=== PATIENT | female | born 1945 | race American Indian/Alaskan Native ===

== ENCOUNTER 2017-08-24 21:17 | Emergency (ER) | payer MEDICARE, MEDICAID ==
[2017-08-24 21:22] VITALS: BMI 32.9
[2017-08-24] MEDS ORDERED: HYDROmorphone 1 mg/ml ISec IM STA (21:43)
[2017-08-24 21:45] VITALS: TEMP 98.4
--- NOTE | 2017-08-24 21:53 | ED PDOC ---
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 Patient reports when she woke up and tried to get out of bed, had difficulty doing so due to pain. She notes pain does not radiating, only remains to lower back. Does not normally experience back pain and is uncertain what happened. Patient denies any falls, urinary output changes, urinary frequency, numbness/weakness to lower extremities, or any other complaints. Also, takes Percocet and has port-a-cath for iron input due to being anemic. PMD: Dr. Park Time/Duration: Other (last night and earlier this morning) Symptom Onset: Sudden Symptom Course: Unchanged Past Medical History - Provider Review Nursing Documentation Reviewed: Yes - Infectious Disease Hx of Infectious Diseases: None - Tetanus Immunization Tetanus Immunization: Unknown - Cardiac Hx Cardiac Disorders: Yes Hx Circulatory Problems: Yes Hx Congestive Heart Failure: Yes Hx Hypertension: Yes Hx Peripheral Vascular Disease: Yes - Pulmonary Hx Respiratory Disorders: Yes Hx Asthma: Yes Hx Bronchitis: Yes - Neurological Hx Neurological Disorder: Yes HX Cerebrovascular Accident: Yes (L SIDED WEAKNESS) Hx Seizures: Yes - HEENT Hx HEENT Disorder: Yes Hx Cataracts: Yes (mild cataracts per patient) - Renal Hx Renal Disorder: No - Endocrine/Metabolic Hx Endocrine Disorders: No - Hematological/Oncological Hx Blood Disorders: Yes Hx Anemia: Yes Hx Cancer: Yes (L BREAST CA) Hx Cirrhosis: Yes - Integumentary Hx Dermatological Disorder: Yes Hx Psoriasis: Yes Other/Comment: bilat hip incision line - Musculoskeletal/Rheumatological Hx Musculoskeletal Disorders: Yes Hx Arthritis: Yes Hx Falls: Yes Hx Unsteady Gait: Yes - Gastrointestinal Hx Gastrointestinal Disorders: Yes Hx Gastroesophageal Reflux: Yes - Genitourinary/Gynecological Hx Genitourinary Disorders: No - Psychiatric Hx Psychophysiologic Disorder: Yes Hx Bipolar Disorder: Yes Hx Depression: Yes Hx Emotional Abuse: No Hx Physical Abuse: No Hx Sexual Abuse: No Hx Substance Use: No Other/Comment: INSOMNIA - Surgical History Hx Joint Replacement: Yes Hx Orthopedic Surgery: Yes (Bilateral) Hx Tubal Ligation: Yes Other/Comment: R BREAST LUMPECTOMY (2012), BL HIP REPLACEMENT, BL KNEE REPLACEMENT - Anesthesia Hx Anesthesia: Yes Hx Anesthesia Reactions: No Hx Malignant Hyperthermia: No - Suicidal Assessment Feels Threatened In Home Enviroment: No Family/Social History - Physician Review Nursing Documentation Reviewed: Yes Family/Social History: No Known Family HX Smoking Status: Former Smoker Hx Alcohol Use: Yes Hx Substance Use: No Hx Substance Use Treatment: No Allergies/Home Meds Allergies/Adverse Reactions: Allergies Penicillins Allergy (Verified 08/24/17 21:24) RASH pt tested as a child Home Medications: Home Meds Medication Instructions Recorded Confirmed FLUoxetine [Prozac] 40 mg PO DAILY 07/22/13 08/24/17 Cyclobenzaprine HCl [Flexeril] 10 mg PO BID 03/02/15 08/24/17 Docusate [Colace] 200 mg PO HS 03/02/15 08/24/17 Ferrous Sulfate [Feosol] 325 mg PO TID 03/02/15 08/24/17 Furosemide [Lasix] 20 mg PO BID 03/02/15 08/24/17 Topiramate [Topamax] 50 mg PO BID 03/02/15 08/24/17 amLODIPine [Norvasc] 10 mg PO DAILY 03/02/15 08/24/17 Acetaminophen [Tylenol 325mg tab] 650 mg PO Q4 PRN 08/23/15 08/24/17 Oxycodone HCl/Acetaminophen 1 tab PO Q8 PRN 08/23/15 08/24/17 [Oxycodone-Acetaminophen 5-325] Cetirizine HCl [Zyrtec] 10 mg PO DAILY 05/18/16 08/24/17 Clobetasol Propionate/Emoll 1 foa TOP BID 05/18/16 08/24/17 [Clobetasol Emollnt 0.05% Foam] Melatonin [Melatin] 1 tab PO HS 05/18/16 08/24/17 Omeprazole 40 mg PO DAILY 05/18/16 08/24/17 Pregabalin [Lyrica] 50 mg PO HS 05/18/16 08/24/17 Propylene Glycol/Peg 400/Pf 1 drop BOTHEYES BID 05/18/16 08/24/17 [Systane Ultra 0.4-0.3% Eye Drp] Anastrozole 1 mg PO DAILY 09/09/16 08/24/17 Fluticasone/Salmeterol 250/50 1 dsk IH DAILY 09/09/16 08/24/17 [Advair Diskus 250/50] Review of Systems - Physician Review All systems were reviewed & negative as marked: Yes - Review of Systems Constitutional: absent: Other (falls) Genitourinary Female: absent: Frequency, Urine Output Changes Musculoskeletal: Back Pain (lower back pain, does not radiating elsewhere) Physical Exam Vital Signs Reviewed: Yes Vital Signs Temp Pulse Resp BP Pulse Ox 08/25/17 03:17 68 19 139/75 100 08/25/17 00:30 73 18 146/73 97 08/24/17 21:44 98.4 F 74 19 129/59 L 96 Temperature: Afebrile Blood Pressure: Normal Pulse: Regular Respiratory Rate: Normal Appearance: Positive for: Well-Appearing Pain Distress: Severe Mental Status: Positive for: Alert and Oriented X 3 - Systems Exam Head: Present: Atraumatic, Normocephalic Pupils: Present: PERRL Extroacular Muscles: Present: EOMI Conjunctiva: Present: Normal Mouth: Present: Moist Mucous Membranes Neck: Present: Normal Range of Motion Respiratory/Chest: Present: Clear to Auscultation, Good Air Exchange. No: Respiratory Distress, Accessory Muscle Use Cardiovascular: Present: Regular Rate and Rhythm, Normal S1, S2. No: Murmurs Abdomen: Present: Normal Bowel Sounds. No: Tenderness, Distention, Peritoneal Signs Back: Present: Other (diffused pain bilaterally to lower lumbar and sacral area) Upper Extremity: Present: Normal Inspection. No: Cyanosis, Edema Lower Extremity: Present: Normal Inspection. No: Edema Neurological: Present: Other (4/5 strenght to lower extremities) Skin: Present: Warm, Dry, Normal Color. No: Rashes Psychiatric: Present: Alert, Oriented x 3, Normal Insight, Normal Concentration Medical Decision Making ED Course and Treatment: 08/24/17 21:41 Impression: 72 year old female with lower back pain. Physical exam shows diffuse pain bilaterally to lower lumber and sacral area. Plan: -- Lumbar Spinal CT -- Labs -- Dilaudid -- Urinalysis -- Reassess and disposition Prior Visits: Notes and results from previous visits were reviewed. Patient was last seen in the emergency department on 09/09/2016 for fall. Patient was admitted. Progress Notes: 08/24/2017 22:[address] IMPRESSION: Asymmetric enlargement of right iliopsoas muscle compared to left with associated intramuscular hypodensity and surrounding fatty stranding. Findings most consistent with hematoma. Abscess cannot be excluded. Study is limited due to lack of intravenous contrast. Correlate clinically. Dictator: Rik Khan MD 08/25/17 01:[address] Momin, whom is covering for Dr. Park, concerning right soas muscle, and has agreed to arrange further workup as outpatient. - Lab Interpretations Lab Results: 08/25/17 00:00 08/25/17 00:00 Lab Results 08/25/17 00:05: Urine Color Yellow, Urine Appearance Clear, Urine pH 6.5, Ur Specific [place] 1.015, Urine Protein 100 H, Urine Glucose (UA) Negative, Urine Ketones Negative, Urine Blood Negative, Urine Nitrate Negative, Urine Bilirubin Negative, Urine Urobilinogen 0.2, Ur Leukocyte Esterase Negative, Urine RBC 0 - 2, Urine WBC 0 - 2, Ur Epithelial Cells 0 - 2 08/25/17 00:00: Sodium 140, Potassium 4.6, Chloride 108 H, Carbon Dioxide 22, Anion Gap 15, BUN 43 H, Creatinine 3.1 H, Est GFR ( Amer) 18, Est GFR ( Non-Af Amer) 15, Random Glucose 92, Calcium 8.2 L, Total Bilirubin 0.3, AST 29, ALT 17, Alkaline Phosphatase 142 H, Total Protein 7.8, Albumin 3.8, Globulin 4.1 , Albumin/Globulin Ratio 0.9 L 08/25/17 00:00: WBC 7.5 D, RBC 2.95 L, Hgb 8.0 L, Hct 26.9 L, MCV 91.2, MCH 27.1, MCHC 29.7 L, RDW 16.1 H, Plt Count 300, MPV 8.9, Gran % 63.8, Lymph % ( Auto) 21.7 L, [place] % (Auto) 9.2 H, Eos % (Auto) 5.2 H, Baso % (Auto) 0.1, Gran # 4.79, Lymph # 1.6, [place] # 0.7 H, Eos # 0.4, Baso # 0.01 I have reviewed the lab results: Yes - RAD Interpretation Radiology Orders: 08/24/17 21:41 LUMBAR SPINE W/O CONTRAST [CT] Stat - Medication Orders Current Medication Orders: Discontinued Medications Hydromorphone HCl (Dilaudid) 1 mg IM STAT STA Stop: 08/24/17 21:44 Last Admin: 08/24/17 21:52 Dose: 1 mg MAR Pain Assessment Document 08/24/17 21:52 RD (Rec: 08/24/17 21:53 RD [id number]) Pain Reassessment Is this a pain reassessment? No Sleep Is patient sleeping during reassessment? No Presence of Pain Presence of Pain Yes Description Description Sharp Pain Behavior Crying Irritability Facial Grimacing Screaming Aggravating Factors ADL's Changing Position Exercise/Activity Alleviating Factors Lying Supine IM Administration Charges Document 08/24/17 21:52 RD (Rec: 08/24/17 21:53 RD [id number]) Injection Site MAR Injection Site Left Deltoid Charges for Administration # of IM Administrations 1 - Scribe Statement The provider has reviewed the documentation as recorded by the Fam Gaona Provider Scribe Attestation: All medical record entries made by the Gabibchirag were at my direction and personally dictated by me. I have reviewed the chart and agree that the record accurately reflects my personal performance of the history, physical exam, medical decision making, and the department course for this patient. I have also personally directed, reviewed, and agree with the discharge instructions and disposition. Disposition/Present on Arrival - Present on Arrival Any Indicators Present on Arrival: No History of DVT/PE: No History of Uncontrolled Diabetes: No Urinary Catheter: No History of Decub. Ulcer: No History Surgical Site Infection Following: None - Disposition Have Diagnosis and Disposition been Completed?: Yes Diagnosis: Spinal stenosis at L4-L5 level Disposition: HOME/ ROUTINE Disposition Time: 03:53 Patient Plan: Discharge Condition: FAIR Discharge Instructions (ExitCare): Lumbar Spinal Stenosis (ED) Additional Instructions: discuss with your doctors any adjustments in your pain regimen to addrezs your spinal stenosis Referrals: Cresencio Park, [Primary Care Provider] - Follow up with primary Forms: [employer] (Slovenian)
--- NOTE | 2017-08-24 22:35 | CT ---
EXAM: CT Lumbar Spine Without Intravenous Contrast CLINICAL HISTORY: 72 years old, female; Pain; Low back pain TECHNIQUE: Axial computed tomography images of the lumbar spine without intravenous contrast. All CT scans at this facility use one or more dose reduction techniques, viz.: automated exposure control; ma/kV adjustment per patient size (including targeted exams where dose is matched to indication; i.e. head); or iterative reconstruction technique. Coronal and sagittal reformatted images were created and reviewed. COMPARISON: No relevant prior studies available. FINDINGS: Vertebrae: No lytic or blastic lesions. Mild retrolisthesis of L1-L2. Moderate central canal stenosis at L2-L3. Moderate to severe central canal stenosis at L3-L4. Moderate central canal stenosis at L4-L5. No acute fracture. Discs/spinal canal/neural foramina: Diffuse lumbar spinal degenerative changes. Fusion of disc space at L5-S1. Vacuum disc at L1-L2, L3-L4, and L4-L5. Soft tissues: Asymmetric increased size of the right iliopsoas muscle when compared to the left. There is stranding of the adjacent fat. Central area is mixed in density. Series 4 image #92. Vasculature: Atherosclerotic vascular disease. IMPRESSION: Asymmetric enlargement of right iliopsoas muscle compared to left with associated intramuscular hypodensity and surrounding fatty stranding. Findings most consistent with hematoma. Abscess cannot be excluded. Study is limited due to lack of intravenous contrast. Correlate clinically.
[2017-08-25 00:25] LABS: PH,URINE 6.5 (4.7-8.0); URINE BILIRUBIN NEGATIVE (NEGATIVE); URINE BLOOD NEGATIVE (NEGATIVE); URINE GLUCOSE (UA) NEGATIVE (NEGATIVE); URINE KETONE NEGATIVE (NEGATIVE); URINE LEUKOCYTE ESTERASE NEGATIVE Leu/uL (NEGATIVE); URINE PROTEIN 100 mg/dL (<30 mg/dL); URINE UROBILINOGEN 0.2 E.U./dL (<1 E.U./dL)
[2017-08-25 00:28] LABS: URINE APPEARANCE CLEAR (CLEAR); URINE COLOR YELLOW (YELLOW)
[2017-08-25 00:37] LABS: ALB/GLOB RATIO 0.9 (1.1-1.8); BASO # 0.01 K/mm3 (0.0-2.0); BASO % 0.1 % (0.0-3.0); BILIRUBIN,TOTAL 0.3 mg/dL (0.2-1.3); CALCIUM 8.2 mg/dL (8.4-10.5); EOS # 0.4 (0.0-0.7); EOS % 5.2 % (1.5-5.0); GRAN # 4.79 (1.4-6.5); GRAN % 63.8 % (50.0-68.0); HEMATOCRIT 26.9 % (36.0-48.0); LYMPH # 1.6 (1.2-3.4); LYMPH % 21.7 % (22.0-35.0); MEAN CELL VOLUME 91.2 fl (80.0-105.0); MEAN CORPUSCULAR HEMOGLOBIN 27.1 pg (25.0-35.0); MEAN CORPUSCULAR HGB CONC 29.7 g/dl (31.0-37.0); MEAN PLATELET VOLUME 8.9 fl (7.0-11.0); MONO # 0.7 (0.1-0.6); MONO % 9.2 % (1.0-6.0); POTASSIUM 4.6 mmol/L (3.6-5.0); RED CELL DISTRIBUTION WIDTH 16.1 % (11.5-14.5); TOTAL PROTEIN 7.8 g/dL (5.8-8.3); WHITE BLOOD COUNT 7.5 10^3/ul (4.5-11.0)
[2017-08-25 01:05] LABS: URINE EPITHELIAL CELLS 0 - 2 /hpf (0-5); URINE RBC 0 - 2 /hpf (0-2); URINE WBC 0 - 2 /hpf (0-6)
[2017-08-25 03:18] VITALS: BP 139/75; PULSE 68; RESP 19; O2SAT 100
== END 2017-08-25 03:17 | disposition home or self-care (01) ==
LOC: ED 21:17
DX: M48.061 Spinal stenosis, lumbar region without neurogenic claudication (principal); I50.9 Heart failure, unspecified; I10 Essential (primary) hypertension; M06.9 Rheumatoid arthritis, unspecified; Z85.3 Personal history of malignant neoplasm of breast; Z87.891 Personal history of nicotine dependence; Z88.0 Allergy status to penicillin
CPT/HCPCS: 72131; 80053; 81001; 85025; 86140; 96372; 99284; J1170

== ENCOUNTER 2018-03-03 11:44 | Emergency (ER) | payer MEDICARE, MEDICAID ==
[2018-03-03 11:51] VITALS: BMI 28.4
--- NOTE | 2018-03-03 12:06 | ED PDOC ---
Arrival/HPI - General Chief Complaint: Altered Mental Status Time Seen by Provider: 03/03/18 12:03 Historian: Patient - History of Present Illness Narrative History of Present Illness (Text): 03/03/18 12:15 72 year old female, whose PMH includes CHF, hypertension, seizure, dialysis, and renal failure, who presents to the emergency department via EMS s/p AMS. [facility] was [facility] for [facility] and tremors, mainly on the right leg. Patient is a poor historian and denies any specific complaints. She is able to answer some of my questions, but it is limited history. 03/03/18 15:35 Time/Duration: Prior to Arrival Symptom Onset: Sudden Symptom Course: Unchanged Context: Home Past Medical History - Provider Review Nursing Documentation Reviewed: Yes - Infectious Disease Hx of Infectious Diseases: None - Tetanus Immunization Tetanus Immunization: Unknown - Cardiac Hx Cardiac Disorders: Yes ([place]) Hx Congestive Heart Failure: Yes Hx Hypertension: Yes - Pulmonary Hx Asthma: Yes Hx Bronchitis: Yes - Neurological Hx Seizures: Yes - HEENT Hx HEENT Disorder: Yes Hx Cataracts: Yes (mild cataracts per patient) - Renal Hx Dialysis: Yes Date of Last Dialysis Treatment: 02/28/18 Hx Renal Failure: Yes (CKD) - Endocrine/Metabolic Hx Endocrine Disorders: No - Hematological/Oncological Hx Anemia: Yes (IRON INFUSIONS QWKLY) - Integumentary Hx Dermatological Disorder: Yes Hx Psoriasis: Yes Other/Comment: bilat hip incision line - Musculoskeletal/Rheumatological Hx Arthritis: Yes - Gastrointestinal Hx Gastritis: Yes - Genitourinary/Gynecological Hx Genitourinary Disorders: No - Psychiatric Hx Bipolar Disorder: Yes Hx Depression: Yes Hx Substance Use: Yes (Sober 7-8yrs) - Surgical History Hx Joint Replacement: Yes Hx Orthopedic Surgery: Yes (Bilateral) Hx Tubal Ligation: Yes Other/Comment: R BREAST LUMPECTOMY (2013), BL HIP REPLACEMENT, BL KNEE REPLACEMENT - Anesthesia Hx Anesthesia: Yes Hx Anesthesia Reactions: No Hx Malignant Hyperthermia: No - Suicidal Assessment Feels Threatened In Home Enviroment: No Family/Social History - Physician Review Nursing Documentation Reviewed: Yes Family/Social History: Unknown Family HX Smoking Status: Former Smoker Hx Alcohol Use: Yes (Sober 7-8yrs) Hx Substance Use: Yes (Sober 7-8yrs) Hx Substance Use Treatment: No Allergies/Home Meds Allergies/Adverse Reactions: Allergies Penicillins Allergy (Verified 02/12/18 09:21) RASH pt tested as a child Home Medications: Home Meds Medication Instructions Recorded Confirmed Acetaminophen [Tylenol 325mg tab] 650 mg PO Q4 PRN 09/17/17 03/03/18 Anastrozole 1 tab PO DAILY 09/17/17 03/03/18 Cyclobenzaprine [Flexeril] 10 mg PO BID 09/17/17 03/03/18 Fluoxetine HCl [Prozac] 40 mg PO DAILY 09/17/17 03/03/18 Fluticasone/Salmeterol 250/50 1 puff IH Q12 09/17/17 03/03/18 [Advair Diskus 250/50] hydrALAZINE [Apresoline] 50 mg PO BID 09/17/17 03/03/18 Cetirizine HCl [Wal-Zyr] 1 tab PO DAILY 03/03/18 03/03/18 Docusate [Colace] 1 cap PO DAILY 03/03/18 03/03/18 Folic Acid/Vit B Complex and C 1 tab PO DAILY 03/03/18 03/03/18 [Yumiko-Fabby Tablet] Furosemide [Lasix] 1 tab PO DAILY 03/03/18 03/03/18 Ibuprofen [Motrin Tab] 1 tab PO Q8H PRN 03/03/18 03/03/18 Melatonin [Melatin] 1 tab PO DAILY 03/03/18 03/03/18 Saliva Stimulant Comb. No.7 42 gm MM DAILY 03/03/18 03/03/18 [Biotene Oralbalance] Sevelamer Carbonate [Renvela] 1 tab PO TID 03/03/18 03/03/18 Zolpidem [Ambien] 1 tab PO HS 03/03/18 03/03/18 Review of Systems - Review of Systems Systems not reviewed;Unavailable: Altered Mental Status Constitutional: Other (tremors) Respiratory: absent: SOB Cardiovascular: absent: Chest Pain Physical Exam Vital Signs Temp Pulse Resp BP Pulse Ox 03/03/18 15:36 98.2 F 65 18 156/69 H 100 03/03/18 15:28 98.2 F 65 18 156/69 H 100 03/03/18 14:53 65 18 146/50 L 97 03/03/18 12:39 98.9 F 68 18 143/69 100 Pain Distress: None Mental Status: No: Alert and Oriented X 3 (X 1) - Systems Exam Head: Present: Atraumatic, Normocephalic Pupils: Present: PERRL Extroacular Muscles: Present: EOMI Conjunctiva: Present: Normal Respiratory/Chest: Present: Clear to Auscultation, Good Air Exchange. No: Respiratory Distress, Accessory Muscle Use, Decreased Breath Sounds Cardiovascular: Present: Regular Rate and Rhythm, Normal S1, S2. No: Murmurs Abdomen: Present: Normal Bowel Sounds. No: Tenderness, Distention, Peritoneal Signs, Rebound, Guarding Neurological: Present: GCS=15, CN II-XII Intact, Speech Normal Skin: Present: Warm, Dry, Normal Color. No: Rashes Psychiatric: Present: Alert. No: Oriented x 3 (oriented X1) Medical Decision Making ED Course and Treatment: 03/03/18 Impression: 72 year old female who is alert and oriented x1 who presents to emergency department from [facility] for AMS and tremors . consider sepsis, intracranial pathology, uremia Plan: -- CT head -- Chest X-ray -- EKG -- Labs -- Urinalysis -- Reassess and disposition Progress Notes: EKG: Ordered, reviewed, and independently interpreted the EKG. Rate : 66 BPM Rhythm : NSR Interpretation : No ST-segment elevations or depressions, no T-wave inversions, normal intervals. 03/03/18 15:35 case discusse [facility] dr gutiérrez, who saw pt bedside. pt will be transfered to [facility], for hd and admission. case discussed [facility] dr hidalgo, arrangements made for hd today. minimal leukocytosis, empiric levaquin given. 03/04/18 11:31 minimal righttremor. ?partial seizure ativan given. - Lab Interpretations Microbiology Results: Microbiology Results 03/03/18 15:38 Urine Urine Culture - Final No Growth (<1,000 CFU/ML) Lab Results: 03/03/18 12:00 03/03/18 12:00 Lab Results 03/03/18 15:38: Urine Color Light yellow, Urine Appearance Clear, Urine pH 8.0, Ur Specific [place] 1.010, Urine Protein 100 H, Urine Glucose (UA) 100 H, Urine Ketones Negative, Urine Blood Negative, Urine Nitrate Negative, Urine Bilirubin Negative, Urine Urobilinogen 0.2, Ur Leukocyte Esterase Negative, Urine RBC Negative, Urine WBC 0 - 2, Ur Epithelial Cells 0 - 2, Urine Bacteria None 03/03/18 12:00: pO2 98 H, VBG pH 7.41, VBG pCO2 46.0, VBG HCO3 29.2 H, VBG Total CO2 30.6 H, VBG O2 Sat (Calc) 98.8 H, VBG Base Excess 3.8 H, VBG Potassium 4.5, Sodium 128.0 L, Chloride 95.0 L, Glucose 111 H, Lactate 0.9, FiO2 21.0, Venous Blood Potassium 4.5 03/03/18 12:00: Sodium 130 L, Chloride 91 L, Potassium 4.4, Carbon Dioxide 27, Anion Gap 16, BUN 53 H, Creatinine 5.5 H, Est GFR ( Amer) 9, Est GFR (Non -Af Amer) 8, Random Glucose 108, Calcium 9.5, Magnesium 2.3 H, Total Bilirubin 0.3, AST 38 H D, ALT 19, Alkaline Phosphatase 89, Lactate Dehydrogenase 323 L, Total Creatine Kinase 43, Troponin I < 0.01, Total Protein 7.0, Albumin 3.6, Globulin 3.3, Albumin/Globulin Ratio 1.1 03/03/18 12:00: PT 11.7, INR 1.02, APTT 27.9 03/03/18 12:00: WBC 11.5 H D, RBC 2.54 L, Hgb 8.4 L, Hct 25.5 L, MCV 100.4 D, MCH 33.1, MCHC 32.9, RDW 14.1, Plt Count 314, MPV 8.7, Gran % 75.0 H, Lymph % ( Auto) 14.2 L, [place] % (Auto) 9.1 H, Eos % (Auto) 1.5, Baso % (Auto) 0.2, Gran # 8.64 H, Lymph # (Auto) 1.6, [place] # (Auto) 1.1 H, Eos # (Auto) 0.2, Baso # (Auto ) 0.02 I have reviewed the lab results: Yes - RAD Interpretation Radiology Orders: 03/03/18 12:15 CHEST PORTABLE [RAD] Stat 03/03/18 12:17 HEAD W/O CONTRAST [CT] Stat C D Reactor Operator: Radiologist - EKG Interpretation Interpreted by ED Physician: Yes Type: 12 lead EKG - Medication Orders Current Medication Orders: Discontinued Medications Levofloxacin/Dextrose (Levaquin 750mg) 750 mg in 150 mls @ 100 mls/hr IVPB STAT STA PRN Reason: Protocol Stop: 03/03/18 14:54 Last Admin: 03/03/18 14:19 Dose: 100 mls/hr eMAR Start Stop Document 03/03/18 14:19 ELISSA (Rec: 03/03/18 14:20 ELISSA [id number]) Intravenous Solution Start Date 03/03/18 Start Time 14:19 End Date 03/03/18 End time 15:19 Total Infusion Time 60 Lorazepam (Ativan) 0.5 mg IVP ONCE ONE PRN Reason: Protocol Stop: 03/03/18 14:55 Last Admin: 03/03/18 15:23 Dose: 0.5 mg IVP Administration Document 03/03/18 15:23 OCS (Rec: 03/03/18 15:24 OCS [id number]) Charges for Administration # of IVP Administrations 1 Ondansetron HCl (Zofran Inj) 4 mg IVP STAT STA Stop: 03/03/18 14:06 Last Admin: 03/03/18 14:19 Dose: 4 mg IVP Administration Document 03/03/18 14:19 ELISSA (Rec: 03/03/18 14:19 ELISSA [id number]) Charges for Administration # of IVP Administrations 1 - Scribe Statement The provider has reviewed the documentation as recorded by the Fam Silva Provider Gabibe Attestation: All medical record entries made by the Scribe were at my direction and personally dictated by me. I have reviewed the chart and agree that the record accurately reflects my personal performance of the history, physical exam, medical decision making, and the department course for this patient. I have also personally directed, reviewed, and agree with the discharge instructions and disposition. Disposition/Present on Arrival - Present on Arrival Any Indicators Present on Arrival: No History of DVT/PE: No History of Uncontrolled Diabetes: No Urinary Catheter: No History of Decub. Ulcer: No History Surgical Site Infection Following: None - Disposition Have Diagnosis and Disposition been Completed?: Yes Diagnosis: Tremor, Altered mental status, ESRD (end stage renal disease) Disposition: HOSPITALIZED Disposition Time: 03:00 Patient Problems: Current Active Problems Problem Status Onset Renal insufficiency Acute Condition: STABLE Forms: [employer] (Latvian)
[2018-03-03 12:40] VITALS: RESP 18
[2018-03-03 12:45] LABS: BASO # 0.02 K/mm3 (0.0-2.0); BASO % 0.2 % (0.0-3.0); EOS # 0.2 (0.0-0.7); EOS % 1.5 % (1.5-5.0); GRAN # 8.64 (1.4-6.5); HEMOGLOBIN 8.4 g/dL (12.0-16.0); LYMPH # 1.6 (1.2-3.4); LYMPH % 14.2 % (22.0-35.0); MEAN CELL VOLUME 100.4 fl (80.0-105.0); MEAN CORPUSCULAR HEMOGLOBIN 33.1 pg (25.0-35.0); MEAN CORPUSCULAR HGB CONC 32.9 g/dl (31.0-37.0); MEAN PLATELET VOLUME 8.7 fl (7.0-11.0); MONO # 1.1 (0.1-0.6); MONO % 9.1 % (1.0-6.0); RBC 2.54 10^6/uL (3.5-6.1); RED CELL DISTRIBUTION WIDTH 14.1 % (11.5-14.5); VENOUS BLOOD GAS BASE EXCESS 3.8 mmol/L (0.0-2.0); VENOUS BLOOD GAS PO2 98 mm/Hg (30-55); VENOUS BLOOD PH 7.41 (7.32-7.43); WHITE BLOOD COUNT 11.5 10^3/ul (4.5-11.0)
[2018-03-03 12:55] LABS: ALB/GLOB RATIO 1.1 (1.1-1.8); ALBUMIN 3.6 g/dL (3.0-4.8); ALT/SGPT 19 U/L (7-56); AST/SGOT 38 U/L (14-36); BLOOD UREA NITROGEN 53 mg/dL (7-21); CALCIUM 9.5 mg/dL (8.4-10.5); GFR AFRICAN-AMERICAN 9; GFR NON-AFRICAN AMERICAN 8
[2018-03-03 12:58] LABS: INR 1.02 (0.93-1.08); PARTIAL THROMBOPLASTIN TIME 27.9 Seconds (25.1-36.5); PROTHROMBIN TIME 11.7 SECONDS (9.4-12.5)
[2018-03-03 13:05] LABS: TROPONIN I < 0.01 ng/mL
[2018-03-03] MEDS ORDERED: levoFLOXacin 750 mg in D5W 750 MG/150 ML BAG IVPB STA (13:25)
--- NOTE | 2018-03-03 14:47 | CT ---
PROCEDURE: CT HEAD WITHOUT CONTRAST. HISTORY: ams COMPARISON: None available. TECHNIQUE: Axial computed tomography images were obtained through the head/brain without intravenous contrast. Radiation dose: Total exam DLP = 829 mGy-cm. This CT exam was performed using one or more of the following dose reduction techniques: Automated exposure control, adjustment of the mA and/or kV according to patient size, and/or use of iterative reconstruction technique. FINDINGS: HEMORRHAGE: No intracranial hemorrhage. BRAIN: No mass effect or edema. No atrophy or chronic microvascular ischemic changes. VENTRICLES: Unremarkable. No hydrocephalus. CALVARIUM: Unremarkable. PARANASAL SINUSES: Unremarkable as visualized. No significant inflammatory changes. MASTOID AIR CELLS: Unremarkable as visualized. No inflammatory changes. OTHER FINDINGS: None. IMPRESSION: No acute finding
[2018-03-03 14:55] VITALS: PULSE 65
--- NOTE | 2018-03-03 15:06 | RAD ---
HISTORY: Altered mental status. COMPARISON: 09/09/2016 FINDINGS: LUNGS: No active pulmonary disease. PLEURA: No significant pleural effusion identified, no pneumothorax apparent. CARDIOVASCULAR: No radiographic findings to suggest acute or significant cardiovascular disease. Venous access catheter in stable, satisfactory position. OSSEOUS STRUCTURES: No significant abnormalities. VISUALIZED UPPER ABDOMEN: Normal. OTHER FINDINGS: None. IMPRESSION: No active disease. No significant interval change compared to the prior examination(s).
[2018-03-03 15:29] VITALS: BP 156/69; TEMP 98.2; O2SAT 100
[2018-03-03 16:00] LABS: URINE APPEARANCE CLEAR (CLEAR); URINE BILIRUBIN NEGATIVE (NEGATIVE); URINE BLOOD NEGATIVE (NEGATIVE); URINE COLOR LIGHT YELLOW (YELLOW); URINE GLUCOSE (UA) 100 mg/dL (NEGATIVE); URINE LEUKOCYTE ESTERASE NEGATIVE Leu/uL (NEGATIVE); URINE PROTEIN 100 mg/dL (<30 mg/dL); URINE UROBILINOGEN 0.2 E.U./dL (<1 E.U./dL)
[2018-03-03 16:11] LABS: URINE EPITHELIAL CELLS 0 - 2 /hpf (0-5); URINE RBC NEGATIVE /hpf (0-2); URINE WBC 0 - 2 /hpf (0-6)
--- NOTE | 2018-03-04 08:01 | CARD ---
APPROVED REPORT EKG Measurement Heart [id number] <Conclusion> Normal sinus rhythm Normal ECG
== END 2018-03-03 15:36 | disposition short-term general hospital (02) ==
LOC: ED 11:44
DX: I12.0 Hypertensive chronic kidney disease with stage 5 chronic kidney disease or end stage renal disease (principal); N18.6 End stage renal disease; Z99.2 Dependence on renal dialysis; Z87.891 Personal history of nicotine dependence; R41.82 Altered mental status, unspecified; R25.1 Tremor, unspecified
CPT/HCPCS: 70450; 71045; 80053; 81001; 82550; 82803; 83615; 83735; 84484; 85025; 85610; 85730; 87040; 87086; 93005; 96365; 96375; 99285; J2060; J2405

== ENCOUNTER 2018-07-17 18:49 | Observation (INO) | payer MEDICARE, MEDICAID ==
[2018-07-17 19:06] VITALS: BMI 29.2
--- NOTE | 2018-07-17 19:31 | ED PDOC ---
Arrival/HPI - General Chief Complaint: Groin Pain Time Seen by Provider: 07/17/18 19:07 Historian: Patient - History of Present Illness Narrative History of Present Illness (Text): 07/17/18 19:30 73 year old female whose past medical history includes CVA, myocardial infarction, and CHF, who presents to the Emergency department complaining of right sided groin pain, which started last night while laying supine. Patient receives dialysis every Saturday, Saturday, and Saturday at [facility], and states that she was fine yesterday while undergoing dialysis. She states that she can't move her right lower extremity secondary to the pain, and denies pain radiating down her lower extremity. She denies any erythema or bleeding to her groin region. Patient hasn't urinated or had a bowel movement since yesterday. Of note she is allergic to penicillin. She denies any leg pain, but admits to lower extremity spasms. Patient feels cold but otherwise denies fevers, chills, cough, shortness of breath, chest pain, dyspnea on exertion, abdominal pain, nausea, vomiting, diarrhea, back pain, neck pain, headache, dizziness, or any other complaint. 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: Time/Duration: Other (Yesterday night.) Symptom Onset: Sudden Symptom Course: Unchanged Context: Home Past Medical History - Provider Review Nursing Documentation Reviewed: Yes - Infectious Disease Hx of Infectious Diseases: None - Tetanus Immunization Tetanus Immunization: Unknown - Cardiac Hx Congestive Heart Failure: Yes Hx Hypertension: Yes - Pulmonary Hx Asthma: Yes Hx Bronchitis: Yes Hx Chronic Obstructive Pulmonary Disease (COPD): Yes - Neurological HX Cerebrovascular Accident: Yes Hx Seizures: Yes - HEENT Hx HEENT Disorder: Yes Hx Cataracts: Yes (mild cataracts per patient) - Renal Hx Renal Disorder: Yes Hx Renal Failure: Yes - Endocrine/Metabolic Hx Endocrine Disorders: No Other/Comment: pvd - Hematological/Oncological Hx Anemia: Yes (IRON INFUSIONS QWKLY) - Integumentary Hx Dermatological Disorder: Yes Hx Psoriasis: Yes Other/Comment: bilat hip incision line - Musculoskeletal/Rheumatological Hx Arthritis: Yes - Gastrointestinal Hx Gastritis: Yes - Genitourinary/Gynecological Hx Genitourinary Disorders: No - Psychiatric Hx Bipolar Disorder: Yes Hx Depression: Yes Hx Substance Use: No - Surgical History Hx Joint Replacement: Yes Hx Orthopedic Surgery: Yes (Bilateral) Hx Tubal Ligation: Yes Other/Comment: R BREAST LUMPECTOMY (2013), BL HIP REPLACEMENT, BL KNEE REPLACEMENT, left AV shunt, portacath insertion - Anesthesia Hx Anesthesia: Yes Hx Anesthesia Reactions: No Hx Malignant Hyperthermia: No - Suicidal Assessment Feels Threatened In Home Enviroment: No Family/Social History - Physician Review Nursing Documentation Reviewed: Yes Family/Social History: Unknown Family HX Smoking Status: Former Smoker Hx Alcohol Use: Yes Hx Substance Use: No Hx Substance Use Treatment: No Allergies/Home Meds Allergies/Adverse Reactions: Allergies Penicillins Allergy (Verified 05/23/18 19:44) RASH pt tested as a child Home Medications: Home Meds Medication Instructions Recorded Confirmed RX: Acetaminophen [Non-Aspirin 650 mg PO Q4 PRN MDD 3 G 07/18/18 07/18/18 Pain Relief] RX: Acetaminophen [Tylenol] 325 mg PO Q4 PRN MDD 3 G 07/18/18 07/18/18 RX: Amino Acids/Protein Hydrolys 30 ml NA BID 07/18/18 07/18/18 [Pro-Stat Profile Liquid] RX: Anastrozole [Arimidex 1 mg Tab] 1 mg PO DAILY 07/18/18 07/18/18 RX: Cyclobenzaprine [Flexeril] 10 mg PO Q12 PRN 07/18/18 07/18/18 RX: Docusate Sodium [Cross' 100 mg PO DAILY 07/18/18 07/18/18 Laxative] RX: Dry Mouth Mouthwash [Biotene 30 ml MM Q8 PRN 07/18/18 07/18/18 Dry Mouth Mouthwash] RX: Fluoxetine HCl [Prozac] 40 mg PO HS 07/18/18 07/18/18 RX: Fluticasone/Salmeterol [Advair 1 each IH Q12 07/18/18 07/18/18 250-50 Diskus] RX: Folic Acid/Vit B Complex and C 1 tab PO DAILY 07/18/18 07/18/18 [Yumiko-Fabby Tablet] RX: Furosemide [Lasix] 40 mg PO DAILY 07/18/18 07/18/18 RX: Ibuprofen [Motrin Tab] 400 mg PO Q8 PRN 07/18/18 07/18/18 RX: Lidocaine 5% [Lidoderm] 1 patch TOP DAILY 07/18/18 07/18/18 RX: Mag Hydrox/Aluminum Hyd/Simeth 30 ml PO Q4 PRN 07/18/18 07/18/18 [Mag-Al Plus Xs Suspension] RX: Magnesium Oxide [Mag-Oxide 400 mg PO DAILY 07/18/18 07/18/18 Magnesium] RX: Melatonin [Melatin] 3 mg PO HS 07/18/18 07/18/18 RX: Zolpidem [Ambien] 10 mg PO HS PRN 07/18/18 07/18/18 RX: cloNIDine [Catapres] 0.2 mg PO DAILY 07/18/18 07/18/18 RX: clonazePAM [Klonopin] 0.25 mg PO BID 07/18/18 07/18/18 RX: hydrALAZINE [Apresoline] 50 mg PO Q12 07/18/18 07/18/18 Review of Systems - Physician Review All systems were reviewed & negative as marked: Yes - Review of Systems Constitutional: absent: Fevers, Night Sweats Respiratory: absent: SOB, Cough Cardiovascular: absent: Chest Pain Gastrointestinal: absent: Abdominal Pain, Diarrhea, Nausea, Vomiting Musculoskeletal: Other (right sided groin pain). absent: Back Pain, Neck Pain Physical Exam Vital Signs Reviewed: Yes Vital Signs Temp Pulse Resp BP Pulse Ox 07/17/18 18:56 98.5 F 65 18 128/47 L 98 Temperature: Afebrile Blood Pressure: Normal Pulse: Regular Respiratory Rate: Normal Appearance: Positive for: Well-Appearing Mental Status: Positive for: Alert and Oriented X 3 - Systems Exam Head: Present: Atraumatic, Normocephalic Pupils: Present: PERRL Extroacular Muscles: Present: EOMI Conjunctiva: Present: Normal Mouth: Present: Moist Mucous Membranes Neck: Present: Normal Range of Motion Respiratory/Chest: Present: Clear to Auscultation, Good Air Exchange, Other (portacath on right side of chest.). No: Respiratory Distress, Accessory Muscle Use Cardiovascular: Present: Regular Rate and Rhythm, Normal S1, S2. No: Murmurs Abdomen: Present: Tenderness (Tenderness to palpation of right inguinal area), Other (pain to right inguinal area with leg raise). No: Distention, Peritoneal Signs, Hernias (unable to feel palpable hernia in right groin region) Back: Present: Normal Inspection Upper Extremity: Present: Other (AV fistula at left upper extremity with palpable thrill.). No: Cyanosis, Edema Lower Extremity: Present: Normal Inspection. No: Edema Neurological: Present: GCS=15, CN II-XII Intact, Speech Normal Skin: Present: Warm, Dry, Normal Color. No: Rashes Psychiatric: Present: Alert, Oriented x 3, Normal Insight, Normal Concentration Medical Decision Making ED Course and Treatment: 07/17/18 19:31 Impression: 73 year old female complaining of right inguinal pain that started yesterday night. Differential Diagnosis included but are not limited to: Strangulated hernia Abscess Sepsis Plan: -- VBG -- Abdominal CT without contrast -- Labs -- Blood work -- Chest X-ray -- Toradol -- IV fluids -- Reassess and disposition Prior Visits: Notes and results from previous visits were reviewed. Progress Notes: 07/17/18 20:40 Labs reviewed with profound hyponatremia to 129 noted as well as low chloride. CXR reveals bilateral haziness with cephalization and pulmonanry congestion. Pending CT a/p. Discussed case with Dr. Amaya who will resume the patient's care. - Scribe Statement The provider has reviewed the documentation as recorded by the Scribe Justin Green Provider Scribe Attestation: All medical record entries made by the Scribe were at my direction and personally dictated by me. I have reviewed the chart and agree that the record accurately reflects my personal performance of the history, physical exam, medical decision making, and the department course for this patient. I have also personally directed, reviewed, and agree with the discharge instructions and disposition. Disposition/Present on Arrival - Present on Arrival Any Indicators Present on Arrival: No History of DVT/PE: No History of Uncontrolled Diabetes: No Urinary Catheter: No History of Decub. Ulcer: No History Surgical Site Infection Following: None - Disposition Have Diagnosis and Disposition been Completed?: Yes Diagnosis: Right groin pain Disposition: HOSPITALIZED Disposition Time: 21:00 Condition: STABLE
[2018-07-17] MEDS ORDERED: Sodium Chloride 0.9% 1,000 ML IV STA (19:42)
[2018-07-17 20:20] LABS: BASO # 0.02 K/mm3 (0.0-2.0); BASO % 0.2 % (0.0-3.0); EOS # 0.5 (0.0-0.7); EOS % 4.6 % (1.5-5.0); GRAN # 6.38 (1.4-6.5); GRAN % 63.6 % (50.0-68.0); HEMOGLOBIN 10.4 g/dL (12.0-16.0); LYMPH # 2.1 (1.2-3.4); LYMPH % 20.7 % (22.0-35.0); MEAN CELL VOLUME 102.8 fl (80.0-105.0); MEAN CORPUSCULAR HEMOGLOBIN 32.2 pg (25.0-35.0); MEAN CORPUSCULAR HGB CONC 31.3 g/dl (31.0-37.0); MEAN PLATELET VOLUME 8.6 fl (7.0-11.0); MONO # 1.1 (0.1-0.6); MONO % 10.9 % (1.0-6.0); RBC 3.23 10^6/uL (3.5-6.1); RED CELL DISTRIBUTION WIDTH 16.1 % (11.5-14.5)
[2018-07-17 20:21] LABS: VENOUS BLOOD GAS PO2 84 mm/Hg (30-55)
[2018-07-17 20:32] LABS: ALBUMIN 3.6 g/dL (3.0-4.8); CALCIUM 8.5 mg/dL (8.4-10.5)
[2018-07-17 20:52] LABS: INR 0.98; PARTIAL THROMBOPLASTIN TIME 26.2 Seconds (25.1-36.5); PROTHROMBIN TIME 11.2 SECONDS (9.4-12.5)
--- NOTE | 2018-07-17 21:29 | ED PDOC ---
Physical Exam Vital Signs Reviewed: Yes Vital Signs Temp Pulse Resp BP Pulse Ox 07/17/18 18:56 98.5 F 65 18 128/47 L 98 Temperature: Afebrile Blood Pressure: Normal Pulse: Regular Respiratory Rate: Normal Appearance: Positive for: Well-Appearing, Non-Toxic, Comfortable Pain Distress: None Mental Status: Positive for: Alert and Oriented X 3 Medical Decision Making ED Course and Treatment: 07/17/18 22:05 Patient endorsed to me by Dr. Cuba. Patient presented with right inguinal pain. Patient is pending CT results, will likely require admission. 07/18/18 01:16 patient has focal right inguinal pain, no low back pain with radicular symptoms, patient denies diarrhea or vomiting, no edema in the leg, no productive cough. on exam, it is confirmed that the patient has focal right inguinal pain at the medial anterior thigh. at this point with expand differential to rule out DVT. f urthermore, patient is having intractable pain and would require admit. Patient does not remember falling. 07/18/18 01:18 07/18/18 03:10 admit accepted by BRITT Gonzalez covering with Dr. Park. Patient to be admitted for intractable pain, s/p fall, patient continues to have and will admit for observation. - Lab Interpretations Lab Results: 07/17/18 20:00 07/17/18 20:00 Lab Results 07/17/18 20:00: Sodium 129 L, Chloride 88 L, Potassium 4.4, Carbon Dioxide 32, Anion Gap 13, BUN 42 H, Creatinine 4.7 H, Est GFR ( Amer) 11, Est GFR (Non-Af Amer) 9, Random Glucose 86, Calcium 8.5, Magnesium 2.5 H, Total Bilirubin 0.2, AST 42 H D, ALT 13, Alkaline Phosphatase 128 H, Total Protein 7.3, Albumin 3.6, Globulin 3.7, Albumin/Globulin Ratio 1.0 L 07/17/18 20:00: pO2 84 H, VBG pH 7.40, VBG pCO2 50.0, VBG HCO3 31.0 H, VBG Total CO2 32.5 H, VBG O2 Sat (Calc) 97.7 H, VBG Base Excess 5.0 H, VBG Potassium 4.3, Sodium 127.0 L, Chloride 90.0 L, Glucose 85, Lactate 0.9, FiO2 21.0, Venous Blood Potassium 4.3 07/17/18 20:00: PT 11.2, INR 0.98, APTT 26.2 07/17/18 20:00: WBC 10.0, RBC 3.23 L, Hgb 10.4 L D, Hct 33.2 L, MCV 102.8, MCH 32.2, MCHC 31.3, RDW 16.1 H, Plt Count 325, MPV 8.6, Gran % 63.6, Lymph % (Auto) 20.7 L, [place] % (Auto) 10.9 H, Eos % (Auto) 4.6, Baso % (Auto) 0.2, Gran # 6.38, Lymph # (Auto) 2.1, [place] # (Auto) 1.1 H, Eos # (Auto) 0.5, Baso # (Auto) 0.02 - RAD Interpretation Narrative RAD Interpretations (Text): 07/18/18 01:05 date of service: 07/17/[address] Abdomen without intravenous contrast History ESRD with groin pain. Comparison None. Technique Axial images of the abdomen from lung bases to iliac crest without oral or intravenous contrast enhancement. Coronal and sagittal reformats generated. Oral contrast also administered. Radiation dose: Total exam DLP = 909.14 mGy-cm. This CT exam was performed using one or more of the following dose reduction techniques: Automated exposure control, adjustment of the mA and/or kV according to patient size, and/or use of iterative reconstruction technique. Findings Lower thorax There is confluent opacity noted at the right lung base suspicious for pneumonia. Opacity is also present in the lingula. Liver Unremarkable. No gross lesion or ductal dilatation. Gallbladder and bile ducts Unremarkable. Pancreas Unremarkable. No gross lesion or ductal dilatation. Spleen Unremarkable. Adrenals: Unremarkable. No mass. Kidneys and ureters Both kidneys are moderately atrophic with evidence of cortical thinning and scarring. Vasculature Unremarkable. No aortic aneurysm. Bowel No obstruction. There are fluid-filled thick-walled loops of small bowel present consistent with enteritis. Appendix Normal appendix. Peritoneum Unremarkable. No free fluid. No free air. Lymph nodes Unremarkable. No enlarged lymph nodes. Bladder Unremarkable. Reproductive Uterus and ovaries appear atrophic. Bones Patient is status post bilateral total hip replacement. Hardware is intact. Multilevel degenerative spondylosis is present. Other Findings None. Impression 1. Moderately atrophic kidneys with evidence of cortical thinning and scarring. 2. Evidence of enteritis. 3. Confluent opacity at the right lung base suspicious for pneumonia. 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 No Description Intensity of Pain at present 8 IVP Administration Document 07/17/18 20:10 AD (Rec: 07/17/18 20:14 AD [id number]) Charges for Administration # of IVP Administrations 1 Disposition/Present on Arrival - Present on Arrival Any Indicators Present on Arrival: No History of DVT/PE: No History of Uncontrolled Diabetes: No Urinary Catheter: No History of Decub. Ulcer: No History Surgical Site Infection Following: None - Disposition Have Diagnosis and Disposition been Completed?: Yes Diagnosis: Right groin pain Disposition: HOSPITALIZED Disposition Time: 03:12 Patient Plan: Observation Condition: STABLE Forms: [employer] (Lao)
--- NOTE | 2018-07-18 05:42 | CP.PCM.PCO ---
<Orlando Chin - Last Filed: 07/18/18 05:53> Physician Communication Note - Physician Communication Note Physician Communication Note: Patient Evaluated Overnight: Addendum Addendum: 07/18/18 05:36 S: Nursing called to inform resident that patient was complaining of L arm pain; Upon evaluation pain was localized to patient's left hand. Palmar aspect of her fingers. No tenderness to palpation was noted; She reports her pain has been going on for approximately 1-2 days. As per ED Note: She states that she can't move her right lower extremity secondary to the pain, and denies pain radiating down her lower extremity. She denies any erythema or bleeding to her groin region. Patient hasn't urinated or had a bowel movement since yesterday. O: VSS reviewed; all stable; On exam: No swelling appreciated in the left arm; both extremities are warm w/ good pulses. Good palpable thrill in her left arm fistula LUE has poor temperature logging operator strength relative to RUE however she reports that this is chronic Remainder of stremght testing in RUE and LUE is 5/5 and equal There is a consistent spastic tremor in her RLE on exam; All extremities appear be well perfused w/ good cap refill however LE pulses did appear to be diminished. A/P: Judacious use of Pain Rx given she is a ESRD patient. Patient has received approx 1gm tylenol in ED AST/ALT wnl however AlkPhos elevated. Will give tylenol 325 at this time; with warm/cold compresses. <Kevin Ordonez - Last Filed: 07/18/18 06:32> Attending/Attestation - Attestation I have personally seen and examined this patient.: Yes I have fully participated in the care of the patient.: Yes I have reviewed all pertinent clinical information: Yes
--- NOTE | 2018-07-18 09:03 | RAD ---
Date of service: 07/17/2018 HISTORY: groin pain COMPARISON: 03/03/2018 FINDINGS: LUNGS: No active pulmonary disease. PLEURA: No significant pleural effusion identified, no pneumothorax apparent. CARDIOVASCULAR: No aortic atherosclerotic calcification present. Normal cardiac size. No pulmonary vascular congestion. OSSEOUS STRUCTURES: No significant abnormalities. VISUALIZED UPPER ABDOMEN: Normal. OTHER FINDINGS: Right-sided Port-A-Cath IMPRESSION: No active disease.
[2018-07-18] MEDS ORDERED: [UNRECOGNIZED DRUG - OTHER] MM PRN ×2 (09:14→10:03)
--- NOTE | 2018-07-18 09:16 | CT ---
Date of service: 07/17/2018 PROCEDURE: CT Abdomen and Pelvis without intravenous contrast HISTORY: g/o ESRD w/ groin pain COMPARISON: None. TECHNIQUE: Technique. Contrast dose: Radiation dose: Total exam DLP = 909.14 mGy-cm. This CT exam was performed using one or more of the following dose reduction techniques: Automated exposure control, adjustment of the mA and/or kV according to patient size, and/or use of iterative reconstruction technique. FINDINGS: LOWER THORAX: Mild compressive atelectatic change at the right base due to elevated right hemidiaphragm. LIVER: Unremarkable. No gross lesion or ductal dilatation. GALLBLADDER AND BILE DUCTS: Unremarkable. PANCREAS: Unremarkable. No gross lesion or ductal dilatation. SPLEEN: Unremarkable. ADRENALS: Unremarkable. No mass. KIDNEYS AND URETERS: Bilateral symmetric small kidneys suspicious for renal atrophy.. No hydronephrosis. No solid mass. VASCULATURE: Unremarkable. No aortic aneurysm. No aortic atherosclerotic calcification or mural plaque present. BOWEL: Colonic diverticulosis. No obstruction. No gross mural thickening. APPENDIX: Unremarkable. Normal appendix. PERITONEUM: Unremarkable. No free fluid. No free air. LYMPH NODES: Unremarkable. No enlarged lymph nodes. BLADDER: Unremarkable. REPRODUCTIVE: Unremarkable. BONES: No acute fracture. OTHER FINDINGS: Limited assessment of the pelvis due to streak artifact from bilateral arthroplasties. IMPRESSION: No acute pathology. Small kidneys suggestive of bilateral renal atrophy.
--- NOTE | 2018-07-18 09:41 | RAD ---
PROCEDURE: Right Hip and pelvis radiographs. HISTORY: fall COMPARISON: None. FINDINGS: BONES: Normal. No fracture. JOINTS: Bilateral hip prosthesis. No fracture or loosening. No dislocation SOFT TISSUES: Normal. OTHER FINDINGS: None. IMPRESSION: Negative study
--- NOTE | 2018-07-18 09:42 | RAD ---
Date of service: 07/18/2018 PROCEDURE: Right Femur Radiographs. HISTORY: fall COMPARISON: None. TECHNIQUE: AP and Lateral Radiographs of the right femur. FINDINGS: FEMUR: Right hip and right knee prosthesis. No fracture or loosening SOFT TISSUES: Normal. OTHER FINDINGS: None. IMPRESSION: Negative study
[2018-07-18] MEDS ORDERED: AMINO ACIDS SCH (10:00)
[2018-07-18] MEDS ORDERED: Fluticasone-Salmeterol 250-50mcg Diskus IH SCH (10:00)
[2018-07-18] MEDS ORDERED: MAGNESIUM OXIDE 400 MG PO SCH (10:00)
[2018-07-18] MEDS ORDERED: Lidocaine 5% Patch TD SCH (10:00)
[2018-07-18] MEDS ORDERED: Budesonide 0.5 mg/2 ml Inhal Susp UD IH ONE ×2 (10:00)
[2018-07-18] MEDS ORDERED: Non Formulary Medication (Folic Acid/Vit B Complex And C [Rena-Vite Tablet] 1 TAB) PO SCH (10:00)
[2018-07-18] MEDS ORDERED: PROTEIN HYDROLYS SCH (10:00)
--- NOTE | 2018-07-18 13:45 | HP ---
HISTORY OF PRESENT ILLNESS: I got a call from [facility] that she was in dialysis and had a slip off the Donovan chair. They said it was not traumatic at all, now she is back in the care home with severe right groin pain. A 73-year-old thin female with right groin pain, I am not sure why the Laboy catheter only got 100 mL out. She was telling that she could not go urinate even though she is under dialysis, difficulty and cannot move the right lower extremity. It radiates into the legs and this is a sudden acute change. We will try to find out if it is a fracture or anything, so we ordered x-rays and we actually would take too long to send her to the emergency room. She is allergic to penicillin. She is on lot of medications and she is in pain. PAST MEDICAL HISTORY: She has a past medical history of CVA, myocardial infarction, CHF, is on end-stage renal dialysis and renal failure. She has hypertension. She has a history of asthma, bronchitis, COPD, CVA, seizures, cataracts, renal failure, peripheral vascular disease, iron infusions in the past for anemia. She had a bilateral hip incision, psoriasis, arthritis, gastritis, bipolar, depression, bilateral orthopedic surgery. She had tubal ligation. She had right breast lumpectomy, bilateral hip replacements, bilateral knee replacements, left AV shunt, Port-A-Cath insertions. FAMILY HISTORY: Hypertension and diabetes in the family. SOCIAL HISTORY: Former smoker. No alcohol. No drugs. ALLERGIES: SHE IS ALLERGIC TO PENICILLIN. MEDICATIONS: She is on Tylenol, anastrozole, Flexeril, Prozac, Advair, Apresoline, Colace, Lasix, Motrin, melatonin, Renvela, Ambien, vitamins. REVIEW OF SYSTEMS: No acute vision or hearing changes. No sore throat. No chest pain or palpitations. No shortness of breath or cough. No abdominal pain. No nausea, vomiting, constipation or diarrhea. There is right hip pain and right groin pain. This is new out of the blue, status post a slip off a Donovan chair in dialysis what we were told, maybe was worse than that. I information I have. Skin from the most parts intact, which is very uncomfortable. PHYSICAL EXAMINATION: VITAL SIGNS: She has 98.5 temperature, 65 pulse, she has 18 respiratory rate, 120/47 blood pressure, 90% O2 sat. GENERAL: She is uncomfortable. Alert and oriented x3. She is in pain in the right groin. HEENT: Head is atraumatic, normocephalic. Extraocular muscles are intact. Pupils are reactive to light. Throat is moist. NECK: Supple. HEART: Regular rate. Normal S1, S2. LUNGS: Decreased breath sounds bilaterally. No wheezes, rhonchi or rales. ABDOMEN: Soft, nondistended in the right inguinal area. Positive bowel sounds. No guarding. No rebound. EXTREMITIES: She has an AV fistula in left upper extremity with palpable thrill and that is for dialysis access. No edema of the extremities. NEUROLOGIC: She has GCS of 15. Cranial nerves II-XII grossly intact. Speech is normal. She is uncomfortable. SKIN: Warm and dry. No apparent rashes or ulcers appreciated. Alert and oriented x3. LYMPHS: Thyroid midline. No palpable appreciable lymphadenopathy. DIAGNOSTICS AND LABORATORY DATA: She had multiple tests ordered, but only one test is resulted and that is a chest x-ray. Now, there is no active disease. She had a CAT scan of the abdomen and pelvis that was actually done more than 12 hours ago, I do not know the result. There was an extremity ultrasound, abdomen and pelvis x-ray and a femur x-ray, all not resulted yet, waiting for that to make a decision and what to do with her. She has 129 sodium, potassium 4.4, BUN 42, creatinine 4.7 on dialysis, GFR is 9, sugar is 86, calcium is 8.5, magnesium 2.5, total bili is 0.2, AST is 42, ALT is 30, alk phos 128, total protein is 7.3, albumin is 3.6. Lactate is 0.9. INR is 0.98. White count is 10, hemoglobin 10.4, hematocrit 33.2 and platelets of 325. ASSESSMENT AND PLAN: I consulted renal, I am not sure if I need to consult Orthopedics or not. She will be on pain meds and back on her regular medications. She will have renal diet, and once they get the results of these x-rays and CAT scans, I know what to do with her. She is on pain medications right now. Cresencio Park DO RAJ
--- NOTE | 2018-07-18 15:34 | CP.PCM.CON ---
History of Present Illness - History of Present Illness History of Present Illness: pt of Dr Praveen Booth seen and examined today HD today as MWF d/w team Past Patient History - Infectious Disease Hx of Infectious Diseases: None - Tetanus Immunizations Tetanus Immunization: Unknown - Past Medical History & Family History Past Medical History?: Yes - Past Social History Smoking Status: Never Smoked - CARDIAC Hx Congestive Heart Failure: Yes Hx Hypertension: Yes - PULMONARY Hx Asthma: Yes Hx Bronchitis: Yes Hx Chronic Obstructive Pulmonary Disease (COPD): Yes - NEUROLOGICAL HX Cerebrovascular Accident: Yes Hx Seizures: Yes - HEENT Hx HEENT Problems: Yes Hx Cataracts: Yes (mild cataracts per patient) - RENAL Hx Chronic Kidney Disease: Yes Hx Renal Failure: Yes - ENDOCRINE/METABOLIC Hx Endocrine Disorders: No Other/Comment: pvd - HEMATOLOGICAL/ONCOLOGICAL Hx Anemia: Yes (IRON INFUSIONS QWKLY) - INTEGUMENTARY Hx Dermatological Problems: Yes Hx Psoriasis: Yes Other/Comment: bilat hip incision line - MUSCULOSKELETAL/RHEUMATOLOGICAL Hx Arthritis: Yes Hx Falls: Yes - GASTROINTESTINAL Hx Gastrointestinal Disorders: Yes - GENITOURINARY/GYNECOLOGICAL Hx Genitourinary Disorders: No - PSYCHIATRIC Hx Bipolar Disorder: Yes Hx Depression: Yes - SURGICAL HISTORY Hx Joint Replacement: Yes Hx Orthopedic Surgery: Yes (Bilateral) Other/Comment: R BREAST LUMPECTOMY (2012), BL HIP REPLACEMENT, BL KNEE REPLAC EMENT, left AV shunt, portacath insertion - ANESTHESIA Hx Anesthesia: Yes Hx Anesthesia Reactions: No Hx Malignant Hyperthermia: No Meds Allergies/Adverse Reactions: Allergies Allergy/AdvReac Type Severity Reaction Status Date / Time Penicillins Allergy RASH Verified 05/23/18 19:44 - Medications Medications: Current Medications Acetaminophen (Tylenol 325mg Tab) 650 mg PO Q4 PRN PRN Reason: Fever >100.4 F Anastrozole (Arimidex 1 Mg Tab) 1 mg PO DAILY POLLY Arformoterol Tartrate (Brovana) 15 mcg IH [id number] POLLY Budesonide (Pulmicort Respules) 0.5 mg IH [id number] POLLY Clonazepam (Klonopin) 0.25 mg PO BID [facility] Last Admin: 07/18/18 11:15 Dose: 0.25 mg Clonidine HCl (Catapres) 0.2 mg PO DAILY POLLY Cyclobenzaprine HCl (Flexeril) 10 mg PO Q12 PRN PRN Reason: Muscle spasm Docusate Sodium (Colace) 100 mg PO DAILY POLLY Fluoxetine HCl (Prozac) 40 mg PO HS POLLY Hydralazine HCl (Apresoline) 50 mg PO Q12 POLLY Ibuprofen (Motrin Tab) 400 mg PO Q8 PRN PRN Reason: Pain, Mild (1-3) Ketorolac Tromethamine (Toradol) 30 mg IVP Q6H PRN PRN Reason: Pain, moderate (4-7) Lidocaine (Lidoderm) 1 ea TD DAILY POLLY Non-Formulary Medication (Folic Acid/Vit B Complex And C [Yumiko-Fabby Tablet]) 1 tab PO DAILY POLLY Non-Formulary Medication (Dry Mouth Mouthwash) 30 ml MM Q8 PRN PRN Reason: Dry mouth Zolpidem Tartrate (Ambien) 5 mg PO HS PRN PRN Reason: Insomnia Results - Vital Signs Recent Vital Signs: Last Vital Signs Temp 98.2 F 07/18/18 08:16 Pulse 65 07/18/18 08:16 Resp 20 07/18/18 08:16 BP 164/76 H 07/18/18 08:16 Pulse Ox 99 07/18/18 08:16 - Labs Result Diagrams: 07/17/18 20:00 07/17/18 20:00 Labs: Laboratory Results - last 24 hr 07/17/18 07/17/18 07/17/18 20:00 20:00 20:00 WBC 10.0 RBC 3.23 L Hgb 10.4 L D Hct 33.2 L MCV 102.8 MCH 32.2 MCHC 31.3 RDW 16.1 H Plt Count 325 MPV 8.6 Gran % 63.6 Lymph % (Auto) 20.7 L [place] % (Auto) 10.9 H Eos % (Auto) 4.6 Baso % (Auto) 0.2 Gran # 6.38 Lymph # (Auto) 2.1 [place] # (Auto) 1.1 H Eos # (Auto) 0.5 Baso # (Auto) 0.02 PT 11.2 INR 0.98 APTT 26.2 pO2 84 H VBG pH 7.40 VBG pCO2 50.0 VBG HCO3 31.0 H VBG Total CO2 32.5 H VBG O2 Sat (Calc) 97.7 H VBG Base Excess 5.0 H VBG Potassium 4.3 Sodium 127.0 L Chloride 90.0 L Glucose 85 Lactate 0.9 FiO2 21.0 Potassium Carbon Dioxide Anion Gap BUN Creatinine Est GFR ( Amer) Est GFR (Non-Af Amer) Random Glucose Calcium Magnesium Total Bilirubin AST ALT Alkaline Phosphatase Total Protein Albumin Globulin Albumin/Globulin Ratio Venous Blood Potassium 4.3 07/17/18 20:00 WBC RBC Hgb Hct MCV MCH MCHC RDW Plt Count MPV Gran % Lymph % (Auto) [place] % (Auto) Eos % (Auto) Baso % (Auto) Gran # Lymph # (Auto) [place] # (Auto) Eos # (Auto) Baso # (Auto) PT INR APTT pO2 VBG pH VBG pCO2 VBG HCO3 VBG Total CO2 VBG O2 Sat (Calc) VBG Base Excess VBG Potassium Sodium 129 L Chloride 88 L Glucose Lactate FiO2 Potassium 4.4 Carbon Dioxide 32 Anion Gap 13 BUN 42 H Creatinine 4.7 H Est GFR ( Amer) 11 Est GFR (Non-Af Amer) 9 Random Glucose 86 Calcium 8.5 Magnesium 2.5 H Total Bilirubin 0.2 AST 42 H D ALT 13 Alkaline Phosphatase 128 H Total Protein 7.3 Albumin 3.6 Globulin 3.7 Albumin/Globulin Ratio 1.0 L Venous Blood Potassium
[2018-07-18] MEDS: Non Formulary Medication (Folic Acid/Vit B Complex And C [Rena-Vite Tablet] 1 TAB) PO SCH (15:54)
[2018-07-18 18:06] LABS: BASO # 0.02 K/mm3 (0.0-2.0); BASO % 0.2 % (0.0-3.0); EOS # 0.2 (0.0-0.7); EOS % 2.6 % (1.5-5.0); GRAN # 6.46 (1.4-6.5); GRAN % 76.4 % (50.0-68.0); HEMOGLOBIN 11.4 g/dL (12.0-16.0); LYMPH # 0.9 (1.2-3.4); LYMPH % 10.9 % (22.0-35.0); MEAN CELL VOLUME 101.9 fl (80.0-105.0); MEAN CORPUSCULAR HEMOGLOBIN 31.6 pg (25.0-35.0); MONO # 0.8 (0.1-0.6); MONO % 9.9 % (1.0-6.0); RBC 3.61 10^6/uL (3.5-6.1); RED CELL DISTRIBUTION WIDTH 15.9 % (11.5-14.5); WHITE BLOOD COUNT 8.5 10^3/uL (4.5-11.0)
[2018-07-18 18:21] LABS: TROPONIN I < 0.01 ng/mL
[2018-07-18 18:24] LABS: ALBUMIN 3.7 g/dL (3.0-4.8); ALT/SGPT 23 U/L (7-56); AST/SGOT 26 U/L (14-36); BLOOD UREA NITROGEN 16 mg/dL (7-21); CALCIUM 8.9 mg/dL (8.4-10.5); GFR NON-AFRICAN AMERICAN 19
[2018-07-18] MEDS: Arformoterol 15 mcg/2 ml Inh Sol IH SCH (19:37)
[2018-07-18] MEDS: Budesonide 0.5 mg/2 ml Inhal Susp UD IH SCH (19:38)
[2018-07-18] MEDS ORDERED: Non Formulary Medication (Fluoxetine Hcl [Prozac] 40 MG) PO SCH (22:00)
[2018-07-18 23:00] VITALS: RESP 18; TEMP 98.3; O2SAT 97
[2018-07-19] MEDS: Budesonide 0.5 mg/2 ml Inhal Susp UD IH SCH (07:13)
[2018-07-19] MEDS: Arformoterol 15 mcg/2 ml Inh Sol IH SCH (07:13)
[2018-07-19 07:21] LABS: HEMOGLOBIN 10.3 g/dL (12.0-16.0); MEAN CORPUSCULAR HGB CONC 30.1 g/dl (31.0-37.0); MEAN PLATELET VOLUME 8.7 fl (7.0-11.0); RBC 3.32 10^6/uL (3.5-6.1); RED CELL DISTRIBUTION WIDTH 16.2 % (11.5-14.5); WHITE BLOOD COUNT 8.8 10^3/uL (4.5-11.0)
[2018-07-19 07:33] LABS: ALBUMIN 3.5 g/dL (3.0-4.8); CALCIUM 8.7 mg/dL (8.4-10.5)
--- NOTE | 2018-07-19 07:42 | CARD ---
APPROVED REPORT Date of service: 07/18/2018 EKG Measurement Heart [id number] [id number] <Conclusion> Normal sinus rhythm Prolonged QT Abnormal ECG
[2018-07-19 08:16] VITALS: BP 157/71; PULSE 82
[2018-07-19] MEDS ORDERED: Lidocaine 5% Patch TD SCH (10:00)
[2018-07-19] MEDS: Non Formulary Medication (Folic Acid/Vit B Complex And C [Rena-Vite Tablet] 1 TAB) PO SCH (10:33)
[2018-07-19] MEDS ORDERED: Influenza Vaccine 60 mcg/0.5 mL SYR (4YR UP) IM ONE (15:36)
--- NOTE | 2018-07-19 16:09 | DS ---
HISTORY OF PRESENT ILLNESS: We thought of discharging her yesterday, but again she stayed. She is doing well this morning, slept well, eats well. She is doing better than when she came in, the pain is much better. PHYSICAL EXAMINATION: VITAL SIGNS: Temperature 98.3, 82 pulse, 157/71 blood pressure, 18 respiratory rate, 97% O2 sat on room air. HEENT: Head is atraumatic, normocephalic. HEART: Regular rate. LUNGS: Clear to auscultation. ABDOMEN: Soft. EXTREMITIES: No edema. She is doing better. She is on Ambien, Apresoline, Arimidex, Brovana, Catapres, Colace, dry mouthwash, Flexeril, vitamins, Klonopin, lidocaine, ibuprofen, Prozac, Pulmicort, Toradol and Tylenol. LABORATORY DATA: She has 135 sodium, potassium 3.8, BUN 26, creatinine 3.8 on dialysis, GFR is 12, sugar is 85, calcium is 8.7, total bili is 0.3, AST is 31, ALT is 16, alk phos 95. Troponin I is less than 0.01. I believe she had chest pain last night and that is probably why she stayed. Total protein is 7.1. White count 8.8, hemoglobin 10.3, hematocrit 34.2, platelets of 333. She is doing better this morning. We are discharging her back to [place] where she lives permanently. She had abdominal pain, chest pain, groin pain. Cresencio Park DO
[2018-07-21 09:31] LABS: HEPATITIS B SURFACE AG Negative (NEGATIVE)
[2018-07-21 09:39] LABS: HEPATITIS B CORE AB NEGATIVE (NEGATIVE)
== END 2018-07-19 16:03 ==
LOC: ED 18:49 → ERH 07-18 03:12 → 5RSO 07-18 04:31
PROVIDERS: ADMIT Family Medicine; ATTEND Family Medicine
DX: R10.30 Lower abdominal pain, unspecified (principal); R07.9 Chest pain, unspecified; I13.2 Hypertensive heart and chronic kidney disease with heart failure and with stage 5 chronic kidney disease, or end stage renal disease; N18.6 End stage renal disease; I50.9 Heart failure, unspecified; K52.9 Noninfective gastroenteritis and colitis, unspecified; J44.9 Chronic obstructive pulmonary disease, unspecified; F31.9 Bipolar disorder, unspecified; I73.9 Peripheral vascular disease, unspecified; I25.2 Old myocardial infarction; Z99.2 Dependence on renal dialysis; Z87.891 Personal history of nicotine dependence; Z86.73 Personal history of transient ischemic attack (TIA), and cerebral infarction without residual deficits; Z88.0 Allergy status to penicillin
CPT/HCPCS: 36415; 71045; 73502; 73552; 74176; 80053; 82803; 83735; 84100; 84484; 85025; 85027; 85610; 85730; 86705; 87340; 93005; 93971; 94640; 94760; 96374; 96376; 99283; G0378; J1885; J7030

== ENCOUNTER 2018-07-21 12:26 | Emergency (ER) | payer MEDICARE, MEDICAID ==
[2018-07-21] MEDS ORDERED: Morphine 4 mg/ml ISec IVP STA (13:18)
--- NOTE | 2018-07-21 13:25 | ED PDOC ---
Arrival/HPI - General Chief Complaint: Abdominal Pain Time Seen by Provider: 07/21/18 13:17 Historian: Patient - History of Present Illness Narrative History of Present Illness (Text): 07/21/18 13:18 73 year old female, with past medical history of anemia, COPD, CHF, hypertension and renal failure on dialysis M/W/F, presents to the Emergency department from [facility] complaining of epigastric and right upper quadrant abdominal pain since this morning. Patient informs associated vomiting with 1 episode of brown vomitus prior to arrival. Patient informs poor bowel movement yesterday but denies any black/tarry stool. Patient denies any other associated somatic complaints. Patient denies any fevers, chills, headache, dizziness, chest pain, shortness of breath, dyspnea on exertion, cough, diarrhea, back pain, neck pain, or any other complaints. PMD: Dr. Park Time/Duration: 4-6 hours Symptom Onset: Gradual Symptom Course: Unchanged Quality: Aching Activities at Onset: Light Context: Other ([facility]) Past Medical History - Provider Review Nursing Documentation Reviewed: Yes - Infectious Disease Hx of Infectious Diseases: None - Tetanus Immunization Tetanus Immunization: Unknown - Reproductive Menopause: Yes - Cardiac Hx Congestive Heart Failure: Yes Hx Hypertension: Yes - Pulmonary Hx Asthma: Yes Hx Bronchitis: Yes Hx Chronic Obstructive Pulmonary Disease (COPD): Yes - Neurological HX Cerebrovascular Accident: Yes Hx Seizures: Yes - HEENT Hx HEENT Disorder: Yes Hx Cataracts: Yes (mild cataracts per patient) - Renal Hx Renal Disorder: Yes Hx Renal Failure: Yes - Endocrine/Metabolic Hx Endocrine Disorders: No Other/Comment: pvd - Hematological/Oncological Hx Anemia: Yes (IRON INFUSIONS QWKLY) - Integumentary Hx Dermatological Disorder: Yes Hx Psoriasis: Yes Other/Comment: bilat hip incision line - Musculoskeletal/Rheumatological Hx Arthritis: Yes - Gastrointestinal Hx Gastritis: Yes - Genitourinary/Gynecological Hx Genitourinary Disorders: No - Psychiatric Hx Bipolar Disorder: Yes Hx Depression: Yes Hx Substance Use: No - Surgical History Hx Joint Replacement: Yes Hx Orthopedic Surgery: Yes (Bilateral) Hx Tubal Ligation: Yes Other/Comment: R BREAST LUMPECTOMY (2012), BL HIP REPLACEMENT, BL KNEE REPLACEMENT, left AV shunt, portacath insertion - Anesthesia Hx Anesthesia: Yes Hx Anesthesia Reactions: No Hx Malignant Hyperthermia: No - Suicidal Assessment Feels Threatened In Home Enviroment: No Family/Social History - Physician Review Nursing Documentation Reviewed: Yes Family/Social History: Unknown Family HX Smoking Status: Former Smoker Hx Alcohol Use: Yes Hx Substance Use: No Hx Substance Use Treatment: No Allergies/Home Meds Allergies/Adverse Reactions: Allergies Penicillins Allergy (Verified 05/23/18 19:44) RASH pt tested as a child Home Medications: Home Meds Medication Instructions Recorded Confirmed Acetaminophen [Non-Aspirin Pain 650 mg PO Q4 PRN MDD 3 G 07/18/18 07/18/18 Relief] Acetaminophen [Tylenol] 325 mg PO Q4 PRN MDD 3 G 07/18/18 07/18/18 Amino Acids/Protein Hydrolys 30 ml NA BID 07/18/18 07/18/18 [Pro-Stat Profile Liquid] Anastrozole [Arimidex 1 mg Tab] 1 mg PO DAILY 07/18/18 07/18/18 Cyclobenzaprine [Flexeril] 10 mg PO Q12 PRN 07/18/18 07/18/18 Docusate Sodium [Cross' 100 mg PO DAILY 07/18/18 07/18/18 Laxative] Dry Mouth Mouthwash [Biotene Dry 30 ml MM Q8 PRN 07/18/18 07/18/18 Mouth Mouthwash] Fluoxetine HCl [Prozac] 40 mg PO HS 07/18/18 07/18/18 Fluticasone/Salmeterol [Advair 1 each IH Q12 07/18/18 07/18/18 250-50 Diskus] Folic Acid/Vit B Complex and C 1 tab PO DAILY 07/18/18 07/18/18 [Yumiko-Fabby Tablet] Furosemide [Lasix] 40 mg PO DAILY 07/18/18 07/18/18 Ibuprofen [Motrin Tab] 400 mg PO Q8 PRN 07/18/18 07/18/18 Lidocaine 5% [Lidoderm] 1 patch TOP DAILY 07/18/18 07/18/18 Mag Hydrox/Aluminum Hyd/Simeth 30 ml PO Q4 PRN 07/18/18 07/18/18 [Mag-Al Plus Xs Suspension] Magnesium Oxide [Mag-Oxide 400 mg PO DAILY 07/18/18 07/18/18 Magnesium] Melatonin [Melatin] 3 mg PO HS 07/18/18 07/18/18 Zolpidem [Ambien] 10 mg PO HS PRN 07/18/18 07/18/18 cloNIDine [Catapres] 0.2 mg PO DAILY 07/18/18 07/18/18 clonazePAM [Klonopin] 0.25 mg PO BID 07/18/18 07/18/18 hydrALAZINE [Apresoline] 50 mg PO Q12 07/18/18 07/18/18 Review of Systems - Physician Review All systems were reviewed & negative as marked: Yes - Review of Systems Constitutional: absent: Fevers Cardiovascular: absent: Chest Pain Gastrointestinal: Abdominal Pain, Nausea, Vomiting. absent: Diarrhea Physical Exam - Physical Exam Narrative Physical Exam (Text): 07/21/18 13:26 Constitutional: No acute distress. Head: Normocephalic. Atraumatic. Eyes: PERRL. ENT: Moist mucous membranes. Neck: Supple. Cardiovascular: Regular rate. Chest: No tenderness. Respiratory: Clear to auscultation bilaterally. GI: Epigastric and right upper quadrant tenderness. Back: No CVA tenderness. Musculoskeletal: No tenderness or swelling of extremities. Skin: No rash. Neurologic: Alert, no focal deficit. Vital Signs Reviewed: Yes Vital Signs Temp Pulse Resp BP Pulse Ox 07/21/18 12:53 97.9 F 82 18 148/45 L 98 Temperature: Afebrile Blood Pressure: Hypotensive Pulse: Regular Respiratory Rate: Normal Appearance: Positive for: Well-Appearing, Non-Toxic, Comfortable Pain Distress: None Mental Status: Positive for: Alert and Oriented X 3 Medical Decision Making ED Course and Treatment: 07/21/18 13:26 Impression: 73 year old female presents to the ED complaining of abdominal pain and vomiting. Plan: -- CT of Abdomen/Pelvis -- Labs -- Morphine -- Zofran -- Reassess and disposition Prior Visits: Notes and results from previous visits were reviewed. Progress Notes: 07/21/18 18:46 Dr. Park accepts patient to his service. Consulted Dr. Clark for renal. Awaiting CT. Signed out to ED night team. - RAD Interpretation Radiology Orders: 07/21/18 13:18 ABD & PELVIS IV CONTRAST ONLY [CT] Stat - Medication Orders Current Medication Orders: Morphine Sulfate (Morphine) 4 mg IVP STAT STA Stop: 07/21/18 13:19 Ondansetron HCl (Zofran Inj) 8 mg IVP STAT STA Stop: 07/21/18 13:19 - Scribe Statement The provider has reviewed the documentation as recorded by the Scribe Sarah Wilson. All medical record entries made by the Scribe were at my direction and personally dictated by me. I have reviewed the chart and agree that the record accurately reflects my personal performance of the history, physical exam, medical decision making, and the department course for this patient. I have also personally directed, reviewed, and agree with the discharge instructions and disposition. Disposition/Present on Arrival - Present on Arrival Any Indicators Present on Arrival: No History of DVT/PE: No History of Uncontrolled Diabetes: No Urinary Catheter: No History of Decub. Ulcer: No History Surgical Site Infection Following: None - Disposition Have Diagnosis and Disposition been Completed?: No Diagnosis: Abdominal pain Disposition Time: 18:47 Condition: STABLE Referrals: Cresencio Park, [Primary Care Provider] - Follow up with primary Forms: [employer] D[employer] (Serbian)
[2018-07-21 16:06] LABS: BASO # 0.02 K/mm3 (0.0-2.0); BASO % 0.2 % (0.0-3.0); EOS # 0.3 (0.0-0.7); GRAN # 7.09 (1.4-6.5); HEMOGLOBIN 10.7 g/dL (12.0-16.0); LYMPH # 1.4 (1.2-3.4); LYMPH % 14.5 % (22.0-35.0); MEAN CELL VOLUME 101.5 fl (80.0-105.0); MEAN CORPUSCULAR HEMOGLOBIN 31.7 pg (25.0-35.0); MEAN CORPUSCULAR HGB CONC 31.2 g/dl (31.0-37.0); MEAN PLATELET VOLUME 9.3 fl (7.0-11.0); MONO # 0.9 (0.1-0.6); MONO % 9.3 % (1.0-6.0); RBC 3.38 10^6/uL (3.5-6.1); WHITE BLOOD COUNT 9.7 10^3/uL (4.5-11.0)
[2018-07-21 16:34] LABS: ALBUMIN 3.7 g/dL (3.0-4.8); CALCIUM 9.1 mg/dL (8.4-10.5)
--- NOTE | 2018-07-21 17:07 | CARD ---
APPROVED REPORT Date of service: 07/21/2018 EKG Measurement Heart [id number] [place] [id number] <Conclusion> Normal sinus rhythm Normal ECG
[2018-07-21] MEDS ORDERED: Morphine 2 mg/ml ISec IVP STA (17:28)
[2018-07-21] MEDS ORDERED: Iohexol 350 MG/100 ML VIAL ONE (17:34)
--- NOTE | 2018-07-21 19:35 | ED PDOC ---
Physical Exam Vital Signs Temp Pulse Resp BP Pulse Ox 07/21/18 19:30 83 130/55 L 07/21/18 18:05 84 18 129/51 L 95 07/21/18 12:53 97.9 F 82 18 148/45 L 98 Medical Decision Making ED Course and Treatment: 07/21/18 19:35 Patient endorsed to me by . awaiting CT scan result prior to final disposition. Patient seen by PMD . Slated for admission. 07/21/18 22:20 CT Abdomen and Pelvis: Chest: The minimal interstitial changes in the right lung base is stable. Abdomen: The kidneys are small in size bilaterally. There is no evidence of hydronephrosis or nephrolithiasis. The liver, spleen, pancreas, gallbladder and adrenal glands are unremarkable. The aorta demonstrates normal caliber and contour. There is no abdominal lymphadenopathy or ascites. The mild fluid distention small bowel and minimal bowel wall thickening in the small bowel has slightly improved since the prior study. There is no evidence of obstruction. Pelvis: The colon is unremarkable, with no obstructive or inflammatory changes. There is moderate sigmoid diverticulosis, without evidence of diverticulitis. The appendix is normal. There is a well loculated low attenuation structure in the left iliopsoas muscle, measuring 3.4 x 3.0 cm most compatible with bursitis. This is stable in size and appearance to the prior study. The urinary bladder is within normal limits. There is no pelvic lymphadenopathy or ascites. The other pelvic structures appear unremarkable. Bones: There are no suspicious osseous abnormalities seen. Severe multilevel degenerative disc disease is seen throughout the lumbar spine, most severe at L5/S1. Impression: 1. Low attenuation structure in the left iliopsoas muscle, measuring 3.4 x 3.0 cm most compatible with bursitis, stable since the prior study. 2. Mild improvement of small bowel enteritis. No evidence of bowel obstruction. 3. Stable sigmoid diverticulosis without evidence of diverticulitis. 4. Mild chronic atrophy of the kidneys bilaterally without evidence of hydronephrosis or nephrolithiasis. 5. Mild stable atelectasis/infiltrate in the right lower lobe. 6. The other CT findings are grossly stable. Electronically signed on Jul 21, 2018 10:15:33 PM EST by: Kwadwo Gruber M.D., HUGO Certified By ABR [employer] [facility] Fellowship Trained MRI and CT Specialist - Lab Interpretations Lab Results: 07/21/18 16:00 07/21/18 16:00 Lab Results 07/21/18 16:00: Sodium 134, Potassium 5.1 H, Chloride 98, Carbon Dioxide 25, Anion Gap 17, BUN 55 H, Creatinine 6.3 H, Est GFR ( Amer) 8, Est GFR (Non-Af Amer) 7, Random Glucose 76, Calcium 9.1, Total Bilirubin 0.5, AST 34, ALT 15, Alkaline Phosphatase 89, Total Protein 7.2, Albumin 3.7, Globulin 3.6, Albumin/Globulin Ratio 1.0 L, Lipase 140 07/21/18 16:00: WBC 9.7, RBC 3.38 L, Hgb 10.7 L, Hct 34.3 L, MCV 101.5, MCH 31.7, MCHC 31.2, RDW 16.0 H, Plt Count 384, MPV 9.3, Gran % 73.0 H, Lymph % (Auto) 14.5 L, [place] % (Auto) 9.3 H, Eos % (Auto) 3.0, Baso % (Auto) 0.2, Gran # 7.09 H, Lymph # (Auto) 1.4, [place] # (Auto) 0.9 H, Eos # (Auto) 0.3, Baso # (Auto) 0.02 - RAD Interpretation Radiology Orders: 07/21/18 13:18 ABD & PELVIS IV CONTRAST ONLY [CT] Stat Sustainability Officer: Radiologist - Medication Orders Current Medication Orders: Arformoterol Tartrate (Brovana) 15 mcg IH [id number] [facility] Budesonide (Pulmicort Respules) 0.5 mg IH [id number] [facility] Clonazepam (Klonopin) 0.25 mg PO BID [facility]; Protocol Clonidine HCl (Catapres) 0.2 mg PO BID [facility] Last Admin: 07/21/18 19:30 Dose: 0.2 mg MAR Pulse and Blood Pressure Document 07/21/18 19:30 MR (Rec: 07/21/18 19:31 MR [id number]) Pulse Pulse Rate (60-90 beats/min) 83 Blood Pressure Blood Pressure (100/60-150/90 mm Hg) 130/55 Docusate Sodium (Colace) 100 mg PO DAILY [facility] Fluoxetine HCl (Prozac) 40 mg PO HS POLLY Morphine Sulfate (Morphine) 2 mg IVP Q3H PRN PRN Reason: Pain, moderate (4-7) Ondansetron HCl (Zofran Inj) 4 mg IVP Q6 PRN PRN Reason: Nausea/Vomiting Pantoprazole Sodium (Protonix Inj) 40 mg IVP DAILY POLLY Discontinued Medications Morphine Sulfate (Morphine) 4 mg IVP STAT STA Stop: 07/21/18 13:19 Last Admin: 07/21/18 16:21 Dose: 4 mg MAR Pain Assessment Document 07/21/18 16:21 MR (Rec: 07/21/18 16:21 MR [id number]) Pain Reassessment Is this a pain reassessment? Yes Sleep Is patient sleeping during reassessment? No Presence of Pain Presence of Pain Yes Location Upper or Lower Upper Pain Location Body Site Abdomen Description Description Constant Intensity of Pain at present 10 Pain Behavior Moaning Crying Facial Grimacing Aggravating Factors Changing Position IVP Administration Document 07/21/18 16:21 MR (Rec: 07/21/18 16:21 MR [id number]) Charges for Administration # of IVP Administrations 1 Morphine Sulfate (Morphine) 1 mg IVP STAT STA Stop: 07/21/18 17:29 Last Admin: 07/21/18 19:31 Dose: 1 mg MAR Pain Assessment Document 07/21/18 19:31 MR (Rec: 07/21/18 19:32 MR [id number]) Pain Reassessment Is this a pain reassessment? Yes Sleep Is patient sleeping during reassessment? No Presence of Pain Presence of Pain Yes Pain Scale Used Protocol: PSCALES Pain Scale Used Numeric Location Upper or Lower Upper Pain Location Body Site Abdomen Description Description Constant Intensity of Pain at present 6 Pain Behavior Facial Grimacing Alleviating Factors/Management Medication Techniques Alleviating Factors Medication IVP Administration Document 07/21/18 19:31 MR (Rec: 07/21/18 19:32 MR [id number]) Charges for Administration # of IVP Administrations 1 Ondansetron HCl (Zofran Inj) 8 mg IVP STAT STA Stop: 07/21/18 13:19 Last Admin: 07/21/18 16:21 Dose: 8 mg IVP Administration Document 07/21/18 16:21 MR (Rec: 07/21/18 16:21 MR [id number]) Charges for Administration # of IVP Administrations 1 - Scribe Statement The provider has reviewed the documentation as recorded by the Scribe Justin Green Provider Scribe Attestation: All medical record entries made by the Scribe were at my direction and personally dictated by me. I have reviewed the chart and agree that the record accurately reflects my personal performance of the history, physical exam, medical decision making, and the department course for this patient. I have also personally directed, reviewed, and agree with the discharge instructions and disposition. Disposition/Present on Arrival - Present on Arrival Any Indicators Present on Arrival: No History of DVT/PE: No History of Uncontrolled Diabetes: No Urinary Catheter: No History of Decub. Ulcer: No History Surgical Site Infection Following: None - Disposition Have Diagnosis and Disposition been Completed?: Yes Diagnosis: Abdominal pain Disposition: HOSPITALIZED Disposition Time: 22:36 Patient Problems: Current Active Problems Problem Status Onset Abdominal pain Acute Condition: STABLE Referrals: Cresencio Park, [Primary Care Provider] - Follow up with primary Forms: [employer] (Upper Sorbian)
[2018-07-21] MEDS ORDERED: Budesonide 0.5 mg/2 ml Inhal Susp UD IH SCH (20:00)
[2018-07-21] MEDS ORDERED: Arformoterol 15 mcg/2 ml Inh Sol IH SCH (20:00)
[2018-07-21] MEDS ORDERED: Fluticasone-Salmeterol 250-50mcg Diskus IH SCH (22:00)
[2018-07-21] MEDS: Morphine 2 mg/ml ISec IVP PRN (23:16)
--- NOTE | 2018-07-21 23:26 | CP.PCM.CON ---
History of Present Illness - History of Present Illness History of Present Illness: General Surgery Dr. Burrell 73 y/o F w/ extensive PMHx of HTN. CHF, COPD, CVA, seizures, and ESRD on HD MWF was BIBA from [facility] c/o epigastric abd pain. Pt states pain began shortly after swallowing breakfast. Pt states pain occurred almost immediately after food hit her stomach. Pain lasted throughout breakfast and stopped once finished eating. Pt reports pain localized to epigastrium w/o radiation. Pain described as sharp, stabbing pain. Pt has had similar pain in the past but is unsure of timeline. Pt admits to 1 episode of bilious vomiting prior to breakfast which pt attributes to nausea 2/2 severe hunger. Pt admits to light constipation since starting at [facility]. Pt denies CP, SOB, dizziness, lightheadedness, F/C, N/C, abd pain, diarrhea, dysuria, edema. Surgery consulted for abd pain. CT scan performed in the ED read as normal w/ no acute changes or active disease. PMHx: see above, gastritis, PVD, anemia, Bipolar, depression Meds: reviewed in chart ALL: PCN - rash PSHx: B/L hip replacement and knee repair; R breast lumpectom, L AVF, permacath SHx: former smoker FHx: noncontributory Review of Systems - Review of Systems All systems: reviewed and no additional remarkable complaints except (see HPI) Past Patient History - Infectious Disease Hx of Infectious Diseases: None - Tetanus Immunizations Tetanus Immunization: Unknown - Past Medical History & Family History Past Medical History?: Yes - Past Social History Smoking Status: Former Smoker - CARDIAC Hx Congestive Heart Failure: Yes Hx Hypertension: Yes - PULMONARY Hx Asthma: Yes Hx Bronchitis: Yes Hx Chronic Obstructive Pulmonary Disease (COPD): Yes - NEUROLOGICAL HX Cerebrovascular Accident: Yes Hx Seizures: Yes - HEENT Hx HEENT Problems: Yes Hx Cataracts: Yes (mild cataracts per patient) - RENAL Hx Chronic Kidney Disease: Yes Hx Renal Failure: Yes - ENDOCRINE/METABOLIC Hx Endocrine Disorders: No Other/Comment: pvd - HEMATOLOGICAL/ONCOLOGICAL Hx Anemia: Yes (IRON INFUSIONS QWKLY) - INTEGUMENTARY Hx Dermatological Problems: Yes Hx Psoriasis: Yes Other/Comment: bilat hip incision line - MUSCULOSKELETAL/RHEUMATOLOGICAL Hx Arthritis: Yes - GASTROINTESTINAL Hx Gastritis: Yes - GENITOURINARY/GYNECOLOGICAL Hx Genitourinary Disorders: No - PSYCHIATRIC Hx Bipolar Disorder: Yes Hx Depression: Yes Hx Substance Use: No - SURGICAL HISTORY Hx Joint Replacement: Yes Hx Orthopedic Surgery: Yes (Bilateral) Hx Tubal Ligation: Yes Other/Comment: R BREAST LUMPECTOMY (2012), BL HIP REPLACEMENT, BL KNEE REPLACEMENT, left AV shunt, portacath insertion - ANESTHESIA Hx Anesthesia: Yes Hx Anesthesia Reactions: No Hx Malignant Hyperthermia: No Meds Allergies/Adverse Reactions: Allergies Allergy/AdvReac Type Severity Reaction Status Date / Time Penicillins Allergy RASH Verified 05/23/18 19:44 - Medications Medications: Current Medications Arformoterol Tartrate (Brovana) 15 mcg [facility]H [id number] [facility] Last Admin: 07/21/18 20:32 Dose: 15 mcg Budesonide (Pulmicort Respules) 0.5 mg IH [id number] [facility] Last Admin: 07/21/18 20:32 Dose: 0.5 mg Clonazepam (Klonopin) 0.25 mg PO BID [facility]; Protocol Last Admin: 07/21/18 20:31 Dose: 0.25 mg Clonidine HCl (Catapres) 0.2 mg PO BID [facility] Last Admin: 07/21/18 19:30 Dose: 0.2 mg Docusate Sodium (Colace) 100 mg PO DAILY [facility] Fluoxetine HCl (Prozac) 40 mg PO HS [facility] Last Admin: 07/21/18 23:16 Dose: 40 mg Morphine Sulfate (Morphine) 2 mg IVP Q3H PRN PRN Reason: Pain, moderate (4-7) Last Admin: 07/21/18 23:16 Dose: 2 mg Ondansetron HCl (Zofran Inj) 4 mg IVP Q6 PRN PRN Reason: Nausea/Vomiting Last Admin: 07/21/18 23:16 Dose: 4 mg Pantoprazole Sodium (Protonix Inj) 40 mg IVP DAILY [facility] Physical Exam - Constitutional Appears: Non-toxic, No Acute Distress - Head Exam Head Exam: NORMAL INSPECTION - Eye Exam Eye Exam: Normal appearance - ENT Exam ENT Exam: Mucous Membranes Moist - Respiratory Exam Respiratory Exam: NORMAL BREATHING PATTERN. absent: Accessory Muscle Use, Respiratory Distress - Cardiovascular Exam Cardiovascular Exam: REGULAR RHYTHM. absent: Bradycardia, Tachycardia - GI/Abdominal Exam GI & Abdominal Exam: Soft. absent: Distended, Firm, Guarding, Rebound, Rigid, Tenderness - Extremities Exam Extremities exam: Positive for: pedal edema (1+ pitting edema B/L LE) Additional comments: L UE AVF w/ palpable thrill - Neurological Exam Neurological exam: Alert, Oriented x3 - Psychiatric Exam Psychiatric exam: Normal Affect, Normal Mood - Skin Skin Exam: Dry, Intact, Normal Color, Warm Results - Vital Signs Recent Vital Signs: Last Vital Signs Temp 97.9 F 07/21/18 12:53 Pulse 83 07/21/18 19:30 Resp 18 07/21/18 18:05 BP 130/55 L 07/21/18 19:30 Pulse Ox 95 07/21/18 18:05 - Labs Result Diagrams: 07/21/18 16:00 07/21/18 16:00 Labs: Laboratory Results - last 24 hr 07/21/18 07/21/18 16:00 16:00 WBC 9.7 RBC 3.38 L Hgb 10.7 L Hct 34.3 L MCV 101.5 MCH 31.7 MCHC 31.2 RDW 16.0 H Plt Count 384 MPV 9.3 Gran % 73.0 H Lymph % (Auto) 14.5 L Mora % (Auto) 9.3 H Eos % (Auto) 3.0 Baso % (Auto) 0.2 Gran # 7.09 H Lymph # (Auto) 1.4 Mora # (Auto) 0.9 H Eos # (Auto) 0.3 Baso # (Auto) 0.02 Sodium 134 Potassium 5.1 H Chloride 98 Carbon Dioxide 25 Anion Gap 17 BUN 55 H Creatinine 6.3 H Est GFR ( Amer) 8 Est GFR (Non-Af Amer) 7 Random Glucose 76 Calcium 9.1 Total Bilirubin 0.5 AST 34 ALT 15 Alkaline Phosphatase 89 Total Protein 7.2 Albumin 3.7 Globulin 3.6 Albumin/Globulin Ratio 1.0 L Lipase 140 - Imaging and Cardiology CT scan - abdomen Status: Image reviewed by me, Report reviewed by me Assessment & Plan - Assessment and Plan (Free Text) Assessment: 73 y/o F w/ epigastric abd pain concerning for gastric ulcer w/ normal labs and CT scan Plan: - NPO ex ice chips --> strict NPO if pain returns - PPI - f/u GI recs - encourage OOB to chair/Amb - PT/OT Will discuss w/ Dr. Indra Boyle DO PGY3
--- NOTE | 2018-07-22 00:15 | HP ---
DATE OF EXAM: HISTORY OF PRESENT ILLNESS: She was sent to the emergency room from the residential due to severe abdominal pain, came on suddenly epigastric, very severe, some vomiting x1, issues of bowel movement the day before but this is severe crampy abdominal pain, severe pain. A 73-year-old female who was just in the hospital for abdominal pain and groin pain and has subsided, now its back again. PAST MEDICAL HISTORY: She has a past medical history of anemia, COPD, CHF, hypertension, renal failure on dialysis Saturday, Saturday, and Saturday, history of heart failure, hypertension, bronchitis, asthma, COPD, CVA, seizures, cataracts, renal failure on dialysis, peripheral vascular disease. She had iron infusions for anemia, psoriasis, bilateral hip incisions for bilateral hip replacements, arthritis, gastritis, bipolar, depression, tubal ligation, right breast lumpectomy, bilateral hip replacements, bilateral knee replacements, left AV shunt, Port-A-Cath insertion. FAMILY HISTORY: Hypertension in the family. SOCIAL HISTORY: Former smoker. No alcohol. No drugs. ALLERGIES: ALLERGIC TO PENICILLIN. MEDICATIONS: Multiple medications; Tylenol, vitamins, Arimidex, Flexeril, Colace, , Prozac, Advair, vitamins, Lasix, Motrin, Lidoderm, magnesium hydroxide, melatonin, Ambien, Catapres, Klonopin, Apresoline. REVIEW OF SYSTEMS: No acute vision or hearing loss. No sore throat, but there is abdominal pain, nausea, vomiting. No chest pain. No palpitations or shortness of breath. No cough. No wheeze. No extremity issues. No skin issues. PHYSICAL EXAMINATION: VITAL SIGNS: She has a 97.9 temp, 82 pulse, 18 respiratory rate, 148/45 blood pressure, 90% O2 sat on room air. HEENT: Head is atraumatic, normocephalic. Extraocular muscles are intact. Pupils reactive to light. Throat is moist. NECK: Supple. HEART: Regular rate. LUNGS: Decreased breath sounds, but clear to auscultation. ABDOMEN: Positive epigastric pain, right upper quadrant, mostly tender all over the place. There is some guarding, but no rebound, no CVA tenderness. EXTREMITIES: No edema. SKIN: No rash. NEUROLOGIC: Alert and oriented x3. LABORATORY DATA: She had multiple tests done. She has a 134 sodium, potassium 5.1, BUN 55, creatinine 6.3 at dialysis, GFR is 7, sugar 76, calcium 9.1, total bili is 0.5, AST is 34, ALT is 15, alk phos 89, total protein 7.2, albumin is 3.7, lipase 140. White count 9.7, hemoglobin 10.7, hematocrit 34.3, platelets of 384. EKG was normal sinus rhythm. a GI consult, a surgical consult, and a renal consult. She will be on pain medications, blood pressure control, nausea and vomiting control. She has a CAT scan of the abdomen and pelvis pending. She is to be on observation, watched overnight, hopefully she will do well. She is here with severe nausea and vomiting. I will make her n.p.o. till the morning and I will see how she does at that time. The patient with severe abdominal pain. Cresencio Park DO [id number]
[2018-07-22] MEDS: Morphine 2 mg/ml ISec IVP PRN (05:04)
[2018-07-22 05:07] VITALS: O2SAT 95
[2018-07-22 07:07] LABS: HEMOGLOBIN 10.3 g/dL (12.0-16.0); MEAN CELL VOLUME 102.1 fl (80.0-105.0); MEAN CORPUSCULAR HEMOGLOBIN 30.8 pg (25.0-35.0); MEAN CORPUSCULAR HGB CONC 30.2 g/dl (31.0-37.0); MEAN PLATELET VOLUME 8.6 fl (7.0-11.0); RBC 3.34 10^6/uL (3.5-6.1); RED CELL DISTRIBUTION WIDTH 16.2 % (11.5-14.5); WHITE BLOOD COUNT 8.2 10^3/uL (4.5-11.0)
[2018-07-22 07:31] LABS: ALBUMIN 3.8 g/dL (3.0-4.8); CALCIUM 9.1 mg/dL (8.4-10.5)
[2018-07-22] MEDS ORDERED: Dextrose 50% SYRINGE Inj (50 ml) ONE (07:39)
[2018-07-22] MEDS ORDERED: Dextrose 5%/0.45% NS 1,000 ML IV SCH (08:30)
--- NOTE | 2018-07-22 08:40 | CP.PCM.CON ---
<Marie Hernandez - Last Filed: 07/22/18 08:30> History of Present Illness - History of Present Illness History of Present Illness: Gastroenterology Fellow/PGY6 Consult Note 73 year old female with PMH of ESRD on HD MWF, COPD, CVA, HTN, right breast cancer s/p lumpectomy 2012 presenting with abdominal pain. Patient notes one bilious vomitus prior to breakfast followed by postprandial wax/waning , aggravating epigastric pain without radiation. On current evaluation, the pain is 50% improved and denies further vomitus episodes. Denies hematemesis, diarrhea, acid reflux, bloating, unintentional weight loss, rectal bleeding, melena, or NSAIDs use. Admits to similar discomfort three years ago that was due to dyspepsia with EGD 08/2015 showing H. pylori negative gastritis. Colonoscopy 2014 showed transverse/ascending/sigmoid diverticulosis and internal hemorrhoids. Family History- denies stomach cancer, colon cancer Surgical History- Left AV fistula, B/L hip and knee replacements, BTL, right breast lumpectomy 2012 Social History- former smoker,ETOH and drug use, quit 10-11years Review of Systems - Review of Systems Review of Systems: 12-point review of systems negative except for as above Past Patient History - Infectious Disease Hx of Infectious Diseases: None - Tetanus Immunizations Tetanus Immunization: Unknown - Past Medical History & Family History Past Medical History?: Yes - Past Social History Smoking Status: Former Smoker - CARDIAC Hx Congestive Heart Failure: Yes Hx Hypertension: Yes - PULMONARY Hx Asthma: Yes Hx Bronchitis: Yes Hx Chronic Obstructive Pulmonary Disease (COPD): Yes - NEUROLOGICAL HX Cerebrovascular Accident: Yes Hx Seizures: Yes - HEENT Hx HEENT Problems: Yes Hx Cataracts: Yes (mild cataracts per patient) - RENAL Hx Chronic Kidney Disease: Yes Hx Renal Failure: Yes - ENDOCRINE/METABOLIC Hx Endocrine Disorders: No Other/Comment: pvd - HEMATOLOGICAL/ONCOLOGICAL Hx Anemia: Yes (IRON INFUSIONS QWKLY) - INTEGUMENTARY Hx Dermatological Problems: Yes Hx Psoriasis: Yes Other/Comment: bilat hip incision line - MUSCULOSKELETAL/RHEUMATOLOGICAL Hx Arthritis: Yes - GASTROINTESTINAL Hx Gastritis: Yes - GENITOURINARY/GYNECOLOGICAL Hx Genitourinary Disorders: No - PSYCHIATRIC Hx Bipolar Disorder: Yes Hx Depression: Yes Hx Substance Use: No - SURGICAL HISTORY Hx Joint Replacement: Yes Hx Orthopedic Surgery: Yes (Bilateral) Hx Tubal Ligation: Yes Other/Comment: R BREAST LUMPECTOMY (2013), BL HIP REPLACEMENT, BL KNEE REPLACEMENT, left AV shunt, portacath insertion - ANESTHESIA Hx Anesthesia: Yes Hx Anesthesia Reactions: No Hx Malignant Hyperthermia: No Meds Allergies/Adverse Reactions: Allergies Allergy/AdvReac Type Severity Reaction Status Date / Time Penicillins Allergy RASH Verified 05/23/18 19:44 - Medications Medications: Current Medications Arformoterol Tartrate (Brovana) 15 mcg IH [id number] [facility] Last Admin: 07/21/18 20:32 Dose: 15 mcg Budesonide (Pulmicort Respules) 0.5 mg IH [id number] [facility] Last Admin: 07/21/18 20:32 Dose: 0.5 mg Clonazepam (Klonopin) 0.25 mg PO BID [facility]; Protocol Last Admin: 07/21/18 20:31 Dose: 0.25 mg Clonidine HCl (Catapres) 0.2 mg PO BID [facility] Last Admin: 07/21/18 19:30 Dose: 0.2 mg Docusate Sodium (Colace) 100 mg PO DAILY [facility] Fluoxetine HCl (Prozac) 40 mg PO HS [facility] Last Admin: 07/21/18 23:16 Dose: 40 mg Dextrose/Sodium Chloride (Dextrose 5%/0.45% Ns 1000 Ml) 1,000 mls @ 83 mls/hr IV .Q12H3M [facility] Morphine Sulfate (Morphine) 2 mg IVP Q3H PRN PRN Reason: Pain, moderate (4-7) Last Admin: 07/22/18 05:04 Dose: 2 mg Ondansetron HCl (Zofran Inj) 4 mg IVP Q6 PRN PRN Reason: Nausea/Vomiting Last Admin: 07/22/18 05:04 Dose: 4 mg Pantoprazole Sodium (Protonix Inj) 40 mg IVP DAILY [facility] Physical Exam - Constitutional Appears: Non-toxic, No Acute Distress - Head Exam Head Exam: ATRAUMATIC, NORMOCEPHALIC - Eye Exam Eye Exam: EOMI, PERRL. absent: Scleral icterus Pupil Exam: PERRL. absent: Miosis, Mydriatic - ENT Exam ENT Exam: Mucous Membranes Moist, Normal Oropharynx - Neck Exam Neck exam: Positive for: Full Rom, Normal Inspection - Respiratory Exam Respiratory Exam: Clear to Auscultation Bilateral. absent: Rales, Rhonchi, Wheezes - Cardiovascular Exam Cardiovascular Exam: RRR, +S1, +S2. absent: Gallop, Rubs - GI/Abdominal Exam GI & Abdominal Exam: Normal Bowel Sounds, Soft, Tenderness. absent: Distended, Firm, Organomegaly, Rebound, Rigid Additional comments: minimal epigastric tenderness to palpation - Extremities Exam Extremities exam: Positive for: normal inspection. Negative for: pedal edema - Neurological Exam Neurological exam: Alert, Oriented x3 - Psychiatric Exam Psychiatric exam: Normal Affect, Normal Mood - Skin Skin Exam: Dry, Intact, Normal Color, Warm Results - Vital Signs Recent Vital Signs: Last Vital Signs Temp 97.9 F 07/21/18 12:53 Pulse 75 07/22/18 06:46 Resp 14 07/22/18 06:46 BP 134/58 L 07/22/18 06:46 Pulse Ox 95 07/22/18 06:46 - Labs Result Diagrams: 07/22/18 05:30 07/22/18 05:30 Labs: Laboratory Results - last 24 hr 07/21/18 07/21/18 07/22/18 16:00 16:00 05:30 WBC 9.7 8.2 RBC 3.38 L 3.34 L Hgb 10.7 L 10.3 L Hct 34.3 L 34.1 L MCV 101.5 102.1 MCH 31.7 30.8 MCHC 31.2 30.2 L RDW 16.0 H 16.2 H Plt Count 384 369 MPV 9.3 8.6 Gran % 73.0 H Lymph % (Auto) 14.5 L Dod[place] % (Auto) 9.3 H Eos % (Auto) 3.0 Baso % (Auto) 0.2 Gran # 7.09 H Lymph # (Auto) 1.4 Dod[place]idge # (Auto) 0.9 H Eos # (Auto) 0.3 Baso # (Auto) 0.02 Sodium 134 Potassium 5.1 H Chloride 98 Carbon Dioxide 25 Anion Gap 17 BUN 55 H Creatinine 6.3 H Est GFR ( Amer) 8 Est GFR (Non-Af Amer) 7 Random Glucose 76 Calcium 9.1 Total Bilirubin 0.5 AST 34 ALT 15 Alkaline Phosphatase 89 Total Protein 7.2 Albumin 3.7 Globulin 3.6 Albumin/Globulin Ratio 1.0 L Lipase 140 07/22/18 05:30 WBC RBC Hgb Hct MCV MCH MCHC RDW Plt Count MPV Gran % Lymph % (Auto) Doddridge % (Auto) Eos % (Auto) Baso % (Auto) Gran # Lymph # (Auto) Doddridge # (Auto) Eos # (Auto) Baso # (Auto) Sodium 136 Potassium 4.5 Chloride 99 Carbon Dioxide 24 Anion Gap 18 BUN 57 H Creatinine 7.3 H Est GFR ( Amer) 7 Est GFR (Non-Af Amer) 5 Random Glucose 45 L* D Calcium 9.1 Total Bilirubin 0.4 AST 24 ALT 10 Alkaline Phosphatase 93 Total Protein 7.7 Albumin 3.8 Globulin 3.9 Albumin/Globulin Ratio 1.0 L Lipase Assessment & Plan - Assessment and Plan (Free Text) Assessment: 73 year old female with PMH of ESRD on HD MWF, COPD, CVA, HTN, right breast cancer s/p lumpectomy 2012 presenting with abdominal pain. Patient notes one bilious vomitus prior to breakfast followed by postprandial wax/waning , aggravating epigastric pain without radiation. Active treatment of epigastric pain due to dyspepsia. EGD 08/2015 showing H. pylori negative gastritis. Colonoscopy 2014 showed transverse/ascending/sigmoid diverticulosis and internal hemorrhoids. Plan: -advance to full liquid diet -advance diet as tolerated -continue Protonix 40mg PO ACB -supportive care- zofran PRN -okay to discharge, once regular diet tolerated and pain continues to improve -if symptoms re-occur, will consider endoscopic evaluation <Prateek Landrum - Last Filed: 07/22/18 08:52> Meds - Medications Medications: Current Medications Arformoterol Tartrate (Brovana) 15 mcg IH [id number] [facility] Last Admin: 07/21/18 20:32 Dose: 15 mcg Budesonide (Pulmicort Respules) 0.5 mg IH [id number] [facility] Last Admin: 07/21/18 20:32 Dose: 0.5 mg Clonazepam (Klonopin) 0.25 mg PO BID [facility]; Protocol Last Admin: 07/21/18 20:31 Dose: 0.25 mg Clonidine HCl (Catapres) 0.2 mg PO BID [facility] Last Admin: 07/21/18 19:30 Dose: 0.2 mg Docusate Sodium (Colace) 100 mg PO DAILY [facility] Fluoxetine HCl (Prozac) 40 mg PO HS [facility] Last Admin: 07/21/18 23:16 Dose: 40 mg Dextrose/Sodium Chloride (Dextrose 5%/0.45% Ns 1000 Ml) 1,000 mls @ 83 mls/hr IV .Q12H3M [facility] Morphine Sulfate (Morphine) 2 mg IVP Q3H PRN PRN Reason: Pain, moderate (4-7) Last Admin: 07/22/18 05:04 Dose: 2 mg Ondansetron HCl (Zofran Inj) 4 mg IVP Q6 PRN PRN Reason: Nausea/Vomiting Last Admin: 07/22/18 05:04 Dose: 4 mg Pantoprazole Sodium (Protonix Inj) 40 mg IVP DAILY [facility] Results - Vital Signs Recent Vital Signs: Last Vital Signs Temp 97.9 F 07/21/18 12:53 Pulse 75 07/22/18 06:46 Resp 14 07/22/18 06:46 BP 134/58 L 07/22/18 06:46 Pulse Ox 95 07/22/18 06:46 - Labs Result Diagrams: 07/22/18 05:30 07/22/18 05:30 Labs: Laboratory Results - last 24 hr 07/21/18 07/21/18 07/22/18 16:00 16:00 05:30 WBC 9.7 8.2 RBC 3.38 L 3.34 L Hgb 10.7 L 10.3 L Hct 34.3 L 34.1 L MCV 101.5 102.1 MCH 31.7 30.8 MCHC 31.2 30.2 L RDW 16.0 H 16.2 H Plt Count 384 369 MPV 9.3 8.6 Gran % 73.0 H Lymph % (Auto) 14.5 L Doddridge % (Auto) 9.3 H Eos % (Auto) 3.0 Baso % (Auto) 0.2 Gran # 7.09 H Lymph # (Auto) 1.4 Doddridge # (Auto) 0.9 H Eos # (Auto) 0.3 Baso # (Auto) 0.02 Sodium 134 Potassium 5.1 H Chloride 98 Carbon Dioxide 25 Anion Gap 17 BUN 55 H Creatinine 6.3 H Est GFR ( Amer) 8 Est GFR (Non-Af Amer) 7 POC Glucose (mg/dL) Random Glucose 76 Calcium 9.1 Total Bilirubin 0.5 AST 34 ALT 15 Alkaline Phosphatase 89 Total Protein 7.2 Albumin 3.7 Globulin 3.6 Albumin/Globulin Ratio 1.0 L Lipase 140 07/22/18 07/22/18 05:30 08:44 WBC RBC Hgb Hct MCV MCH MCHC RDW Plt Count MPV Gran % Lymph % (Auto) Doddridge % (Auto) Eos % (Auto) Baso % (Auto) Gran # Lymph # (Auto) Doddridge # (Auto) Eos # (Auto) Baso # (Auto) Sodium 136 Potassium 4.5 Chloride 99 Carbon Dioxide 24 Anion Gap 18 BUN 57 H Creatinine 7.3 H Est GFR ( Amer) 7 Est GFR (Non-Af Amer) 5 POC Glucose (mg/dL) 67 Random Glucose 45 L* D Calcium 9.1 Total Bilirubin 0.4 AST 24 ALT 10 Alkaline Phosphatase 93 Total Protein 7.7 Albumin 3.8 Globulin 3.9 Albumin/Globulin Ratio 1.0 L Lipase Attending/Attestation - Attestation I have fully participated in the care of the patient.: Yes I have reviewed all pertinent clinical information: Yes Notes (Text): 07/22/18 08:50 ESRD on HD History of breast cancer COPD CVA HTN Abdominal pain without associated alarm or worrisome features. CT imaging reviewed by me showing no gross GI abnormalities. - Advance diet as tolerated - Continue with PPI therapy - Continue with supportive care, further plan as per medical team - If unable to tolerate PO diet, would consider endoscopic evaluation - Continue to monitor patient clinical course
--- NOTE | 2018-07-22 10:17 | CT ---
Date of service: 07/21/2018 PROCEDURE: CT Abdomen and pelvis. HISTORY: Abdominal pain, vomiting COMPARISON: Comparison made with prior CT scan abdomen pelvis 07/17/2018. TECHNIQUE: Contiguous axial images of the abdomen and pelvis performed without oral or intravenous contrast material. Additional 2D sagittal and coronal reformats generated. Radiation dose: Total exam DLP = 836.77 mGy-cm. This CT exam was performed using one or more of the following dose reduction techniques: Automated exposure control, adjustment of the mA and/or kV according to patient size, and/or use of iterative reconstruction technique. FINDINGS: LOWER THORAX: Chronic appearing fibrosis both lung bases. There also appears to be areas of chronic atelectasis and or scarring most pronounced in the right lung base. Lesser changes seen in the middle lobe as well as left lung base and lingular regions. The heart size within range of normal.. Trace pericardial effusion. LIVER: Liver exhibits relatively normal size and attenuation pattern. No evidence of obvious some hepatic mass or collection. GALLBLADDER AND BILE DUCTS: Gallbladder is appears fairly significantly distended suggesting hydrops. No evidence of intraluminal gallbladder calculi. PANCREAS: Pancreas is not well delineated due to some motion artifact as well as loops of unopacified small bowel. No obvious pancreatic mass or collection. Pancreas is slightly atrophic and fatty replaced. SPLEEN: Unremarkable. No splenomegaly. ADRENALS: No adrenal lesions. KIDNEYS AND URETERS: Kidneys are diminutive in appearance consistent with chronic renal disease. No evidence of nephrolithiasis or hydronephrosis. No obvious renal mass or collection. BLADDER: Urinary bladder is incompletely visualized along its inferior border due to significant streak and beam hardening artifact arising from bilateral total hip replacements. REPRODUCTIVE: Uterus appears unremarkable so far as can be seen. APPENDIX: Normal appendix without evidence of periappendiceal inflammatory changes.. BOWEL: Evaluation of the bowel is somewhat limited due to the lack of oral contrast material. Stomach is incompletely distended. Visualized loops of small bowel exhibit relatively normal contour and caliber. No evidence of acute mechanical small bowel obstruction. Stool and air seen throughout the large bowel. Multiple colonic diverticula again seen along the sigmoid and distal descending colon however no radiographic evidence of acute diverticulitis. PERITONEUM: Unremarkable. No fluid collection. No free air. Straightened is a small approximately 2.6 x 2.3 cm elliptical shaped low-attenuation presumed fluid collection within the right iliopsoas muscle stable in appearance from prior exam including CT scan lumbar spine dating back to 08/24/2017. This could represent a bursitis LYMPH NODES: Unremarkable. No enlarged lymph nodes. VASCULATURE: Unremarkable. No aortic aneurysm. No aortic atherosclerotic calcification or mural plaque present. BONES: Multilevel degenerative spondylosis of the lower lumbar as well as lower thoracic spine. Mild scoliotic deformities mid lumbar and to a lesser degree lower thoracic region. OTHER FINDINGS: None. IMPRESSION: Interstitial fibrosis both lung bases. Trace pericardial effusion. Chronic atrophic changes of both kidneys. Diverticulosis without radiographic evidence of acute diverticulitis. Distention. No definitive evidence of intraluminal gallbladder calculi. Small of ileus psoas hyperdense collection possibly representing a bursitis however the collection appears stable as described above.
--- NOTE | 2018-07-22 10:19 | DS ---
HISTORY OF PRESENT ILLNESS: She is definitely better today than yesterday when she had abdominal pain. It is very possible it is constipation. The CAT scan did not show much but old things. MEDICATIONS: She is on Brovana, Catapres, Colace, dextrose, Klonopin, morphine, Protonix, Prozac, Pulmicort, Zofran. She is on a liquid diet. If she does well, they can increase it to regular. PHYSICAL EXAMINATION: VITAL SIGNS: Temperature 97.9, 70 pulse, 132/76 blood pressure, 18 respiratory rate, 95% O2 sat on room air. HEENT: Head is atraumatic, normocephalic. HEART: Regular rate. LUNGS: Decreased breath sounds but clear. ABDOMEN: Soft and nontender. Positive bowel sounds this morning. EXTREMITIES: No edema. Hopefully, we will get discharge her today. LABORATORY DATA: She has 136 sodium, potassium is 4.5, BUN 57, creatinine 7.3 on dialysis, GFR is 5. She is to have dialysis before she leaves today. Calcium is 9.1, total bili is 0.4, AST is 24, ALT is 10, alk phos 93, total protein 7.7. She has 8.2 white count, 10.3 hemoglobin, 34.1 hematocrit with 369 platelets. She is on observation status. She has abdominal pain, it is basically resolved. She is to go to dialysis today before she leaves to go back to [place] where she is a permanent resident. I will increase the diet and hopefully we will discharge later on this afternoon. Cresencio Park DO
[2018-07-22 11:57] VITALS: RESP 18
[2018-07-22 11:58] VITALS: BMI 28.1
--- NOTE | 2018-07-22 12:31 | CP.PCM.CON ---
History of Present Illness - History of Present Illness History of Present Illness: Renal Note pt missed HD yesterday ordered for HD today next HD tomorrow as usual thanks for consult Past Patient History - Infectious Disease Hx of Infectious Diseases: None - Tetanus Immunizations Tetanus Immunization: Unknown - Past Medical History & Family History Past Medical History?: Yes - Past Social History Smoking Status: Never Smoked - CARDIAC Hx Cardiac Disorders: Yes ([place]) Hx Circulatory Problems: Yes Hx Congestive Heart Failure: Yes Hx Hypertension: Yes Hx Peripheral Vascular Disease: Yes - PULMONARY Hx Respiratory Disorders: Yes Hx Asthma: Yes Hx Bronchitis: Yes Hx Chronic Obstructive Pulmonary Disease (COPD): Yes - NEUROLOGICAL Hx Neurological Disorder: Yes HX Cerebrovascular Accident: Yes Hx Seizures: Yes - HEENT Hx HEENT Problems: Yes Hx Cataracts: Yes (mild cataracts) - RENAL Hx Chronic Kidney Disease: Yes Hx Dialysis: Yes (MWF) Hx Renal Failure: Yes Other/Comment: L fistula - ENDOCRINE/METABOLIC Hx Endocrine Disorders: No Hx Diabetes Mellitus Type 2: Yes - HEMATOLOGICAL/ONCOLOGICAL Hx Blood Disorders: Yes Hx Anemia: Yes Hx Cancer: Yes (L BREAST CA) Hx Cirrhosis: Yes - INTEGUMENTARY Hx Dermatological Problems: Yes Hx Psoriasis: Yes Other/Comment: bilat hip incision line. L fistula for HD - MUSCULOSKELETAL/RHEUMATOLOGICAL Hx Musculoskeletal Disorders: Yes Hx Arthritis: Yes Hx Falls: Yes Hx Unsteady Gait: Yes Other/Comment: L SIDED WEAKNESS - GASTROINTESTINAL Hx Gastrointestinal Disorders: Yes Hx Gastroesophageal Reflux: Yes - GENITOURINARY/GYNECOLOGICAL Hx Genitourinary Disorders: No Other/Comment: TUBAL LIGATION - PSYCHIATRIC Hx Psychophysiologic Disorder: No Hx Bipolar Disorder: Yes Hx Depression: Yes Hx Emotional Abuse: No Hx Physical Abuse: No Hx Sexual Abuse: No Other/Comment: INSOMNIA - SURGICAL HISTORY Hx Surgeries: Yes Hx Joint Replacement: Yes Hx Orthopedic Surgery: Yes Other/Comment: R BREAST LUMPECTOMY (2012), BL HIP REPLACEMENT, BL KNEE REPLACEMENT, left AV shunt - ANESTHESIA Hx Anesthesia: Yes Hx Anesthesia Reactions: No Hx Malignant Hyperthermia: No Meds Allergies/Adverse Reactions: Allergies Allergy/AdvReac Type Severity Reaction Status Date / Time Penicillins Allergy RASH Verified 05/23/18 19:44 - Medications Medications: Current Medications Arformoterol Tartrate (Brovana) 15 mcg IH [id number] [facility] Last Admin: 07/21/18 20:32 Dose: 15 mcg Budesonide (Pulmicort Respules) 0.5 mg IH [id number] [facility] Last Admin: 07/21/18 20:32 Dose: 0.5 mg Clonazepam (Klonopin) 0.25 mg PO BID [facility]; Protocol Last Admin: 07/22/18 10:10 Dose: 0.25 mg Clonidine HCl (Catapres) 0.2 mg PO BID [facility] Last Admin: 07/22/18 09:29 Dose: 0.2 mg Docusate Sodium (Colace) 100 mg PO DAILY [facility] Last Admin: 07/22/18 10:10 Dose: 100 mg Fluoxetine HCl (Prozac) 40 mg PO HS [facility] Last Admin: 07/21/18 23:16 Dose: 40 mg Dextrose/Sodium Chloride (Dextrose 5%/0.45% Ns 1000 Ml) 1,000 mls @ 83 mls/hr IV .Q12H3M [facility] Morphine Sulfate (Morphine) 2 mg IVP Q3H PRN PRN Reason: Pain, moderate (4-7) Last Admin: 07/22/18 05:04 Dose: 2 mg Ondansetron HCl (Zofran Inj) 4 mg IVP Q6 PRN PRN Reason: Nausea/Vomiting Last Admin: 07/22/18 05:04 Dose: 4 mg Pantoprazole Sodium (Protonix Inj) 40 mg IVP DAILY [facility] Last Admin: 07/22/18 09:29 Dose: 40 mg Results - Vital Signs Recent Vital Signs: Last Vital Signs Temp 97.9 F 07/21/18 12:53 Pulse 76 07/22/18 09:29 Resp 18 07/22/18 11:44 BP 126/56 L 07/22/18 09:29 Pulse Ox 95 07/22/18 06:46 - Labs Result Diagrams: 07/22/18 05:30 07/22/18 05:30 Labs: Laboratory Results - last 24 hr 07/21/18 07/21/18 07/22/18 16:00 16:00 05:30 WBC 9.7 8.2 RBC 3.38 L 3.34 L Hgb 10.7 L 10.3 L Hct 34.3 L 34.1 L MCV 101.5 102.1 MCH 31.7 30.8 MCHC 31.2 30.2 L RDW 16.0 H 16.2 H Plt Count 384 369 MPV 9.3 8.6 Gran % 73.0 H Lymph % (Auto) 14.5 L Benton % (Auto) 9.3 H Eos % (Auto) 3.0 Baso % (Auto) 0.2 Gran # 7.09 H Lymph # (Auto) 1.4 Benton # (Auto) 0.9 H Eos # (Auto) 0.3 Baso # (Auto) 0.02 Sodium 134 Potassium 5.1 H Chloride 98 Carbon Dioxide 25 Anion Gap 17 BUN 55 H Creatinine 6.3 H Est GFR ( Amer) 8 Est GFR (Non-Af Amer) 7 POC Glucose (mg/dL) Random Glucose 76 Calcium 9.1 Total Bilirubin 0.5 AST 34 ALT 15 Alkaline Phosphatase 89 Total Protein 7.2 Albumin 3.7 Globulin 3.6 Albumin/Globulin Ratio 1.0 L Lipase 140 07/22/18 07/22/18 05:30 08:44 WBC RBC Hgb Hct MCV MCH MCHC RDW Plt Count MPV Gran % Lymph % (Auto) Benton % (Auto) Eos % (Auto) Baso % (Auto) Gran # Lymph # (Auto) Benton # (Auto) Eos # (Auto) Baso # (Auto) Sodium 136 Potassium 4.5 Chloride 99 Carbon Dioxide 24 Anion Gap 18 BUN 57 H Creatinine 7.3 H Est GFR ( Amer) 7 Est GFR (Non-Af Amer) 5 POC Glucose (mg/dL) 67 Random Glucose 45 L* D Calcium 9.1 Total Bilirubin 0.4 AST 24 ALT 10 Alkaline Phosphatase 93 Total Protein 7.7 Albumin 3.8 Globulin 3.9 Albumin/Globulin Ratio 1.0 L Lipase
[2018-07-22 19:11] VITALS: BP 118/53
[2018-07-22 22:45] VITALS: PULSE 82; TEMP 98
== END 2018-07-22 21:39 | disposition home or self-care (01) ==
LOC: ED 12:26 → ERH 22:32 → UNDOADMOB 22:32
DX: R10.9 Unspecified abdominal pain (principal); I12.0 Hypertensive chronic kidney disease with stage 5 chronic kidney disease or end stage renal disease; N18.6 End stage renal disease; Z99.2 Dependence on renal dialysis; I50.9 Heart failure, unspecified; J44.9 Chronic obstructive pulmonary disease, unspecified; Z86.73 Personal history of transient ischemic attack (TIA), and cerebral infarction without residual deficits
CPT/HCPCS: 74176; 80053; 82948; 83690; 85025; 85027; 93005; 96374; 96375; 96376; 99285; C9113; G0257; J2270; J2405

== ENCOUNTER 2018-07-30 00:47 | Inpatient (IN) | payer MEDICARE, MEDICAID ==
[2018-07-30 00:48] VITALS: BMI 28.1
--- NOTE | 2018-07-30 01:14 | ED PDOC ---
Arrival/HPI - General Chief Complaint: Trauma Time Seen by Provider: 07/30/18 01:07 Historian: Patient, Intermediate - History of Present Illness Narrative History of Present Illness (Text): 07/30/18 01:14 Mayte Burleson is a 73 year old female, whose past medical history includes anemia, COPD, CHF, hypertension, ESRD on hemodialysis, CVA, seizures, PVD, bipolar disorder, depression, and right breast lumpectomy, who presents to the Emergency department sent from [facility] status post fall/possible syncopal episode. As per [facility], patient was found lying on the floor following an unwitnessed fall with questionable history of possible head trauma. On arrival to Emergency department, patient is drowsy but arousable, complaining of headache.Patient appears confused,poorly communicative. Limited HPI and ROS s econdary to patient's altered mental status. Time/Duration: Prior to Arrival Symptom Onset: Gradual Symptom Course: Unchanged Context: Home (assisted) Past Medical History - Infectious Disease Hx of Infectious Diseases: None - Tetanus Immunization Tetanus Immunization: Unknown - Cardiac Hx Cardiac Disorders: Yes ([place]) Hx Circulatory Problems: Yes Hx Congestive Heart Failure: Yes Hx Hypertension: Yes Hx Peripheral Vascular Disease: Yes - Pulmonary Hx Respiratory Disorders: Yes Hx Asthma: Yes Hx Bronchitis: Yes Hx Chronic Obstructive Pulmonary Disease (COPD): Yes - Neurological Hx Neurological Disorder: Yes HX Cerebrovascular Accident: Yes Hx Seizures: Yes - HEENT Hx HEENT Disorder: Yes Hx Cataracts: Yes (mild cataracts) - Renal Hx Renal Disorder: Yes Hx Dialysis: Yes (MWF) Hx Renal Failure: Yes Other/Comment: L fistula - Endocrine/Metabolic Hx Endocrine Disorders: No Hx Diabetes Mellitus Type 2: Yes - Hematological/Oncological Hx Blood Disorders: Yes Hx Anemia: Yes Hx Cancer: Yes (L BREAST CA) Hx Cirrhosis: Yes - Integumentary Hx Dermatological Disorder: Yes Hx Psoriasis: Yes Other/Comment: bilat hip incision line. L fistula for HD - Musculoskeletal/Rheumatological Hx Musculoskeletal Disorders: Yes Hx Arthritis: Yes Hx Falls: Yes Hx Unsteady Gait: Yes Other/Comment: L SIDED WEAKNESS - Gastrointestinal Hx Gastrointestinal Disorders: Yes Hx Gastroesophageal Reflux: Yes - Genitourinary/Gynecological Hx Genitourinary Disorders: No Other/Comment: TUBAL LIGATION - Psychiatric Hx Psychophysiologic Disorder: No Hx Bipolar Disorder: Yes Hx Depression: Yes Hx Emotional Abuse: No Hx Physical Abuse: No Hx Sexual Abuse: No Hx Substance Use: No Other/Comment: INSOMNIA - Surgical History Hx Joint Replacement: Yes Hx Orthopedic Surgery: Yes Other/Comment: R BREAST LUMPECTOMY (2012), BL HIP REPLACEMENT, BL KNEE REPLACEME NT, left AV shunt - Anesthesia Hx Anesthesia: Yes Hx Anesthesia Reactions: No Hx Malignant Hyperthermia: No - Suicidal Assessment Feels Threatened In Home Enviroment: No Family/Social History - Physician Review Nursing Documentation Reviewed: Yes Family/Social History: No Known Family HX Smoking Status: Never Smoked Hx Alcohol Use: Yes Hx Substance Use: No Hx Substance Use Treatment: No Allergies/Home Meds Allergies/Adverse Reactions: Allergies Penicillins Allergy (Verified 05/23/18 19:44) RASH pt tested as a child Home Medications: Home Meds Medication Instructions Recorded Confirmed RX: Acetaminophen [Non-Aspirin 650 mg PO Q4 PRN MDD 3 G 07/18/18 07/30/18 Pain Relief] RX: Acetaminophen [Tylenol] 325 mg PO Q4 PRN MDD 3 G 07/18/18 07/30/18 RX: Amino Acids/Protein Hydrolys 30 ml NA BID 07/18/18 07/30/18 [Pro-Stat Profile Liquid] RX: Anastrozole [Arimidex 1 mg Tab] 1 mg PO DAILY 07/18/18 07/30/18 RX: Cyclobenzaprine [Flexeril] 10 mg PO Q12 PRN 07/18/18 07/30/18 RX: Docusate Sodium [Cross' 100 mg PO DAILY 07/18/18 07/30/18 Laxative] RX: Dry Mouth Mouthwash [Biotene 30 ml MM Q8 PRN 07/18/18 07/30/18 Dry Mouth Mouthwash] RX: Fluoxetine HCl [Prozac] 40 mg PO HS 07/18/18 07/30/18 RX: Fluticasone/Salmeterol [Advair 1 each IH Q12 07/18/18 07/30/18 250-50 Diskus] RX: Folic Acid/Vit B Complex and C 1 tab PO DAILY 07/18/18 07/30/18 [Yumiko-Fabby Tablet] RX: Furosemide [Lasix] 40 mg PO DAILY 07/18/18 07/30/18 RX: Ibuprofen [Motrin Tab] 400 mg PO Q8 PRN 07/18/18 07/30/18 RX: Lidocaine 5% [Lidoderm] 1 patch TOP DAILY 07/18/18 07/30/18 RX: Mag Hydrox/Aluminum Hyd/Simeth 30 ml PO Q4 PRN 07/18/18 07/30/18 [Mag-Al Plus Xs Suspension] RX: Magnesium Oxide [Mag-Oxide 400 mg PO DAILY 07/18/18 07/30/18 Magnesium] RX: Melatonin [Melatin] 3 mg PO HS 07/18/18 07/30/18 RX: Zolpidem [Ambien] 10 mg PO HS PRN 07/18/18 07/30/18 RX: cloNIDine [Catapres] 0.2 mg PO DAILY 07/18/18 07/30/18 RX: clonazePAM [Klonopin] 0.25 mg PO BID 07/18/18 07/30/18 RX: hydrALAZINE [Apresoline] 50 mg PO Q12 07/18/18 07/30/18 Review of Systems - Review of Systems Systems not reviewed;Unavailable: Altered Mental Status Neurological: Headache Physical Exam Vital Signs Reviewed: Yes Vital Signs Temp Pulse Resp BP Pulse Ox 07/30/18 01:03 97.9 F 63 18 173/69 H 98 Temperature: Afebrile Blood Pressure: Hypertensive Pulse: Regular Respiratory Rate: Normal Appearance: Positive for: Non-Toxic, Comfortable Pain Distress: None Mental Status: Positive for: other (Drowsy but arousable/oriented to person) - Systems Exam Head: Present: Atraumatic, Normocephalic Pupils: Present: PERRL Extroacular Muscles: Present: EOMI Conjunctiva: Present: Normal Ears: Present: NORMAL TM Mouth: Present: Moist Mucous Membranes Neck: Present: Normal Range of Motion Respiratory/Chest: Present: Clear to Auscultation, Good Air Exchange. No: Respiratory Distress, Accessory Muscle Use Cardiovascular: Present: Regular Rate and Rhythm, Normal S1, S2. No: Murmurs Abdomen: No: Tenderness, Distention, Peritoneal Signs Back: Present: Normal Inspection, Paraspinal Tenderness. No: CVA Tenderness, Midline Tenderness Upper Extremity: Present: Normal Inspection. No: Cyanosis, Edema Lower Extremity: Present: Normal Inspection. No: Edema Neurological: Present: GCS=15, CN II-XII Intact, Motor Func Grossly Intact, Normal Sensory Function Skin: Present: Warm, Dry, Normal Color. No: Rashes Psychiatric: Present: Other (Drowsy but arousable) Medical Decision Making ED Course and Treatment: 07/30/18 01:14 Impression: 73 year old female sent from [facility] s/p unwitnessed fall/possible syncopal episode, complaining of headache. Plan: -- CT Head w/o contrast -- CT Lumbar Spine w/o contrast -- EKG -- Chest X-ray -- XR Hips -- Labs, cardiac enzymes -- Reassess and disposition Prior Visits: Notes and results from previous visits were reviewed. Progress Notes: Reviewed EKG, NSR at [address]-segment elevations or depressions, no T-wave inversions, normal intervals. 07/30/18 06:02 Reviewed radiology, Chest X-ray shows no acute processes. XR Bilateral Hips show no acute processes. CT Head: There is normal configuration of sella turcica. There are no intra or extra- axial collections. There is no mass effect or midline shift. There is no evidence of hematoma formation. No hydrocephalus is present. The ventricles are symmetrical. No abnormal calcifications are present. There is diffuse age-appropriate cerebellar and cerebral atrophy with proportionally dilated ventricles and cortical sulci. There are bilateral periventricular and subcortical white matter hypolucencies compatible with mild chronic microvascular disease. Otherwise, no significant focal abnormalities are seen either in the posterior fossa or supratentorial compartment. IMPRESSION: 1. Age-appropriate cerebellar and cerebral atrophy. 2. Mild chronic microvascular disease. 3. No evidence of acute intracranial pathology. Electronically signed on Jul 30, 2018 5:24:46 AM EST by: CT Lumbar Spine: Moderate osteopenia of the bones. Grade I anterolisthesis of L5 on S1 measuring 4.2 mm. There are diffuse spondylotic changes. Findings are demonstrated by disc space narrowing, osteophyte formation and degenerative endplate changes. Facet joint arthropathy is noted. No fracture or dislocation is seen. No aggressive bone lesion is noted. Moderate multilevel degenerative disc disease more prominent from L2-S1 levels. Mild multilevel spinal canal and neural foramina stenosis. Moderate degenerative dextroscoliosis apex at L3. Impression: Spondylosis. Multilevel facet joint arthropathy. No acute bone pathology. Electronically signed on Jul 30, 2018 6:00:06 AM EST by: Urbano Hubbard M.D., Certified by ABR, MSK, Neuroradiology 07/30/18 06:[address] Park, who is aware and agrees with plan. Accepts pt in to his service. Pt will go to Telemetry observation altered mental status and syncope. - Lab Interpretations I have reviewed the lab results: Yes - RAD Interpretation Emergency Department Physician: ED Physician, Radiologist - EKG Interpretation Interpreted by ED Physician: Yes Type: 12 lead EKG - Scribe Statement The provider has reviewed the documentation as recorded by the Fam Wheeler Provider Scribe Attestation: All medical record entries made by the Scribe were at my direction and personally dictated by me. I have reviewed the chart and agree that the record accurately reflects my personal performance of the history, physical exam, medical decision making, and the department course for this patient. I have also personally directed, reviewed, and agree with the discharge instructions and disposition. Disposition/Present on Arrival - Present on Arrival Any Indicators Present on Arrival: No History of DVT/PE: No History of Uncontrolled Diabetes: Yes Urinary Catheter: No History of Decub. Ulcer: No History Surgical Site Infection Following: None - Disposition Have Diagnosis and Disposition been Completed?: Yes Diagnosis: Syncope, Altered mental status Disposition: HOSPITALIZED Disposition Time: 06:07 Patient Problems: Current Active Problems Problem Status Onset Altered mental status Acute Syncope Acute Condition: STABLE
[2018-07-30 02:39] LABS: HEMOGLOBIN 10.4 g/dL (12.0-16.0); MEAN CELL VOLUME 99.4 fl (80.0-105.0); MEAN CORPUSCULAR HEMOGLOBIN 30.6 pg (25.0-35.0); MEAN CORPUSCULAR HGB CONC 30.8 g/dl (31.0-37.0); MEAN PLATELET VOLUME 8.5 fl (7.0-11.0); RBC 3.4 10^6/uL (3.5-6.1); RED CELL DISTRIBUTION WIDTH 15.9 % (11.5-14.5); WHITE BLOOD COUNT 9.6 10^3/uL (4.5-11.0)
[2018-07-30] MEDS ORDERED: Morphine 2 mg/ml ISec IVP STA ×2 (03:21→17:59)
[2018-07-30 04:26] LABS: INR 1.01; PARTIAL THROMBOPLASTIN TIME 27.1 Seconds (25.1-36.5); PROTHROMBIN TIME 11.5 SECONDS (9.4-12.5)
[2018-07-30 04:42] LABS: TROPONIN I < 0.01 ng/mL
[2018-07-30 05:10] LABS: ALB/GLOB RATIO 0.9 (1.1-1.8); ALBUMIN 3.9 g/dL (3.0-4.8); ALT/SGPT 15 U/L (7-56); AST/SGOT 52 U/L (14-36); BLOOD UREA NITROGEN 35 mg/dL (7-21); CALCIUM 9.2 mg/dL (8.4-10.5); GFR NON-AFRICAN AMERICAN 9
--- NOTE | 2018-07-30 08:11 | CT ---
Date of service: 07/30/2018 PROCEDURE: CT HEAD WITHOUT CONTRAST. HISTORY: syncope COMPARISON: 03/03/2018 TECHNIQUE: Axial computed tomography images were obtained through the head/brain without intravenous contrast. Radiation dose: Total exam DLP = 908.11 mGy-cm. This CT exam was performed using one or more of the following dose reduction techniques: Automated exposure control, adjustment of the mA and/or kV according to patient size, and/or use of iterative reconstruction technique. FINDINGS: HEMORRHAGE: No intracranial hemorrhage. BRAIN: No mass effect or edema. No atrophy or chronic microvascular ischemic changes. VENTRICLES: Unremarkable. No hydrocephalus. CALVARIUM: Unremarkable. PARANASAL SINUSES: Unremarkable as visualized. No significant inflammatory changes. MASTOID AIR CELLS: Unremarkable as visualized. No inflammatory changes. OTHER FINDINGS: The report concurs with the preliminary [facility] report IMPRESSION: No acute intracranial findings
--- NOTE | 2018-07-30 08:17 | CT ---
Date of service: 07/30/2018 PROCEDURE: CT Lumbar Spine without contrast HISTORY: fall COMPARISON: None available. TECHNIQUE: Axial computed tomography images were obtained of the lumbar spine without the use of intravenous contrast. Coronal and sagittal reformatted images were created and reviewed. Radiation dose: Total exam DLP = 1774.92 mGy-cm. This CT exam was performed using one or more of the following dose reduction techniques: Automated exposure control, adjustment of the mA and/or kV according to patient size, and/or use of iterative reconstruction technique. FINDINGS: VERTEBRAE: Unremarkable. No fracture. Normal alignment. DISCS/SPINAL CANAL/NEURAL FORAMINA: Multilevel degenerative changes are seen with disc space narrowing osteophyte formation and degenerative endplate changes. There is complete loss of the disc space at L5-S1 with a mild degree of anterolisthesis. There is facet arthropathy at L4-5 and L5-S1. PARASPINAL SOFT TISSUES: Unremarkable. OTHER FINDINGS: The report concurs with the preliminary [facility] report IMPRESSION: Multilevel degenerative changes. No acute compression fractures.
--- NOTE | 2018-07-30 09:30 | HP ---
DATE OF EXAM: 07/30/2018 HISTORY OF PRESENT ILLNESS: She apparently had another fall at [facility] where she is a permanent resident. She is having a rough 2-3 weeks with pains and not feeling well. Now, she was out of bed on the floor, they found her. She is a 73-year-old female who I know very very well for many years who is now having problems speaking, change in mentation and this is not herself. She could not speak to me this morning. Muddled speech. PAST MEDICAL HISTORY: She has a past medical history of anemia, COPD, CHF, hypertension, end-stage renal disease, on hemodialysis, CVAs in the past, seizures, peripheral vascular disease, bipolar disorder, depression, right breast lumpectomy and now she had a fall and change in mentation with speech issues. She has had VT in the past. She has had excessive heart failure, hypertension, peripheral vascular disease, asthma, bronchitis, COPD, CVA, seizures, cataracts, end-stage renal disease, fistula in the left side in the arm, diabetes, anemia, left breast cancer in the past, cirrhosis of the liver, psoriasis, arthritis, falls, left-sided weakness from the stroke. She had a tubal ligation, depression in the past, insomnia, right breast lumpectomy, bilateral hip replacement, bilateral knee replacements, left AV shunt. SOCIAL HISTORY: Never smoked. She still drinks alcohol occasionally. No drugs. ALLERGIES: SHE HAS ALLERGIES TO PENICILLIN. MEDICATIONS: On multiple medications which I am not going to put her on at this time, Tylenol, Pro-Stat, Arimidex, Flexeril, laxative, biotin, Prozac, Advair, folic acid, Lasix, Motrin, Lidoderm, melatonin, Ambien, Catapres, Klonopin and Apresoline. REVIEW OF SYSTEMS: She has had altered mental status, cannot respond. She is looking at me and talking garbled. This is new for her. I will make sure she gets a Catapres patch. PHYSICAL EXAMINATION: VITAL SIGNS: 97.9 temperature, 63 pulse 18, respiratory rate, 173/69 blood pressure, 98% O2 sat. HEENT: Head is atraumatic, normocephalic. Difficult to do a physical exam. She is not sticking at her tongue. She is just looking at me dazed. Her head is atraumatic, normocephalic. Throat is little bit dry. HEART: Regular rate. Normal S1, S2. LUNGS: Decreased breath sounds. Poor inspiration. No wheezes, rhonchi or rales auscultated. ABDOMEN: Abdomen, soft, nontender. Positive bowel sounds. EXTREMITIES: Have no edema. She does have left-sided weakness which is old. She cannot move the extremities. I do not think she has any sequela from a fall. GCS is not good. She is not really talking. The skin tack that I could tell. She is definitely drowsy, arousable, garbled speech. DIAGNOSTIC DATA: She had a CT scan of the head which showed age-appropriate cerebellar and cerebral atrophy, no evidence of acute intracranial pathology. She might need to have a MRI next. CT scan of the lumbar spine showed multilevel joint arthropathy but no acute pathology. LABORATORY DATA: She has a 9.6 white count, 10.4 hemoglobin, 33.8 hematocrit with 404,000 platelets and INR is 1.01. Sodium 134, potassium 4.5, BUN 35, creatinine 5, on dialysis. GFR is 9. Sugar is 135, calcium is 9.2, total bili is 0.6, AST is 52, ALT is 15, alk phos 102. Lactate dehydrogenase is 703. Troponin I is less than 0.01, total protein is 8.2. I will order urinalysis, culture sensitivity, hip and pelvis x-rays are pending. Chest x-ray is pending. There is a consult for Renal for dialysis and Neurology for change in mentation. I will order labs for tomorrow. I am not going to put her back on her medications but the Catapres patch. She is n.p.o. at this time due to her garbled speech and she will need to have a swallow eval and I am hoping this might be a TIA and I am hoping the MRI will be negative, but she is here for change in mentation, fall. Cresencio Park DO
--- NOTE | 2018-07-30 10:02 | RAD ---
Date of service: 07/30/2018 HISTORY: fall COMPARISON: 07/17/2018 FINDINGS: LUNGS: Chronic interstitial changes. No focal consolidation PLEURA: No significant pleural effusion identified, no pneumothorax apparent. CARDIOVASCULAR: Aortic calcifications Normal cardiac size. No pulmonary vascular congestion. OSSEOUS STRUCTURES: Degenerative changes in both shoulders VISUALIZED UPPER ABDOMEN: Normal. OTHER FINDINGS: None. IMPRESSION: No active disease.
--- NOTE | 2018-07-30 12:40 | CARD ---
APPROVED REPORT Date of service: 07/30/2018 EKG Measurement Heart [id number] <Conclusion> Normal sinus rhythm Normal ECG
--- NOTE | 2018-07-30 13:31 | RAD ---
PROCEDURE: Radiographs of the pelvis and bilateral hips HISTORY: fall COMPARISON: 07/18/2018 FINDINGS: BONES: No acute fractures identified. No evidence of orthopedic hardware failure. JOINTS: No significant interval change compared to the prior examination(s). SOFT TISSUES: Normal. OTHER FINDINGS: None. IMPRESSION: No acute findings related to/accounting for the clinical presentation. No significant interval change compared to the prior examination(s).
--- NOTE | 2018-07-31 00:16 | CON ---
DATE: 07/30/2018 This is a 73-year-old black female with a past medical history of hypertension, end-stage renal disease; on hemodialysis, had CVA, seizure, bipolar, and depression. The patient came from a [facility] and was found more unresponsive and eyes open, but does not follow simple commands. CAT scan of the head was done, which was reported negative, no bleed or stroke, and called to evaluate for change in mental status. SOCIAL HISTORY: She does not smoke. She does not drink. ALLERGIES: PENICILLIN. REVIEW OF SYSTEMS: The patient does not respond to verbal commands. PHYSICAL EXAMINATION: HEENT: Normocephalic and atraumatic. NECK: Supple. NEURO EXAM: Awake, confused, not able to follow the simple commands. Pupils, bilateral iridectomy. No facial asymmetry. Tongue midline. Spontaneous movement of extremity is noted. Deep tendon reflexes 1+. Both plantars downgoing. Sensory appears intact. Cerebellar, gait deferred. IMPRESSION: A 73-year-old black female with past medical history of chronic obstructive pulmonary disease, anemia, congestive heart failure, hypertension, end-stage renal disease; on dialysis, peripheral vascular disease, and admitted here with change in mental status, not following any commands. CAT scan of the head was reported negative. No bleed or infarct. Workup in progress and called Infectious Disease to rule out any underlying sepsis. Diallo Rowell MD
[2018-07-31 09:57] LABS: HEMOGLOBIN 11.2 g/dL (12.0-16.0); MEAN CELL VOLUME 102.5 fl (80.0-105.0); MEAN CORPUSCULAR HEMOGLOBIN 31.3 pg (25.0-35.0); MEAN CORPUSCULAR HGB CONC 30.5 g/dl (31.0-37.0); MEAN PLATELET VOLUME 8.4 fl (7.0-11.0); RBC 3.58 10^6/uL (3.5-6.1); RED CELL DISTRIBUTION WIDTH 16.5 % (11.5-14.5)
[2018-07-31 10:09] LABS: ALBUMIN 4.1 g/dL (3.0-4.8); CALCIUM 9.7 mg/dL (8.4-10.5)
[2018-07-31] MEDS ORDERED: Vancomycin 1gm in NS 250ml 1 GM/250 ML BAG IVPB STA (10:55)
[2018-07-31] MEDS: Acyclovir 250 MG in Sodium Chloride 0.9% 100 ML IV SCH ×3 (13:50→22:19)
--- NOTE | 2018-07-31 14:31 | PN ---
DATE: 07/31/2018 SUBJECTIVE: She came in from [place]. She had a change in mentation when she first came in, she was completely unarousable, looked that she is nonverbal. Today at least she is looking at me. She moved her right arm to hug me, speaking gibberish, but smiled, possibly she recognizes me, but . She is on Ativan at times, clonidine for blood pressure. She was on morphine for pain once. I am holding off on her regular medications for the time being. She is on IV fluids. She is completely out of it mentally, this is not her baseline. PHYSICAL EXAMINATION: VITAL SIGNS: She has a 99.7 temp, 81 pulse, 163/87 blood pressure, 20 respiratory rate, 95% O2 sat on room air. HEENT: Head is atraumatic, normocephalic. She looked at you, tried to talk a few times. HEART: Regular rate. LUNGS: Decreased breath sounds, but clear. ABDOMEN: Soft. EXTREMITIES: Stiff, moves the arms very inappropriate, not at baseline. MEDICATIONS: She is on Catapres patch. She is on Ativan. She is on IV fluids. LABORATORY DATA: Labs this morning were not done because she was on dialysis. She has a shunt on one arm and that is her IVs and getting blood, we will retry again this afternoon. She had 9.6 white count yesterday, 10.4 hemoglobin, 404 platelets. ASSESSMENT AND PLAN: She has consult with Neurology, who ordered an MRI of the brain. CAT scan of the head was normal. Renal for dialysis. Infectious Disease for ruling out an infection. Blood cultures and urine cultures were done. I will add some hydration. I made her an inpatient. She is in a little bit of trouble mentally, hopefully she does not have a stroke. We will continue with aggressive treatment and care on Mayte Burleson. Cresencio Park DO MTDD
--- NOTE | 2018-07-31 15:40 | CON ---
DATE: 07/31/2018 The patient is seen earlier today in 372, bed 1. CHIEF COMPLAINT: Change in mental status, unknown days of duration. HISTORY OF PRESENT ILLNESS: This is a 73-year-old female, assisted patient, with history of anemia, congestive heart failure, chronic obstructive lung disease, peripheral arterial disease, hypertension, end-stage renal disease on hemodialysis with cerebrovascular accident, seizures, bipolar, depression, asthma and history of right hip abscess who was now admitted with a diagnosis of change in mental status. The patient did have low-grade fevers. Review of systems is difficult to obtain because of the change in mental status. She knows what her name but she does not know where she is and she does not know what year it is and she does not know who the President of [facility] is. There have been low-grade fevers reported, mild shortness of breath reported. No abdominal pain reported. No diarrhea or constipation. No regarding symptoms. No rash. No headaches. REVIEW OF SYSTEMS: A 14-point review of systems is performed. PAST MEDICAL HISTORY: Significant for right hip abscess, chronic renal failure on hemodialysis, cerebrovascular accident, seizures, bipolar, depression, anemia, congestive heart failure, chronic obstructive lung disease. PAST SURGICAL HISTORY: Significant for right breast lumpectomy, bilateral knees, bilateral hips and a tubal ligation. ALLERGIES: THE PATIENT IS ALLERGIC TO PENICILLIN. SHE HAS HAD MEROPENEM IN THE PAST, SHE GETS A QUESTIONABLE RASH. MEDICATIONS: At the assisted are reviewed and include Flexeril, melatonin, Lasix, Prozac, Klonopin, Ambien. PHYSICAL EXAMINATION: GENERAL: Patient is in bed, she is confused. VITAL SIGNS: Temperature of 99.7; pulse rate of 89, today is 59; blood pressure is 170/80, it was high at 173/69; respiratory rate of 20. HEENT: Unremarkable. NECK: Supple. LUNGS: Decreased breath sounds. HEART: Normal S1, S2. ABDOMEN: Soft and nontender. No organomegaly. No rebound. No guarding. No masses. LABORATORY DATA: Reveals a white count of 9.6, hemoglobin of 10, platelets of 404,000. Coagulation is noted. BUN of 35, creatinine of 5.0. AST is 52. LDH is elevated. CAT scan of the head is negative and chest x-ray is negative. ASSESSMENT AND PLAN: This is a 73-year-old assisted patient with end-stage renal disease on hemodialysis, cerebrovascular accident, seizures, bipolar, depression, asthma, congestive heart failure, anemia, chronic obstructive pulmonary disease, now presenting with: Change of mental status, metabolic causes versus infectious causes. Urine is a possible source of infection versus [employer] infection, meningitis,herpes encephalitis, listeria meningitis, listeria rhombencephalitis is in the differential diagnosis. We will start the patient on vancomycin, meropenem and IV acyclovir adjusted for renal dose. 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 She is allergic to penicillin. Ampicillin is a drug of choice for listeria meningitis; however, in the setting of penicillin, we will use meropenem. We will order an RPR, FTA, blood cultures, urinalysis, urine cultures and HIV and recommend a spinal tap to rule out meningitis, MRI of the head and we will adjust the acyclovir dose intravenously based on renal function and we will make further recommendations. Rafael Villanueva MD
--- NOTE | 2018-07-31 15:58 | CP.PCM.CON ---
History of Present Illness - History of Present Illness History of Present Illness: Nephrology Consultation Note: Assessment: critical AMS, Fall Hypertensive Chronic Kidney Disease (I12.0) End stage renal disease (N18.6) dependence on hemodialysis (Z99.2) (MWF) via AVF Anemia (D64.9), Hyperphosphatemia (E83.39), Secondary Hyperparathyroidism (E21.1), HTN (I12.0) COPD, CHF, CVA, seizures, PVD, bipolar disorder, depression, and right breast lumpectomy Plan: Will plan for HD today as ordered. Continue with Nephrovite 1 tab/day. PRBC as needed for anemia. not on MAIA with dialysis as last Hb 10.4 Continue with phos binders BP control with meds as ordered. Patient not on RAAS eugenia will add if BP high Glycemic control, Dialysis consistent diet Further work up/management as per primary team Dose meds/antibiotics (if needed) for ESRD status. Avoid fleets enema/magnesium based laxatives. Neuro following Thanks for allowing me to participate in care of your patient. Will follow patient with you. Please call if any Qs Dr Willis Clark Office: [phone] Chief Complaint;unable HPI: Pt is a with hx of ESRD on hemodialysis (MWF) via AVF , last dialysis mon, chronic anemia, hyperphosphatemia, secondary hyperparathyroidism, hypertension anemia, COPD, CHF, CVA, seizures, PVD, bipolar disorder, depression, and right breast lumpectomy presented with complaints of fall and ? syncope from [place]. Renal consult requested for ESRD management. pt on HD at [facility] with Dr Booth ROS: pt unable to provide any hx Physical Examination: seen durng HD General Appearance: Comfortable, in no acute respiratory distress. Vitals reviewed and noted as below Head; Atraumatic, normocephalic ENT: no ulcers no thrush. Tongue is midline. Oropharynx: no rash or ulcers. EYES: Pupils are equal, round and reactive to light accommodation. Eye muscles and extraocular movement intact. Sclera is anicteric. Neck; supple no lymphadenopathy, no thyromegaly or bruit Lungs: Normal respiratory rate/effort. Breath sounds bilateral equal and clear Heart: Normal rate. s1s2 normal. No rub or gallop. Extremities: no edema. No varicose veins Neurological: Patient is non communicative Skin: Warm and dry. Normal turgor. No rash. Palpitation: Normal elasticity for age Abdomen: Abdomen is soft. Bowel sounds +. There is no abdominal tenderness, no guarding/rigidity or organomegaly Psych: unable MSK: no joint tenderness or swelling. Digits and nails normal, no deformity : kidney or bladder not palpable Access: AVF Labs/imaging reviewed. Past medical history, past surgical history, family history, social history, allergy reviewed and noted as below Family Hx: no hx of CKD. Non contributory Past Patient History - Infectious Disease Hx of Infectious Diseases: None - Tetanus Immunizations Tetanus Immunization: Unknown - Past Medical History & Family History Past Medical History?: Yes - Past Social History Smoking Status: Never Smoked - CARDIAC Hx Cardiac Disorders: Yes Hx Congestive Heart Failure: Yes Hx Hypertension: Yes - PULMONARY Hx Chronic Obstructive Pulmonary Disease (COPD): Yes - NEUROLOGICAL HX Cerebrovascular Accident: Yes (L sided weakness) - HEENT Hx HEENT Problems: Yes Hx Cataracts: Yes - RENAL Hx Renal Failure: Yes - ENDOCRINE/METABOLIC Hx Diabetes Mellitus Type 2: Yes - HEMATOLOGICAL/ONCOLOGICAL Hx Cancer: Yes (breast) - INTEGUMENTARY Hx Dermatological Problems: Yes Hx Psoriasis: Yes Other/Comment: bilat hip incision line. L fistula for HD - MUSCULOSKELETAL/RHEUMATOLOGICAL Hx Arthritis: Yes Hx Degenerative Joint Disease: Yes Hx Falls: Yes Hx Unsteady Gait: Yes - GASTROINTESTINAL Hx Gastroesophageal Reflux: Yes - GENITOURINARY/GYNECOLOGICAL Hx Genitourinary Disorders: No Other/Comment: TUBAL LIGATION - PSYCHIATRIC Hx Bipolar Disorder: Yes Hx Depression: Yes - SURGICAL HISTORY Hx Surgeries: Yes - ANESTHESIA Hx Anesthesia: Yes Hx Anesthesia Reactions: No Hx Malignant Hyperthermia: No Meds Allergies/Adverse Reactions: Allergies Allergy/AdvReac Type Severity Reaction Status Date / Time Penicillins Allergy RASH Verified 05/23/18 19:44 - Medications Medications: Current Medications Clonidine HCl (Catapres Tts1 0.1 Mg/24 Hr) 1 patch TD Q7D@1000 POLLY Results - Vital Signs Recent Vital Signs: Last Vital Signs Temp 98.9 F 07/30/18 11:58 Pulse 59 L 07/30/18 11:58 Resp 17 07/30/18 11:58 BP 153/61 H 07/30/18 11:58 Pulse Ox 100 11/14/18 11:58 - Labs Result Diagrams: 07/31/18 09:30 07/31/18 09:50 Labs: Laboratory Results - last 24 hr 07/30/18 07/30/18 07/30/18 02:15 02:15 02:16 WBC 9.6 RBC 3.40 L Hgb 10.4 L Hct 33.8 L MCV 99.4 MCH 30.6 MCHC 30.8 L RDW 15.9 H Plt Count 404 MPV 8.5 PT 11.5 INR 1.01 APTT 27.1 Sodium 134 Potassium 4.5 Chloride 93 L Carbon Dioxide 29 Anion Gap 16 BUN 35 H Creatinine 5.0 H Est GFR ( Amer) 10 Est GFR (Non-Af Amer) 9 Random Glucose 135 H Calcium 9.2 Total Bilirubin 0.6 AST 52 H D ALT 15 Alkaline Phosphatase 102 Lactate Dehydrogenase 703 H Total Creatine Kinase 55 Troponin I < 0.01 Total Protein 8.2 Albumin 3.9 Globulin 4.2 Albumin/Globulin Ratio 0.9 L
--- NOTE | 2018-07-31 16:00 | CP.PCM.PN ---
Subjective - Date & Time of Evaluation Date of Evaluation: 07/31/18 Time of Evaluation: 15:59 - Subjective Subjective: Nephrology Consultation Note: Assessment: stable AMS, Fall Hypertensive Chronic Kidney Disease (I12.0) End stage renal disease (N18.6) dependence on hemodialysis (Z99.2) (MWF) via AVF Anemia (D64.9), Hyperphosphatemia (E83.39), Secondary Hyperparathyroidism (E21.1), HTN (I12.0) COPD, CHF, CVA, seizures, PVD, bipolar disorder, depression, and right breast lumpectomy Plan: Will plan for HD MWF schedule as ordered. Continue with Nephrovite 1 tab/day. PRBC as needed for anemia. not on MAIA with dialysis as last Hb 10.4 Continue with phos binders BP control with meds as ordered. Patient not on RAAS eugenia hence added losartan Glycemic control, Dialysis consistent diet Further work up/management as per primary team Dose meds/antibiotics (if needed) for ESRD status. Avoid fleets enema/magnesium based laxatives. Neuro, ID following. MRI brain pending Thanks for allowing me to participate in care of your patient. Will follow patient with you. Please call if any Qs. had d/w team Dr Willis Clark Office: [phone] Chief Complaint;unable HPI: Pt is a with hx of ESRD on hemodialysis (MWF) via AVF , last dialysis mon, chronic anemia, hyperphosphatemia, secondary hyperparathyroidism, hypertension anemia, COPD, CHF, CVA, seizures, PVD, bipolar disorder, depression, and right breast lumpectomy presented with complaints of fall and ? syncope from [place]. Renal consult requested for ESRD management. pt on HD at [facility] with Dr Booth ROS: pt unable to provide any hx but more awake Physical Examination: General Appearance: Comfortable, in no acute respiratory distress. Vitals reviewed and noted as below Head; Atraumatic, normocephalic ENT: no ulcers no thrush. Tongue is midline. Oropharynx: no rash or ulcers. EYES: Pupils are equal, round and reactive to light accommodation. Eye muscles and extraocular movement intact. Sclera is anicteric. Neck; supple no lymphadenopathy, no thyromegaly or bruit Lungs: Normal respiratory rate/effort. Breath sounds bilateral equal and clear Heart: Normal rate. s1s2 normal. No rub or gallop. Extremities: no edema. No varicose veins Neurological: Patient is more awake but not much communicative Skin: Warm and dry. Normal turgor. No rash. Palpitation: Normal elasticity for age Abdomen: Abdomen is soft. Bowel sounds +. There is no abdominal tenderness, no guarding/rigidity or organomegaly Psych: unable MSK: no joint tenderness or swelling. Digits and nails normal, no deformity : kidney or bladder not palpable Access: AVF Labs/imaging reviewed. Past medical history, past surgical history, family history, social history, allergy reviewed and noted as below Family Hx: no hx of CKD. Non contributory Objective - Vital Signs/Intake and Output Vital Signs (last 24 hours): Temp Pulse Resp BP Pulse Ox 99.7 F H 76 20 158/80 H 95 07/31/18 08:48 07/31/18 14:00 07/31/18 08:48 07/31/18 10:55 07/31/18 08:48 - Medications Medications: Current Medications Clonazepam (Klonopin) 0.25 mg PO BID POLLY; Protocol Last Admin: 07/31/18 10:56 Dose: 0.25 mg Clonidine HCl (Catapres Tts1 0.1 Mg/24 Hr) 1 patch TD Q7D@1000 POLLY Last Admin: 07/30/18 18:51 Dose: 1 patch Heparin Sodium (Porcine) (Heparin) 2,000 units IVP MWF POLLY; Protocol Meropenem 250 mg/ Sodium (Chloride) 100 mls @ 100 mls/hr IVPB Q12H POLLY; Protocol Stop: 08/09/18 11:01 Last Admin: 07/31/18 13:51 Dose: 100 mls/hr Acyclovir 250 mg/ Sodium (Chloride) 100 mls @ 100 mls/hr IV Q12 POLLY; Protocol Last Admin: 07/31/18 13:50 Dose: 100 mls/hr Lorazepam (Ativan) 0.5 mg IVP Q8H PRN; Protocol PRN Reason: Anxiety Losartan Potassium (Cozaar) 50 mg PO DAILY [facility] Last Admin: 07/31/18 10:55 Dose: 50 mg Vitamin B Complex/Vit C/Folic Acid (Nephro-Fabby) 1 tab PO 0800 [facility] - Labs Labs: 07/31/18 09:30 07/31/18 09:50 PT 11.5 SECONDS (9.4-12.5) 07/30/18 02:15 INR 1.01 07/30/18 02:15 APTT 27.1 Seconds (25.1-36.5) 07/30/18 02:15
--- NOTE | 2018-07-31 16:01 | MRI ---
Date of service: 07/31/2018 PROCEDURE: MRI BRAIN WITHOUT CONTRAST HISTORY: ams COMPARISON: None available. TECHNIQUE: Multiplanar, multisequence MR images of the brain were obtained without intravenous contrast enhancement. FINDINGS: HEMORRHAGE: None DWI: No evidence of an acute or early subacute infarction. BRAIN PARENCHYMA: No mass effect or edema. Chronic microvascular changes are seen in the periventricular white matter and the nik VENTRICLES: Unremarkable. No hydrocephalus. CRANIUM: Unremarkable. ORBITS: Grossly unremarkable. PARANASAL SINUSES/MASTOIDS: Clear VASCULAR SYSTEM: Skull base flow voids intact. OTHER FINDINGS: None. IMPRESSION: No acute findings
[2018-08-01 06:23] LABS: HEMOGLOBIN 11.7 g/dL (12.0-16.0); MEAN CELL VOLUME 101.8 fl (80.0-105.0); MEAN CORPUSCULAR HEMOGLOBIN 30.9 pg (25.0-35.0); MEAN CORPUSCULAR HGB CONC 30.3 g/dl (31.0-37.0); MEAN PLATELET VOLUME 8.6 fl (7.0-11.0); RBC 3.79 10^6/uL (3.5-6.1); RED CELL DISTRIBUTION WIDTH 16.8 % (11.5-14.5); WHITE BLOOD COUNT 9.2 10^3/uL (4.5-11.0)
--- NOTE | 2018-08-01 06:39 | CP.PCM.PN ---
<Val Medeiros - Last Filed: 08/01/18 11:40> Subjective - Date & Time of Evaluation Date of Evaluation: 08/01/18 Time of Evaluation: 07:00 - Subjective Subjective: Infectious Disease Progress Note for Deborah Cortes PGY3 Patient seen and examined at bedside. Patient is sitting up in bed and feeding herself breakfast. Her mental status has improved a lot since yesterday. She does complain of cough. Otherwise has no other complaints and remains afebrile. Objective - Vital Signs/Intake and Output Vital Signs (last 24 hours): Temp Pulse Resp BP Pulse Ox 98.2 F 68 18 150/87 99 08/01/18 00:00 08/01/18 06:00 08/01/18 00:00 08/01/18 00:00 08/01/18 00:00 Intake and Output: 07/31/18 08/01/18 18:59 06:59 Intake Total 900 100 Output Total 0 Balance 900 100 - Medications Medications: Current Medications Clonazepam (Klonopin) 0.25 mg PO BID COUNT INCLUDES THE [facility]; Protocol Last Admin: 07/31/18 17:57 Dose: 0.25 mg Clonidine HCl (Catapres Tts1 0.1 Mg/24 Hr) 1 patch TD Q7D@1000 POLLY Last Admin: 07/30/18 18:51 Dose: 1 patch Heparin Sodium (Porcine) (Heparin) 2,000 units IVP MWF COUNT INCLUDES THE [facility]; Protocol Meropenem 250 mg/ Sodium (Chloride) 100 mls @ 100 mls/hr IVPB Q12H POLLY; Protocol Stop: 08/09/18 11:01 Last Admin: 07/31/18 22:18 Dose: Not Given Acyclovir 250 mg/ Sodium (Chloride) 100 mls @ 100 mls/hr IV Q12 POLLY; Protocol Last Admin: 07/31/18 22:19 Dose: Not Given Lorazepam (Ativan) 0.5 mg IVP Q8H PRN; Protocol PRN Reason: Anxiety Losartan Potassium (Cozaar) 50 mg PO DAILY COUNT [facility]CLUDES [facility] Last Admin: 07/31/18 10:55 Dose: 50 mg Vitamin B Complex/Vit C/Folic Acid (Nephro-Fabby) 1 tab PO 0800 [facility]CLUDES THE [facility] - Labs Labs: 08/01/18 06:00 07/31/18 09:50 PT 11.5 SECONDS (9.4-12.5) 07/30/18 02:15 INR 1.01 07/30/18 02:15 APTT 27.1 Seconds (25.1-36.5) 07/30/18 02:15 - Constitutional Appears: No Acute Distress - Head Exam Head Exam: ATRAUMATIC, NORMAL INSPECTION, NORMOCEPHALIC - Eye Exam Eye Exam: Normal appearance Pupil Exam: NORMAL ACCOMODATION - ENT Exam ENT Exam: Mucous Membranes Moist - Respiratory Exam Respiratory Exam: Clear to Ausculation Bilateral, NORMAL BREATHING PATTERN. absent: Rales, Rhonchi, Wheezes - Cardiovascular Exam Cardiovascular Exam: REGULAR RHYTHM, +S1, +S2. absent: Gallop, Rubs, Murmur - GI/Abdominal Exam GI & Abdominal Exam: Soft, Normal Bowel Sounds. absent: Rigid, Tenderness, Mass, Rebound - Extremities Exam Extremities Exam: Normal Inspection. absent: Calf Tenderness, Pedal Edema - Neurological Exam Neurological Exam: Alert, Awake, CN II-XII Intact - Psychiatric Exam Psychiatric exam: Normal Affect, Normal Mood - Skin Skin Exam: Dry, Warm Assessment and Plan - Assessment and Plan (Free Text) Assessment: 1. AMS - will rule out infectious cause - need to rule out meningitis v. UTI 2. ESRD on HD 3. CHF 4. CVA 5. Seizures 6. Bipolar 7. Anemia 8. COPD Plan: Labs and imaging reviewed. HIV and RPR negative. MRI brain was negative. Spoke with neurology and they will attempt LP today. Will need to straight cath patient to obtained to rule out UTI. Will continue Acyclovir and Merrem with intermittent vancomycin. Antibiotics were renally dosed. Will continue to monitor this patient clinically. Case seen, discussed and reviewed with Dr. Alis Medeiros PGY3 <Benjamin Snell - Last Filed: 08/01/18 18:16> Objective - Vital Signs/Intake and Output Vital Signs (last 24 hours): Temp Pulse Resp BP Pulse Ox 97.7 F 93 H 18 169/60 H 100 08/01/18 06:00 08/01/18 14:00 08/01/18 06:00 08/01/18 11:59 08/01/18 06:00 Intake and Output: 08/01/18 08/01/18 06:59 18:59 Intake Total 100 Output Total 0 Balance 100 - Medications Medications: Current Medications Clonazepam (Klonopin) 0.25 mg PO BID COUNT INCLUDES THE [facility]; Protocol Last Admin: 08/01/18 17:42 Dose: 0.25 mg Clonidine HCl (Catapres Tts1 0.1 Mg/24 Hr) 1 patch TD Q7D@1000 POLLY Last Admin: 07/30/18 18:51 Dose: 1 patch Compound Med (Compounded Med) 0 unit PO Q15M POLLY; Protocol Stop: 08/02/18 01:31 Compound Med (Compounded Med) 0 unit PO Q15M POLLY; Protocol Stop: 08/02/18 02:31 Compound Med (Compounded Med) 0 unit PO Q15M POLLY; Protocol Stop: 08/02/18 03:46 Diphenhydramine HCl (Benadryl) 50 mg PO Q2H PRN PRN Reason: Mild allergic reaction Diphenhydramine HCl (Benadryl) 50 mg IVP Q2H PRN PRN Reason: Mild allergic reaction Diphenhydramine HCl (Benadryl) 50 mg IVP Q2H PRN PRN Reason: Severe allergic reaction Epinephrine HCl (Epinephrine) 1 mg IM Q5M PRN PRN Reason: Severe allergic reaction Heparin Sodium (Porcine) (Heparin) 2,000 units IVP MWF COUNT INCLUDES THE [facility]; Protocol Last Admin: 08/01/18 09:58 Dose: 2,000 units Meropenem 250 mg/ Sodium (Chloride) 100 mls @ 100 mls/hr IVPB Q12H COUNT INCLUDES THE [facility]; Protocol Stop: 08/09/18 11:01 Last Admin: 08/01/18 14:19 Dose: 100 mls/hr Acyclovir 250 mg/ Sodium (Chloride) 100 mls @ 100 mls/hr IV Q12 POLLY; Protocol Last Admin: 08/01/18 14:19 Dose: 100 mls/hr Lorazepam (Ativan) 0.5 mg IVP Q8H PRN; Protocol PRN Reason: Anxiety Last Admin: 08/01/18 12:55 Dose: 0.5 mg Losartan Potassium (Cozaar) 50 mg PO DAILY [facility] Last Admin: 08/01/18 11:59 Dose: 50 mg Vitamin B Complex/Vit C/Folic Acid (Nephro-Fabby) 1 tab PO 0800 [facility]CLUDES [facility] Last Admin: 08/01/18 08:41 Dose: Not Given - Labs Labs: 08/01/18 06:00 08/01/18 06:00 PT 11.5 SECONDS (9.4-12.5) 07/30/18 02:15 INR 1.01 07/30/18 02:15 APTT 27.1 Seconds (25.1-36.5) 07/30/18 02:15 Assessment and Plan - Assessment and Plan (Free Text) Plan: Infectious Diseases Attending Physician Attestation Patient seen and examined, discussed with medical unit secretary. I have reviewed the patient's history of present illness, past medical, family and social histories, personal history, physical exam, lab findings and imaging studies. I agree with the above findings, assessment and plan. In addition, patient change in mental status, R/O sepsis R/O UTI, R/O meningitis. Patient has been given a dose of IV Vancomycin and will continue Merrem, Acyclovir pending CSF analysis and c ultures. MRI brain is negative. FTA-ABS is positive and we have to rule out neurosyphilis. Follow up CSF VDRL. Patient will need to be started on IV penicillin but since she has unspecified allergy to PCN, will need to undergo PCN desensitization in the ICU prior to starting IV penicillin.
[2018-08-01 07:41] LABS: ALBUMIN 4.1 g/dL (3.0-4.8)
[2018-08-01] MEDS: Multivitamin Vitamin B Complex (Nephro-Vite) Tab PO SCH (08:41)
[2018-08-01] MEDS ORDERED: DiphenhydrAMINE 50 mg/ml Inj IVP ONE (10:52)
--- NOTE | 2018-08-01 12:32 | PN ---
DATE: 08/01/2018 SUBJECTIVE: I saw her this morning. She knew who I was. She smiled. She talked to me a little bit. She is still off, still not a 100%. I will give her a 70% today back. MEDICATIONS: She is on acyclovir, Ativan, Catapres, Cozaar, heparin, Klonopin, Merrem IV and Nephro-Fabby. PHYSICAL EXAMINATION: VITAL SIGNS: 97.7 temperature, 73 pulse, 153/76 blood pressure, 18 respiratory rate, 100% O2 sat on nasal cannula. HEENT: Head is atraumatic, normocephalic. She is looking at me. She has a weird facial look, which is not her baseline. She is talking. HEART: Regular rate. LUNGS: Decreased breath sounds. There was a cough this morning, but the lungs are clear. Pulmonology said hi to her and said that he does not need to see her at this time. I will call him back if there is a need. ABDOMEN: Soft, nontender. Positive bowel sounds. EXTREMITIES: No edema. NEUROLOGIC: She is a little stiff in her speech and her body. She is getting closer. She is more alert, which is good. There is some kind of infection though I am not sure what it is. She might need a spinal tap versus the UA for UTI, but she is improving with the antibiotics, so I would say continue the antibiotics. LABORATORY DATA: 9.2 white count, 11.7 hemoglobin, 38.6 hematocrit with 425 platelets. 141 sodium, potassium 4.2, BUN 35, creatinine 6.8, on dialysis. GFR is 6. Sugar is 79, calcium is 10, total bili is 0.5. AST is 37, ALT is 10, alk phos 102. Troponin I was less than 0.01, total protein is 8.3. Procalcitonin is 0.47. HIV is nonreactive. RPR is nonreactive. IMPRESSION AND PLAN: She definitely is having an episode of something. The MRI of the brain was no acute finding. I think she is having some chronic hepatic encephalopathy, some kind of infection. We will continue with the antibiotics. She is improving as per Infectious Disease. Physical therapy will be added. Hopefully we can do some physical therapy, get out of bed to chair. Cresencio Park DO [facility] # [id number]
[2018-08-01] MEDS ORDERED: Lidocaine 1% Inj (20ml) IJ STA (12:57)
--- NOTE | 2018-08-01 13:35 | CP.PCM.PN ---
Subjective - Date & Time of Evaluation Date of Evaluation: 08/01/18 Time of Evaluation: 13:34 - Subjective Subjective: Nephrology Consultation Note: Assessment: stable AMS, Fall ? meningitis/encephalitis Hypertensive Chronic Kidney Disease (I12.0) End stage renal disease (N18.6) dependence on hemodialysis (Z99.2) (MWF) via AVF Anemia (D64.9), Hyperphosphatemia (E83.39), Secondary Hyperparathyroidism (E21.1), HTN (I12.0) COPD, CHF, CVA, seizures, PVD, bipolar disorder, depression, and right breast lumpectomy Plan: Will plan for HD MWF schedule as ordered. Continue with Nephrovite 1 tab/day. PRBC as needed for anemia. not on MAIA with dialysis as last Hb 10.4 Continue with phos binders BP control with meds as ordered. Patient not on RAAS eugenia hence added losartan Glycemic control, Dialysis consistent diet Further work up/management as per primary team Dose meds/antibiotics (if needed) for ESRD status. Avoid fleets enema/magnesium based laxatives. Neuro, ID following. MRI brain neg. CSf analysis pending Thanks for allowing me to participate in care of your patient. Will follow patient with you. Please call if any Qs. had d/w team Dr Willis Clark Office: [phone] Chief Complaint;unable HPI: Pt is a with hx of ESRD on hemodialysis (MWF) via AVF , last dialysis mon, chronic anemia, hyperphosphatemia, secondary hyperparathyroidism, hypertension anemia, COPD, CHF, CVA, seizures, PVD, bipolar disorder, depression, and right breast lumpectomy presented with complaints of fall and ? syncope from NH. Renal consult requested for ESRD management. pt on HD at [facility] with Dr Booth ROS: pt unable to provide any hx but more awake. had LP done for CSF analysis. Physical Examination: General Appearance: Comfortable, in no acute respiratory distress. Vitals reviewed and noted as below Head; Atraumatic, normocephalic ENT: no ulcers no thrush. Tongue is midline. Oropharynx: no rash or ulcers. EYES: Pupils are equal, round and reactive to light accommodation. Eye muscles and extraocular movement intact. Sclera is anicteric. Neck; supple no lymphadenopathy, no thyromegaly or bruit Lungs: Normal respiratory rate/effort. Breath sounds bilateral equal and clear. has Rt side portacath Heart: Normal rate. s1s2 normal. No rub or gallop. Extremities: no edema. No varicose veins Neurological: Patient is more awake but not oriented Skin: Warm and dry. Normal turgor. No rash. Palpitation: Normal elasticity for age Abdomen: Abdomen is soft. Bowel sounds +. There is no abdominal tenderness, no guarding/rigidity or organomegaly Psych: lack insight MSK: no joint tenderness or swelling. Digits and nails normal, no deformity : kidney or bladder not palpable Access: AVF Labs/imaging reviewed. Past medical history, past surgical history, family history, social history, allergy reviewed and noted as below Family Hx: no hx of CKD. Non contributory Objective - Vital Signs/Intake and Output Vital Signs (last 24 hours): Temp Pulse Resp BP Pulse Ox 97.7 F 86 18 169/60 H 100 08/01/18 06:00 08/01/18 11:59 08/01/18 06:00 08/01/18 11:59 08/01/18 06:00 Intake and Output: 08/01/18 08/01/18 06:59 18:59 Intake Total 100 Output Total 0 Balance 100 - Medications Medications: Current Medications Clonazepam (Klonopin) 0.25 mg PO BID [facility]; Protocol Last Admin: 08/01/18 10:30 Dose: Not Given Clonidine HCl (Catapres Tts1 0.1 Mg/24 Hr) 1 patch TD Q7D@1000 [facility] Last Admin: 07/30/18 18:51 Dose: 1 patch Heparin Sodium (Porcine) (Heparin) 2,000 units IVP MWF [facility]; Protocol Last Admin: 08/01/18 09:58 Dose: 2,000 units Meropenem 250 mg/ Sodium (Chloride) 100 mls @ 100 mls/hr IVPB Q12H [facility]; Protocol Stop: 08/09/18 11:01 Last Admin: 07/31/18 22:18 Dose: Not Given Acyclovir 250 mg/ Sodium (Chloride) 100 mls @ 100 mls/hr IV Q12 [facility]; Protocol Last Admin: 07/31/18 22:19 Dose: Not Given Lorazepam (Ativan) 0.5 mg IVP Q8H PRN; Protocol PRN Reason: Anxiety Losartan Potassium (Cozaar) 50 mg PO DAILY [facility] Last Admin: 08/01/18 11:59 Dose: 50 mg Vitamin B Complex/Vit C/Folic Acid (Nephro-Fabby) 1 tab PO 0800 [facility] Last Admin: 08/01/18 08:41 Dose: Not Given - Labs Labs: 08/01/18 06:00 08/01/18 06:00 PT 11.5 SECONDS (9.4-12.5) 07/30/18 02:15 INR 1.01 07/30/18 02:15 APTT 27.1 Seconds (25.1-36.5) 07/30/18 02:15
[2018-08-01 13:38] LABS: FLUID TYPE SPINAL FLUID
[2018-08-01 14:03] LABS: CSF VOLUME 3 mL (0-1)
[2018-08-01 14:04] LABS: CSF APPEARANCE CLEAR/COLORLESS (CLEAR)
[2018-08-01] MEDS: Acyclovir 250 MG in Sodium Chloride 0.9% 100 ML IV SCH ×2 (14:19→21:00)
--- NOTE | 2018-08-01 14:43 | CP.PCM.PCO ---
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 start penicillin
--- NOTE | 2018-08-01 15:34 | CP.PCM.CON ---
<Param Waldrop - Last Filed: 08/01/18 15:21> History of Present Illness - History of Present Illness History of Present Illness: Param Waldrop D.O. PGY-3, Internal Medicine Resident, Critical Care Consultation Note 73 year old female with a PMH of COPD, HFpEF, hypertension, ESRD on hemodialysis, anemia, CVA, seizures, PVD, and bipolar disorder who presented from her retirement after she was found down for suspected fall or syncope. Patient has been on the medical floor and found to have positive syphillis FTA- ABS and meningitis/encephalitis picture suspicious for neurosyphillis. Critical care consultation requested for penicillin de-sensitization monitoring. Patient was seen and examined at bedside in droplet isolation room. Patient is verbal but confused and has a word finding difficulty. Able to comprehend that she is in the hospital and so she must be sick, but otherwise a lot of her history is hard to obtain. Currently living in a retirement. Not sure how she got here. No major complaints at this time. PMH: as above PSH: BL hip replacement, BL knee replacement, left AVF, breast lumpectomy SH: states quit smoking tobacco years but can't specify years or amount used, same with alcohol and illicits, also unable to recall sexual history including number of partners or unprotected encounters FH: unable to recall Meds: reviewed Allergies: penicillin (unable to recall reaction) Review of Systems - Review of Systems Systems not reviewed;Unavailable: Altered Mental Status Past Patient History - Infectious Disease Hx of Infectious Diseases: None - Tetanus Immunizations Tetanus Immunization: Unknown - Past Medical History & Family History Past Medical History?: Yes - Past Social History Smoking Status: Never Smoked - CARDIAC Hx Pacemaker: No - PULMONARY Hx Chronic Obstructive Pulmonary Disease (COPD): Yes - NEUROLOGICAL HX Cerebrovascular Accident: Yes (L sided weakness) - HEENT Hx HEENT Problems: Yes Hx Cataracts: Yes - RENAL Hx Renal Failure: Yes - ENDOCRINE/METABOLIC Hx Diabetes Mellitus Type 2: Yes - HEMATOLOGICAL/ONCOLOGICAL Hx Cancer: No - INTEGUMENTARY Hx Dermatological Problems: Yes Hx Psoriasis: Yes Other/Comment: bilat hip incision line. L fistula for HD - MUSCULOSKELETAL/RHEUMATOLOGICAL Hx Arthritis: Yes Hx Degenerative Joint Disease: Yes Hx Falls: Yes Hx Unsteady Gait: Yes - GASTROINTESTINAL Hx Gastroesophageal Reflux: Yes - GENITOURINARY/GYNECOLOGICAL Hx Genitourinary Disorders: No Other/Comment: TUBAL LIGATION - PSYCHIATRIC Hx Bipolar Disorder: Yes Hx Depression: Yes - SURGICAL HISTORY Hx Mastectomy: No - ANESTHESIA Hx Anesthesia: Yes Hx Anesthesia Reactions: No Hx Malignant Hyperthermia: No Meds Allergies/Adverse Reactions: Allergies Allergy/AdvReac Type Severity Reaction Status Date / Time Penicillins Allergy RASH Verified 05/23/18 19:44 - Medications Medications: Current Medications Clonazepam (Klonopin) 0.25 mg PO BID [facility]; Protocol Last Admin: 08/01/18 10:30 Dose: Not Given Clonidine HCl (Catapres Tts1 0.1 Mg/24 Hr) 1 patch TD Q7D@1000 [facility] Last Admin: 07/30/18 18:51 Dose: 1 patch Heparin Sodium (Porcine) (Heparin) 2,000 units IVP MWF [facility]; Protocol Last Admin: 08/01/18 09:58 Dose: 2,000 units Meropenem 250 mg/ Sodium (Chloride) 100 mls @ 100 mls/hr IVPB Q12H [facility]; Protocol Stop: 08/09/18 11:01 Last Admin: 08/01/18 14:19 Dose: 100 mls/hr Acyclovir 250 mg/ Sodium (Chloride) 100 mls @ 100 mls/hr IV Q12 [facility]; Protocol Last Admin: 08/01/18 14:19 Dose: 100 mls/hr Lorazepam (Ativan) 0.5 mg IVP Q8H PRN; Protocol PRN Reason: Anxiety Last Admin: 08/01/18 12:55 Dose: 0.5 mg Losartan Potassium (Cozaar) 50 mg PO DAILY [facility] Last Admin: 08/01/18 11:59 Dose: 50 mg Vitamin B Complex/Vit C/Folic Acid (Nephro-Conrado) 1 tab PO 0800 [facility] Last Admin: 08/01/18 08:41 Dose: Not Given Physical Exam - Constitutional Appears: Non-toxic, No Acute Distress Additional comments: confused elderly female - Head Exam Head Exam: ATRAUMATIC, NORMOCEPHALIC - Eye Exam Eye Exam: EOMI, PERRL. absent: Scleral icterus - ENT Exam ENT Exam: Mucous Membranes Moist, Normal Oropharynx - Neck Exam Neck exam: Positive for: Normal Inspection. Negative for: Lymphadenopathy - Respiratory Exam Respiratory Exam: Clear to Auscultation Bilateral. absent: Rales, Rhonchi, Wheezes - Cardiovascular Exam Cardiovascular Exam: RRR, +S1, +S2. absent: Gallop, Rubs - GI/Abdominal Exam GI & Abdominal Exam: Normal Bowel Sounds, Soft. absent: Distended, Tenderness - Extremities Exam Extremities exam: Positive for: normal capillary refill. Negative for: pedal edema, tenderness - Neurological Exam Additional comments: awake, alert, oriented to self, location and situation but not to time, word finding difficulty, strength intact throughout, sensory levels intact, sluggish reaction time, does follow simple commands - Psychiatric Exam Psychiatric exam: Flat Affect - Skin Skin Exam: Dry, Warm Results - Vital Signs Recent Vital Signs: Last Vital Signs Temp 97.7 F 08/01/18 06:00 Pulse 86 08/01/18 11:59 Resp 18 08/01/18 06:00 BP 169/60 H 08/01/18 11:59 Pulse Ox 100 08/01/18 06:00 - Labs Result Diagrams: 08/01/18 06:00 08/01/18 06:00 Labs: Laboratory Results - last 24 hr 07/30/18 07/31/18 07/31/18 20:28 11:04 11:04 WBC RBC Hgb Hct MCV MCH MCHC RDW Plt Count MPV Sodium Potassium Chloride Carbon Dioxide Anion Gap BUN Creatinine Est GFR ( Amer) Est GFR (Non-Af Amer) POC Glucose (mg/dL) Random Glucose Lactic Acid Calcium Total Bilirubin AST ALT Alkaline Phosphatase Total Protein Albumin Globulin Albumin/Globulin Ratio Procalcitonin 0.47 Fluid Type CSF Volume CSF Appearance CSF WBC CSF RBC CSF Total Cell Counted CSF Monos/Macrophages CSF Comment CSF Glucose CSF Total Protein RPR Nonreactive T.pallidum Ab (FTA-ABS) Reactive H HIV 1&2 Ag/Ab, 4th Gen Nonreactive 08/01/18 08/01/18 08/01/18 06:00 06:00 06:00 WBC 9.2 RBC 3.79 Hgb 11.7 L Hct 38.6 MCV 101.8 MCH 30.9 MCHC 30.3 L RDW 16.8 H Plt Count 425 MPV 8.6 Sodium 141 Potassium 4.2 Chloride 99 Carbon Dioxide 28 Anion Gap 18 BUN 35 H Creatinine 6.8 H Est GFR ( Amer) 7 Est GFR (Non-Af Amer) 6 POC Glucose (mg/dL) Random Glucose 79 Lactic Acid 1.3 Calcium 10.0 Total Bilirubin 0.5 AST 37 H D ALT 10 Alkaline Phosphatase 102 Total Protein 8.3 Albumin 4.1 Globulin 4.2 Albumin/Globulin Ratio 1.0 L Procalcitonin Fluid Type CSF Volume CSF Appearance CSF WBC CSF RBC CSF Total Cell Counted CSF Monos/Macrophages CSF Comment CSF Glucose CSF Total Protein RPR T.pallidum Ab (FTA-ABS) HIV 1&2 Ag/Ab, 4th Gen 08/01/18 08/01/18 08/01/18 07:43 11:44 13:30 WBC RBC Hgb Hct MCV MCH MCHC RDW Plt Count MPV Sodium Potassium Chloride Carbon Dioxide Anion Gap BUN Creatinine Est GFR ( Amer) Est GFR (Non-Af Amer) POC Glucose (mg/dL) 66 67 Random Glucose Lactic Acid Calcium Total Bilirubin AST ALT Alkaline Phosphatase Total Protein Albumin Globulin Albumin/Globulin Ratio Procalcitonin Fluid Type CSF Volume CSF Appearance CSF WBC CSF RBC CSF Total Cell Counted CSF Monos/Macrophages CSF Comment CSF Glucose 44 CSF Total Protein RPR T.pallidum Ab (FTA-ABS) HIV 1&2 Ag/Ab, 4th Gen 08/01/18 08/01/18 13:30 13:30 WBC RBC Hgb Hct MCV MCH MCHC RDW Plt Count MPV Sodium Potassium Chloride Carbon Dioxide Anion Gap BUN Creatinine Est GFR ( Amer) Est GFR (Non-Af Amer) POC Glucose (mg/dL) Random Glucose Lactic Acid Calcium Total Bilirubin AST ALT Alkaline Phosphatase Total Protein Albumin Globulin Albumin/Globulin Ratio Procalcitonin Fluid Type Spinal fluid CSF Volume 3 H CSF Appearance Clear/colorless CSF WBC 1.0 CSF RBC 2.0 H CSF Total Cell Counted TEST NOT PERFORMED CSF Monos/Macrophages TEST NOT PERFORMED CSF Comment TEST NOT PERFORMED CSF Glucose CSF Total Protein 40.0 RPR T.pallidum Ab (FTA-ABS) HIV 1&2 Ag/Ab, 4th Gen Assessment & Plan - Assessment and Plan (Free Text) Assessment: 73 year old female with a PMH of COPD, HFpEF, hypertension, ESRD on hemodialysis, anemia, CVA, seizures, PVD, and bipolar disorder being transfered to the ICU for penicillin de-sensitization monitoring. Plan: Neurologic Concern for neurosyphillis but allergic to penicllin, pending CSF studies Transfer to ICU for penicillin de-sensitization ID following and working with pharmacy on protocol Monitor mental status Cardiovascular Hemodynamically intact Maintain MAP >65 Pulmonary Satting well on room air Protecting airway GI No acute issues On renal diet Nephro/Electrolytes ESRD on HD M/W/F Nephro following On nephro-conrado Heme Hgb at baseline if not greater No signs of active bleeding Hemodynamically stable Repeat CBC tomorrow AM ID Meningitis/encephalitis picture since presentation, now s/p lumbar puncture FTA-ABS in setting of mental status suspicious for neurosyphillis Will be undergoing de-sensitization here in the ICU On acyclovir D2 and merrem D2 GI/DVT ppx: not indicated/SCDs Dispo: transfer to ICU for de-sensitization. Discussed with ID who's working with pharmacy on protocol. Patient was seen and examined and case was discussed at length with attending outbound telemarketer Dr. Simms. - Date & Time Date: 08/01/18 Time: 15:00 <Colleen Simms - Last Filed: 08/02/18 11:24> Meds - Medications Medications: Current Medications Clonazepam (Klonopin) 0.25 mg PO BID [facility]; Protocol Last Admin: 08/02/18 09:34 Dose: 0.25 mg Clonidine HCl (Catapres Tts1 0.1 Mg/24 Hr) 1 patch TD Q7D@1000 [facility] Last Admin: 07/30/18 18:51 Dose: 1 patch Diphenhydramine HCl (Benadryl) 50 mg PO Q2H PRN PRN Reason: Mild allergic reaction Diphenhydramine HCl (Benadryl) 50 mg IVP Q2H PRN PRN Reason: Mild allergic reaction Diphenhydramine HCl (Benadryl) 50 mg IVP Q2H PRN PRN Reason: Severe allergic reaction Epinephrine HCl (Epinephrine) 1 mg IM Q5M PRN PRN Reason: Severe allergic reaction Heparin Sodium (Porcine) (Heparin) 2,000 units IVP MWF [facility]; Protocol Last Admin: 08/01/18 09:58 Dose: 2,000 units Acyclovir 250 mg/ Sodium (Chloride) 100 mls @ 100 mls/hr IV Q12 [facility]; Protocol Last Admin: 08/02/18 09:29 Dose: 100 mls/hr Dextrose/Sodium Chloride (Dextrose 5%/0.45% Ns 1000 Ml) 1,000 mls @ 30 mls/hr IV .Q24H [facility] Last Admin: 08/02/18 09:42 Dose: 30 mls/hr Penicillin G Potassium 3 mu/ (Sodium Chloride) 50 mls @ 100 mls/hr IVPB Q4 [facility]; Protocol Lorazepam (Ativan) 0.5 mg IVP Q8H PRN; Protocol PRN Reason: Anxiety Last Admin: 08/01/18 12:55 Dose: 0.5 mg Losartan Potassium (Cozaar) 50 mg PO DAILY [facility] Last Admin: 08/02/18 09:39 Dose: 50 mg Pantoprazole Sodium (Protonix Inj) 40 mg IVP DAILY [facility] Vitamin B Complex/Vit C/Folic Acid (Nephro-Conrado) 1 tab PO 0800 [facility] Last Admin: 08/02/18 09:32 Dose: 1 tab Results - Vital Signs Recent Vital Signs: Last Vital Signs Temp 98.5 F 08/02/18 04:00 Pulse 89 08/02/18 10:00 Resp 19 08/02/18 05:51 BP 169/62 H 08/02/18 09:39 Pulse Ox 76 L 08/02/18 05:50 - Labs Result Diagrams: 08/02/18 05:45 08/02/18 05:45 Labs: Laboratory Results - last 24 hr 07/31/18 08/01/18 08/01/18 11:04 07:43 11:44 WBC RBC Hgb Hct MCV MCH MCHC RDW Plt Count MPV Sodium Potassium Chloride Carbon Dioxide Anion Gap BUN Creatinine Est GFR ( Amer) Est GFR (Non-Af Amer) POC Glucose (mg/dL) 66 67 Random Glucose Calcium Total Bilirubin AST ALT Alkaline Phosphatase Total Protein Albumin Globulin Albumin/Globulin Ratio Fluid Type CSF Volume CSF Appearance CSF WBC CSF RBC CSF Total Cell Counted CSF Monos/Macrophages CSF Comment CSF Glucose CSF Total Protein CSF Cryptococcus Ag T.pallidum Ab (FTA-ABS) Reactive H HSV Source Description 08/01/18 08/01/18 08/01/18 13:30 13:30 13:30 WBC RBC Hgb Hct MCV MCH MCHC RDW Plt Count MPV Sodium Potassium Chloride Carbon Dioxide Anion Gap BUN Creatinine Est GFR ( Amer) Est GFR (Non-Af Amer) POC Glucose (mg/dL) Random Glucose Calcium Total Bilirubin AST ALT Alkaline Phosphatase Total Protein Albumin Globulin Albumin/Globulin Ratio Fluid Type CSF Volume CSF Appearance CSF WBC CSF RBC CSF Total Cell Counted CSF Monos/Macrophages CSF Comment CSF Glucose 44 CSF Total Protein 40.0 CSF Cryptococcus Ag Negative T.pallidum Ab (FTA-ABS) HSV Source Description 08/01/18 08/01/18 08/01/18 13:30 13:30 18:03 WBC RBC Hgb Hct MCV MCH MCHC RDW Plt Count MPV Sodium Potassium Chloride Carbon Dioxide Anion Gap BUN Creatinine Est GFR ( Amer) Est GFR (Non-Af Amer) POC Glucose (mg/dL) 63 L Random Glucose Calcium Total Bilirubin AST ALT Alkaline Phosphatase Total Protein Albumin Globulin Albumin/Globulin Ratio Fluid Type Spinal fluid CSF Volume 3 H CSF Appearance Clear/colorless CSF WBC 1.0 CSF RBC 2.0 H CSF Total Cell Counted TEST NOT PERFORMED CSF Monos/Macrophages TEST NOT PERFORMED CSF Comment TEST NOT PERFORMED CSF Glucose CSF Total Protein CSF Cryptococcus Ag T.pallidum Ab (FTA-ABS) HSV Source Description Fluid 08/01/18 08/01/18 08/01/18 18:33 21:43 22:56 WBC RBC Hgb Hct MCV MCH MCHC RDW Plt Count MPV Sodium Potassium Chloride Carbon Dioxide Anion Gap BUN Creatinine Est GFR ( Amer) Est GFR (Non-Af Amer) POC Glucose (mg/dL) 94 67 92 Random Glucose Calcium Total Bilirubin AST ALT Alkaline Phosphatase Total Protein Albumin Globulin Albumin/Globulin Ratio Fluid Type CSF Volume CSF Appearance CSF WBC CSF RBC CSF Total Cell Counted CSF Monos/Macrophages CSF Comment CSF Glucose CSF Total Protein CSF Cryptococcus Ag T.pallidum Ab (FTA-ABS) HSV Source Description 08/02/18 08/02/18 08/02/18 05:45 05:45 07:21 WBC 8.8 RBC 3.32 L Hgb 10.0 L Hct 33.7 L MCV 101.5 MCH 30.1 MCHC 29.7 L RDW 16.8 H Plt Count 332 MPV 8.6 Sodium 138 Potassium 4.2 Chloride 97 L Carbon Dioxide 32 Anion Gap 14 BUN 31 H Creatinine 6.0 H Est GFR ( Amer) 8 Est GFR (Non-Af Amer) 7 POC Glucose (mg/dL) 127 H Random Glucose 68 L Calcium 9.0 Total Bilirubin 0.3 AST 39 H ALT 16 Alkaline Phosphatase 88 Total Protein 7.3 Albumin 3.6 Globulin 3.8 Albumin/Globulin Ratio 1.0 L Fluid Type CSF Volume CSF Appearance CSF WBC CSF RBC CSF Total Cell Counted CSF Monos/Macrophages CSF Comment CSF Glucose CSF Total Protein CSF Cryptococcus Ag T.pallidum Ab (FTA-ABS) HSV Source Description Addendum Addendum: 08/01/18 18:18 MICU Attending Addendum for 08/01/18 Patient seen and examined on 08/01, cases reviewed and discussed with housestaff Agree with note above with the following add/exceptions: 73 year old female with a PMH of COPD, HFpEF, hypertension, ESRD on hemodialysis, anemia, CVA, seizures, PVD, and bipolar disorder being transferred to the ICU for PCN desensitisation for treatment of 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 RPR was neg FTA- TP POSITIVE CSF relatively normal, no lymphotic pleocytosis, WBC is 1 Discrepency between RPR and FTA-TP makes me wonder if this is syphillis or a false+ (i.e. lyme exposure or old syphilis) ID managing tx for now and coordinating desens protocol with pharmacy will monitor for allergic reactions to intro dose rest of care as above Colleen Simms MD Pulm/CC/Sleep Attending
[2018-08-02] MEDS ORDERED: DiphenhydrAMINE 50 mg/ml Inj IVP PRN ×2
[2018-08-02] MEDS ORDERED: EPINEPHrine 1 mg/ml (1:1000) Inj IM PRN
[2018-08-02] MEDS: PENICILLIN V PO SCH ×14 (00:15→03:45)
[2018-08-02 06:03] LABS: MEAN CELL VOLUME 101.5 fl (80.0-105.0); MEAN CORPUSCULAR HEMOGLOBIN 30.1 pg (25.0-35.0); MEAN CORPUSCULAR HGB CONC 29.7 g/dl (31.0-37.0); MEAN PLATELET VOLUME 8.6 fl (7.0-11.0); RBC 3.32 10^6/uL (3.5-6.1); RED CELL DISTRIBUTION WIDTH 16.8 % (11.5-14.5); WHITE BLOOD COUNT 8.8 10^3/uL (4.5-11.0)
[2018-08-02 06:22] LABS: ALBUMIN 3.6 g/dL (3.0-4.8)
--- NOTE | 2018-08-02 08:14 | CP.CCUPN ---
<Segun Franklin - Last Filed: 08/02/18 11:22> CCU Subjective - Physician Review Subjective (Free Text): 08/02/18 08:13 Patient seen and examined at bedside in no acute distress. Patient states she wasn't aware of why she was in the hospital however as per reviewing charts and speaking to nursing staff patient was aware of reason for being admitted. Patient is AAOx3; knows month and year, current location, name as well as name of the current president. Patient also aware of where she lives. Patient was fully explained of reason for being admitted (Syncopal episode at [facility]) and current diagnosis of syphillis. Patient admits to a mild headache, blurry vision and hip pain. Denies dizziness, confusion, abdominal pain, nausea, vomiting, diarrhea, fevers, chills, dysuria, cough. CCU Objective - Vital Signs / Intake & Output Vital Signs (Last 4 hours): Vital Signs Pulse Resp BP Pulse Ox 08/02/18 06:00 76 08/02/18 05:51 76 19 08/02/18 05:50 75 23 76 L 08/02/18 05:40 69 19 08/02/18 05:30 71 19 100 08/02/18 05:20 65 15 100 08/02/18 05:15 69 17 148/59 L 99 08/02/18 05:10 65 17 100 08/02/18 05:07 70 20 08/02/18 05:00 71 18 146/54 L 100 08/02/18 04:57 72 14 08/02/18 04:56 67 17 08/02/18 04:50 68 14 100 08/02/18 04:45 148/68 08/02/18 04:44 70 20 100 08/02/18 04:40 68 16 08/02/18 04:30 68 18 120/50 L 100 08/02/18 04:23 68 20 08/02/18 04:20 67 20 100 08/02/18 04:15 118/56 L 08/02/18 04:14 67 27 H 100 Intake and Output (Last 8hrs): Intake & Output 08/01/18 08/02/18 08/02/18 22:59 06:59 14:59 Intake Total 440 Output Total 0 Balance 440 Weight 74.843 kg Intake: IV 200 Right Upper arm 200 Oral 240 Output: Urine 0 Urine, Voided 0 - Physical Exam Head: Positive for: Atraumatic, Normocephalic Pupils: Positive for: PERRL Extroacular Muscles: Positive for: EOMI Conjunctiva: Positive for: Normal Ears: Positive for: NORMAL TM Mouth: Positive for: Moist Mucous Membranes Neck: Positive for: Normal Range of Motion Respiratory/Chest: Positive for: Clear to Auscultation, Good Air Exchange. Negative for: Respiratory Distress, Accessory Muscle Use Cardiovascular: Positive for: Regular Rate and Rhythm, Normal S1, S2. Negative for: Murmurs Abdomen: Negative for: Tenderness, Distention, Peritoneal Signs Genitourinary/Pelvic Exam: Positive for: Other (hip tenderness) Back: Positive for: Normal Inspection, Paraspinal Tenderness. Negative for: CVA Tenderness, Midline Tenderness Upper Extremity: Positive for: Normal Inspection. Negative for: Cyanosis, Edema Lower Extremity: Positive for: Normal Inspection. Negative for: Edema Neurological: Positive for: GCS=15, CN II-XII Intact, Motor Func Grossly Intact, Normal Sensory Function Skin: Positive for: Warm, Dry, Normal Color. Negative for: Rashes Psychiatric: Positive for: Alert, Oriented x 3, Normal Insight, Normal Concentration, Other (arousable) - Medications Active Medications: Active Medications Generic Name Dose Route Start Last Admin Trade Name Freq PRN Reason Stop Dose Admin Clonazepam 0.25 mg 07/31/18 10:00 08/01/18 17:42 Klonopin PO 0.25 mg BID POLLY Administration Protocol Clonidine HCl 1 patch 07/30/18 10:00 07/30/18 18:51 Catapres Tts1 0.1 Mg/24 Hr TD 1 patch Q7D@1000 POLLY Administration Diphenhydramine HCl 50 mg 08/02/18 00:00 Benadryl PO Q2H PRN Mild allergic reaction Diphenhydramine HCl 50 mg 08/02/18 00:00 Benadryl IVP Q2H PRN Mild allergic reaction Diphenhydramine HCl 50 mg 08/02/18 00:00 Benadryl IVP Q2H PRN Severe allergic reaction Epinephrine HCl 1 mg 08/02/18 00:00 Epinephrine IM Q5M PRN Severe allergic reaction Heparin Sodium (Porcine) 2,000 units 08/01/18 10:00 08/01/18 09:58 Heparin IVP 2,000 units MWF POLLY Administration Protocol Meropenem 250 mg/ Sodium 100 mls @ 100 mls/hr 07/31/18 11:00 08/01/18 22:01 Chloride IVPB 08/09/18 11:01 100 mls/hr Q12H POLLY Administration Protocol Acyclovir 250 mg/ Sodium 100 mls @ 100 mls/hr 07/31/18 11:15 08/01/18 21:00 Chloride IV 100 mls/hr Q12 POLLY Administration Protocol Lorazepam 0.5 mg 07/31/18 11:17 08/01/18 12:55 Ativan IVP 0.5 mg Q8H PRN Administration Anxiety Protocol Losartan Potassium 50 mg 07/31/18 10:00 08/01/18 11:59 Cozaar PO 50 mg DAILY POLLY Administration Vitamin B Complex/Vit C/Folic Acid 1 tab 08/01/18 08:00 08/01/18 08:41 Nephro-Fabby PO Not Given 0800 POLLY - Patient Studies Lab Studies: Microbiology Studies 07/30/18 20:33 Blood Culture - Preliminary Blood-Venous NO GROWTH AFTER 48 HOURS 07/30/18 20:33 Blood Culture - Preliminary Blood-Venous NO GROWTH AFTER 48 HOURS 08/01/18 13:30 Gram Stain - Final Cerebral Spinal Fluid Lab Studies 08/02/18 08/02/18 08/02/18 Range/Units 07:21 05:45 05:45 WBC 8.8 (4.5-11.0) 10^3/uL RBC 3.32 L (3.5-6.1) 10^6/uL Hgb 10.0 L (12.0-16.0) g/dL Hct 33.7 L (36.0-48.0) % MCV 101.5 (80.0-105.0) fl MCH 30.1 (25.0-35.0) pg MCHC 29.7 L (31.0-37.0) g/dl RDW 16.8 H (11.5-14.5) % Plt Count 332 (120.0-450.0) 10^3/uL MPV 8.6 (7.0-11.0) fl Sodium 138 (132-148) mmol/L Potassium 4.2 (3.6-5.0) mmol/L Chloride 97 L (98-107) mmol/L Carbon Dioxide 32 (21-33) mmol/L Anion Gap 14 (10-20) BUN 31 H (7-21) mg/dL Creatinine 6.0 H (0.7-1.2) mg/dl Est GFR ( Amer) 8 Est GFR (Non-Af Amer) 7 POC Glucose (mg/dL) 127 H (65-110) mg/dL Random Glucose 68 L (70-110) mg/dL Calcium 9.0 (8.4-10.5) mg/dL Total Bilirubin 0.3 (0.2-1.3) mg/dL AST 39 H (14-36) U/L ALT 16 (7-56) U/L Alkaline Phosphatase 88 (38-126) U/L Total Protein 7.3 (5.8-8.3) g/dL Albumin 3.6 (3.0-4.8) g/dL Globulin 3.8 gm/dL Albumin/Globulin Ratio 1.0 L (1.1-1.8) Fluid Type CSF Volume (0-1) mL CSF Appearance (CLEAR) CSF WBC (0.0-5.0) /uL CSF RBC (0.0-0.0) /uL CSF Total Cell Counted CSF Monos/Macrophages CSF Comment CSF Glucose (40-70) mg/dL CSF Total Protein (12-60) mg/dL CSF Cryptococcus Ag (NEGATIVE) T.pallidum Ab (FTA-ABS) (Nonreactive) HSV Source Description 08/01/18 08/01/18 08/01/18 Range/Units 22:56 21:43 18:33 WBC (4.5-11.0) 10^3/uL RBC (3.5-6.1) 10^6/uL Hgb (12.0-16.0) g/dL Hct (36.0-48.0) % MCV (80.0-105.0) fl MCH (25.0-35.0) pg MCHC (31.0-37.0) g/dl RDW (11.5-14.5) % Plt Count (120.0-450.0) 10^3/uL MPV (7.0-11.0) fl Sodium (132-148) mmol/L Potassium (3.6-5.0) mmol/L Chloride (98-107) mmol/L Carbon Dioxide (21-33) mmol/L Anion Gap (10-20) BUN (7-21) mg/dL Creatinine (0.7-1.2) mg/dl Est GFR ( Amer) Est GFR (Non-Af Amer) POC Glucose (mg/dL) 92 67 94 (65-110) mg/dL Random Glucose (70-110) mg/dL Calcium (8.4-10.5) mg/dL Total Bilirubin (0.2-1.3) mg/dL AST (14-36) U/L ALT (7-56) U/L Alkaline Phosphatase (38-126) U/L Total Protein (5.8-8.3) g/dL Albumin (3.0-4.8) g/dL Globulin gm/dL Albumin/Globulin Ratio (1.1-1.8) Fluid Type CSF Volume (0-1) mL CSF Appearance (CLEAR) CSF WBC (0.0-5.0) /uL CSF RBC (0.0-0.0) /uL CSF Total Cell Counted CSF Monos/Macrophages CSF Comment CSF Glucose (40-70) mg/dL CSF Total Protein (12-60) mg/dL CSF Cryptococcus Ag (NEGATIVE) T.pallidum Ab (FTA-ABS) (Nonreactive) HSV Source Description 08/01/18 08/01/18 08/01/18 Range/Units 18:03 13:30 13:30 WBC (4.5-11.0) 10^3/uL RBC (3.5-6.1) 10^6/uL Hgb (12.0-16.0) g/dL Hct (36.0-48.0) % MCV (80.0-105.0) fl MCH (25.0-35.0) pg MCHC (31.0-37.0) g/dl RDW (11.5-14.5) % Plt Count (120.0-450.0) 10^3/uL MPV (7.0-11.0) fl Sodium (132-148) mmol/L Potassium (3.6-5.0) mmol/L Chloride (98-107) mmol/L Carbon Dioxide (21-33) mmol/L Anion Gap (10-20) BUN (7-21) mg/dL Creatinine (0.7-1.2) mg/dl Est GFR ( Amer) Est GFR (Non-Af Amer) POC Glucose (mg/dL) 63 L (65-110) mg/dL Random Glucose (70-110) mg/dL Calcium (8.4-10.5) mg/dL Total Bilirubin (0.2-1.3) mg/dL AST (14-36) U/L ALT (7-56) U/L Alkaline Phosphatase (38-126) U/L Total Protein (5.8-8.3) g/dL Albumin (3.0-4.8) g/dL Globulin gm/dL Albumin/Globulin Ratio (1.1-1.8) Fluid Type Spinal fluid CSF Volume 3 H (0-1) mL CSF Appearance Clear/colorless (CLEAR) CSF WBC 1.0 (0.0-5.0) /uL CSF RBC 2.0 H (0.0-0.0) /uL CSF Total Cell Counted TEST NOT PERFORMED CSF Monos/Macrophages TEST NOT PERFORMED CSF Comment TEST NOT PERFORMED CSF Glucose (40-70) mg/dL CSF Total Protein (12-60) mg/dL CSF Cryptococcus Ag (NEGATIVE) T.pallidum Ab (FTA-ABS) (Nonreactive) HSV Source Description Fluid 08/01/18 08/01/18 08/01/18 Range/Units 13:30 13:30 13:30 WBC (4.5-11.0) 10^3/uL RBC (3.5-6.1) 10^6/uL Hgb (12.0-16.0) g/dL Hct (36.0-48.0) % MCV (80.0-105.0) fl MCH (25.0-35.0) pg MCHC (31.0-37.0) g/dl RDW (11.5-14.5) % Plt Count (120.0-450.0) 10^3/uL MPV (7.0-11.0) fl Sodium (132-148) mmol/L Potassium (3.6-5.0) mmol/L Chloride (98-107) mmol/L Carbon Dioxide (21-33) mmol/L Anion Gap (10-20) BUN (7-21) mg/dL Creatinine (0.7-1.2) mg/dl Est GFR ( Amer) Est GFR (Non-Af Amer) POC Glucose (mg/dL) (65-110) mg/dL Random Glucose (70-110) mg/dL Calcium (8.4-10.5) mg/dL Total Bilirubin (0.2-1.3) mg/dL AST (14-36) U/L ALT (7-56) U/L Alkaline Phosphatase (38-126) U/L Total Protein (5.8-8.3) g/dL Albumin (3.0-4.8) g/dL Globulin gm/dL Albumin/Globulin Ratio (1.1-1.8) Fluid Type CSF Volume (0-1) mL CSF Appearance (CLEAR) CSF WBC (0.0-5.0) /uL CSF RBC (0.0-0.0) /uL CSF Total Cell Counted CSF Monos/Macrophages CSF Comment CSF Glucose 44 (40-70) mg/dL CSF Total Protein 40.0 (12-60) mg/dL CSF Cryptococcus Ag Negative (NEGATIVE) T.pallidum Ab (FTA-ABS) (Nonreactive) HSV Source Description 08/01/18 08/01/18 07/31/18 Range/Units 11:44 07:43 11:04 WBC (4.5-11.0) 10^3/uL RBC (3.5-6.1) 10^6/uL Hgb (12.0-16.0) g/dL Hct (36.0-48.0) % MCV (80.0-105.0) fl MCH (25.0-35.0) pg MCHC (31.0-37.0) g/dl RDW (11.5-14.5) % Plt Count (120.0-450.0) 10^3/uL MPV (7.0-11.0) fl Sodium (132-148) mmol/L Potassium (3.6-5.0) mmol/L Chloride (98-107) mmol/L Carbon Dioxide (21-33) mmol/L Anion Gap (10-20) BUN (7-21) mg/dL Creatinine (0.7-1.2) mg/dl Est GFR ( Amer) Est GFR (Non-Af Amer) POC Glucose (mg/dL) 67 66 (65-110) mg/dL Random Glucose (70-110) mg/dL Calcium (8.4-10.5) mg/dL Total Bilirubin (0.2-1.3) mg/dL AST (14-36) U/L ALT (7-56) U/L Alkaline Phosphatase (38-126) U/L Total Protein (5.8-8.3) g/dL Albumin (3.0-4.8) g/dL Globulin gm/dL Albumin/Globulin Ratio (1.1-1.8) Fluid Type CSF Volume (0-1) mL CSF Appearance (CLEAR) CSF WBC (0.0-5.0) /uL CSF RBC (0.0-0.0) /uL CSF Total Cell Counted CSF Monos/Macrophages CSF Comment CSF Glucose (40-70) mg/dL CSF Total Protein (12-60) mg/dL CSF Cryptococcus Ag (NEGATIVE) T.pallidum Ab (FTA-ABS) Reactive H (Nonreactive) HSV Source Description Laboratory Results - last 24 hr 07/31/18 08/01/18 08/01/18 11:04 07:43 11:44 WBC RBC Hgb Hct MCV MCH MCHC RDW Plt Count MPV Sodium Potassium Chloride Carbon Dioxide Anion Gap BUN Creatinine Est GFR ( Amer) Est GFR (Non-Af Amer) POC Glucose (mg/dL) 66 67 Random Glucose Calcium Total Bilirubin AST ALT Alkaline Phosphatase Total Protein Albumin Globulin Albumin/Globulin Ratio Fluid Type CSF Volume CSF Appearance CSF WBC CSF RBC CSF Total Cell Counted CSF Monos/Macrophages CSF Comment CSF Glucose CSF Total Protein CSF Cryptococcus Ag T.pallidum Ab (FTA-ABS) Reactive H HSV Source Description 08/01/18 08/01/18 08/01/18 13:30 13:30 13:30 WBC RBC Hgb Hct MCV MCH MCHC RDW Plt Count MPV Sodium Potassium Chloride Carbon Dioxide Anion Gap BUN Creatinine Est GFR ( Amer) Est GFR (Non-Af Amer) POC Glucose (mg/dL) Random Glucose Calcium Total Bilirubin AST ALT Alkaline Phosphatase Total Protein Albumin Globulin Albumin/Globulin Ratio Fluid Type CSF Volume CSF Appearance CSF WBC CSF RBC CSF Total Cell Counted CSF Monos/Macrophages CSF Comment CSF Glucose 44 CSF Total Protein 40.0 CSF Cryptococcus Ag Negative T.pallidum Ab (FTA-ABS) HSV Source Description 08/01/18 08/01/18 08/01/18 13:30 13:30 18:03 WBC RBC Hgb Hct MCV MCH MCHC RDW Plt Count MPV Sodium Potassium Chloride Carbon Dioxide Anion Gap BUN Creatinine Est GFR ( Amer) Est GFR (Non-Af Amer) POC Glucose (mg/dL) 63 L Random Glucose Calcium Total Bilirubin AST ALT Alkaline Phosphatase Total Protein Albumin Globulin Albumin/Globulin Ratio Fluid Type Spinal fluid CSF Volume 3 H CSF Appearance Clear/colorless CSF WBC 1.0 CSF RBC 2.0 H CSF Total Cell Counted TEST NOT PERFORMED CSF Monos/Macrophages TEST NOT PERFORMED CSF Comment TEST NOT PERFORMED CSF Glucose CSF Total Protein CSF Cryptococcus Ag T.pallidum Ab (FTA-ABS) HSV Source Description Fluid 08/01/18 08/01/18 08/01/18 18:33 21:43 22:56 WBC RBC Hgb Hct MCV MCH MCHC RDW Plt Count MPV Sodium Potassium Chloride Carbon Dioxide Anion Gap BUN Creatinine Est GFR ( Amer) Est GFR (Non-Af Amer) POC Glucose (mg/dL) 94 67 92 Random Glucose Calcium Total Bilirubin AST ALT Alkaline Phosphatase Total Protein Albumin Globulin Albumin/Globulin Ratio Fluid Type CSF Volume CSF Appearance CSF WBC CSF RBC CSF Total Cell Counted CSF Monos/Macrophages CSF Comment CSF Glucose CSF Total Protein CSF Cryptococcus Ag T.pallidum Ab (FTA-ABS) HSV Source Description 08/02/18 08/02/18 08/02/18 05:45 05:45 07:21 WBC 8.8 RBC 3.32 L Hgb 10.0 L Hct 33.7 L MCV 101.5 MCH 30.1 MCHC 29.7 L RDW 16.8 H Plt Count 332 MPV 8.6 Sodium 138 Potassium 4.2 Chloride 97 L Carbon Dioxide 32 Anion Gap 14 BUN 31 H Creatinine 6.0 H Est GFR ( Amer) 8 Est GFR (Non-Af Amer) 7 POC Glucose (mg/dL) 127 H Random Glucose 68 L Calcium 9.0 Total Bilirubin 0.3 AST 39 H ALT 16 Alkaline Phosphatase 88 Total Protein 7.3 Albumin 3.6 Globulin 3.8 Albumin/Globulin Ratio 1.0 L Fluid Type CSF Volume CSF Appearance CSF WBC CSF RBC CSF Total Cell Counted CSF Monos/Macrophages CSF Comment CSF Glucose CSF Total Protein CSF Cryptococcus Ag T.pallidum Ab (FTA-ABS) HSV Source Description Fingerstick Blood Sugar Results: 127 Review of Systems - Constitutional Constitutional: absent: Fever, Chills - EENT Eyes: Blurred Vision Ears: absent: Dizziness - Cardiovascular Cardiovascular: absent: Chest Pain, Dyspnea - Respiratory Respiratory: absent: Cough, Dyspnea - Gastrointestinal Gastrointestinal: absent: Abdominal Pain, Diarrhea, Nausea, Vomiting - Genitourinary Genitourinary: absent: Dysuria - Musculoskeletal Additional comments: hip - Psychiatric Psychiatric: absent: Confusion - Endocrine Endocrine: absent: Fatigue Critical Care Progress Note - Nutrition Nutrition: Nutrition Category Date Time Status Renal Diet [DIET] Diets 07/30/18 Dinner Ordered Assessment/Plan - Assessment and Plan (Free Text) Assessment: Patient is a 73 F with a past medical history of COPD, Diastolic CHF, hypertension, ESRD on hemodialysisanemia, CVA, seizures, PVD, bipolar disorder who presented from [facility], [place] due to syncopal episode. During hospital course patient was found to be positive for syphilis FTA-ABS. Patient was then transferred to ICU due to monitoring for penicillin de-sensitization. Patient has been desensitized and was started on penicillin therapy as of this morning. Plan: Neuro/Psych -CT head and Brain MRI negative for acute abnormalities -AAO x 3 -CSF analysis negative for bacterial meningitis (CSF WBC 1, CSF glucose 44, total protein 40, Cryptococcus Ag negative) -No current signs of depression; continue with klonopin Cardiovascular -Hemodynamically stable -Maintain MAP>65 -Maintain normotension;Continue with Cozaar and clonidine Pulmonary -Maintain o2 sat >92% -Continue duonebs treatment Gastrointestinal -Renal diet -GI prophylaxis Renal -ESRD on hemodialysis MWF -Nephrology on consult -Monitor electrolytes -Continue with nephrovite Heme -DVT prophylaxis with Heparin MWF ID -FTA-ABS positive; will check VDRL of CSF to confirm, HSV pending, HIV non reactive -Penicillin desensitization complete -Currently on acyclovir and merrem day # 3, Day 1 of penicillin therapy out of 14 started today <Colleen Simms - Last Filed: 08/02/18 12:38> CCU Objective - Vital Signs / Intake & Output Vital Signs (Last 4 hours): Vital Signs Pulse BP 08/02/18 10:00 89 08/02/18 09:39 79 169/62 H Intake and Output (Last 8hrs): Intake & Output 08/01/18 08/02/18 08/02/18 22:59 06:59 14:59 Intake Total 440 Output Total 0 Balance 440 Weight 74.843 kg Intake: IV 200 Right Upper arm 200 Oral 240 Output: Urine 0 Urine, Voided 0 - Medications Active Medications: Active Medications Generic Name Dose Route Start Last Admin Trade Name Freq PRN Reason Stop Dose Admin Albuterol/Ipratropium 3 ml 08/02/18 14:00 Duoneb 3 Mg/0.5 Mg (3 Ml) Ud IH [id number] POLLY Arformoterol Tartrate 15 mcg 08/02/18 12:00 Brovana IH [id number] POLLY Budesonide 0.5 mg 08/02/18 12:00 Pulmicort Respules IH [id number] POLLY Clonazepam 0.25 mg 07/31/18 10:00 08/02/18 09:34 Klonopin PO 0.25 mg BID POLLY Administration Protocol Clonidine HCl 1 patch 07/30/18 10:00 07/30/18 18:51 Catapres Tts1 0.1 Mg/24 Hr TD 1 patch Q7D@1000 POLLY Administration Diphenhydramine HCl 50 mg 08/02/18 00:00 Benadryl PO Q2H PRN Mild allergic reaction Diphenhydramine HCl 50 mg 08/02/18 00:00 Benadryl IVP Q2H PRN Mild allergic reaction Diphenhydramine HCl 50 mg 08/02/18 00:00 Benadryl IVP Q2H PRN Severe allergic reaction Epinephrine HCl 1 mg 08/02/18 00:00 Epinephrine IM Q5M PRN Severe allergic reaction Heparin Sodium (Porcine) 2,000 units 08/01/18 10:00 08/01/18 09:58 Heparin IVP 2,000 units MWF POLLY Administration Protocol Acyclovir 250 mg/ Sodium 100 mls @ 100 mls/hr 07/31/18 11:15 08/02/18 09:29 Chloride IV 100 mls/hr Q12 POLLY Administration Protocol Dextrose/Sodium Chloride 1,000 mls @ 30 mls/hr 08/02/18 09:30 08/02/18 09:42 Dextrose 5%/0.45% Ns 1000 Ml IV 30 mls/hr .Q24H POLLY Administration Penicillin G Potassium 3 mu/ 50 mls @ 100 mls/hr 08/02/18 12:00 08/02/18 12:17 Sodium Chloride IVPB 100 mls/hr Q4 POLLY Administration Protocol Lorazepam 0.5 mg 07/31/18 11:17 08/01/18 12:55 Ativan IVP 0.5 mg Q8H PRN Administration Anxiety Protocol Losartan Potassium 50 mg 07/31/18 10:00 08/02/18 09:39 Cozaar PO 50 mg DAILY POLLY Administration Pantoprazole Sodium 40 mg 08/02/18 10:00 08/02/18 12:19 Protonix Inj IVP 40 mg DAILY POLLY Administration Vitamin B Complex/Vit C/Folic Acid 1 tab 08/01/18 08:00 08/02/18 09:32 Nephro-Fabby PO 1 tab 0800 POLLY Administration - Patient Studies Lab Studies: Microbiology Studies 08/01/18 13:30 Gram Stain - Final Cerebral Spinal Fluid CSF Culture - Preliminary NO GROWTH AFTER 24 HOURS 07/30/18 20:33 Blood Culture - Preliminary Blood-Venous NO GROWTH AFTER 48 HOURS 07/30/18 20:33 Blood Culture - Preliminary Blood-Venous NO GROWTH AFTER 48 HOURS Lab Studies 08/02/18 08/02/18 08/02/18 Range/Units 12:00 07:21 05:45 WBC (4.5-11.0) 10^3/uL RBC (3.5-6.1) 10^6/uL Hgb (12.0-16.0) g/dL Hct (36.0-48.0) % MCV (80.0-105.0) fl MCH (25.0-35.0) pg MCHC (31.0-37.0) g/dl RDW (11.5-14.5) % Plt Count (120.0-450.0) 10^3/uL MPV (7.0-11.0) fl Sodium 138 (132-148) mmol/L Potassium 4.2 (3.6-5.0) mmol/L Chloride 97 L (98-107) mmol/L Carbon Dioxide 32 (21-33) mmol/L Anion Gap 14 (10-20) BUN 31 H (7-21) mg/dL Creatinine 6.0 H (0.7-1.2) mg/dl Est GFR ( Amer) 8 Est GFR (Non-Af Amer) 7 POC Glucose (mg/dL) 86 127 H (65-110) mg/dL Random Glucose 68 L (70-110) mg/dL Calcium 9.0 (8.4-10.5) mg/dL Total Bilirubin 0.3 (0.2-1.3) mg/dL AST 39 H (14-36) U/L ALT 16 (7-56) U/L Alkaline Phosphatase 88 (38-126) U/L Total Protein 7.3 (5.8-8.3) g/dL Albumin 3.6 (3.0-4.8) g/dL Globulin 3.8 gm/dL Albumin/Globulin Ratio 1.0 L (1.1-1.8) Fluid Type CSF Volume (0-1) mL CSF Appearance (CLEAR) CSF WBC (0.0-5.0) /uL CSF RBC (0.0-0.0) /uL CSF Total Cell Counted CSF Monos/Macrophages CSF Comment CSF Glucose (40-70) mg/dL CSF Total Protein (12-60) mg/dL CSF Cryptococcus Ag (NEGATIVE) T.pallidum Ab (FTA-ABS) (Nonreactive) HSV Source Description 08/02/18 08/01/18 08/01/18 Range/Units 05:45 22:56 21:43 WBC 8.8 (4.5-11.0) 10^3/uL RBC 3.32 L (3.5-6.1) 10^6/uL Hgb 10.0 L (12.0-16.0) g/dL Hct 33.7 L (36.0-48.0) % MCV 101.5 (80.0-105.0) fl MCH 30.1 (25.0-35.0) pg MCHC 29.7 L (31.0-37.0) g/dl RDW 16.8 H (11.5-14.5) % Plt Count 332 (120.0-450.0) 10^3/uL MPV 8.6 (7.0-11.0) fl Sodium (132-148) mmol/L Potassium (3.6-5.0) mmol/L Chloride (98-107) mmol/L Carbon Dioxide (21-33) mmol/L Anion Gap (10-20) BUN (7-21) mg/dL Creatinine (0.7-1.2) mg/dl Est GFR ( Amer) Est GFR (Non-Af Amer) POC Glucose (mg/dL) 92 67 (65-110) mg/dL Random Glucose (70-110) mg/dL Calcium (8.4-10.5) mg/dL Total Bilirubin (0.2-1.3) mg/dL AST (14-36) U/L ALT (7-56) U/L Alkaline Phosphatase (38-126) U/L Total Protein (5.8-8.3) g/dL Albumin (3.0-4.8) g/dL Globulin gm/dL Albumin/Globulin Ratio (1.1-1.8) Fluid Type CSF Volume (0-1) mL CSF Appearance (CLEAR) CSF WBC (0.0-5.0) /uL CSF RBC (0.0-0.0) /uL CSF Total Cell Counted CSF Monos/Macrophages CSF Comment CSF Glucose (40-70) mg/dL CSF Total Protein (12-60) mg/dL CSF Cryptococcus Ag (NEGATIVE) T.pallidum Ab (FTA-ABS) (Nonreactive) HSV Source Description 08/01/18 08/01/18 08/01/18 Range/Units 18:33 18:03 13:30 WBC (4.5-11.0) 10^3/uL RBC (3.5-6.1) 10^6/uL Hgb (12.0-16.0) g/dL Hct (36.0-48.0) % MCV (80.0-105.0) fl MCH (25.0-35.0) pg MCHC (31.0-37.0) g/dl RDW (11.5-14.5) % Plt Count (120.0-450.0) 10^3/uL MPV (7.0-11.0) fl Sodium (132-148) mmol/L Potassium (3.6-5.0) mmol/L Chloride (98-107) mmol/L Carbon Dioxide (21-33) mmol/L Anion Gap (10-20) BUN (7-21) mg/dL Creatinine (0.7-1.2) mg/dl Est GFR ( Amer) Est GFR (Non-Af Amer) POC Glucose (mg/dL) 94 63 L (65-110) mg/dL Random Glucose (70-110) mg/dL Calcium (8.4-10.5) mg/dL Total Bilirubin (0.2-1.3) mg/dL AST (14-36) U/L ALT (7-56) U/L Alkaline Phosphatase (38-126) U/L Total Protein (5.8-8.3) g/dL Albumin (3.0-4.8) g/dL Globulin gm/dL Albumin/Globulin Ratio (1.1-1.8) Fluid Type CSF Volume (0-1) mL CSF Appearance (CLEAR) CSF WBC (0.0-5.0) /uL CSF RBC (0.0-0.0) /uL CSF Total Cell Counted CSF Monos/Macrophages CSF Comment CSF Glucose (40-70) mg/dL CSF Total Protein (12-60) mg/dL CSF Cryptococcus Ag (NEGATIVE) T.pallidum Ab (FTA-ABS) (Nonreactive) HSV Source Description Fluid 08/01/18 08/01/18 08/01/18 Range/Units 13:30 13:30 13:30 WBC (4.5-11.0) 10^3/uL RBC (3.5-6.1) 10^6/uL Hgb (12.0-16.0) g/dL Hct (36.0-48.0) % MCV (80.0-105.0) fl MCH (25.0-35.0) pg MCHC (31.0-37.0) g/dl RDW (11.5-14.5) % Plt Count (120.0-450.0) 10^3/uL MPV (7.0-11.0) fl Sodium (132-148) mmol/L Potassium (3.6-5.0) mmol/L Chloride (98-107) mmol/L Carbon Dioxide (21-33) mmol/L Anion Gap (10-20) BUN (7-21) mg/dL Creatinine (0.7-1.2) mg/dl Est GFR ( Amer) Est GFR (Non-Af Amer) POC Glucose (mg/dL) (65-110) mg/dL Random Glucose (70-110) mg/dL Calcium (8.4-10.5) mg/dL Total Bilirubin (0.2-1.3) mg/dL AST (14-36) U/L ALT (7-56) U/L Alkaline Phosphatase (38-126) U/L Total Protein (5.8-8.3) g/dL Albumin (3.0-4.8) g/dL Globulin gm/dL Albumin/Globulin Ratio (1.1-1.8) Fluid Type Spinal fluid CSF Volume 3 H (0-1) mL CSF Appearance Clear/colorless (CLEAR) CSF WBC 1.0 (0.0-5.0) /uL CSF RBC 2.0 H (0.0-0.0) /uL CSF Total Cell Counted TEST NOT PERFORMED CSF Monos/Macrophages TEST NOT PERFORMED CSF Comment TEST NOT PERFORMED CSF Glucose 44 (40-70) mg/dL CSF Total Protein 40.0 (12-60) mg/dL CSF Cryptococcus Ag (NEGATIVE) T.pallidum Ab (FTA-ABS) (Nonreactive) HSV Source Description 08/01/18 07/31/18 Range/Units 13:30 11:04 WBC (4.5-11.0) 10^3/uL RBC (3.5-6.1) 10^6/uL Hgb (12.0-16.0) g/dL Hct (36.0-48.0) % MCV (80.0-105.0) fl MCH (25.0-35.0) pg MCHC (31.0-37.0) g/dl RDW (11.5-14.5) % Plt Count (120.0-450.0) 10^3/uL MPV (7.0-11.0) fl Sodium (132-148) mmol/L Potassium (3.6-5.0) mmol/L Chloride (98-107) mmol/L Carbon Dioxide (21-33) mmol/L Anion Gap (10-20) BUN (7-21) mg/dL Creatinine (0.7-1.2) mg/dl Est GFR ( Amer) Est GFR (Non-Af Amer) POC Glucose (mg/dL) (65-110) mg/dL Random Glucose (70-110) mg/dL Calcium (8.4-10.5) mg/dL Total Bilirubin (0.2-1.3) mg/dL AST (14-36) U/L ALT (7-56) U/L Alkaline Phosphatase (38-126) U/L Total Protein (5.8-8.3) g/dL Albumin (3.0-4.8) g/dL Globulin gm/dL Albumin/Globulin Ratio (1.1-1.8) Fluid Type CSF Volume (0-1) mL CSF Appearance (CLEAR) CSF WBC (0.0-5.0) /uL CSF RBC (0.0-0.0) /uL CSF Total Cell Counted CSF Monos/Macrophages CSF Comment CSF Glucose (40-70) mg/dL CSF Total Protein (12-60) mg/dL CSF Cryptococcus Ag Negative (NEGATIVE) T.pallidum Ab (FTA-ABS) Reactive H (Nonreactive) HSV Source Description Laboratory Results - last 24 hr 07/31/18 08/01/18 08/01/18 11:04 13:30 13:30 WBC RBC Hgb Hct MCV MCH MCHC RDW Plt Count MPV Sodium Potassium Chloride Carbon Dioxide Anion Gap BUN Creatinine Est GFR ( Amer) Est GFR (Non-Af Amer) POC Glucose (mg/dL) Random Glucose Calcium Total Bilirubin AST ALT Alkaline Phosphatase Total Protein Albumin Globulin Albumin/Globulin Ratio Fluid Type CSF Volume CSF Appearance CSF WBC CSF RBC CSF Total Cell Counted CSF Monos/Macrophages CSF Comment CSF Glucose 44 CSF Total Protein CSF Cryptococcus Ag Negative T.pallidum Ab (FTA-ABS) Reactive H HSV Source Description 08/01/18 08/01/18 08/01/18 13:30 13:30 13:30 WBC RBC Hgb Hct MCV MCH MCHC RDW Plt Count MPV Sodium Potassium Chloride Carbon Dioxide Anion Gap BUN Creatinine Est GFR ( Amer) Est GFR (Non-Af Amer) POC Glucose (mg/dL) Random Glucose Calcium Total Bilirubin AST ALT Alkaline Phosphatase Total Protein Albumin Globulin Albumin/Globulin Ratio Fluid Type Spinal fluid CSF Volume 3 H CSF Appearance Clear/colorless CSF WBC 1.0 CSF RBC 2.0 H CSF Total Cell Counted TEST NOT PERFORMED CSF Monos/Macrophages TEST NOT PERFORMED CSF Comment TEST NOT PERFORMED CSF Glucose CSF Total Protein 40.0 CSF Cryptococcus Ag T.pallidum Ab (FTA-ABS) HSV Source Description Fluid 08/01/18 08/01/18 08/01/18 18:03 18:33 21:43 WBC RBC Hgb Hct MCV MCH MCHC RDW Plt Count MPV Sodium Potassium Chloride Carbon Dioxide Anion Gap BUN Creatinine Est GFR ( Amer) Est GFR (Non-Af Amer) POC Glucose (mg/dL) 63 L 94 67 Random Glucose Calcium Total Bilirubin AST ALT Alkaline Phosphatase Total Protein Albumin Globulin Albumin/Globulin Ratio Fluid Type CSF Volume CSF Appearance CSF WBC CSF RBC CSF Total Cell Counted CSF Monos/Macrophages CSF Comment CSF Glucose CSF Total Protein CSF Cryptococcus Ag T.pallidum Ab (FTA-ABS) HSV Source Description 08/01/18 08/02/18 08/02/18 22:56 05:45 05:45 WBC 8.8 RBC 3.32 L Hgb 10.0 L Hct 33.7 L MCV 101.5 MCH 30.1 MCHC 29.7 L RDW 16.8 H Plt Count 332 MPV 8.6 Sodium 138 Potassium 4.2 Chloride 97 L Carbon Dioxide 32 Anion Gap 14 BUN 31 H Creatinine 6.0 H Est GFR ( Amer) 8 Est GFR (Non-Af Amer) 7 POC Glucose (mg/dL) 92 Random Glucose 68 L Calcium 9.0 Total Bilirubin 0.3 AST 39 H ALT 16 Alkaline Phosphatase 88 Total Protein 7.3 Albumin 3.6 Globulin 3.8 Albumin/Globulin Ratio 1.0 L Fluid Type CSF Volume CSF Appearance CSF WBC CSF RBC CSF Total Cell Counted CSF Monos/Macrophages CSF Comment CSF Glucose CSF Total Protein CSF Cryptococcus Ag T.pallidum Ab (FTA-ABS) HSV Source Description 08/02/18 08/02/18 07:21 12:00 WBC RBC Hgb Hct MCV MCH MCHC RDW Plt Count MPV Sodium Potassium Chloride Carbon Dioxide Anion Gap BUN Creatinine Est GFR ( Amer) Est GFR (Non-Af Amer) POC Glucose (mg/dL) 127 H 86 Random Glucose Calcium Total Bilirubin AST ALT Alkaline Phosphatase Total Protein Albumin Globulin Albumin/Globulin Ratio Fluid Type CSF Volume CSF Appearance CSF WBC CSF RBC CSF Total Cell Counted CSF Monos/Macrophages CSF Comment CSF Glucose CSF Total Protein CSF Cryptococcus Ag T.pallidum Ab (FTA-ABS) HSV Source Description Critical Care Progress Note - Nutrition Nutrition: Nutrition Category Date Time Status Renal Diet [DIET] Diets 07/30/18 Dinner Ordered Addendum Addendum: 08/02/18 12:36 MICU Attending Addendum Patient seen and examined cases reviewed and discussed with housestaff Agree with note above with the following add/exceptions: 73 year old female with a PMH of COPD, HFpEF, hypertension, ESRD on hemodialysis , anemia, CVA, seizures, PVD, and bipolar disorder transferred to the ICU for PCN desensitization for treatment of 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 RPR was neg FTA- TP POSITIVE CSF relatively normal, no lymphotic pleocytosis, WBC is 1 Discrepancy between RPR and FTA-TP makes me wonder if this is syphilis or a false+ (i.e. lyme exposure or old syphilis) ID managing tx for now and coordinating desens protocol with pharmacy Intro PCN given, no reaction will begin treatment dose today will look for fevers, chills etc in the first 6-8hours which would possibly represent Jarisch-Herxheimer reaction (as opposed to anaphylaxis) empiric merrem and acyc while awaiting CSF culture and CSF VDRL Cont home meds including anti-htn for HTN (clonidine, losartan) nebs for COPD will confirm if she is on lasix at home considering she is on HD for ESRD discussed case with ID Dr Wynn this morning as well and reviewed plan rest of care as above Colleen Simms MD Pulm/CC/Sleep Attending
--- NOTE | 2018-08-02 08:45 | PN ---
DATE: 08/02/2018 SUBJECTIVE: I saw her this morning in the Intensive Care Unit. She is improving some. She is on acyclovir, Ativan, Benadryl, Catapres, Cozaar, epinephrine, heparin, Klonopin, Merrem IV and vitamin B complex. She is more alert, back to her baseline today. Talking appropriately, asking good questions. PHYSICAL EXAMINATION: VITAL SIGNS: She has a 98.5 temp, 76 pulse, 148/59 blood pressure, 19 respiratory rate, 100% O2 sat on room air. HEENT: Head is atraumatic, normocephalic. GENERAL: Very alert, looking at me, talking with me, back to her baseline. HEART: Regular rate. LUNGS: Clear to auscultation. ABDOMEN: Soft. EXTREMITIES: No edema. LABORATORY DATA: She is having left abdominal pain. She has a left hip x-ray, which was normal. We did an ultrasound of the abdomen and pelvis. She is currently with labs, which showed an 8.8 white count, 10 hemoglobin, 33.7 hematocrit with a 332 platelets. She has a 138 sodium, potassium 4.2, BUN 31, creatinine 6. She is on dialysis. GFR is 7. Sugars have been low at 67, 92, 68, now it is 127. We will discontinue to give her sugar, water or orange juice when it goes low. It could be from the infection. Calcium is 9, total bili is 0.3, AST is 39, ALT is 16, alk phos 88, total protein 7.3. ASSESSMENT AND PLAN: She did have positive FTA-ABS. It is looks like she went to neurosyphilis. She is on IV Merrem, improving with IV Merrem. There was a question of putting her on Pen VK. She is on acyclovir and Merrem. We will continue with aggressive treatment and care. We are checking an ultrasound guided on pelvis. I was going to put her on dextrose, but she is on dialysis. I did not want to go there and she is very comfortable. We will keep an eye on the blood sugars. I would like to get her out of bed to chair if we can. Continue with infectious disease. I answered many questions from Mayte and the nurse will call me if anything changes. Cresencio Park DO [facility] # [phone]
[2018-08-02] MEDS: Acyclovir 250 MG in Sodium Chloride 0.9% 100 ML IV SCH ×2 (09:29→21:05)
[2018-08-02] MEDS ORDERED: Dextrose 5%/0.45% NS 1,000 ML IV SCH (09:30)
[2018-08-02] MEDS: Multivitamin Vitamin B Complex (Nephro-Vite) Tab PO SCH (09:32)
[2018-08-02] MEDS ORDERED: Fluticasone-Salmeterol 250-50mcg Diskus IH SCH (11:45)
--- NOTE | 2018-08-02 11:46 | US ---
HISTORY: left lower abd and hip pain COMPARISON: CT abdomen and pelvis without contrast performed 07/21/18 TECHNIQUE: Sonographic evaluation of the abdomen. FINDINGS: Examination limited by bowel gas. LIVER: Measures 14.4 cm in sagittal dimension. Echogenic liver may be seen in setting of hepatic parenchymal disease or fatty infiltration. No focal hepatic mass identified. The main portal vein appears patent with normal directional flow. No intrahepatic bile duct dilatation. GALLBLADDER: No gallstones. No gallbladder wall thickening. Negative sonographic Mckeon's sign as assessed by the milk wagon driver. COMMON BILE DUCT: Measures 5 mm. PANCREAS: Not well visualized. RIGHT KIDNEY: Measures 6.8 x 3.2 X 3.0cm. No obstructing calculus or hydronephrosis identified. LEFT KIDNEY: Measures 6.0 x 3.7 x 3.4cm. No obstructing calculus or hydronephrosis identified. SPLEEN: Measures approximately 9.4 cm. AORTA: Limited views appear unremarkable. IVC: Limited views appear unremarkable. OTHER FINDINGS: None. IMPRESSION: Limited study. Diminutive and echogenic renal parenchyma may be seen in the setting of medical renal disease. Correlate clinically.
--- NOTE | 2018-08-02 13:29 | CP.PCM.PN ---
Subjective - Date & Time of Evaluation Date of Evaluation: 08/02/18 Time of Evaluation: 11:00 - Subjective Subjective: More awake today, no fevers, tolerated PCN desensitization without issues. Objective - Vital Signs/Intake and Output Vital Signs (last 24 hours): Temp Pulse Resp BP Pulse Ox 97.7 F 93 H 18 169/60 H 100 08/01/18 06:00 08/01/18 14:00 08/01/18 06:00 08/01/18 11:59 08/01/18 06:00 Intake and Output: 08/01/18 08/01/18 06:59 18:59 Intake Total 100 Output Total 0 Balance 100 - Medications Medications: Current Medications Clonazepam (Klonopin) 0.25 mg PO BID PO[facility]; Protocol Last Admin: 08/01/18 17:42 Dose: 0.25 mg Clonidine HCl (Catapres Tts1 0.1 Mg/24 Hr) 1 patch TD Q7D@1000 [facility] Last Admin: 07/30/18 18:51 Dose: 1 patch Compound Med (Compounded Med) 0 unit PO Q15M PO[facility]; Protocol Stop: 08/02/18 01:31 Compound Med (Compounded Med) 0 unit PO Q15M PO[facility]; Protocol Stop: 08/02/18 02:31 Compound Med (Compounded Med) 0 unit PO Q15M PO[facility]; Protocol Stop: 08/02/18 03:46 Diphenhydramine HCl (Benadryl) 50 mg PO Q2H PRN PRN Reason: Mild allergic reaction Diphenhydramine HCl (Benadryl) 50 mg IVP Q2H PRN PRN Reason: Mild allergic reaction Diphenhydramine HCl (Benadryl) 50 mg IVP Q2H PRN PRN Reason: Severe allergic reaction Epinephrine HCl (Epinephrine) 1 mg IM Q5M PRN PRN Reason: Severe allergic reaction Heparin Sodium (Porcine) (Heparin) 2,000 units IVP MWF [facility]; Protocol Last Admin: 08/01/18 09:58 Dose: 2,000 units Meropenem 250 mg/ Sodium (Chloride) 100 mls @ 100 mls/hr IVPB Q12H [facility]; Protocol Stop: 08/09/18 11:01 Last Admin: 08/01/18 14:19 Dose: 100 mls/hr Acyclovir 250 mg/ Sodium (Chloride) 100 mls @ 100 mls/hr IV Q12 [facility]; Protocol Last Admin: 08/01/18 14:19 Dose: 100 mls/hr Lorazepam (Ativan) 0.5 mg IVP Q8H PRN; Protocol PRN Reason: Anxiety Last Admin: 08/01/18 12:55 Dose: 0.5 mg Losartan Potassium (Cozaar) 50 mg PO DAILY POLLY Last Admin: 08/01/18 11:59 Dose: 50 mg Vitamin B Complex/Vit C/Folic Acid (Nephro-Fabby) 1 tab PO 0800 POLLY Last Admin: 08/01/18 08:41 Dose: Not Given - Labs Labs: 08/01/18 06:00 08/01/18 06:00 PT 11.5 SECONDS (9.4-12.5) 07/30/18 02:15 INR 1.01 07/30/18 02:15 APTT 27.1 Seconds (25.1-36.5) 07/30/18 02:15 - Constitutional Appears: Chronically Ill - Head Exam Head Exam: NORMAL INSPECTION - Respiratory Exam Respiratory Exam: Decreased Breath Sounds - Cardiovascular Exam Cardiovascular Exam: +S1, +S2 - GI/Abdominal Exam GI & Abdominal Exam: Soft. absent: Tenderness Assessment and Plan - Assessment and Plan (Free Text) Plan: Assessment Change in sensorium, R/O neurosyphilis ESRD on HD chronic CHF CVA bipolar disorder seizure disorder COPD chronic anemia Plan Follow up CSF analysis, CSF VDRL - now that the patient is desensitized, can start IV penicillin will monitor clinically follow up HSV PCR also and continue Acyclovir for now CSF WBC only 1 - not bacterial meningitis - can d/c isolation and d/c Merrem
[2018-08-02] MEDS: Arformoterol 15 mcg/2 ml Inh Sol IH SCH ×2 (14:39→20:15)
[2018-08-02] MEDS: Albuterol-Ipratrop 3 mg / 0.5 (3 ml) UD IH SCH ×2 (14:39→20:15)
[2018-08-02] MEDS: Budesonide 0.5 mg/2 ml Inhal Susp UD IH SCH ×2 (14:40→20:15)
--- NOTE | 2018-08-02 14:51 | PN ---
NEUROLOGY FOLLOWUP DATE: 08/02/2018 CHIEF COMPLAINT: Follow up for altered mental status. SUBJECTIVE: The patient is seen and examined at the bedside. The patient was not aware why she was in the hospital, but however, she is following more commands, knows the month and year and current location. She currently knows the president of [facility]. She is more attentive and she has intermittent episodes of confusion though. She had FTA-ABS and the serum is positive for syphilis, she is status post penicillin desensitization. Preliminary lumbar puncture was also currently pending for neurosyphilis. Protein is normal in CSF. MRI of the brain showed no acute intracranial abnormality. PAST MEDICAL HISTORY: History of COPD, hypertension, history of renal disease on hemodialysis, history of CVA, seizures, PVD, bipolar disorder. REVIEW OF SYSTEMS: A 12-point review of system is negative except for the HPI. MEDICATIONS: Reviewed by nurses' reconciliation sheet. SOCIAL HISTORY: No illicit drug use, smoking, or EtOH abuse. ALLERGIES: ALLERGIC TO PENICILLIN. FAMILY HISTORY: Noncontributory. LABORATORY DATA: Sodium is 138, potassium 4.2, chloride 97, carbon dioxide 32, BUN of 31, creatinine of 6 and random glucose 68. PHYSICAL EXAMINATION VITAL SIGNS: Temperature afebrile, pulse 87, blood pressure 160/62, respiratory rate of 19 and ox saturation of 98% on nasal cannula. GENERAL: The patient is sitting up in bed, in no acute distress. HEENT: Atraumatic and normocephalic. PERRLA. Extraocular muscles intact. NECK: Supple. No JVD. No adenopathy noted. LUNGS: Clear to auscultation. No adventitious sounds. HEART: S1 and S2. Normal rate and rhythm. No murmurs, rubs, or gallops. ABDOMEN: Soft, nontender, and nondistended. Bowel sounds are present. EXTREMITIES: No clubbing. No cyanosis. Peripheral pulses 2+ felt bilaterally. NEUROLOGIC: The patient is alert and oriented to person and place. Recall after 5 minutes is 0/3. Poor attention span and slow thought process. Flat affect. Cranial nerves II through XII intact. Motor exam: Moves all extremities equally. No pronator drift seen. Sensory exam: Decreased light touch and pinprick up to the calves bilaterally. Decreased vibration of the toes. DTRs are 2+ throughout, 1 at both knees and ankles. Coordination: [id number] intact. No dysmetria noted. Gait is deferred for now. IMPRESSION: A 73-year-old woman with long history of chronic obstructive pulmonary disease, diastolic congestive heart failure, hypertension, end-stage renal disease on hemodialysis, seizures, peripheral vascular disease, bipolar disorder, came from [facility] due to syncopal episode also found to have altered mental status and intermittent bouts of confusion and was found to have FTA-ABS is positive, consistent with syphilis, she is admitted in ICU for penicillin desensitization. The patient has been desensitized, we will start penicillin therapy as of morning. Cerebrospinal fluid is currently pending for titers of syphilis, but seems most likely neurosyphilis picture. MRI of the brain showed no acute intracranial abnormality. At this time, continue Infectious Diseases recommendations for penicillin and she is currently on Merrem as well. At this time, she will be on a 14 day of therapy on penicillin. Continue physical therapy and occupational therapy evaluation, monitor electrolytes and correct accordingly and avoid hypoglycemic events. Al Rowell MD
[2018-08-02] MEDS ORDERED: Vitamins A & D Oint UD Foilpak TOP PRN (15:20)
--- NOTE | 2018-08-02 15:34 | CP.PCM.PN ---
Subjective - Date & Time of Evaluation Date of Evaluation: 08/02/18 Time of Evaluation: 15:32 - Subjective Subjective: Nephrology Consultation Note: Assessment: stable AMS, Fall ? meningitis/encephalitis Hypertensive Chronic Kidney Disease (I12.0) End stage renal disease (N18.6) dependence on hemodialysis (Z99.2) (MWF) via AVF Anemia (D64.9), Hyperphosphatemia (E83.39), Secondary Hyperparathyroidism (E21.1), HTN (I12.0) COPD, CHF, CVA, seizures, PVD, bipolar disorder, depression, and right breast lumpectomy Plan: HD MWF Continue with Nephrovite 1 tab/day. PRBC as needed for anemia. hgb stable Continue with phos binders BP control with meds as ordered. Glycemic control, Dialysis consistent diet Further work up/management as per primary team Dose meds/antibiotics (if needed) for ESRD status. Avoid fleets enema/magnesium based laxatives. S: Seen and examiend no n/v Physical Examination: General Appearance: Comfortable, in no acute respiratory distress. Vitals reviewed and noted as below Head; Atraumatic, normocephalic ENT: no ulcers no thrush. Tongue is midline. Oropharynx: no rash or ulcers. EYES: Pupils are equal, round and reactive to light accommodation. Eye muscles and extraocular movement intact. Sclera is anicteric. Neck; supple no lymphadenopathy, no thyromegaly or bruit Lungs: Normal respiratory rate/effort. Breath sounds bilateral equal and clear. has Rt side portacath Heart: Normal rate. s1s2 normal. No rub or gallop. Extremities: no edema. No varicose veins Neurological: Patient is more awake but not oriented Skin: Warm and dry. Normal turgor. No rash. Palpitation: Normal elasticity for age Abdomen: Abdomen is soft. Bowel sounds +. There is no abdominal tenderness, no guarding/rigidity or organomegaly Psych: lack insight MSK: no joint tenderness or swelling. Digits and nails normal, no deformity : kidney or bladder not palpable Access: AVF Labs/imaging reviewed. Past medical history, past surgical history, family history, social history, allergy reviewed and noted as below Family Hx: no hx of CKD. Non contributory Objective - Vital Signs/Intake and Output Vital Signs (last 24 hours): Temp Pulse Resp BP Pulse Ox 98.5 F 85 14 167/68 H 76 L 08/02/18 04:00 08/02/18 14:26 08/02/18 14:26 08/02/18 14:00 08/02/18 05:50 Intake and Output: 08/02/18 08/02/18 06:59 18:59 Intake Total 440 Output Total 0 Balance 440 - Medications Medications: Current Medications Albuterol/Ipratropium (Duoneb 3 Mg/0.5 Mg (3 Ml) Ud) 3 ml IH [id number] [facility] Last Admin: 08/02/18 14:39 Dose: 3 ml Arformoterol Tartrate (Brovana) 15 mcg IH [id number] [facility] Last Admin: 08/02/18 14:39 Dose: 15 mcg Budesonide (Pulmicort Respules) 0.5 mg IH [id number] [facility] Last Admin: 08/02/18 14:40 Dose: 0.5 mg Clonazepam (Klonopin) 0.25 mg PO BID [facility]; Protocol Last Admin: 08/02/18 09:34 Dose: 0.25 mg Clonidine HCl (Catapres Tts1 0.1 Mg/24 Hr) 1 patch TD Q7D@1000 PO[facility] Last Admin: 07/30/18 18:51 Dose: 1 patch Diphenhydramine HCl (Benadryl) 50 mg PO Q2H PRN PRN Reason: Mild allergic reaction Diphenhydramine HCl (Benadryl) 50 mg IVP Q2H PRN PRN Reason: Mild allergic reaction Diphenhydramine HCl (Benadryl) 50 mg IVP Q2H PRN PRN Reason: Severe allergic reaction Epinephrine HCl (Epinephrine) 1 mg IM Q5M PRN PRN Reason: Severe allergic reaction Heparin Sodium (Porcine) (Heparin) 2,000 units IVP MWF [facility]; Protocol Last Admin: 08/01/18 09:58 Dose: 2,000 units Acyclovir 250 mg/ Sodium (Chloride) 100 mls @ 100 mls/hr IV Q12 [facility]; Protocol Last Admin: 08/02/18 09:29 Dose: 100 mls/hr Dextrose/Sodium Chloride (Dextrose 5%/0.45% Ns 1000 Ml) 1,000 mls @ 30 mls/hr IV .Q24H [facility] Last Admin: 08/02/18 09:42 Dose: 30 mls/hr Penicillin G Potassium 3 mu/ (Sodium Chloride) 50 mls @ 100 mls/hr IVPB Q4 [facility]; Protocol Last Admin: 08/02/18 12:17 Dose: 100 mls/hr Lorazepam (Ativan) 0.5 mg IVP Q8H PRN; Protocol PRN Reason: Anxiety Last Admin: 08/01/18 12:55 Dose: 0.5 mg Losartan Potassium (Cozaar) 50 mg PO DAILY [facility] Last Admin: 08/02/18 09:39 Dose: 50 mg Pantoprazole Sodium (Protonix Inj) 40 mg IVP DAILY [facility] Last Admin: 08/02/18 12:19 Dose: 40 mg Vitamin A (Vitamin A & D Oint Ud Foilpak) 1 ea TOP BID PRN PRN Reason: Dry mouth Vitamin B Complex/Vit C/Folic Acid (Nephro-Fabby) 1 tab PO 0800 [facility] Last Admin: 08/02/18 09:32 Dose: 1 tab - Labs Labs: 08/02/18 05:45 08/02/18 05:45 PT 11.5 SECONDS (9.4-12.5) 07/30/18 02:15 INR 1.01 07/30/18 02:15 APTT 27.1 Seconds (25.1-36.5) 07/30/18 02:15
[2018-08-02] MEDS ORDERED: Oxycodone/Acetaminophen 5/325 mg Tab PO STA (19:26)
[2018-08-02] MEDS ORDERED: guaiFENesin 100 mg/5 ml Syrup UD PO PRN (19:27)
[2018-08-03] MEDS: Albuterol-Ipratrop 3 mg / 0.5 (3 ml) UD IH SCH ×4 (02:20→19:50)
[2018-08-03 03:00] LABS: URINE BILIRUBIN NEGATIVE (NEGATIVE); URINE BLOOD TRACE-LYSED (NEGATIVE); URINE GLUCOSE (UA) NEGATIVE (NEGATIVE); URINE LEUKOCYTE ESTERASE LARGE Leu/uL (NEGATIVE); URINE PROTEIN 100 mg/dL (<30 mg/dL); URINE UROBILINOGEN 0.2 E.U./dL (<1 E.U./dL)
[2018-08-03 03:11] LABS: URINE APPEARANCE SL CLOUDY (CLEAR); URINE COLOR YELLOW (YELLOW)
[2018-08-03 03:13] LABS: URINE BACTERIA MOD (NEG)
[2018-08-03] MEDS ORDERED: Oxycodone/Acetaminophen 5/325 mg Tab PO STA ×2 (05:31→15:50)
[2018-08-03 05:38] LABS: HEMOGLOBIN 8.7 g/dL (12.0-16.0); MEAN CORPUSCULAR HEMOGLOBIN 30.2 pg (25.0-35.0); MEAN CORPUSCULAR HGB CONC 30.5 g/dl (31.0-37.0); MEAN PLATELET VOLUME 8.1 fl (7.0-11.0); RBC 2.88 10^6/uL (3.5-6.1); RED CELL DISTRIBUTION WIDTH 16.4 % (11.5-14.5); WHITE BLOOD COUNT 9.4 10^3/uL (4.5-11.0)
[2018-08-03 05:55] LABS: ALBUMIN 3.2 g/dL (3.0-4.8); CALCIUM 8.3 mg/dL (8.4-10.5)
[2018-08-03] MEDS ORDERED: Sodium Chloride 0.9% 1,000 ML IV SCH ×2 (07:00→07:01)
[2018-08-03] MEDS: Arformoterol 15 mcg/2 ml Inh Sol IH SCH ×2 (08:18→19:50)
[2018-08-03] MEDS: Budesonide 0.5 mg/2 ml Inhal Susp UD IH SCH ×2 (08:18→19:50)
--- NOTE | 2018-08-03 08:19 | CP.CCUPN ---
<Lexi Ramirez - Last Filed: 08/03/18 13:20> CCU Subjective - Physician Review Subjective (Free Text): CRITICAL CARE PROGRESS NOTE FOR DR. GARTH Ramirez PGY-1 Pt seen and examined at bedside. No acute nursing events overnight. She complains of L hip pain that is reproducible upon palpation. She tolerated her penicillin desentization well, will start IV penicillin. Is currently on contact precautions, however can be dc'd per ID recs. She denies 12 point ROS CCU Objective - Vital Signs / Intake & Output Vital Signs (Last 4 hours): Vital Signs Temp Pulse Resp BP Pulse Ox 08/03/18 07:24 98.3 F 74 21 154/63 H 100 08/03/18 07:21 74 08/03/18 07:10 67 19 99 08/03/18 07:00 64 13 154/63 H 100 08/03/18 06:50 64 12 100 08/03/18 06:40 62 13 100 08/03/18 06:30 65 17 100 08/03/18 06:29 67 31 H 162/60 H 100 08/03/18 06:20 67 22 100 08/03/18 06:10 78 32 H 93 L 08/03/18 06:00 73 188/91 H 89 L 08/03/18 05:50 71 20 78 L 08/03/18 05:40 100 08/03/18 05:30 62 14 100 08/03/18 05:20 65 15 100 08/03/18 05:10 61 15 100 08/03/18 05:01 69 18 170/70 H 99 08/03/18 05:00 69 16 100 08/03/18 04:50 61 17 100 08/03/18 04:40 64 16 100 08/03/18 04:30 63 13 99 08/03/18 04:20 64 14 100 Intake and Output (Last 8hrs): Intake & Output 08/02/18 08/03/18 08/03/18 22:59 06:59 14:59 Intake Total 1800 1060 Output Total 0 550 Balance 1800 510 Weight 78.471 kg Intake: IV 550 610 Right Upper arm 550 610 Oral 1250 450 Output: Urine 0 550 Urine, Voided 0 550 Other: # Voids Urine, Voided 3 # Bowel Movements 0 - Physical Exam Head: Positive for: Atraumatic, Normocephalic Pupils: Positive for: PERRL Extroacular Muscles: Positive for: EOMI Conjunctiva: Positive for: Normal Ears: Positive for: NORMAL TM Mouth: Positive for: Moist Mucous Membranes Neck: Positive for: Normal Range of Motion Respiratory/Chest: Positive for: Clear to Auscultation, Good Air Exchange. Negative for: Respiratory Distress, Accessory Muscle Use Cardiovascular: Positive for: Regular Rate and Rhythm, Normal S1, S2. Negative for: Murmurs Abdomen: Negative for: Tenderness, Distention, Peritoneal Signs Genitourinary/Pelvic Exam: Positive for: Other (L hip tenderness) Back: Positive for: Normal Inspection, Paraspinal Tenderness. Negative for: CVA Tenderness, Midline Tenderness Upper Extremity: Positive for: Normal Inspection. Negative for: Cyanosis, Edema Lower Extremity: Positive for: Normal Inspection. Negative for: Edema Neurological: Positive for: GCS=15, CN II-XII Intact, Motor Func Grossly Intact, Normal Sensory Function Skin: Positive for: Warm, Dry, Normal Color. Negative for: Rashes Psychiatric: Positive for: Alert, Oriented x 3, Normal Insight, Normal Concentration, Other (arousable) - Medications Active Medications: Active Medications Generic Name Dose Route Start Last Admin Trade Name Freq PRN Reason Stop Dose Admin Albuterol/Ipratropium 3 ml 08/02/18 14:00 08/03/18 02:20 Duoneb 3 Mg/0.5 Mg (3 Ml) Ud IH Not Given [id number] POLLY Arformoterol Tartrate 15 mcg 08/02/18 12:00 08/02/18 20:15 Brovana IH 15 mcg [id number] POLLY Administration Budesonide 0.5 mg 08/02/18 12:00 08/02/18 20:15 Pulmicort Respules IH 0.5 mg [id number] POLLY Administration Clonazepam 0.25 mg 07/31/18 10:00 08/02/18 17:16 Klonopin PO 0.25 mg BID POLLY Administration Protocol Clonidine HCl 1 patch 07/30/18 10:00 07/30/18 18:51 Catapres Tts1 0.1 Mg/24 Hr TD 1 patch Q7D@1000 POLLY Administration Clonidine HCl 0.2 mg 08/03/18 10:00 Catapres PO DAILY POLLY Diphenhydramine HCl 50 mg 08/02/18 00:00 Benadryl PO Q2H PRN Mild allergic reaction Diphenhydramine HCl 50 mg 08/02/18 00:00 Benadryl IVP Q2H PRN Mild allergic reaction Diphenhydramine HCl 50 mg 08/02/18 00:00 Benadryl IVP Q2H PRN Severe allergic reaction Epinephrine HCl 1 mg 08/02/18 00:00 Epinephrine IM Q5M PRN Severe allergic reaction Guaifenesin 100 mg 08/02/18 19:27 08/02/18 19:40 Robitussin PO 100 mg Q4H PRN Administration Cough Heparin Sodium (Porcine) 2,000 units 08/01/18 10:00 08/01/18 09:58 Heparin IVP 2,000 units MWF POLLY Administration Protocol Acyclovir 250 mg/ Sodium 100 mls @ 100 mls/hr 07/31/18 11:15 08/02/18 21:05 Chloride IV 100 mls/hr Q12 POLLY Administration Protocol Dextrose/Sodium Chloride 1,000 mls @ 30 mls/hr 08/02/18 09:30 08/02/18 09:42 Dextrose 5%/0.45% Ns 1000 Ml IV 30 mls/hr .Q24H POLLY Administration Penicillin G Potassium 3 mu/ 50 mls @ 100 mls/hr 08/02/18 12:00 08/03/18 08:03 Sodium Chloride IVPB 100 mls/hr Q4 POLLY Administration Protocol Sodium Chloride 1,000 mls @ 50 mls/hr 08/03/18 07:01 Sodium Chloride 0.9% IV .Q20H POLLY Lorazepam 0.5 mg 07/31/18 11:17 08/01/18 12:55 Ativan IVP 0.5 mg Q8H PRN Administration Anxiety Protocol Losartan Potassium 50 mg 07/31/18 10:00 08/02/18 09:39 Cozaar PO 50 mg DAILY POLLY Administration Pantoprazole Sodium 40 mg 08/02/18 10:00 08/02/18 12:19 Protonix Inj IVP 40 mg DAILY POLLY Administration Vitamin A 1 ea 08/02/18 15:20 Vitamin A & D Oint Ud Foilpak TOP BID PRN Dry mouth Vitamin B Complex/Vit C/Folic Acid 1 tab 08/01/18 08:00 08/02/18 09:32 Nephro-Fabby PO 1 tab 0800 POLLY Administration - Patient Studies Lab Studies: Microbiology Studies 07/30/18 20:33 Blood Culture - Preliminary Blood-Venous NO GROWTH AFTER 3 DAYS 07/30/18 20:33 Blood Culture - Preliminary Blood-Venous NO GROWTH AFTER 3 DAYS 08/01/18 13:30 Gram Stain - Final Cerebral Spinal Fluid CSF Culture - Preliminary NO GROWTH AFTER 24 HOURS Lab Studies 08/03/18 08/03/18 08/03/18 Range/Units 07:14 05:20 05:20 WBC 9.4 (4.5-11.0) 10^3/uL RBC 2.88 L (3.5-6.1) 10^6/uL Hgb 8.7 L (12.0-16.0) g/dL Hct 28.5 L (36.0-48.0) % MCV 99.0 (80.0-105.0) fl MCH 30.2 (25.0-35.0) pg MCHC 30.5 L (31.0-37.0) g/dl RDW 16.4 H (11.5-14.5) % Plt Count 266 (120.0-450.0) 10^3/uL MPV 8.1 (7.0-11.0) fl Sodium 131 L (132-148) mmol/L Potassium 4.4 (3.6-5.0) mmol/L Chloride 91 L (98-107) mmol/L Carbon Dioxide 27 (21-33) mmol/L Anion Gap 17 (10-20) BUN 47 H (7-21) mg/dL Creatinine 6.6 H (0.7-1.2) mg/dl Est GFR ( Amer) 7 Est GFR (Non-Af Amer) 6 POC Glucose (mg/dL) 67 (65-110) mg/dL Random Glucose 81 (70-110) mg/dL Calcium 8.3 L (8.4-10.5) mg/dL Total Bilirubin 0.3 (0.2-1.3) mg/dL AST 52 H D (14-36) U/L ALT 20 (7-56) U/L Alkaline Phosphatase 85 (38-126) U/L Total Protein 6.6 (5.8-8.3) g/dL Albumin 3.2 (3.0-4.8) g/dL Globulin 3.4 gm/dL Albumin/Globulin Ratio 1.0 L (1.1-1.8) Urine Color (YELLOW) Urine Appearance (CLEAR) Urine pH (4.7-8.0) Ur Specific [place] (1.005-1.035) Urine Protein (<30 mg/dL) mg/dL Urine Glucose (UA) (NEGATIVE) mg/dL Urine Ketones (NEGATIVE) mg/dL Urine Blood (NEGATIVE) Urine Nitrate (NEGATIVE) Urine Bilirubin (NEGATIVE) Urine Urobilinogen (<1 E.U./dL) E.U./dL Ur Leukocyte Esterase (NEGATIVE) Vitor/uL Urine RBC (0-2) /hpf Urine WBC (0-6) /hpf Ur Epithelial Cells (0-5) /hpf Urine Bacteria (NEG) Influenza Typ A,B (EIA) (NEGATIVE) 08/03/18 08/02/18 08/02/18 Range/Units 02:30 22:22 16:25 WBC (4.5-11.0) 10^3/uL RBC (3.5-6.1) 10^6/uL Hgb (12.0-16.0) g/dL Hct (36.0-48.0) % MCV (80.0-105.0) fl MCH (25.0-35.0) pg MCHC (31.0-37.0) g/dl RDW (11.5-14.5) % Plt Count (120.0-450.0) 10^3/uL MPV (7.0-11.0) fl Sodium (132-148) mmol/L Potassium (3.6-5.0) mmol/L Chloride (98-107) mmol/L Carbon Dioxide (21-33) mmol/L Anion Gap (10-20) BUN (7-21) mg/dL Creatinine (0.7-1.2) mg/dl Est GFR ( Amer) Est GFR (Non-Af Amer) POC Glucose (mg/dL) 84 110 (65-110) mg/dL Random Glucose (70-110) mg/dL Calcium (8.4-10.5) mg/dL Total Bilirubin (0.2-1.3) mg/dL AST (14-36) U/L ALT (7-56) U/L Alkaline Phosphatase (38-126) U/L Total Protein (5.8-8.3) g/dL Albumin (3.0-4.8) g/dL Globulin gm/dL Albumin/Globulin Ratio (1.1-1.8) Urine Color Yellow (YELLOW) Urine Appearance Sl cloudy (CLEAR) Urine pH 7.0 (4.7-8.0) Ur Specific [place] 1.010 (1.005-1.035) Urine Protein 100 H (<30 mg/dL) mg/dL Urine Glucose (UA) Negative (NEGATIVE) mg/dL Urine Ketones Negative (NEGATIVE) mg/dL Urine Blood Trace-lysed H (NEGATIVE) Urine Nitrate Negative (NEGATIVE) Urine Bilirubin Negative (NEGATIVE) Urine Urobilinogen 0.2 (<1 E.U./dL) E.U./dL Ur Leukocyte Esterase Large H (NEGATIVE) Vitor/uL Urine RBC 1 - 3 (0-2) /hpf Urine WBC 5 - 10 (0-6) /hpf Ur Epithelial Cells 3 - 4 (0-5) /hpf Urine Bacteria Mod (NEG) Influenza Typ A,B (EIA) (NEGATIVE) 08/02/18 08/02/18 Range/Units 14:05 12:00 WBC (4.5-11.0) 10^3/uL RBC (3.5-6.1) 10^6/uL Hgb (12.0-16.0) g/dL Hct (36.0-48.0) % MCV (80.0-105.0) fl MCH (25.0-35.0) pg MCHC (31.0-37.0) g/dl RDW (11.5-14.5) % Plt Count (120.0-450.0) 10^3/uL MPV (7.0-11.0) fl Sodium (132-148) mmol/L Potassium (3.6-5.0) mmol/L Chloride (98-107) mmol/L Carbon Dioxide (21-33) mmol/L Anion Gap (10-20) BUN (7-21) mg/dL Creatinine (0.7-1.2) mg/dl Est GFR ( Amer) Est GFR (Non-Af Amer) POC Glucose (mg/dL) 86 (65-110) mg/dL Random Glucose (70-110) mg/dL Calcium (8.4-10.5) mg/dL Total Bilirubin (0.2-1.3) mg/dL AST (14-36) U/L ALT (7-56) U/L Alkaline Phosphatase (38-126) U/L Total Protein (5.8-8.3) g/dL Albumin (3.0-4.8) g/dL Globulin gm/dL Albumin/Globulin Ratio (1.1-1.8) Urine Color (YELLOW) Urine Appearance (CLEAR) Urine pH (4.7-8.0) Ur Specific [place] (1.005-1.035) Urine Protein (<30 mg/dL) mg/dL Urine Glucose (UA) (NEGATIVE) mg/dL Urine Ketones (NEGATIVE) mg/dL Urine Blood (NEGATIVE) Urine Nitrate (NEGATIVE) Urine Bilirubin (NEGATIVE) Urine Urobilinogen (<1 E.U./dL) E.U./dL Ur Leukocyte Esterase (NEGATIVE) Vitor/uL Urine RBC (0-2) /hpf Urine WBC (0-6) /hpf Ur Epithelial Cells (0-5) /hpf Urine Bacteria (NEG) Influenza Typ A,B (EIA) Negative for flu a/b (NEGATIVE) Laboratory Results - last 24 hr 08/02/18 08/02/18 08/02/18 12:00 14:05 16:25 WBC RBC Hgb Hct MCV MCH MCHC RDW Plt Count MPV Sodium Potassium Chloride Carbon Dioxide Anion Gap BUN Creatinine Est GFR ( Amer) Est GFR (Non-Af Amer) POC Glucose (mg/dL) 86 110 Random Glucose Calcium Total Bilirubin AST ALT Alkaline Phosphatase Total Protein Albumin Globulin Albumin/Globulin Ratio Urine Color Urine Appearance Urine pH Ur Specific [place] Urine Protein Urine Glucose (UA) Urine Ketones Urine Blood Urine Nitrate Urine Bilirubin Urine Urobilinogen Ur Leukocyte Esterase Urine RBC Urine WBC Ur Epithelial Cells Urine Bacteria Influenza Typ A,B (EIA) Negative for flu a/b 08/02/18 08/03/18 08/03/18 22:22 02:30 05:20 WBC 9.4 RBC 2.88 L Hgb 8.7 L Hct 28.5 L MCV 99.0 MCH 30.2 MCHC 30.5 L RDW 16.4 H Plt Count 266 MPV 8.1 Sodium Potassium Chloride Carbon Dioxide Anion Gap BUN Creatinine Est GFR ( Amer) Est GFR (Non-Af Amer) POC Glucose (mg/dL) 84 Random Glucose Calcium Total Bilirubin AST ALT Alkaline Phosphatase Total Protein Albumin Globulin Albumin/Globulin Ratio Urine Color Yellow Urine Appearance Sl cloudy Urine pH 7.0 Ur Specific [place] 1.010 Urine Protein 100 H Urine Glucose (UA) Negative Urine Ketones Negative Urine Blood Trace-lysed H Urine Nitrate Negative Urine Bilirubin Negative Urine Urobilinogen 0.2 Ur Leukocyte Esterase Large H Urine RBC 1 - 3 Urine WBC 5 - 10 Ur Epithelial Cells 3 - 4 Urine Bacteria Mod Influenza Typ A,B (EIA) 08/03/18 08/03/18 05:20 07:14 WBC RBC Hgb Hct MCV MCH MCHC RDW Plt Count MPV Sodium 131 L Potassium 4.4 Chloride 91 L Carbon Dioxide 27 Anion Gap 17 BUN 47 H Creatinine 6.6 H Est GFR ( Amer) 7 Est GFR (Non-Af Amer) 6 POC Glucose (mg/dL) 67 Random Glucose 81 Calcium 8.3 L Total Bilirubin 0.3 AST 52 H D ALT 20 Alkaline Phosphatase 85 Total Protein 6.6 Albumin 3.2 Globulin 3.4 Albumin/Globulin Ratio 1.0 L Urine Color Urine Appearance Urine pH Ur Specific [place] Urine Protein Urine Glucose (UA) Urine Ketones Urine Blood Urine Nitrate Urine Bilirubin Urine Urobilinogen Ur Leukocyte Esterase Urine RBC Urine WBC Ur Epithelial Cells Urine Bacteria Influenza Typ A,B (EIA) Fingerstick Blood Sugar Results: 84 Review of Systems - Review of Systems Review of Systems: per HPI Critical Care Progress Note - Nutrition Nutrition: Nutrition Category Date Time Status Renal Diet [DIET] Diets 07/30/18 Dinner Ordered Assessment/Plan - Assessment and Plan (Free Text) Assessment: 73 year old female with a PMH of COPD, HFpEF, hypertension, ESRD on hemodialysis, anemia, CVA, seizures, PVD, and bipolar disorder transferred to the ICU for PCN desensitization for treatment of 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 Plan: Neuro/Psych CT head and Brain MRI negative for acute abnormalities AAO x 3 CSF analysis negative for bacterial meningitis (CSF WBC 1, CSF glucose 44, total protein 40, Cryptococcus Ag negative) No current signs of depression; continue with klonopin Cardiovascular Hemodynamically stable Maintain MAP>65 Maintain normotension;Continue with Cozaar and clonidine Pulmonary Maintain o2 sat >92% Continue duonebs for COPD Gastrointestinal Renal diet GI prophylaxis /Renal ESRD on hemodialysis MWF Nephrology on consult Monitor electrolytes Continue with nephrovite dialysis diet dose meds/abx for ESRD status avoid fleets/enemas/magnesium based laxatives f/u pelvic ultrasound for LLQ/L hip pain Heme DVT prophylaxis with Heparin MWF ID FTA-ABS positive; will check VDRL of CSF to confirm, HSV pending, HIV non reactive Penicillin desensitization complete CSF WBC only 1, not bacterial meningitis. Can d/c isolation and d/c merrem per ID recs Currently on acyclovir and merrem day #4, Day 2 of penicillin therapy out of 14 started today Dispo: Pt is hemodynamically stable. She tolerated his penicillin desensitization well. She has been started on IV penicillin. Contact precautions to be d/c'd per ID recs. Monitor in ICU Case seen, examined and discussed with attending learning designer, Dr. Simms <Colleen Simms - Last Filed: 08/03/18 17:38> CCU Objective - Vital Signs / Intake & Output Vital Signs (Last 4 hours): Vital Signs Temp Pulse Resp BP Pulse Ox 08/03/18 16:10 75 19 08/03/18 16:00 98.5 F 75 20 136/51 L 97 08/03/18 15:50 73 28 H 08/03/18 15:40 73 18 08/03/18 15:30 72 17 08/03/18 15:20 71 16 08/03/18 15:10 76 17 08/03/18 15:00 74 19 08/03/18 14:50 85 20 08/03/18 14:40 71 19 08/03/18 14:30 71 16 08/03/18 14:20 74 18 08/03/18 14:10 78 19 08/03/18 14:00 74 18 150/54 L 08/03/18 13:50 71 18 08/03/18 13:40 75 27 H Intake and Output (Last 8hrs): Intake & Output 08/03/18 08/03/18 08/03/18 06:59 14:59 22:59 Intake Total 1060 670 920 Output Total 550 200 380 Balance 510 470 540 Weight 78.471 kg Intake: IV 610 250 450 IVF 350 IVPB 250 100 Right Upper arm 610 Oral 450 420 470 Output: Urine 550 200 380 Urine, Voided 550 200 380 Other: # Voids Urine, Voided 3 - Medications Active Medications: Active Medications Generic Name Dose Route Start Last Admin Trade Name Freq PRN Reason Stop Dose Admin Albuterol/Ipratropium 3 ml 08/02/18 14:00 08/03/18 13:46 Duoneb 3 Mg/0.5 Mg (3 Ml) Ud IH 3 ml [id number] POLLY Administration Arformoterol Tartrate 15 mcg 08/02/18 12:00 08/03/18 08:18 Brovana IH 15 mcg [id number] POLLY Administration Artificial Tears 0.3 ml 08/03/18 11:43 08/03/18 12:41 Refresh Opth Soln OU 1 drop Q6H PRN Administration Dry eyes Budesonide 0.5 mg 08/02/18 12:00 08/03/18 08:18 Pulmicort Respules IH 0.5 mg [id number] POLLY Administration Clonazepam 0.25 mg 07/31/18 10:00 08/03/18 09:01 Klonopin PO 0.25 mg BID POLLY Administration Protocol Clonidine HCl 1 patch 07/30/18 10:00 07/30/18 18:51 Catapres Tts1 0.1 Mg/24 Hr TD 1 patch Q7D@1000 POLLY Administration Clonidine HCl 0.2 mg 08/03/18 10:00 08/03/18 09:00 Catapres PO 0.2 mg DAILY POLLY Administration Diphenhydramine HCl 50 mg 08/02/18 00:00 Benadryl PO Q2H PRN Mild allergic reaction Diphenhydramine HCl 50 mg 08/02/18 00:00 Benadryl IVP Q2H PRN Mild allergic reaction Diphenhydramine HCl 50 mg 08/02/18 00:00 Benadryl IVP Q2H PRN Severe allergic reaction Epinephrine HCl 1 mg 08/02/18 00:00 Epinephrine IM Q5M PRN Severe allergic reaction Guaifenesin 100 mg 08/02/18 19:27 08/02/18 19:40 Robitussin PO 100 mg Q4H PRN Administration Cough Heparin Sodium (Porcine) 2,000 units 08/01/18 10:00 08/01/18 09:58 Heparin IVP 2,000 units MWF POLLY Administration Protocol Sodium Chloride 1,000 mls @ 50 mls/hr 08/03/18 07:01 08/03/18 08:57 Sodium Chloride 0.9% IV 50 mls/hr .Q20H POLLY Administration Penicillin G Potassium 2 mu/ 50 mls @ 100 mls/hr 08/03/18 09:07 08/03/18 15:59 Sodium Chloride IVPB 100 mls/hr Q4 POLLY Administration Protocol Acyclovir 300 mg/ Sodium 100 mls @ 100 mls/hr 08/03/18 10:00 08/03/18 12:05 Chloride IV Not Given DAILY POLLY Protocol Lorazepam 0.5 mg 07/31/18 11:17 08/01/18 12:55 Ativan IVP 0.5 mg Q8H PRN Administration Anxiety Protocol Losartan Potassium 50 mg 07/31/18 10:00 08/03/18 09:01 Cozaar PO 50 mg DAILY POLLY Administration Pantoprazole Sodium 40 mg 08/02/18 10:00 08/03/18 09:03 Protonix Inj IVP 40 mg DAILY POLLY Administration Vitamin A 1 ea 08/02/18 15:20 Vitamin A & D Oint Ud Foilpak TOP BID PRN Dry mouth Vitamin B Complex/Vit C/Folic Acid 1 tab 08/01/18 08:00 08/03/18 09:02 Nephro-Fabby PO 1 tab 0800 POLLY Administration - Patient Studies Lab Studies: Microbiology Studies 08/01/18 13:30 Gram Stain - Final Cerebral Spinal Fluid CSF Culture - Preliminary NO GROWTH AFTER 2 DAYS 07/30/18 20:33 Blood Culture - Preliminary Blood-Venous NO GROWTH AFTER 3 DAYS 07/30/18 20:33 Blood Culture - Preliminary Blood-Venous NO GROWTH AFTER 3 DAYS Lab Studies 08/03/18 08/03/18 08/03/18 Range/Units 12:12 07:14 05:20 WBC (4.5-11.0) 10^3/uL RBC (3.5-6.1) 10^6/uL Hgb (12.0-16.0) g/dL Hct (36.0-48.0) % MCV (80.0-105.0) fl MCH (25.0-35.0) pg MCHC (31.0-37.0) g/dl RDW (11.5-14.5) % Plt Count (120.0-450.0) 10^3/uL MPV (7.0-11.0) fl Sodium 131 L (132-148) mmol/L Potassium 4.4 (3.6-5.0) mmol/L Chloride 91 L (98-107) mmol/L Carbon Dioxide 27 (21-33) mmol/L Anion Gap 17 (10-20) BUN 47 H (7-21) mg/dL Creatinine 6.6 H (0.7-1.2) mg/dl Est GFR ( Amer) 7 Est GFR (Non-Af Amer) 6 POC Glucose (mg/dL) 108 67 (65-110) mg/dL Random Glucose 81 (70-110) mg/dL Calcium 8.3 L (8.4-10.5) mg/dL Total Bilirubin 0.3 (0.2-1.3) mg/dL AST 52 H D (14-36) U/L ALT 20 (7-56) U/L Alkaline Phosphatase 85 (38-126) U/L Total Protein 6.6 (5.8-8.3) g/dL Albumin 3.2 (3.0-4.8) g/dL Globulin 3.4 gm/dL Albumin/Globulin Ratio 1.0 L (1.1-1.8) Urine Color (YELLOW) Urine Appearance (CLEAR) Urine pH (4.7-8.0) Ur Specific [place] (1.005-1.035) Urine Protein (<30 mg/dL) mg/dL Urine Glucose (UA) (NEGATIVE) mg/dL Urine Ketones (NEGATIVE) mg/dL Urine Blood (NEGATIVE) Urine Nitrate (NEGATIVE) Urine Bilirubin (NEGATIVE) Urine Urobilinogen (<1 E.U./dL) E.U./dL Ur Leukocyte Esterase (NEGATIVE) Vitor/uL Urine RBC (0-2) /hpf Urine WBC (0-6) /hpf Ur Epithelial Cells (0-5) /hpf Urine Bacteria (NEG) Ur L.pneumophila Ag (NEGATIVE) 08/03/18 08/03/18 08/03/18 Range/Units 05:20 02:30 02:30 WBC 9.4 (4.5-11.0) 10^3/uL RBC 2.88 L (3.5-6.1) 10^6/uL Hgb 8.7 L (12.0-16.0) g/dL Hct 28.5 L (36.0-48.0) % MCV 99.0 (80.0-105.0) fl MCH 30.2 (25.0-35.0) pg MCHC 30.5 L (31.0-37.0) g/dl RDW 16.4 H (11.5-14.5) % Plt Count 266 (120.0-450.0) 10^3/uL MPV 8.1 (7.0-11.0) fl Sodium (132-148) mmol/L Potassium (3.6-5.0) mmol/L Chloride (98-107) mmol/L Carbon Dioxide (21-33) mmol/L Anion Gap (10-20) BUN (7-21) mg/dL Creatinine (0.7-1.2) mg/dl Est GFR ( Amer) Est GFR (Non-Af Amer) POC Glucose (mg/dL) (65-110) mg/dL Random Glucose (70-110) mg/dL Calcium (8.4-10.5) mg/dL Total Bilirubin (0.2-1.3) mg/dL AST (14-36) U/L ALT (7-56) U/L Alkaline Phosphatase (38-126) U/L Total Protein (5.8-8.3) g/dL Albumin (3.0-4.8) g/dL Globulin gm/dL Albumin/Globulin Ratio (1.1-1.8) Urine Color Yellow (YELLOW) Urine Appearance Sl cloudy (CLEAR) Urine pH 7.0 (4.7-8.0) Ur Specific [place] 1.010 (1.005-1.035) Urine Protein 100 H (<30 mg/dL) mg/dL Urine Glucose (UA) Negative (NEGATIVE) mg/dL Urine Ketones Negative (NEGATIVE) mg/dL Urine Blood Trace-lysed H (NEGATIVE) Urine Nitrate Negative (NEGATIVE) Urine Bilirubin Negative (NEGATIVE) Urine Urobilinogen 0.2 (<1 E.U./dL) E.U./dL Ur Leukocyte Esterase Large H (NEGATIVE) Vitor/uL Urine RBC 1 - 3 (0-2) /hpf Urine WBC 5 - 10 (0-6) /hpf Ur Epithelial Cells 3 - 4 (0-5) /hpf Urine Bacteria Mod (NEG) Ur L.pneumophila Ag Negative (NEGATIVE) 08/02/18 Range/Units 22:22 WBC (4.5-11.0) 10^3/uL RBC (3.5-6.1) 10^6/uL Hgb (12.0-16.0) g/dL Hct (36.0-48.0) % MCV (80.0-105.0) fl MCH (25.0-35.0) pg MCHC (31.0-37.0) g/dl RDW (11.5-14.5) % Plt Count (120.0-450.0) 10^3/uL MPV (7.0-11.0) fl Sodium (132-148) mmol/L Potassium (3.6-5.0) mmol/L Chloride (98-107) mmol/L Carbon Dioxide (21-33) mmol/L Anion Gap (10-20) BUN (7-21) mg/dL Creatinine (0.7-1.2) mg/dl Est GFR ( Amer) Est GFR (Non-Af Amer) POC Glucose (mg/dL) 84 (65-110) mg/dL Random Glucose (70-110) mg/dL Calcium (8.4-10.5) mg/dL Total Bilirubin (0.2-1.3) mg/dL AST (14-36) U/L ALT (7-56) U/L Alkaline Phosphatase (38-126) U/L Total Protein (5.8-8.3) g/dL Albumin (3.0-4.8) g/dL Globulin gm/dL Albumin/Globulin Ratio (1.1-1.8) Urine Color (YELLOW) Urine Appearance (CLEAR) Urine pH (4.7-8.0) Ur Specific [place] (1.005-1.035) Urine Protein (<30 mg/dL) mg/dL Urine Glucose (UA) (NEGATIVE) mg/dL Urine Ketones (NEGATIVE) mg/dL Urine Blood (NEGATIVE) Urine Nitrate (NEGATIVE) Urine Bilirubin (NEGATIVE) Urine Urobilinogen (<1 E.U./dL) E.U./dL Ur Leukocyte Esterase (NEGATIVE) Vitor/uL Urine RBC (0-2) /hpf Urine WBC (0-6) /hpf Ur Epithelial Cells (0-5) /hpf Urine Bacteria (NEG) Ur L.pneumophila Ag (NEGATIVE) Laboratory Results - last 24 hr 08/02/18 08/03/18 08/03/18 22:22 02:30 02:30 WBC RBC Hgb Hct MCV MCH MCHC RDW Plt Count MPV Sodium Potassium Chloride Carbon Dioxide Anion Gap BUN Creatinine Est GFR ( Amer) Est GFR (Non-Af Amer) POC Glucose (mg/dL) 84 Random Glucose Calcium Total Bilirubin AST ALT Alkaline Phosphatase Total Protein Albumin Globulin Albumin/Globulin Ratio Urine Color Yellow Urine Appearance Sl cloudy Urine pH 7.0 Ur Specific [place] 1.010 Urine Protein 100 H Urine Glucose (UA) Negative Urine Ketones Negative Urine Blood Trace-lysed H Urine Nitrate Negative Urine Bilirubin Negative Urine Urobilinogen 0.2 Ur Leukocyte Esterase Large H Urine RBC 1 - 3 Urine WBC 5 - 10 Ur Epithelial Cells 3 - 4 Urine Bacteria Mod Ur L.pneumophila Ag Negative 08/03/18 08/03/18 08/03/18 05:20 05:20 07:14 WBC 9.4 RBC 2.88 L Hgb 8.7 L Hct 28.5 L MCV 99.0 MCH 30.2 MCHC 30.5 L RDW 16.4 H Plt Count 266 MPV 8.1 Sodium 131 L Potassium 4.4 Chloride 91 L Carbon Dioxide 27 Anion Gap 17 BUN 47 H Creatinine 6.6 H Est GFR ( Amer) 7 Est GFR (Non-Af Amer) 6 POC Glucose (mg/dL) 67 Random Glucose 81 Calcium 8.3 L Total Bilirubin 0.3 AST 52 H D ALT 20 Alkaline Phosphatase 85 Total Protein 6.6 Albumin 3.2 Globulin 3.4 Albumin/Globulin Ratio 1.0 L Urine Color Urine Appearance Urine pH Ur Specific [place] Urine Protein Urine Glucose (UA) Urine Ketones Urine Blood Urine Nitrate Urine Bilirubin Urine Urobilinogen Ur Leukocyte Esterase Urine RBC Urine WBC Ur Epithelial Cells Urine Bacteria Ur L.pneumophila Ag 08/03/18 12:12 WBC RBC Hgb Hct MCV MCH MCHC RDW Plt Count MPV Sodium Potassium Chloride Carbon Dioxide Anion Gap BUN Creatinine Est GFR ( Amer) Est GFR (Non-Af Amer) POC Glucose (mg/dL) 108 Random Glucose Calcium Total Bilirubin AST ALT Alkaline Phosphatase Total Protein Albumin Globulin Albumin/Globulin Ratio Urine Color Urine Appearance Urine pH Ur Specific [place] Urine Protein Urine Glucose (UA) Urine Ketones Urine Blood Urine Nitrate Urine Bilirubin Urine Urobilinogen Ur Leukocyte Esterase Urine RBC Urine WBC Ur Epithelial Cells Urine Bacteria Ur L.pneumophila Ag Critical Care Progress Note - Nutrition Nutrition: Nutrition Category Date Time Status Renal Diet [DIET] Diets 07/30/18 Dinner Ordered Addendum Addendum: 08/03/18 17:37 MICU Attending Addendum Patient seen and examined cases reviewed and discussed with housestaff Agree with note above with the following add/exceptions: 73 year old female with a PMH of COPD, HFpEF, hypertension, ESRD on hemodialysis, anemia, CVA, seizures, PVD, and bipolar disorder transferred to the ICU for PCN desensitization for treatment of 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 RPR was neg FTA- TP POSITIVE CSF relatively normal, no lymphotic pleocytosis, WBC is 1 Discrepancy between RPR and FTA-TP makes me wonder if this is syphilis or a false+ (i.e. lyme exposure or old syphilis) ID managing tx for now and coordinating desens protocol with pharmacy Intro PCN given, no reaction started tx dose yesterday tolerationg well no Jarisch-Herxheimer reaction noted empiric merrem and acyc while awaiting CSF culture and CSF VDRL Cont home meds including anti-htn for HTN (clonidine, losartan) nebs for COPD will confirm if she is on lasix at home considering she is on HD for ESRD rest of care as above Colleen Simms MD Pulm/CC/Sleep Attending
[2018-08-03] MEDS: Multivitamin Vitamin B Complex (Nephro-Vite) Tab PO SCH (09:02)
[2018-08-03] MEDS: Acyclovir 250 MG in Sodium Chloride 0.9% 100 ML IV SCH (09:07)
[2018-08-03] MEDS ORDERED: Aritificial Tears (15ml) OU PRN (11:33)
[2018-08-03] MEDS: Penicillin G Potassium 2 MU in Sodium Chloride 0.9% 50 ML IVPB SCH ×3 (12:04→20:57)
[2018-08-03] MEDS: Acyclovir 300 MG in Sodium Chloride 0.9% 100 ML IV SCH (12:05)
--- NOTE | 2018-08-03 12:19 | CP.PCM.PN ---
Subjective - Date & Time of Evaluation Date of Evaluation: 08/03/18 Time of Evaluation: 11:10 - Subjective Subjective: No fevers, not in distress, awake, alert. No rash, no SOB or difficulty breathing, no diarrhea. Objective - Vital Signs/Intake and Output Vital Signs (last 24 hours): Temp Pulse Resp BP Pulse Ox 98.5 F 89 19 169/62 H 76 L 08/02/18 04:00 08/02/18 10:00 08/02/18 05:51 08/02/18 09:39 08/02/18 05:50 Intake and Output: 08/02/18 08/02/18 06:59 18:59 Intake Total 440 Output Total 0 Balance 440 - Medications Medications: Current Medications Albuterol/Ipratropium (Duoneb 3 Mg/0.5 Mg (3 Ml) Ud) 3 ml IH [id number] [facility] Arformoterol Tartrate (Brovana) 15 mcg IH [id number] [facility] Budesonide (Pulmicort Respules) 0.5 mg IH [id number] [facility] Clonazepam (Klonopin) 0.25 mg PO BID [facility]; Protocol Last Admin: 08/02/18 09:34 Dose: 0.25 mg Clonidine HCl (Catapres Tts1 0.1 Mg/24 Hr) 1 patch TD Q7D@1000 [facility] Last Admin: 07/30/18 18:51 Dose: 1 patch Diphenhydramine HCl (Benadryl) 50 mg PO Q2H PRN PRN Reason: Mild allergic reaction Diphenhydramine HCl (Benadryl) 50 mg IVP Q2H PRN PRN Reason: Mild allergic reaction Diphenhydramine HCl (Benadryl) 50 mg IVP Q2H PRN PRN Reason: Severe allergic reaction Epinephrine HCl (Epinephrine) 1 mg IM Q5M PRN PRN Reason: Severe allergic reaction Heparin Sodium (Porcine) (Heparin) 2,000 units IVP MWF [facility]; Protocol Last Admin: 08/01/18 09:58 Dose: 2,000 units Acyclovir 250 mg/ Sodium (Chloride) 100 mls @ 100 mls/hr IV Q12 [facility]; Protocol Last Admin: 08/02/18 09:29 Dose: 100 mls/hr Dextrose/Sodium Chloride (Dextrose 5%/0.45% Ns 1000 Ml) 1,000 mls @ 30 mls/hr IV .Q24H [facility] Last Admin: 08/02/18 09:42 Dose: 30 mls/hr Penicillin G Potassium 3 mu/ (Sodium Chloride) 50 mls @ 100 mls/hr IVPB Q4 [facility]; Protocol Last Admin: 08/02/18 12:17 Dose: 100 mls/hr Lorazepam (Ativan) 0.5 mg IVP Q8H PRN; Protocol PRN Reason: Anxiety Last Admin: 08/01/18 12:55 Dose: 0.5 mg Losartan Potassium (Cozaar) 50 mg PO DAILY [facility] Last Admin: 08/02/18 09:39 Dose: 50 mg Pantoprazole Sodium (Protonix Inj) 40 mg IVP DAILY [facility] Last Admin: 08/02/18 12:19 Dose: 40 mg Vitamin B Complex/Vit C/Folic Acid (Nephro-Fabby) 1 tab PO 0800 [facility] Last Admin: 08/02/18 09:32 Dose: 1 tab - Labs Labs: 08/02/18 05:45 08/02/18 05:45 PT 11.5 SECONDS (9.4-12.5) 07/30/18 02:15 INR 1.01 07/30/18 02:15 APTT 27.1 Seconds (25.1-36.5) 07/30/18 02:15 - Constitutional Appears: No Acute Distress, Chronically Ill - Head Exam Head Exam: NORMAL INSPECTION - Respiratory Exam Respiratory Exam: Decreased Breath Sounds - Cardiovascular Exam Cardiovascular Exam: +S1, +S2 - GI/Abdominal Exam GI & Abdominal Exam: Soft. absent: Tenderness Assessment and Plan - Assessment and Plan (Free Text) Plan: Assessment Change in sensorium, R/O neurosyphilis ESRD on HD chronic CHF CVA bipolar disorder seizure disorder COPD chronic anemia Plan Follow up CSF analysis, CSF VDRL - now that the patient is desensitized, continue IV penicillin day 2 will continue to monitor clinically follow up HSV PCR also and continue Acyclovir for now CSF WBC only 1 - not bacterial meningitis - can d/c isolation and d/c Merrem
--- NOTE | 2018-08-03 12:33 | PN ---
DATE: 08/03/2018 SUBJECTIVE: I saw her in the Intensive Care Unit. She is resting comfortably in bed. She had very good questions for me this morning. She understands about her syphilis and the neuro part of it. She is on acyclovir, Ativan, Benadryl, Catapres, Cozaar, Duoneb, epinephrine, heparin, Klonopin, Nephro Fabby, penicillin IV, Protonix, Pulmicort, Robitussin, IV fluids and vitamin A and D. She is much more alert, back to her baseline. PHYSICAL EXAMINATION: VITAL SIGNS: She has a 98.3 temp, pulse 64, blood pressure 151/57, respiratory rate 15, 97% O2 sat on room air. HEENT: Head: Atraumatic, normocephalic. HEART: Regular rate. LUNGS: Clear to auscultation. ABDOMEN: Soft. EXTREMITIES: No edema. LABORATORY DATA: She has a white count 9.4, hemoglobin 8.7, hematocrit 28.5 with 266 platelets. If her hemoglobin drops below 8, I will transfuse her during dialysis. She has a 131 sodium, potassium is 4.4, BUN 47, creatinine 6.6 on dialysis, GFR is 6, sugar is at 67. Calcium is 8.3, total bili is 0.3, AST is 52, ALT is 20, alk phos 85, total protein 6.6. Waiting for the C and S of the lumbar puncture. She has been seen by Neurology, Infectious Disease, Renal, but she is doing much better. She is on penicillin. She has change in mentation. Neurosyphilis, probably endstage renal disease, chronic CHF, CVA history, bipolar, history of seizure, history of COPD, chronic anemia. Continue aggressive treatment and care as per Infectious Disease. Hopefully, we can get her in Intensive Care Unit today and continue IV antibiotics on the floor. Cresencio Park DO
[2018-08-03] MEDS: Lubricant Eye Drops UD OU PRN ×2 (12:41→18:48)
[2018-08-04] MEDS: Penicillin G Potassium 2 MU in Sodium Chloride 0.9% 50 ML IVPB SCH ×5 (00:35→21:20)
[2018-08-04] MEDS: Albuterol-Ipratrop 3 mg / 0.5 (3 ml) UD IH SCH ×4 (02:40→20:38)
[2018-08-04 06:01] LABS: HEMOGLOBIN 9.5 g/dL (12.0-16.0); MEAN CELL VOLUME 97.7 fl (80.0-105.0); MEAN CORPUSCULAR HEMOGLOBIN 30.7 pg (25.0-35.0); MEAN CORPUSCULAR HGB CONC 31.5 g/dl (31.0-37.0); MEAN PLATELET VOLUME 8.5 fl (7.0-11.0); RBC 3.09 10^6/uL (3.5-6.1); RED CELL DISTRIBUTION WIDTH 16.2 % (11.5-14.5); WHITE BLOOD COUNT 7.1 10^3/uL (4.5-11.0)
[2018-08-04] MEDS: Multivitamin Vitamin B Complex (Nephro-Vite) Tab PO SCH (07:59)
[2018-08-04 08:10] LABS: ALBUMIN 3.4 g/dL (3.0-4.8); CALCIUM 8.4 mg/dL (8.4-10.5)
[2018-08-04] MEDS: Arformoterol 15 mcg/2 ml Inh Sol IH SCH ×2 (08:25→20:38)
[2018-08-04] MEDS: Budesonide 0.5 mg/2 ml Inhal Susp UD IH SCH ×2 (08:27→20:39)
--- NOTE | 2018-08-04 09:52 | PN ---
DATE: 08/04/2018 SUBJECTIVE: She is resting comfortably in the Intensive Care Unit. She is in good spirits. She is back to her baseline. She is on acyclovir, Ativan, Benadryl, Brovana, Catapres, Cozaar, DuoNeb, epinephrine, heparin, Klonopin, Nephro-Fabby, penicillin D2 9 units every 4 hours round the clock, Protonix, Pulmicort, Artificial tears, Robitussin, IV fluids and vitamin A and D ointment. She is in good spirits. She is feeling well, will get out of bed to chair, maybe get some physical therapy will be nice. PHYSICAL EXAMINATION: VITAL SIGNS: 98.5 temp, 75 pulse, 136/51 blood pressure, 20 respiratory rate, 97% O2 sat on room air. HEENT: Head is atraumatic, normocephalic. HEART: Regular rate. LUNGS: Clear to auscultation. ABDOMEN: Soft. EXTREMITIES: No edema. LABORATORY DATA: She has 7.1 white count, 9.5 hemoglobin, 30.2 hematocrit with 259 platelets. 129 sodium, potassium 5.7, we will give Kayexalate, BUN 56, creatinine 7.3, GFR is 5, sugar is 65, calcium is 8.4, total bili is 0.3, AST is 31, ALT is 18, alk phos 92, total protein is 6.8, but she is going for dialysis today, they will take care of the elevated potassium. ASSESSMENT AND PLAN: We will keep an eye on her, IV penicillin for neurosyphilis, change in mentation, fall, syncope. We will check her labs tomorrow, physical therapy and out of bed to chair, may be out of the Intensive Care Unit also. Cresencio Park DO
[2018-08-04] MEDS: Acyclovir 300 MG in Sodium Chloride 0.9% 100 ML IV SCH (10:01)
--- NOTE | 2018-08-04 13:13 | CP.PCM.PN ---
Subjective - Date & Time of Evaluation Date of Evaluation: 08/04/18 Time of Evaluation: 11:40 - Subjective Subjective: No fevers, no headaches, no nausea or vomiting, no skin rash, no difficulty breathing. Objective - Vital Signs/Intake and Output Vital Signs (last 24 hours): Temp Pulse Resp BP Pulse Ox 98.5 F 68 16 148/54 L 97 08/03/18 12:00 08/03/18 12:10 08/03/18 12:10 08/03/18 12:00 08/03/18 12:00 Intake and Output: 08/03/18 08/03/18 06:59 18:59 Intake Total 1060 670 Output Total 550 200 Balance 510 470 - Medications Medications: Current Medications Albuterol/Ipratropium (Duoneb 3 Mg/0.5 Mg (3 Ml) Ud) 3 ml IH [id number] [facility] Last Admin: 08/03/18 08:18 Dose: 3 ml Arformoterol Tartrate (Brovana) 15 mcg IH [id number] [facility] Last Admin: 08/03/18 08:18 Dose: 15 mcg Artificial Tears (Refresh Opth Soln) 0.3 ml OU Q6H PRN PRN Reason: Dry eyes Budesonide (Pulmicort Respules) 0.5 mg IH [id number] [facility] Last Admin: 08/03/18 08:18 Dose: 0.5 mg Clonazepam (Klonopin) 0.25 mg PO BID [facility]; Protocol Last Admin: 08/03/18 09:01 Dose: 0.25 mg Clonidine HCl (Catapres Tts1 0.1 Mg/24 Hr) 1 patch TD Q7D@1000 [facility] Last Admin: 07/30/18 18:51 Dose: 1 patch Clonidine HCl (Catapres) 0.2 mg PO DAILY [facility] Last Admin: 08/03/18 09:00 Dose: 0.2 mg Diphenhydramine HCl (Benadryl) 50 mg PO Q2H PRN PRN Reason: Mild allergic reaction Diphenhydramine HCl (Benadryl) 50 mg IVP Q2H PRN PRN Reason: Mild allergic reaction Diphenhydramine HCl (Benadryl) 50 mg IVP Q2H PRN PRN Reason: Severe allergic reaction Epinephrine HCl (Epinephrine) 1 mg IM Q5M PRN PRN Reason: Severe allergic reaction Guaifenesin (Robitussin) 100 mg PO Q4H PRN PRN Reason: Cough Last Admin: 08/02/18 19:40 Dose: 100 mg Heparin Sodium (Porcine) (Heparin) 2,000 units IVP MWF [facility]; Protocol Last Admin: 08/01/18 09:58 Dose: 2,000 units Sodium Chloride (Sodium Chloride 0.9%) 1,000 mls @ 50 mls/hr IV .Q20H [facility] Last Admin: 08/03/18 08:57 Dose: 50 mls/hr Penicillin G Potassium 2 mu/ (Sodium Chloride) 50 mls @ 100 mls/hr IVPB Q4 [facility]; Protocol Last Admin: 08/03/18 12:04 Dose: 100 mls/hr Acyclovir 300 mg/ Sodium (Chloride) 100 mls @ 100 mls/hr IV DAILY [facility]; Protocol Last Admin: 08/03/18 12:05 Dose: Not Given Lorazepam (Ativan) 0.5 mg IVP Q8H PRN; Protocol PRN Reason: Anxiety Last Admin: 08/01/18 12:55 Dose: 0.5 mg Losartan Potassium (Cozaar) 50 mg PO DAILY [facility] Last Admin: 08/03/18 09:01 Dose: 50 mg Pantoprazole Sodium (Protonix Inj) 40 mg IVP DAILY [facility] Last Admin: 08/03/18 09:03 Dose: 40 mg Vitamin A (Vitamin A & D Oint Ud Foilpak) 1 ea TOP BID PRN PRN Reason: Dry mouth Vitamin B Complex/Vit C/Folic Acid (Nephro-Fabby) 1 tab PO 0800 [facility] Last Admin: 08/03/18 09:02 Dose: 1 tab - Labs Labs: 08/03/18 05:20 08/03/18 05:20 PT 11.5 SECONDS (9.4-12.5) 07/30/18 02:15 INR 1.01 07/30/18 02:15 APTT 27.1 Seconds (25.1-36.5) 07/30/18 02:15 - Constitutional Appears: Chronically Ill - Head Exam Head Exam: NORMAL INSPECTION - Neck Exam Neck Exam: absent: Meningismus - Respiratory Exam Respiratory Exam: Decreased Breath Sounds - Cardiovascular Exam Cardiovascular Exam: +S1, +S2 - GI/Abdominal Exam GI & Abdominal Exam: Soft. absent: Tenderness Assessment and Plan - Assessment and Plan (Free Text) Plan: Assessment Change in sensorium, R/O neurosyphilis ESRD on HD chronic CHF CVA bipolar disorder seizure disorder COPD chronic anemia Plan Follow up CSF analysis, CSF VDRL - now that the patient is desensitized, continue IV penicillin day 3 will continue to monitor clinically follow up HSV PCR also and continue Acyclovir for now CSF WBC only 1 - not bacterial meningitis
[2018-08-04] MEDS ORDERED: Darbepoetin Alfa 40 mcg/ml Inj IVP ONE (13:47)
[2018-08-04 13:58] LABS: SPECIMEN SOURCE CSF
[2018-08-04] MEDS: Tetrahydrozoline Opht 0.05% Sol (15 ml) OU SCH ×2 (14:39→22:39)
--- NOTE | 2018-08-04 15:58 | CP.PCM.PN ---
Subjective - Date & Time of Evaluation Date of Evaluation: 08/04/18 Time of Evaluation: 15:56 - Subjective Subjective: Nephrology Consultation Note: Assessment: stable AMS, Fall : being treated for neurosyphilis Hypertensive Chronic Kidney Disease (I12.0) End stage renal disease (N18.6) dependence on hemodialysis (Z99.2) (MWF) via AVF Anemia (D64.9), Hyperphosphatemia (E83.39), Secondary Hyperparathyroidism (E21.1), HTN (I12.0) COPD, CHF, CVA, seizures, PVD, bipolar disorder, depression, and right breast lumpectomy Plan: Will plan for HD MWF schedule as ordered. Continue with Nephrovite 1 tab/day. PRBC as needed for anemia. added MAIA with dialysis as last Hb 9.5 Continue with phos binders BP control with meds as ordered. Patient not on RAAS eugenia hence added losartan Glycemic control, Dialysis consistent diet Further work up/management as per primary team Dose meds/antibiotics (if needed) for ESRD status. Avoid fleets enema/magnesium based laxatives. Neuro, ID following. MRI brain neg. Thanks for allowing me to participate in care of your patient. Will follow patient with you. Please call if any Qs. had d/w team Dr Willis Clark Office: [phone] Chief Complaint; none HPI: Pt is a with hx of ESRD on hemodialysis (MWF) via AVF , last dialysis mon, chronic anemia, hyperphosphatemia, secondary hyperparathyroidism, hypertension anemia, COPD, CHF, CVA, seizures, PVD, bipolar disorder, depression, and right breast lumpectomy presented with complaints of fall and ? syncope from [place]. Renal consult requested for ESRD management. pt on HD at [facility] with Dr Booth ROS: pt feels better. denies CP/SOB. Physical Examination: General Appearance: Comfortable, in no acute respiratory distress. Vitals reviewed and noted as below Head; Atraumatic, normocephalic ENT: no ulcers no thrush. Tongue is midline. Oropharynx: no rash or ulcers. EYES: Pupils are equal, round and reactive to light accommodation. Eye muscles and extraocular movement intact. Sclera is anicteric. Neck; supple no lymphadenopathy, no thyromegaly or bruit Lungs: Normal respiratory rate/effort. Breath sounds bilateral equal and clear. has Rt side boby-cath Heart: Normal rate. s1s2 normal. No rub or gallop. Extremities: no edema. No varicose veins Neurological: Patient is awake alert now Skin: Warm and dry. Normal turgor. No rash. Palpitation: Normal elasticity for age Abdomen: Abdomen is soft. Bowel sounds +. There is no abdominal tenderness, no guarding/rigidity or organomegaly Psych: normal insight and mood/affect MSK: no joint tenderness or swelling. Digits and nails normal, no deformity : kidney or bladder not palpable Access: AVF Labs/imaging reviewed. Past medical history, past surgical history, family history, social history, allergy reviewed and noted as below Family Hx: no hx of CKD. Non contributory Objective - Vital Signs/Intake and Output Vital Signs (last 24 hours): Temp Pulse Resp BP Pulse Ox 98.9 F 82 22 172/71 H 99 08/04/18 11:29 08/04/18 15:08 08/04/18 15:08 08/04/18 12:00 08/04/18 15:00 Intake and Output: 08/04/18 08/04/18 06:59 18:59 Intake Total 600 1150 Output Total 500 400 Balance 100 750 - Medications Medications: Current Medications Albuterol/Ipratropium (Duoneb 3 Mg/0.5 Mg (3 Ml) Ud) 3 ml IH [id number] [facility] Last Admin: 08/04/18 14:31 Dose: 3 ml Arformoterol Tartrate (Brovana) 15 mcg IH [id number] [facility] Last Admin: 08/04/18 08:25 Dose: 15 mcg Artificial Tears (Refresh Opth Soln) 0.3 ml OU Q6H PRN PRN Reason: Dry eyes Last Admin: 08/03/18 18:48 Dose: 1 drop Budesonide (Pulmicort Respules) 0.5 mg IH [id number] [facility] Last Admin: 08/04/18 08:27 Dose: 0.5 mg Clonazepam (Klonopin) 0.25 mg PO BID [facility]; Protocol Last Admin: 08/04/18 10:03 Dose: 0.25 mg Clonidine HCl (Catapres Tts1 0.1 Mg/24 Hr) 1 patch TD Q7D@1000 [facility] Last Admin: 07/30/18 18:51 Dose: 1 patch Clonidine HCl (Catapres) 0.2 mg PO DAILY [facility] Last Admin: 08/04/18 10:02 Dose: 0.2 mg Diphenhydramine HCl (Benadryl) 50 mg PO Q2H PRN PRN Reason: Mild allergic reaction Diphenhydramine HCl (Benadryl) 50 mg IVP Q2H PRN PRN Reason: Mild allergic reaction Last Admin: 08/03/18 20:25 Dose: 50 mg Diphenhydramine HCl (Benadryl) 50 mg IVP Q2H PRN PRN Reason: Severe allergic reaction Epinephrine HCl (Epinephrine) 1 mg IM Q5M PRN PRN Reason: Severe allergic reaction Guaifenesin (Robitussin) 100 mg PO Q4H PRN PRN Reason: Cough Last Admin: 08/02/18 19:40 Dose: 100 mg Heparin Sodium (Porcine) (Heparin) 2,000 units IVP MWF [facility]; Protocol Last Admin: 08/04/18 10:03 Dose: 2,000 units Penicillin G Potassium 2 mu/ (Sodium Chloride) 50 mls @ 100 mls/hr IVPB Q4 [facility]; Protocol Last Admin: 08/04/18 14:40 Dose: 100 mls/hr Acyclovir 300 mg/ Sodium (Chloride) 100 mls @ 100 mls/hr IV DAILY [facility]; Protocol Last Admin: 08/04/18 10:01 Dose: 100 mls/hr Lorazepam (Ativan) 0.5 mg IVP Q8H PRN; Protocol PRN Reason: Anxiety Last Admin: 08/01/18 12:55 Dose: 0.5 mg Losartan Potassium (Cozaar) 50 mg PO DAILY [facility] Last Admin: 08/04/18 10:03 Dose: 50 mg Pantoprazole Sodium (Protonix Ec Tab) 40 mg PO ACB [facility] Tetrahydrozoline HCl/Zinc Sulfate (Visine 0.05% Opht Soln) 0 ml OU QID [facility] Last Admin: 08/04/18 14:39 Dose: 1 applic Vitamin A (Vitamin A & D Oint Ud Foilpak) 1 ea TOP BID PRN PRN Reason: Dry mouth Vitamin B Complex/Vit C/Folic Acid (Nephro-Fabby) 1 tab PO 0800 [facility] Last Admin: 08/04/18 07:59 Dose: 1 tab - Labs Labs: 08/04/18 05:30 08/04/18 05:30 PT 11.5 SECONDS (9.4-12.5) 07/30/18 02:15 INR 1.01 07/30/18 02:15 APTT 27.1 Seconds (25.1-36.5) 07/30/18 02:15
[2018-08-04] MEDS ORDERED: Oxycodone/Acetaminophen 5/325 mg Tab PO STA (21:19)
[2018-08-05] MEDS: Penicillin G Potassium 2 MU in Sodium Chloride 0.9% 50 ML IVPB SCH ×6 (00:46→20:04)
[2018-08-05] MEDS: Albuterol-Ipratrop 3 mg / 0.5 (3 ml) UD IH SCH ×4 (03:40→19:50)
[2018-08-05] MEDS ORDERED: Oxycodone/Acetaminophen 5/325 mg Tab PO ONE (06:48)
[2018-08-05 07:01] LABS: HEMOGLOBIN 7.6 g/dL (12.0-16.0); MEAN CELL VOLUME 97.2 fl (80.0-105.0); MEAN CORPUSCULAR HEMOGLOBIN 30.2 pg (25.0-35.0); MEAN PLATELET VOLUME 8.4 fl (7.0-11.0); RBC 2.52 10^6/uL (3.5-6.1); RED CELL DISTRIBUTION WIDTH 16.3 % (11.5-14.5); WHITE BLOOD COUNT 6.4 10^3/uL (4.5-11.0)
[2018-08-05 07:22] LABS: ALB/GLOB RATIO 0.9 (1.1-1.8); CALCIUM 8.2 mg/dL (8.4-10.5)
[2018-08-05] MEDS: Arformoterol 15 mcg/2 ml Inh Sol IH SCH ×2 (07:23→19:50)
[2018-08-05] MEDS: Budesonide 0.5 mg/2 ml Inhal Susp UD IH SCH ×2 (07:23→19:50)
[2018-08-05] MEDS ORDERED: Pantoprazole 40 mg EC Tab PO SCH (07:30)
[2018-08-05] MEDS: Multivitamin Vitamin B Complex (Nephro-Vite) Tab PO SCH (08:26)
[2018-08-05] MEDS: Tetrahydrozoline Opht 0.05% Sol (15 ml) OU SCH ×4 (09:52→22:15)
[2018-08-05] MEDS: Acyclovir 300 MG in Sodium Chloride 0.9% 100 ML IV SCH (09:53)
--- NOTE | 2018-08-05 10:35 | CP.PCM.CON ---
<Marie Hernandez - Last Filed: 08/05/18 11:21> History of Present Illness - History of Present Illness History of Present Illness: Gastroenterology Fellow/PGY6 Consult Note 73 year old female with PMH of ESRD on HD MWF, COPD, CVA, HTN, right breast cancer s/p lumpectomy 2012 presenting with confusion and fall at group home. Patient does not recall what happened to cause her to be admitted to the hospital. GI consultation for possible GI bleed. At present, she notes mild right lower back discomfort. Admits to hard bowel movement with straining yesterday and slighter softer bowel movement today. Nursing staff notes scant blood on stool with wiping today. Denies nausea, vomiting, hematemesis, abdominal pain, diarrhea, acid reflux, heartburn, bloating, unintentional weight loss, or melena. Prior EGD/colonoscopy 2014 showed H. pylori negative gastritis, transverse/ascending/sigmoid diverticulosis, and internal hemorrhoids. Family History- denies stomach cancer, colon cancer Surgical History- Left AV fistula, B/L hip and knee replacements, BTL, right breast lumpectomy 2012 Social History- former smoker, prior ETOH and drug use, quit 10-11years Review of Systems - Review of Systems Review of Systems: 12-point review of systems negative except for as above Past Patient History - Infectious Disease Hx of Infectious Diseases: None - Tetanus Immunizations Tetanus Immunization: Unknown - Past Medical History & Family History Past Medical History?: Yes - Past Social History Smoking Status: Never Smoked - CARDIAC Hx Pacemaker: No - PULMONARY Hx Chronic Obstructive Pulmonary Disease (COPD): Yes - NEUROLOGICAL HX Cerebrovascular Accident: Yes (L sided weakness) - HEENT Hx HEENT Problems: Yes Hx Cataracts: Yes - RENAL Hx Renal Failure: Yes - ENDOCRINE/METABOLIC Hx Diabetes Mellitus Type 2: Yes - HEMATOLOGICAL/ONCOLOGICAL Hx Cancer: No - INTEGUMENTARY Hx Dermatological Problems: Yes Hx Psoriasis: Yes Other/Comment: bilat hip incision line. L fistula for HD - MUSCULOSKELETAL/RHEUMATOLOGICAL Hx Arthritis: Yes Hx Degenerative Joint Disease: Yes Hx Falls: Yes Hx Unsteady Gait: Yes - GASTROINTESTINAL Hx Gastroesophageal Reflux: Yes - GENITOURINARY/GYNECOLOGICAL Hx Genitourinary Disorders: No Other/Comment: TUBAL LIGATION - PSYCHIATRIC Hx Bipolar Disorder: Yes Hx Depression: Yes - SURGICAL HISTORY Hx Mastectomy: No - ANESTHESIA Hx Anesthesia: Yes Hx Anesthesia Reactions: No Hx Malignant Hyperthermia: No Meds Allergies/Adverse Reactions: Allergies Allergy/AdvReac Type Severity Reaction Status Date / Time No Known Allergies Allergy Verified 08/05/18 00:24 - Medications Medications: Current Medications Albuterol/Ipratropium (Duoneb 3 Mg/0.5 Mg (3 Ml) Ud) 3 ml IH [id number] [facility] Last Admin: 08/05/18 07:23 Dose: 3 ml Arformoterol Tartrate (Brovana) 15 mcg IH [id number] [facility] Last Admin: 08/05/18 07:23 Dose: 15 mcg Artificial Tears (Refresh Opth Soln) 0.3 ml OU Q6H PRN PRN Reason: Dry eyes Last Admin: 08/03/18 18:48 Dose: 1 drop Budesonide (Pulmicort Respules) 0.5 mg IH [id number] [facility] Last Admin: 08/05/18 07:23 Dose: 0.5 mg Clonazepam (Klonopin) 0.25 mg PO BID [facility]; Protocol Last Admin: 08/05/18 09:52 Dose: 0.25 mg Clonidine HCl (Catapres Tts1 0.1 Mg/24 Hr) 1 patch TD Q7D@1000 [facility] Last Admin: 07/30/18 18:51 Dose: 1 patch Clonidine HCl (Catapres) 0.2 mg PO DAILY [facility] Last Admin: 08/05/18 09:53 Dose: 0.2 mg Diphenhydramine HCl (Benadryl) 50 mg PO Q2H PRN PRN Reason: Mild allergic reaction Diphenhydramine HCl (Benadryl) 50 mg IVP Q2H PRN PRN Reason: Mild allergic reaction Last Admin: 08/03/18 20:25 Dose: 50 mg Diphenhydramine HCl (Benadryl) 50 mg IVP Q2H PRN PRN Reason: Severe allergic reaction Epinephrine HCl (Epinephrine) 1 mg IM Q5M PRN PRN Reason: Severe allergic reaction Guaifenesin (Robitussin) 100 mg PO Q4H PRN PRN Reason: Cough Last Admin: 08/02/18 19:40 Dose: 100 mg Heparin Sodium (Porcine) (Heparin) 2,000 units IVP [facility] [place]; Protocol Last Admin: 08/04/18 10:03 Dose: 2,000 units Penicillin G Potassium 2 mu/ (Sodium Chloride) 50 mls @ 100 mls/hr IVPB Q4 [facility]; Protocol Last Admin: 08/05/18 08:26 Dose: 100 mls/hr Acyclovir 300 mg/ Sodium (Chloride) 100 mls @ 100 mls/hr IV DAILY [facility]; Protocol Last Admin: 08/05/18 09:53 Dose: 100 mls/hr Ibuprofen (Motrin Tab) 600 mg PO TID PRN PRN Reason: Pain, moderate (4-7) Last Admin: 08/05/18 09:06 Dose: 600 mg Lorazepam (Ativan) 0.5 mg IVP Q8H PRN; Protocol PRN Reason: Anxiety Last Admin: 08/01/18 12:55 Dose: 0.5 mg Losartan Potassium (Cozaar) 50 mg PO DAILY [facility] Last Admin: 08/05/18 09:53 Dose: 50 mg Pantoprazole Sodium (Protonix Ec Tab) 40 mg PO ACB [facility] Tetrahydrozoline HCl/Zinc Sulfate (Visine 0.05% Opht Soln) 0 ml OU QID [facility] Last Admin: 08/05/18 09:52 Dose: 1 applic Vitamin A (Vitamin A & D Oint Ud Foilpak) 1 ea TOP BID PRN PRN Reason: Dry mouth Vitamin B Complex/Vit C/Folic Acid (Nephro-Fabby) 1 tab PO 0800 [facility] Last Admin: 08/05/18 08:26 Dose: 1 tab Physical Exam - Constitutional Appears: Non-toxic, No Acute Distress - Head Exam Head Exam: ATRAUMATIC, NORMOCEPHALIC - Eye Exam Eye Exam: EOMI, PERRL. absent: Scleral icterus Pupil Exam: PERRL. absent: Miosis, Mydriatic - ENT Exam ENT Exam: Mucous Membranes Moist, Normal Oropharynx - Neck Exam Neck exam: Positive for: Full Rom, Normal Inspection - Respiratory Exam Respiratory Exam: Clear to Auscultation Bilateral. absent: Rales, Rhonchi, Wheezes - Cardiovascular Exam Cardiovascular Exam: RRR, +S1, +S2. absent: Gallop, Rubs - GI/Abdominal Exam GI & Abdominal Exam: Normal Bowel Sounds, Soft. absent: Distended, Firm, Guarding, Organomegaly, Rebound, Rigid, Tenderness - Rectal Exam Rectal Exam: Hemorrhoids. absent: Black Stool, Bloody Stool, Fecal Impaction Additional comments: orange-brown formed stool in rectal vault, no mass lesion, good tone - Extremities Exam Extremities exam: Positive for: normal inspection. Negative for: pedal edema - Neurological Exam Neurological exam: Alert - Psychiatric Exam Psychiatric exam: Normal Affect, Normal Mood - Skin Skin Exam: Dry, Intact, Normal Color, Warm Results - Vital Signs Recent Vital Signs: Last Vital Signs Temp 97.8 F 08/05/18 06:00 Pulse 83 08/05/18 09:53 Resp 20 08/05/18 06:00 BP 114/50 L 08/05/18 09:53 Pulse Ox 95 08/05/18 06:00 - Labs Result Diagrams: 08/05/18 06:30 08/05/18 06:30 Labs: Laboratory Results - last 24 hr 08/01/18 08/05/18 08/05/18 13:30 06:30 06:30 WBC 6.4 RBC 2.52 L Hgb 7.6 L Hct 24.5 L MCV 97.2 MCH 30.2 MCHC 31.0 RDW 16.3 H Plt Count 243 MPV 8.4 Sodium 137 Potassium 4.6 Chloride 99 Carbon Dioxide 30 Anion Gap 13 BUN 33 H Creatinine 3.9 H Est GFR ( Amer) 14 Est GFR (Non-Af Amer) 11 Random Glucose 69 L Calcium 8.2 L Total Bilirubin 0.2 AST 42 H D ALT 23 Alkaline Phosphatase 74 Total Protein 6.3 Albumin 3.0 Globulin 3.3 Albumin/Globulin Ratio 0.9 L HSV Source Description Csf HSV I DNA PCR Not detected HSV II DNA PCR Not detected Blood Type Antibody Screen Crossmatch BBK History Checked 08/05/18 08:55 WBC RBC Hgb Hct MCV MCH MCHC RDW Plt Count MPV Sodium Potassium Chloride Carbon Dioxide Anion Gap BUN Creatinine Est GFR ( Amer) Est GFR (Non-Af Amer) Random Glucose Calcium Total Bilirubin AST ALT Alkaline Phosphatase Total Protein Albumin Globulin Albumin/Globulin Ratio HSV Source Description HSV I DNA PCR HSV II DNA PCR Blood Type B POSITIVE Antibody Screen Negative Crossmatch See Detail BBK History Checked Patient has bt Assessment & Plan - Assessment and Plan (Free Text) Assessment: 73 year old female with PMH of ESRD on HD MWF, COPD, CVA, HTN, right breast cancer s/p lumpectomy 2012 presenting with altered mental status and fall at group home. Active treatment of altered mental status with concern for neurosyphilis. GI consultation for possible GI bleed. Prior EGD/colonoscopy 2014 showed H. pylori negative gastritis, transverse/ascending/sigmoid diverticulosis, and internal hemorrhoids. Plan: -no overt signs of GI bleed -hemodynamically stable -rectal- brown stool -noted decline of H/H -receiving pRBC today -avoid NSAIDs -provide transfusion as needed -on PPI PO ACB -start bowel regimen- Miralax daily, Colace daily -will benefit from endoscopic evaluation to evaluate anemia -will monitor H/H trend and discuss with attending for future timing of endoscopic evaluation of GI tract for possible source of blood loss -will follow clinical course <Prateek Landrum - Last Filed: 08/05/18 11:49> Meds - Medications Medications: Current Medications Albuterol/Ipratropium (Duoneb 3 Mg/0.5 Mg (3 Ml) Ud) 3 ml IH [id number] [facility] Last Admin: 08/05/18 07:23 Dose: 3 ml Arformoterol Tartrate (Brovana) 15 mcg IH [id number] [facility] Last Admin: 08/05/18 07:23 Dose: 15 mcg Artificial Tears (Refresh Opth Soln) 0.3 ml OU Q6H PRN PRN Reason: Dry eyes Last Admin: 08/03/18 18:48 Dose: 1 drop Budesonide (Pulmicort Respules) 0.5 mg IH [id number] [facility] Last Admin: 08/05/18 07:23 Dose: 0.5 mg Clonazepam (Klonopin) 0.25 mg PO BID [facility]; Protocol Last Admin: 08/05/18 09:52 Dose: 0.25 mg Clonidine HCl (Catapres Tts1 0.1 Mg/24 Hr) 1 patch TD Q7D@1000 [facility] Last Admin: 07/30/18 18:51 Dose: 1 patch Clonidine HCl (Catapres) 0.2 mg PO DAILY [facility] Last Admin: 08/05/18 09:53 Dose: 0.2 mg Diphenhydramine HCl (Benadryl) 50 mg PO Q2H PRN PRN Reason: Mild allergic reaction Diphenhydramine HCl (Benadryl) 50 mg IVP Q2H PRN PRN Reason: Mild allergic reaction Last Admin: 08/03/18 20:25 Dose: 50 mg Diphenhydramine HCl (Benadryl) 50 mg IVP Q2H PRN PRN Reason: Severe allergic reaction Epinephrine HCl (Epinephrine) 1 mg IM Q5M PRN PRN Reason: Severe allergic reaction Guaifenesin (Robitussin) 100 mg PO Q4H PRN PRN Reason: Cough Last Admin: 08/02/18 19:40 Dose: 100 mg Heparin Sodium (Porcine) (Heparin) 2,000 units IVP MWF [facility]; Protocol Last Admin: 08/04/18 10:03 Dose: 2,000 units Penicillin G Potassium 2 mu/ (Sodium Chloride) 50 mls @ 100 mls/hr IVPB Q4 [facility]; Protocol Last Admin: 08/05/18 08:26 Dose: 100 mls/hr Acyclovir 300 mg/ Sodium (Chloride) 100 mls @ 100 mls/hr IV DAILY [facility]; Protocol Last Admin: 08/05/18 09:53 Dose: 100 mls/hr Ibuprofen (Motrin Tab) 600 mg PO TID PRN PRN Reason: Pain, moderate (4-7) Last Admin: 08/05/18 09:06 Dose: 600 mg Lorazepam (Ativan) 0.5 mg IVP Q8H PRN; Protocol PRN Reason: Anxiety Last Admin: 08/01/18 12:55 Dose: 0.5 mg Losartan Potassium (Cozaar) 50 mg PO DAILY [facility] Last Admin: 08/05/18 09:53 Dose: 50 mg Pantoprazole Sodium (Protonix Ec Tab) 40 mg PO ACB [facility] Tetrahydrozoline HCl/Zinc Sulfate (Visine 0.05% Opht Soln) 0 ml OU QID [facility] Last Admin: 08/05/18 09:52 Dose: 1 applic Vitamin A (Vitamin A & D Oint Ud Foilpak) 1 ea TOP BID PRN PRN Reason: Dry mouth Vitamin B Complex/Vit C/Folic Acid (Nephro-Fabby) 1 tab PO 0800 [facility] Last Admin: 08/05/18 08:26 Dose: 1 tab Results - Vital Signs Recent Vital Signs: Last Vital Signs Temp 97.8 F 08/05/18 06:00 Pulse 83 08/05/18 09:53 Resp 20 08/05/18 06:00 BP 114/50 L 08/05/18 09:53 Pulse Ox 95 08/05/18 06:00 - Labs Result Diagrams: 08/05/18 06:30 08/05/18 06:30 Labs: Laboratory Results - last 24 hr 08/01/18 08/05/18 08/05/18 13:30 06:30 06:30 WBC 6.4 RBC 2.52 L Hgb 7.6 L Hct 24.5 L MCV 97.2 MCH 30.2 MCHC 31.0 RDW 16.3 H Plt Count 243 MPV 8.4 Sodium 137 Potassium 4.6 Chloride 99 Carbon Dioxide 30 Anion Gap 13 BUN 33 H Creatinine 3.9 H Est GFR ( Amer) 14 Est GFR (Non-Af Amer) 11 Random Glucose 69 L Calcium 8.2 L Total Bilirubin 0.2 AST 42 H D ALT 23 Alkaline Phosphatase 74 Total Protein 6.3 Albumin 3.0 Globulin 3.3 Albumin/Globulin Ratio 0.9 L HSV Source Description Csf HSV I DNA PCR Not detected HSV II DNA PCR Not detected Blood Type Antibody Screen Crossmatch BBK History Checked 08/05/18 08:55 WBC RBC Hgb Hct MCV MCH MCHC RDW Plt Count MPV Sodium Potassium Chloride Carbon Dioxide Anion Gap BUN Creatinine Est GFR ( Amer) Est GFR (Non-Af Amer) Random Glucose Calcium Total Bilirubin AST ALT Alkaline Phosphatase Total Protein Albumin Globulin Albumin/Globulin Ratio HSV Source Description HSV I DNA PCR HSV II DNA PCR Blood Type B POSITIVE Antibody Screen Negative Crossmatch See Detail BBK History Checked Patient has bt Attending/Attestation - Attestation I have fully participated in the care of the patient.: Yes I have reviewed all pertinent clinical information: Yes Notes (Text): 08/05/18 11:46 ESRD on HD COPD HTN CVA History of breast cancer Anemia, chronic Confusion, neurosyphilis - Diet as tolerated - Patient scheduled to receive PRBC transfusion, continue to monitor - Continue with antiviral therapy for neurosyphilis as per ID - NSAID avoidance - Maintain bowel regimen to prevent constipation, may use anusol suppository therapy for treatment of hemorrhoids - Continue with PPI therapy - Patient would benefit from endoscopic evaluation given progressive anemia, however this should be arranged electively following resolution of acute medical issues. No presence of overt bleeding noted on examination today including rectal exam. Will continue to monitor patient clinical course.
--- NOTE | 2018-08-05 10:36 | CP.PCM.CON ---
History of Present Illness - History of Present Illness History of Present Illness: Gastroenterology Fellow/PGY6 Consult Note 73 year old female with PMH of ESRD on HD MWF, COPD, CVA, HTN, right breast cancer s/p lumpectomy 2012 presenting with abdominal pain. Patient notes one bilious vomitus prior to breakfast followed by postprandial wax/waning , aggravating epigastric pain without radiation. On current evaluation, the pain is 50% improved and denies further vomitus episodes. Denies hematemesis, diarrhea, acid reflux, bloating, unintentional weight loss, rectal bleeding, melena, or NSAIDs use. Admits to similar discomfort three years ago that was due to dyspepsia with EGD 08/2015 showing H. pylori negative gastritis. Colonoscopy 2014 showed transverse/ascending/sigmoid diverticulosis and internal hemorrh oids. Family History- denies stomach cancer, colon cancer Surgical History- Left AV fistula, B/L hip and knee replacements, BTL, right breast lumpectomy 2012 Social History- former smoker,ETOH and drug use, quit 10-11years Review of Systems - Review of Systems Review of Systems: 12-point review of systems negative except for as above Past Patient History - Infectious Disease Hx of Infectious Diseases: None - Tetanus Immunizations Tetanus Immunization: Unknown - Past Medical History & Family History Past Medical History?: Yes - Past Social History Smoking Status: Former Smoker - CARDIAC Hx Congestive Heart Failure: Yes Hx Hypertension: Yes - PULMONARY Hx Asthma: Yes Hx Bronchitis: Yes Hx Chronic Obstructive Pulmonary Disease (COPD): Yes - NEUROLOGICAL HX Cerebrovascular Accident: Yes Hx Seizures: Yes - HEENT Hx HEENT Problems: Yes Hx Cataracts: Yes (mild cataracts per patient) - RENAL Hx Chronic Kidney Disease: Yes Hx Renal Failure: Yes - ENDOCRINE/METABOLIC Hx Endocrine Disorders: No Other/Comment: pvd - HEMATOLOGICAL/ONCOLOGICAL Hx Anemia: Yes (IRON INFUSIONS QWKLY) - INTEGUMENTARY Hx Dermatological Problems: Yes Hx Psoriasis: Yes Other/Comment: bilat hip incision line - MUSCULOSKELETAL/RHEUMATOLOGICAL Hx Arthritis: Yes - GASTROINTESTINAL Hx Gastritis: Yes - GENITOURINARY/GYNECOLOGICAL Hx Genitourinary Disorders: No - PSYCHIATRIC Hx Bipolar Disorder: Yes Hx Depression: Yes Hx Substance Use: No - SURGICAL HISTORY Hx Joint Replacement: Yes Hx Orthopedic Surgery: Yes (Bilateral) Hx Tubal Ligation: Yes Other/Comment: R BREAST LUMPECTOMY (2012), BL HIP REPLACEMENT, BL KNEE REPLACEMENT, left AV shunt, portacath insertion - ANESTHESIA Hx Anesthesia: Yes Hx Anesthesia Reactions: No Hx Malignant Hyperthermia: No Meds Allergies/Adverse Reactions: Allergies Allergy/AdvReac Type Severity Reaction Status Date / Time Penicillins Allergy RASH Verified 05/23/18 19:44 - Medications Medications: Current Medications Arformoterol Tartrate (Brovana) 15 mcg IH [id number] [facility] Last Admin: 07/21/18 20:32 Dose: 15 mcg Budesonide (Pulmicort Respules) 0.5 mg IH [id number] [facility] Last Admin: 07/21/18 20:32 Dose: 0.5 mg Clonazepam (Klonopin) 0.25 mg PO BID [facility]; Protocol Last Admin: 07/21/18 20:31 Dose: 0.25 mg Clonidine HCl (Catapres) 0.2 mg PO BID [facility] Last Admin: 07/21/18 19:30 Dose: 0.2 mg Docusate Sodium (Colace) 100 mg PO DAILY [facility] Fluoxetine HCl (Prozac) 40 mg PO HS [facility] Last Admin: 07/21/18 23:16 Dose: 40 mg Dextrose/Sodium Chloride (Dextrose 5%/0.45% Ns 1000 Ml) 1,000 mls @ 83 mls/hr IV .Q12H3M [facility] Morphine Sulfate (Morphine) 2 mg IVP Q3H PRN PRN Reason: Pain, moderate (4-7) Last Admin: 07/22/18 05:04 Dose: 2 mg Ondansetron HCl (Zofran Inj) 4 mg IVP Q6 PRN PRN Reason: Nausea/Vomiting Last Admin: 07/22/18 05:04 Dose: 4 mg Pantoprazole Sodium (Protonix Inj) 40 mg IVP DAILY [facility] Physical Exam - Constitutional Appears: Non-toxic, No Acute Distress - Head Exam Head Exam: ATRAUMATIC, NORMOCEPHALIC - Eye Exam Eye Exam: EOMI, PERRL. absent: Scleral icterus Pupil Exam: PERRL. absent: Miosis, Mydriatic - ENT Exam ENT Exam: Mucous Membranes Moist, Normal Oropharynx - Neck Exam Neck exam: Positive for: Full Rom, Normal Inspection - Respiratory Exam Respiratory Exam: Clear to Auscultation Bilateral. absent: Rales, Rhonchi, Wheezes - Cardiovascular Exam Cardiovascular Exam: RRR, +S1, +S2. absent: Gallop, Rubs - GI/Abdominal Exam GI & Abdominal Exam: Normal Bowel Sounds, Soft, Tenderness. absent: Distended, Firm, Organomegaly, Rebound, Rigid Additional comments: minimal epigastric tenderness to palpation - Extremities Exam Extremities exam: Positive for: normal inspection. Negative for: pedal edema - Neurological Exam Neurological exam: Alert, Oriented x3 - Psychiatric Exam Psychiatric exam: Normal Affect, Normal Mood - Skin Skin Exam: Dry, Intact, Normal Color, Warm Results - Vital Signs Recent Vital Signs: Last Vital Signs Temp 97.9 F 07/21/18 12:53 Pulse 75 07/22/18 06:46 Resp 14 07/22/18 06:46 BP 134/58 L 07/22/18 06:46 Pulse Ox 95 07/22/18 06:46 - Labs Result Diagrams: 07/22/18 05:30 07/22/18 05:30 Labs: Laboratory Results - last 24 hr 07/21/18 07/21/18 07/22/18 16:00 16:00 05:30 WBC 9.7 8.2 RBC 3.38 L 3.34 L Hgb 10.7 L 10.3 L Hct 34.3 L 34.1 L MCV 101.5 102.1 MCH 31.7 30.8 MCHC 31.2 30.2 L RDW 16.0 H 16.2 H Plt Count 384 369 MPV 9.3 8.6 Gran % 73.0 H Lymph % (Auto) 14.5 L [place] % (Auto) 9.3 H Eos % (Auto) 3.0 Baso % (Auto) 0.2 Gran # 7.09 H Lymph # (Auto) 1.4 [place] # (Auto) 0.9 H Eos # (Auto) 0.3 Baso # (Auto) 0.02 Sodium 134 Potassium 5.1 H Chloride 98 Carbon Dioxide 25 Anion Gap 17 BUN 55 H Creatinine 6.3 H Est GFR ( Amer) 8 Est GFR (Non-Af Amer) 7 Random Glucose 76 Calcium 9.1 Total Bilirubin 0.5 AST 34 ALT 15 Alkaline Phosphatase 89 Total Protein 7.2 Albumin 3.7 Globulin 3.6 Albumin/Globulin Ratio 1.0 L Lipase 140 07/22/18 05:30 WBC RBC Hgb Hct MCV MCH MCHC RDW Plt Count MPV Gran % Lymph % (Auto) [place] % (Auto) Eos % (Auto) Baso % (Auto) Gran # Lymph # (Auto) [place] # (Auto) Eos # (Auto) Baso # (Auto) Sodium 136 Potassium 4.5 Chloride 99 Carbon Dioxide 24 Anion Gap 18 BUN 57 H Creatinine 7.3 H Est GFR ( Amer) 7 Est GFR (Non-Af Amer) 5 Random Glucose 45 L* D Calcium 9.1 Total Bilirubin 0.4 AST 24 ALT 10 Alkaline Phosphatase 93 Total Protein 7.7 Albumin 3.8 Globulin 3.9 Albumin/Globulin Ratio 1.0 L Lipase Assessment & Plan - Assessment and Plan (Free Text) Assessment: 73 year old female with PMH of ESRD on HD MWF, COPD, CVA, HTN, right breast cancer s/p lumpectomy 2012 presenting with abdominal pain. Patient notes one bilious vomitus prior to breakfast followed by postprandial wax/waning , aggravating epigastric pain without radiation. Active treatment of epigastric pain due to dyspepsia. EGD 08/2015 showing H. pylori negative gastritis. Colonoscopy 2014 showed transverse/ascending/sigmoid diverticulosis and internal hemorrhoids. Plan: -advance to full liquid diet -advance diet as tolerated -continue Protonix 40mg PO ACB -supportive care- zofran PRN -okay to discharge, once regular diet tolerated and pain continues to improve -if symptoms re-occur, will consider endoscopic evaluation <Prateek Landrum - Last Filed: 07/22/18 08:52> Meds - Medications Medications: Current Medications Arformoterol Tartrate (Brovana) 15 mcg IH [id number] [facility] Last Admin: 07/21/18 20:32 Dose: 15 mcg Budesonide (Pulmicort Respules) 0.5 mg IH [id number] [facility] Last Admin: 07/21/18 20:32 Dose: 0.5 mg Clonazepam (Klonopin) 0.25 mg PO BID [facility]; Protocol Last Admin: 07/21/18 20:31 Dose: 0.25 mg Clonidine HCl (Catapres) 0.2 mg PO BID [facility] Last Admin: 07/21/18 19:30 Dose: 0.2 mg Docusate Sodium (Colace) 100 mg PO DAILY [facility] Fluoxetine HCl (Prozac) 40 mg PO [facility] Last Admin: 07/21/18 23:16 Dose: 40 mg Dextrose/Sodium Chloride (Dextrose 5%/0.45% Ns 1000 Ml) 1,000 mls @ 83 mls/hr IV .Q12H3M [facility] Morphine Sulfate (Morphine) 2 mg IVP Q3H PRN PRN Reason: Pain, moderate (4-7) Last Admin: 07/22/18 05:04 Dose: 2 mg Ondansetron HCl (Zofran Inj) 4 mg IVP Q6 PRN PRN Reason: Nausea/Vomiting Last Admin: 07/22/18 05:04 Dose: 4 mg Pantoprazole Sodium (Protonix Inj) 40 mg IVP DAILY [facility] Results - Vital Signs Recent Vital Signs: Last Vital Signs Temp 97.9 F 07/21/18 12:53 Pulse 75 07/22/18 06:46 Resp 14 07/22/18 06:46 BP 134/58 L 07/22/18 06:46 Pulse Ox 95 07/22/18 06:46 - Labs Result Diagrams: 07/22/18 05:30 07/22/18 05:30 Labs: Laboratory Results - last 24 hr 07/21/18 07/21/18 07/22/18 16:00 16:00 05:30 WBC 9.7 8.2 RBC 3.38 L 3.34 L Hgb 10.7 L 10.3 L Hct 34.3 L 34.1 L MCV 101.5 102.1 MCH 31.7 30.8 MCHC 31.2 30.2 L RDW 16.0 H 16.2 H Plt Count 384 369 MPV 9.3 8.6 Gran % 73.0 H Lymph % (Auto) 14.5 L [place] % (Auto) 9.3 H Eos % (Auto) 3.0 Baso % (Auto) 0.2 Gran # 7.09 H Lymph # (Auto) 1.4 [place] # (Auto) 0.9 H Eos # (Auto) 0.3 Baso # (Auto) 0.02 Sodium 134 Potassium 5.1 H Chloride 98 Carbon Dioxide 25 Anion Gap 17 BUN 55 H Creatinine 6.3 H Est GFR ( Amer) 8 Est GFR (Non-Af Amer) 7 POC Glucose (mg/dL) Random Glucose 76 Calcium 9.1 Total Bilirubin 0.5 AST 34 ALT 15 Alkaline Phosphatase 89 Total Protein 7.2 Albumin 3.7 Globulin 3.6 Albumin/Globulin Ratio 1.0 L Lipase 140 07/22/18 07/22/18 05:30 08:44 WBC RBC Hgb Hct MCV MCH MCHC RDW Plt Count MPV Gran % Lymph % (Auto) [place] % (Auto) Eos % (Auto) Baso % (Auto) Gran # Lymph # (Auto) [place] # (Auto) Eos # (Auto) Baso # (Auto) Sodium 136 Potassium 4.5 Chloride 99 Carbon Dioxide 24 Anion Gap 18 BUN 57 H Creatinine 7.3 H Est GFR ( Amer) 7 Est GFR (Non-Af Amer) 5 POC Glucose (mg/dL) 67 Random Glucose 45 L* D Calcium 9.1 Total Bilirubin 0.4 AST 24 ALT 10 Alkaline Phosphatase 93 Total Protein 7.7 Albumin 3.8 Globulin 3.9 Albumin/Globulin Ratio 1.0 L Lipase Attending/Attestation - Attestation I have fully participated in the care of the patient.: Yes I have reviewed all pertinent clinical information: Yes Notes (Text): 07/22/18 08:50 ESRD on HD History of breast cancer COPD CVA HTN Abdominal pain without associated alarm or worrisome features. CT imaging reviewed by me showing no gross GI abnormalities. - Advance diet as tolerated - Continue with PPI therapy - Continue with supportive care, further plan as per medical team - If unable to tolerate PO diet, would consider endoscopic evaluation - Continue to monitor patient clinical course Past Patient History - Infectious Disease Hx of Infectious Diseases: None - Tetanus Immunizations Tetanus Immunization: Unknown - Past Medical History & Family History Past Medical History?: Yes - Past Social History Smoking Status: Never Smoked - CARDIAC Hx Pacemaker: No - PULMONARY Hx Chronic Obstructive Pulmonary Disease (COPD): Yes - NEUROLOGICAL HX Cerebrovascular Accident: Yes (L sided weakness) - HEENT Hx HEENT Problems: Yes Hx Cataracts: Yes - RENAL Hx Renal Failure: Yes - ENDOCRINE/METABOLIC Hx Diabetes Mellitus Type 2: Yes - HEMATOLOGICAL/ONCOLOGICAL Hx Cancer: No - INTEGUMENTARY Hx Dermatological Problems: Yes Hx Psoriasis: Yes Other/Comment: bilat hip incision line. L fistula for HD - MUSCULOSKELETAL/RHEUMATOLOGICAL Hx Arthritis: Yes Hx Degenerative Joint Disease: Yes Hx Falls: Yes Hx Unsteady Gait: Yes - GASTROINTESTINAL Hx Gastroesophageal Reflux: Yes - GENITOURINARY/GYNECOLOGICAL Hx Genitourinary Disorders: No Other/Comment: TUBAL LIGATION - PSYCHIATRIC Hx Bipolar Disorder: Yes Hx Depression: Yes - SURGICAL HISTORY Hx Mastectomy: No - ANESTHESIA Hx Anesthesia: Yes Hx Anesthesia Reactions: No Hx Malignant Hyperthermia: No Meds Allergies/Adverse Reactions: Allergies Allergy/AdvReac Type Severity Reaction Status Date / Time No Known Allergies Allergy Verified 08/05/18 00:24 - Medications Medications: Current Medications Albuterol/Ipratropium (Duoneb 3 Mg/0.5 Mg (3 Ml) Ud) 3 ml IH [id number] [facility] Last Admin: 08/05/18 07:23 Dose: 3 ml Arformoterol Tartrate (Brovana) 15 mcg IH [id number] [facility] Last Admin: 08/05/18 07:23 Dose: 15 mcg Artificial Tears (Refresh Opth Soln) 0.3 ml OU Q6H PRN PRN Reason: Dry eyes Last Admin: 08/03/18 18:48 Dose: 1 drop Budesonide (Pulmicort Respules) 0.5 mg IH [id number] [facility] Last Admin: 08/05/18 07:23 Dose: 0.5 mg Clonazepam (Klonopin) 0.25 mg PO BID [facility]; Protocol Last Admin: 08/05/18 09:52 Dose: 0.25 mg Clonidine HCl (Catapres Tts1 0.1 Mg/24 Hr) 1 patch TD Q7D@1000 [facility] Last Admin: 07/30/18 18:51 Dose: 1 patch Clonidine HCl (Catapres) 0.2 mg PO DAILY [facility] Last Admin: 08/05/18 09:53 Dose: 0.2 mg Diphenhydramine HCl (Benadryl) 50 mg PO Q2H PRN PRN Reason: Mild allergic reaction Diphenhydramine HCl (Benadryl) 50 mg IVP Q2H PRN PRN Reason: Mild allergic reaction Last Admin: 08/03/18 20:25 Dose: 50 mg Diphenhydramine HCl (Benadryl) 50 mg IVP Q2H PRN PRN Reason: Severe allergic reaction Epinephrine HCl (Epinephrine) 1 mg IM Q5M PRN PRN Reason: Severe allergic reaction Guaifenesin (Robitussin) 100 mg PO Q4H PRN PRN Reason: Cough Last Admin: 08/02/18 19:40 Dose: 100 mg Heparin Sodium (Porcine) (Heparin) 2,000 units IVP MWF [facility]; Protocol Last Admin: 08/04/18 10:03 Dose: 2,000 units Penicillin G Potassium 2 mu/ (Sodium Chloride) 50 mls @ 100 mls/hr IVPB Q4 [facility]; Protocol Last Admin: 08/05/18 08:26 Dose: 100 mls/hr Acyclovir 300 mg/ Sodium (Chloride) 100 mls @ 100 mls/hr IV DAILY [facility]; Protocol Last Admin: 08/05/18 09:53 Dose: 100 mls/hr Ibuprofen (Motrin Tab) 600 mg PO TID PRN PRN Reason: Pain, moderate (4-7) Last Admin: 08/05/18 09:06 Dose: 600 mg Lorazepam (Ativan) 0.5 mg IVP Q8H PRN; Protocol PRN Reason: Anxiety Last Admin: 08/01/18 12:55 Dose: 0.5 mg Losartan Potassium (Cozaar) 50 mg PO DAILY [facility] Last Admin: 08/05/18 09:53 Dose: 50 mg Pantoprazole Sodium (Protonix Ec Tab) 40 mg PO ACB [facility] Tetrahydrozoline HCl/Zinc Sulfate (Visine 0.05% Opht Soln) 0 ml OU QID [facility] Last Admin: 08/05/18 09:52 Dose: 1 applic Vitamin A (Vitamin A & D Oint Ud Foilpak) 1 ea TOP BID PRN PRN Reason: Dry mouth Vitamin B Complex/Vit C/Folic Acid (Nephro-Fabby) 1 tab PO 0800 [facility] Last Admin: 08/05/18 08:26 Dose: 1 tab Results - Vital Signs Recent Vital Signs: Last Vital Signs Temp 97.8 F 08/05/18 06:00 Pulse 83 08/05/18 09:53 Resp 20 08/05/18 06:00 BP 114/50 L 08/05/18 09:53 Pulse Ox 95 08/05/18 06:00 - Labs Result Diagrams: 08/05/18 06:30 08/05/18 06:30 Labs: Laboratory Results - last 24 hr 08/01/18 08/05/18 08/05/18 13:30 06:30 06:30 WBC 6.4 RBC 2.52 L Hgb 7.6 L Hct 24.5 L MCV 97.2 MCH 30.2 MCHC 31.0 RDW 16.3 H Plt Count 243 MPV 8.4 Sodium 137 Potassium 4.6 Chloride 99 Carbon Dioxide 30 Anion Gap 13 BUN 33 H Creatinine 3.9 H Est GFR ( Amer) 14 Est GFR (Non-Af Amer) 11 Random Glucose 69 L Calcium 8.2 L Total Bilirubin 0.2 AST 42 H D ALT 23 Alkaline Phosphatase 74 Total Protein 6.3 Albumin 3.0 Globulin 3.3 Albumin/Globulin Ratio 0.9 L HSV Source Description Csf HSV I DNA PCR Not detected HSV II DNA PCR Not detected Blood Type Antibody Screen Crossmatch BBK History Checked 08/05/18 08:55 WBC RBC Hgb Hct MCV MCH MCHC RDW Plt Count MPV Sodium Potassium Chloride Carbon Dioxide Anion Gap BUN Creatinine Est GFR ( Amer) Est GFR (Non-Af Amer) Random Glucose Calcium Total Bilirubin AST ALT Alkaline Phosphatase Total Protein Albumin Globulin Albumin/Globulin Ratio HSV Source Description HSV I DNA PCR HSV II DNA PCR Blood Type B POSITIVE Antibody Screen Negative Crossmatch See Detail BBK History Checked Patient has bt
--- NOTE | 2018-08-05 12:15 | CP.PCM.PN ---
Subjective - Date & Time of Evaluation Date of Evaluation: 08/05/18 Time of Evaluation: 12:13 - Subjective Subjective: Nephrology Consultation Note: Assessment: stable AMS, Fall : being treated for neurosyphilis Hypertensive Chronic Kidney Disease (I12.0) End stage renal disease (N18.6) dependence on hemodialysis (Z99.2) (MWF) via AVF Anemia (D64.9), Hyperphosphatemia (E83.39), Secondary Hyperparathyroidism (E21.1), HTN (I12.0) COPD, CHF, CVA, seizures, PVD, bipolar disorder, depression, and right breast lumpectomy (2012) Plan: Will plan for HD MWF schedule as ordered. Continue with Nephrovite 1 tab/day. PRBC as needed for anemia. added MAIA with dialysis as last Hb 9.5 Continue with phos binders BP control with meds as ordered. Patient not on RAAS eugenia hence added losartan Glycemic control, Dialysis consistent diet Further work up/management as per primary team Dose meds/antibiotics (if needed) for ESRD status. Avoid fleets enema/magnesium based laxatives. Neuro, gi, id following. MRI brain neg. Thanks for allowing me to participate in care of your patient. Will follow patient with you. Please call if any Qs. had d/w team Dr Willis Clark Office: [phone] Chief Complaint; none HPI: Pt is a with hx of ESRD on hemodialysis (MWF) via AVF , last dialysis mon, chronic anemia, hyperphosphatemia, secondary hyperparathyroidism, hypertension anemia, COPD, CHF, CVA, seizures, PVD, bipolar disorder, depression, and right breast lumpectomy presented with complaints of fall and ? syncope from OR. Renal consult requested for ESRD management. pt on HD at [facility] with Dr Booth ROS: pt feels better. denies CP/SOB. for PRBC 08/05/18 as anemic Physical Examination: General Appearance: Comfortable, in no acute respiratory distress. Vitals reviewed and noted as below Head; Atraumatic, normocephalic ENT: no ulcers no thrush. Tongue is midline. Oropharynx: no rash or ulcers. EYES: Pupils are equal, round and reactive to light accommodation. Eye muscles and extraocular movement intact. Sclera is anicteric. Neck; supple no lymphadenopathy, no thyromegaly or bruit Lungs: Normal respiratory rate/effort. Breath sounds bilateral equal and clear. has Rt side boby-cath Heart: Normal rate. s1s2 normal. No rub or gallop. Extremities: no edema. No varicose veins Neurological: Patient is awake alert now Skin: Warm and dry. Normal turgor. No rash. Palpitation: Normal elasticity for age Abdomen: Abdomen is soft. Bowel sounds +. There is no abdominal tenderness, no guarding/rigidity or organomegaly Psych: normal insight and mood/affect MSK: no joint tenderness or swelling. Digits and nails normal, no deformity : kidney or bladder not palpable Access: AVF Labs/imaging reviewed. Past medical history, past surgical history, family history, social history, allergy reviewed and noted as below Family Hx: no hx of CKD. Non contributory Objective - Vital Signs/Intake and Output Vital Signs (last 24 hours): Temp Pulse Resp BP Pulse Ox 98.6 F 77 16 134/56 L 95 08/05/18 12:11 08/05/18 12:11 08/05/18 12:11 08/05/18 12:11 08/05/18 06:00 Intake and Output: 08/05/18 08/05/18 06:59 18:59 Intake Total 270 25 Balance 270 25 - Medications Medications: Current Medications Albuterol/Ipratropium (Duoneb 3 Mg/0.5 Mg (3 Ml) Ud) 3 ml IH [id number] [facility] Last Admin: 08/05/18 07:23 Dose: 3 ml Arformoterol Tartrate (Brovana) 15 mcg IH [id number] [facility] Last Admin: 08/05/18 07:23 Dose: 15 mcg Artificial Tears (Refresh Opth Soln) 0.3 ml OU Q6H PRN PRN Reason: Dry eyes Last Admin: 08/03/18 18:48 Dose: 1 drop Budesonide (Pulmicort Respules) 0.5 mg IH [id number] [facility] Last Admin: 08/05/18 07:23 Dose: 0.5 mg Clonazepam (Klonopin) 0.25 mg PO BID [facility]; Protocol Last Admin: 08/05/18 09:52 Dose: 0.25 mg Clonidine HCl (Catapres Tts1 0.1 Mg/24 Hr) 1 patch TD Q7D@1000 [facility] Last Admin: 07/30/18 18:51 Dose: 1 patch Clonidine HCl (Catapres) 0.2 mg PO DAILY [facility] Last Admin: 08/05/18 09:53 Dose: 0.2 mg Diphenhydramine HCl (Benadryl) 50 mg PO Q2H PRN PRN Reason: Mild allergic reaction Diphenhydramine HCl (Benadryl) 50 mg IVP Q2H PRN PRN Reason: Mild allergic reaction Last Admin: 08/03/18 20:25 Dose: 50 mg Diphenhydramine HCl (Benadryl) 50 mg IVP Q2H PRN PRN Reason: Severe allergic reaction Epinephrine HCl (Epinephrine) 1 mg IM Q5M PRN PRN Reason: Severe allergic reaction Guaifenesin (Robitussin) 100 mg PO Q4H PRN PRN Reason: Cough Last Admin: 08/02/18 19:40 Dose: 100 mg Heparin Sodium (Porcine) (Heparin) 2,000 units IVP MWF [facility]; Protocol Last Admin: 08/04/18 10:03 Dose: 2,000 units Penicillin G Potassium 2 mu/ (Sodium Chloride) 50 mls @ 100 mls/hr IVPB Q4 [facility]; Protocol Last Admin: 08/05/18 08:26 Dose: 100 mls/hr Acyclovir 300 mg/ Sodium (Chloride) 100 mls @ 100 mls/hr IV DAILY [facility]; Protocol Last Admin: 08/05/18 09:53 Dose: 100 mls/hr Ibuprofen (Motrin Tab) 600 mg PO TID PRN PRN Reason: Pain, moderate (4-7) Last Admin: 08/05/18 09:06 Dose: 600 mg Lorazepam (Ativan) 0.5 mg IVP Q8H PRN; Protocol PRN Reason: Anxiety Last Admin: 08/01/18 12:55 Dose: 0.5 mg Losartan Potassium (Cozaar) 50 mg PO DAILY [facility] Last Admin: 08/05/18 09:53 Dose: 50 mg Pantoprazole Sodium (Protonix Ec Tab) 40 mg PO ACB [facility] Tetrahydrozoline HCl/Zinc Sulfate (Visine 0.05% Opht Soln) 0 ml OU QID [facility] Last Admin: 08/05/18 09:52 Dose: 1 applic Vitamin A (Vitamin A & D Oint Ud Foilpak) 1 ea TOP BID PRN PRN Reason: Dry mouth Vitamin B Complex/Vit C/Folic Acid (Nephro-Fabby) 1 tab PO 0800 [facility] Last Admin: 08/05/18 08:26 Dose: 1 tab - Labs Labs: 08/05/18 06:30 08/05/18 06:30 PT 11.5 SECONDS (9.4-12.5) 07/30/18 02:15 INR 1.01 07/30/18 02:15 APTT 27.1 Seconds (25.1-36.5) 07/30/18 02:15
--- NOTE | 2018-08-05 13:16 | PN ---
DATE: 08/05/2018 LOCATION: She is now in the Intensive Care Unit. She is in room 567. SUBJECTIVE: She is having some hand pain. I am hoping that the stopping of the IV fluids will help because little swollen. She had some Percocet last night for the pain. They put on some Motrin right now. MEDICATIONS: She is on Aricept, Ativan, Benadryl, Brovana, Catapres, Cozaar, epinephrine, heparin, Klonopin, I added Motrin, Nephro-Fabby, she is on penicillin units every 4 hours for neurosyphilis. Pulmicort, Refresh, Robitussin, Visine, vitamin A and D and Zovirax. She is eating okay, trying for physical therapy to get her body moving a little bit, maybe some occupational therapy for the hands. PHYSICAL EXAMINATION: VITAL SIGNS: 97.8 temperature, 83 pulse, 114/50 blood pressure, 20 respiratory rate and 95% O2 sat on room air. HEENT: Head is atraumatic, normocephalic. HEART: Regular rate. LUNGS: Decreased breath sounds but clear. ABDOMEN: Soft. EXTREMITIES: No edema, but the hands are little puffy. LABORATORY DATA: She has a 6.4 white count with hemoglobin dropped to 7.6 from when she came in at 11.2, 11.7 and 9.5 and now at 7.6, we are going to transfuse her a unit of packed red blood cells. Hematocrit is 24.5, platelets of 243,000. INR is 1.01. She has 137 sodium, potassium is 4.6, BUN is 33, creatinine 3.9 after dialysis. GFR is 11, sugar is 69. Calcium is 8.2, total bili is 0.2, AST is 42, ALT is 23, alk phos 74, total protein 6.3. She had large leukocytes and moderate bacteria in a urine. She is here for neurosyphilis. She is being seen by Renal, Infectious Disease. She will have a unit of packed red blood cells transfused and some Motrin and penicillin. We will continue with aggressive treatment and care. Check her labs tomorrow and physical therapy. Cresencio Park DO [id number]
--- NOTE | 2018-08-05 14:16 | CP.PCM.PCO ---
Addendum Addendum: Justin Calles Johnston doc note I was paged regarding patient having hemoptysis during blood product transfusion. Review of chart reveals GI was consulted earlier in the day. Patient was examined and is not having significant hemoptysis but does have bright red blood when she coughs. PMD Dr. Park was contacted and recommended CT C/A/P. GI Fellow was contacted and she recommended CBC, INR, imaging, PTX BID and liquid diet. - will order CT C/A/P w/o contrast patient is ESRD - PTX 40mg IVP BID, STAT dose - hold NSAIDs - CLD started - complete blood product infusion - CBC, INR will be drawn once blood finished
[2018-08-05 16:07] LABS: BASO # 0.04 K/mm3 (0.0-2.0); BASO % 0.5 % (0.0-3.0); EOS # 0.6 (0.0-0.7); EOS % 6.9 % (1.5-5.0); GRAN # 4.87 (1.4-6.5); GRAN % 60.9 % (50.0-68.0); HEMOGLOBIN 7.8 g/dL (12.0-16.0); LYMPH # 1.7 (1.2-3.4); LYMPH % 21.2 % (22.0-35.0); MEAN CELL VOLUME 97.6 fl (80.0-105.0); MEAN CORPUSCULAR HEMOGLOBIN 31.5 pg (25.0-35.0); MEAN CORPUSCULAR HGB CONC 32.2 g/dl (31.0-37.0); MEAN PLATELET VOLUME 8.4 fl (7.0-11.0); MONO # 0.8 (0.1-0.6); MONO % 10.5 % (1.0-6.0); RBC 2.48 10^6/uL (3.5-6.1); RED CELL DISTRIBUTION WIDTH 16.3 % (11.5-14.5)
[2018-08-05 16:11] LABS: INR 1.14
--- NOTE | 2018-08-05 23:01 | PN ---
DATE: 08/05/2018 SUBJECTIVE: The patient is in bed, in no acute distress, nontoxic. She appears to be much more awake and alert. PHYSICAL EXAMINATION VITAL SIGNS: Temperature is 98, blood pressure is 108/50, respiratory rate of 18, heart rate of 84. HEENT: Unremarkable. NECK: Supple. LUNGS: Decreased breath sounds. HEART: Normal S1, S2. ABDOMEN: Soft. LABORATORY EXAMINATION: Reveals a white count of 8.0, hemoglobin of 7. Chemistries are noted. Urinalysis is noted. CSF reveals 1 wbc. Crypto antigen is negative. RPA is reactive. RPR is nonreactive. PCR is not detected in the CSF. Urine for Legionella is negative and influenza negative. HRD negative. Microbiology revealed cultures are negative. MEDICATIONS: The patient is on penicillin, potassium 2 million units. 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 The patient with end stage renal disease, on hemodialysis; chronic congestive heart failure; severe and currently on penicillin day #4. The patient had MRI of the brain, which is negative. The . The protein is 40 and on penicillin, acyclovir with a negative MRI, negative HSV PCR. We will discontinue the acyclovir. We are waiting for the VDRF and CSF, which is pending. We will continue the penicillin at this time. Discontinue the acyclovir. We will follow with you. Rafael Villanueva MD (Delete this signature block when dictator is a preceptor.) cc: MD Ana Laura (Delete if not dictated.)
[2018-08-06] MEDS: Penicillin G Potassium 2 MU in Sodium Chloride 0.9% 50 ML IVPB SCH ×7 (00:06→21:06)
[2018-08-06] MEDS: Albuterol-Ipratrop 3 mg / 0.5 (3 ml) UD IH SCH ×4 (02:37→21:00)
[2018-08-06 06:54] LABS: HEMOGLOBIN 7.4 g/dL (12.0-16.0); MEAN CELL VOLUME 96.6 fl (80.0-105.0); MEAN CORPUSCULAR HEMOGLOBIN 31.4 pg (25.0-35.0); MEAN CORPUSCULAR HGB CONC 32.5 g/dl (31.0-37.0); MEAN PLATELET VOLUME 8.8 fl (7.0-11.0); RBC 2.36 10^6/uL (3.5-6.1); RED CELL DISTRIBUTION WIDTH 16.9 % (11.5-14.5); WHITE BLOOD COUNT 9.5 10^3/uL (4.5-11.0)
[2018-08-06] MEDS: Budesonide 0.5 mg/2 ml Inhal Susp UD IH SCH ×2 (07:26→21:01)
[2018-08-06] MEDS: Arformoterol 15 mcg/2 ml Inh Sol IH SCH ×2 (07:26→21:00)
[2018-08-06] MEDS: Multivitamin Vitamin B Complex (Nephro-Vite) Tab PO SCH (08:04)
--- NOTE | 2018-08-06 08:47 | CT ---
Date of service: 08/05/2018 PROCEDURE: CT Chest, Abdomen and Pelvis without intravenous contrast HISTORY: coughing up blood COMPARISON: 08/02/2018 abdominal ultrasound 07/21/2018 CT abdomen and pelvis TECHNIQUE: Radiation dose: Total exam DLP = 899.17 mGy-cm. This CT exam was performed using one or more of the following dose reduction techniques: Automated exposure control, adjustment of the mA and/or kV according to patient size, and/or use of iterative reconstruction technique. FINDINGS: CT CHEST WITHOUT CONTRAST: LUNGS: Multifocal infiltrates primarily affecting the right lower lobe. To lesser extent these findings can be seen in the right middle and right upper lobe as well as the left lung. These are superimposed upon emphysematous changes. No suspicious pulmonary nodules or masses. MEDIASTINUM: Atherosclerotic calcification and mural plaque present. Findings are seen throughout the aorta . Normal caliber aorta and pulmonary arterial trunk. Normal size heart. LYMPH NODES: Unremarkable. PLEURA: Unremarkable. No pneumothorax. No pleural fluid. BONES: Unremarkable. OTHER FINDINGS: None. CT ABDOMEN AND PELVIS: LIVER: Unremarkable. No gross lesion or ductal dilatation. GALLBLADDER AND BILE DUCTS: Distended gallbladder without visible gallstones. PANCREAS: Unremarkable. No gross lesion or ductal dilatation. SPLEEN: Unremarkable. ADRENALS: Unremarkable. No mass. KIDNEYS AND URETERS: Atrophic kidneys bilaterally. VASCULATURE: Atherosclerotic calcification and mural plaque present. Findings are seen throughout the aorta . No aortic aneurysm. BOWEL: Unremarkable. No obstruction. No gross mural thickening. APPENDIX: Normal appendix. PERITONEUM: Unremarkable. No free fluid. No free air. LYMPH NODES: Unremarkable. No enlarged lymph nodes. BLADDER: Unremarkable. REPRODUCTIVE: Large portions of the pelvis obscured by streak artifact from bilateral hip prostheses. BONES: No acute fracture. Multilevel degenerative change. OTHER FINDINGS: Well-circumscribed collection adjacent to the right ileo psoas muscle 3 x 4 cm. Similar finding identified on the prior CT scan. IMPRESSION: Multifocal infiltrates likely infectious/inflammatory. Stable collection contiguous with the right ileo psoas muscle. Atrophic kidneys. Concordant results (preliminary interpretation) provided by [facility]. Procedure Completed: 21:09 Preliminary Report: Dictated and Authenticated: 22:36. Final Interpretation: 08:43. August 06, 2018
[2018-08-06 09:24] LABS: ALBUMIN 2.9 g/dL (3.0-4.8); CALCIUM 8.5 mg/dL (8.4-10.5)
--- NOTE | 2018-08-06 09:33 | CP.PCM.PN ---
Subjective - Date & Time of Evaluation Date of Evaluation: 08/06/18 Time of Evaluation: 09:31 - Subjective Subjective: Nephrology Consultation Note: Assessment: stable AMS, Fall : being treated for neurosyphilis Hypertensive Chronic Kidney Disease (I12.0) End stage renal disease (N18.6) dependence on hemodialysis (Z99.2) (MWF) via AVF Anemia (D64.9), Hyperphosphatemia (E83.39), Secondary Hyperparathyroidism (E21.1), HTN (I12.0) COPD, CHF, CVA, seizures, PVD, bipolar disorder, depression, and right breast lumpectomy (2012) Plan: seen on HD, continue MWF schedule as ordered. Continue with Nephrovite 1 tab/day. PRBC as needed for anemia. on nidhi Continue with phos binders bp stable. Glycemic control, Dialysis consistent diet Further work up/management as per primary team Dose meds/antibiotics (if needed) for ESRD status. Avoid fleets enema/magnesium based laxatives. Neuro, gi, id following. MRI brain neg. Chief Complaint; none HPI: seen and examined on HD Physical Examination: General Appearance: Comfortable, in no acute respiratory distress. Vitals reviewed and noted as below Head; Atraumatic, normocephalic ENT: no ulcers no thrush. Tongue is midline. Oropharynx: no rash or ulcers. EYES: Pupils are equal, round and reactive to light accommodation. Eye muscles and extraocular movement intact. Sclera is anicteric. Neck; supple no lymphadenopathy, no thyromegaly or bruit Lungs: Normal respiratory rate/effort. Breath sounds bilateral equal and clear. Heart: Normal rate. s1s2 normal. No rub or gallop. Extremities: no edema. No varicose veins Neurological: Patient is awake alert now Skin: Warm and dry. Normal turgor. No rash. Palpitation: Normal elasticity for age Abdomen: Abdomen is soft. Bowel sounds +. There is no abdominal tenderness, no guarding/rigidity or organomegaly Psych: normal insight and mood/affect MSK: no joint tenderness or swelling. Digits and nails normal, no deformity : kidney or bladder not palpable Access: AVF Labs/imaging reviewed. Past medical history, past surgical history, family history, social history, allergy reviewed and noted as below Family Hx: no hx of CKD. Non contributory Objective - Vital Signs/Intake and Output Vital Signs (last 24 hours): Temp Pulse Resp BP Pulse Ox 98.3 F 73 18 147/63 100 08/06/18 06:00 08/06/18 06:00 08/06/18 06:00 08/06/18 06:00 08/06/18 06:00 Intake and Output: 08/06/18 08/06/18 06:59 18:59 Intake Total 300 Balance 300 - Medications Medications: Current Medications Acetaminophen (Tylenol 325mg Tab) 650 mg PO Q6H PRN PRN Reason: Pain, moderate (4-7) Last Admin: 08/05/18 20:17 Dose: 650 mg Albuterol/Ipratropium (Duoneb 3 Mg/0.5 Mg (3 Ml) Ud) 3 ml IH [id number] [facility] Last Admin: 08/06/18 07:26 Dose: 3 ml Arformoterol Tartrate (Brovana) 15 mcg IH [id number] [facility] Last Admin: 08/06/18 07:26 Dose: 15 mcg Artificial Tears (Refresh Opth Soln) 0.3 ml OU Q6H PRN PRN Reason: Dry eyes Last Admin: 08/03/18 18:48 Dose: 1 drop Budesonide (Pulmicort Respules) 0.5 mg IH [id number] [facility] Last Admin: 08/06/18 07:26 Dose: 0.5 mg Clonazepam (Klonopin) 0.25 mg PO BID [facility]; Protocol Last Admin: 08/05/18 17:24 Dose: 0.25 mg Clonidine HCl (Catapres Tts1 0.1 Mg/24 Hr) 1 patch TD Q7D@1000 [facility] Last Admin: 07/30/18 18:51 Dose: 1 patch Clonidine HCl (Catapres) 0.2 mg PO DAILY [facility] Last Admin: 08/05/18 09:53 Dose: 0.2 mg Diphenhydramine HCl (Benadryl) 50 mg PO Q2H PRN PRN Reason: Mild allergic reaction Diphenhydramine HCl (Benadryl) 50 mg IVP Q2H PRN PRN Reason: Mild allergic reaction Last Admin: 08/03/18 20:25 Dose: 50 mg Diphenhydramine HCl (Benadryl) 50 mg IVP Q2H PRN PRN Reason: Severe allergic reaction Epinephrine HCl (Epinephrine) 1 mg IM Q5M PRN PRN Reason: Severe allergic reaction Guaifenesin (Robitussin) 100 mg PO Q4H PRN PRN Reason: Cough Last Admin: 08/02/18 19:40 Dose: 100 mg Heparin Sodium (Porcine) (Heparin) 2,000 units IVP MWF [facility]; Protocol Last Admin: 08/04/18 10:03 Dose: 2,000 units Hydrocortisone (Anusol-Hc) 25 mg RC BID [facility] Last Admin: 08/05/18 17:24 Dose: Not Given Penicillin G Potassium 2 mu/ (Sodium Chloride) 50 mls @ 100 mls/hr IVPB Q4 [facility]; Protocol Last Admin: 08/06/18 08:04 Dose: 100 mls/hr Ibuprofen (Motrin Tab) 600 mg PO TID PRN PRN Reason: Pain, moderate (4-7) Last Admin: 08/05/18 09:06 Dose: 600 mg Lorazepam (Ativan) 0.5 mg IVP Q8H PRN; Protocol PRN Reason: Anxiety Last Admin: 08/05/18 22:14 Dose: 0.5 mg Losartan Potassium (Cozaar) 50 mg PO DAILY [facility] Last Admin: 08/05/18 09:53 Dose: 50 mg Pantoprazole Sodium (Protonix Ec Tab) 40 mg PO ACB POLLY Pantoprazole Sodium (Protonix Inj) 40 mg IVP Q12 [facility] Last Admin: 08/05/18 22:15 Dose: 40 mg Polyethylene Glycol (Miralax) 17 gm PO DAILY [facility] Tetrahydrozoline HCl/Zinc Sulfate (Visine 0.05% Opht Soln) 0 ml OU QID [facility] Last Admin: 08/05/18 22:15 Dose: 1 applic Vitamin A (Vitamin A & D Oint Ud Foilpak) 1 ea TOP BID PRN PRN Reason: Dry mouth Vitamin B Complex/Vit C/Folic Acid (Nephro-Fabby) 1 tab PO 0800 [facility] Last Admin: 08/06/18 08:04 Dose: 1 tab - Labs Labs: 08/06/18 06:30 08/06/18 08:20 PT 13.0 SECONDS (9.4-12.5) H 08/05/18 15:51 INR 1.14 08/05/18 15:51 APTT 27.1 Seconds (25.1-36.5) 07/30/18 02:15
--- NOTE | 2018-08-06 11:11 | CP.PCM.PN ---
Subjective - Date & Time of Evaluation Date of Evaluation: 08/06/18 Time of Evaluation: 11:08 - Subjective Subjective: Gastroenterology Fellow/PGY6 Progress Note Patient denies further episodes of hemoptysis. Tolerating clear liquids. Denies abdominal pain. Notes brown stool yesterday. A 12-point review of systems negative except for as above. Objective - Vital Signs/Intake and Output Vital Signs (last 24 hours): Temp Pulse Resp BP Pulse Ox 98.3 F 73 18 147/63 100 08/06/18 06:00 08/06/18 06:00 08/06/18 06:00 08/06/18 06:00 08/06/18 06:00 Intake and Output: 08/06/18 08/06/18 06:59 18:59 Intake Total 300 Balance 300 - Medications Medications: Current Medications Acetaminophen (Tylenol 325mg Tab) 650 mg PO Q6H PRN PRN Reason: Pain, moderate (4-7) Last Admin: 08/05/18 20:17 Dose: 650 mg Albuterol/Ipratropium (Duoneb 3 Mg/0.5 Mg (3 Ml) Ud) 3 ml IH [id number] [facility] Last Admin: 08/06/18 07:26 Dose: 3 ml Arformoterol Tartrate (Brovana) 15 mcg IH [id number] [facility] Last Admin: 08/06/18 07:26 Dose: 15 mcg Artificial Tears (Refresh Opth Soln) 0.3 ml OU Q6H PRN PRN Reason: Dry eyes Last Admin: 08/03/18 18:48 Dose: 1 drop Budesonide (Pulmicort Respules) 0.5 mg IH [id number] [facility] Last Admin: 08/06/18 07:26 Dose: 0.5 mg Clonazepam (Klonopin) 0.25 mg PO BID [facility]; Protocol Last Admin: 08/05/18 17:24 Dose: 0.25 mg Clonidine HCl (Catapres Tts1 0.1 Mg/24 Hr) 1 patch TD Q7D@1000 [facility] Last Admin: 07/30/18 18:51 Dose: 1 patch Clonidine HCl (Catapres) 0.2 mg PO DAILY [facility] Last Admin: 08/05/18 09:53 Dose: 0.2 mg Diphenhydramine HCl (Benadryl) 50 mg PO Q2H PRN PRN Reason: Mild allergic reaction Diphenhydramine HCl (Benadryl) 50 mg IVP Q2H PRN PRN Reason: Mild allergic reaction Last Admin: 08/03/18 20:25 Dose: 50 mg Diphenhydramine HCl (Benadryl) 50 mg IVP Q2H PRN PRN Reason: Severe allergic reaction Epinephrine HCl (Epinephrine) 1 mg IM Q5M PRN PRN Reason: Severe allergic reaction Guaifenesin (Robitussin) 100 mg PO Q4H PRN PRN Reason: Cough Last Admin: 08/02/18 19:40 Dose: 100 mg Heparin Sodium (Porcine) (Heparin) 2,000 units IVP MWF [facility]; Protocol Last Admin: 08/04/18 10:03 Dose: 2,000 units Hydrocortisone (Anusol-Hc) 25 mg RC BID [facility] Last Admin: 08/05/18 17:24 Dose: Not Given Penicillin G Potassium 2 mu/ (Sodium Chloride) 50 mls @ 100 mls/hr IVPB Q4 [facility]; Protocol Last Admin: 08/06/18 08:04 Dose: 100 mls/hr Ibuprofen (Motrin Tab) 600 mg PO TID PRN PRN Reason: Pain, moderate (4-7) Last Admin: 08/05/18 09:06 Dose: 600 mg Lorazepam (Ativan) 0.5 mg IVP Q8H PRN; Protocol PRN Reason: Anxiety Last Admin: 08/05/18 22:14 Dose: 0.5 mg Losartan Potassium (Cozaar) 50 mg PO DAILY [facility] Last Admin: 08/05/18 09:53 Dose: 50 mg Pantoprazole Sodium (Protonix Ec Tab) 40 mg PO ACB POLLY Pantoprazole Sodium (Protonix Inj) 40 mg IVP Q12 [facility] Last Admin: 08/05/18 22:15 Dose: 40 mg Polyethylene Glycol (Miralax) 17 gm PO DAILY [facility] Tetrahydrozoline HCl/Zinc Sulfate (Visine 0.05% Opht Soln) 0 ml OU QID [facility] Last Admin: 08/05/18 22:15 Dose: 1 applic Vitamin A (Vitamin A & D Oint Ud Foilpak) 1 ea TOP BID PRN PRN Reason: Dry mouth Vitamin B Complex/Vit C/Folic Acid (Nephro-Fabby) 1 tab PO 0800 [facility] Last Admin: 08/06/18 08:04 Dose: 1 tab - Labs Labs: 08/06/18 06:30 08/06/18 08:20 PT 13.0 SECONDS (9.4-12.5) H 08/05/18 15:51 INR 1.14 08/05/18 15:51 APTT 27.1 Seconds (25.1-36.5) 07/30/18 02:15 - Constitutional Appears: Non-toxic, No Acute Distress - Head Exam Head Exam: ATRAUMATIC, NORMOCEPHALIC - Eye Exam Eye Exam: EOMI, PERRL. absent: Scleral icterus Pupil Exam: PERRL. absent: Miosis, Mydriatic - ENT Exam ENT Exam: Mucous Membranes Moist, Normal Oropharynx - Neck Exam Neck Exam: Full ROM, Normal Inspection - Respiratory Exam Respiratory Exam: Clear to Ausculation Bilateral. absent: Rales, Rhonchi, Wheezes - Cardiovascular Exam Cardiovascular Exam: RRR, +S1, +S2. absent: Gallop, Rubs - GI/Abdominal Exam GI & Abdominal Exam: Soft, Normal Bowel Sounds. absent: Distended, Firm, Guarding, Rigid, Tenderness, Organomegaly, Rebound - Extremities Exam Extremities Exam: Normal Inspection - Neurological Exam Neurological Exam: Alert, Awake - Psychiatric Exam Psychiatric exam: Normal Affect, Normal Mood - Skin Skin Exam: Dry, Intact, Normal Color, Warm Assessment and Plan - Assessment and Plan (Free Text) Assessment: 73 year old female with PMH of ESRD on HD MWF, COPD, CVA, HTN, right breast cancer s/p lumpectomy 2012 presenting with altered mental status and fall at custodial. Active treatment of altered mental status 2/2 neurosyphilis, anemia requiring to transfusion, and hemopytsis with concern for infiltrate on CT chest. Prior EGD/colonoscopy 2014 showed H. pylori negative gastritis, transverse/ascending/sigmoid diverticulosis, and internal hemorrhoids. Plan: -no overt signs of GI bleed -avoid NSAIDs -continue PPI PO ACB -on Miralax daily -advance to renal dialysis diet -Pulmonology consulted to evalaute hemoptysis and CT chest findings -ID managing -will benefit from endoscopic evaluation once medically optimized in outpatient setting -counselled patient on outpatient GI follow up, office information for Dr. Landrum provided
--- NOTE | 2018-08-06 14:12 | PN ---
DATE: 08/06/2018 SUBJECTIVE: I see her resting comfortably in bed. She is kind of upset, because she is needing blood transfusions. She is on IV antibiotics for neurosyphilis which is what we think she has. She is currently on , Ativan, Benadryl, Brovana, Catapres, Catapres patch, Cozaar, DuoNebs, epinephrine as needed, heparin,MiraLAX, Motrin which was stopped, Nephro-Fabby, penicillin two million units IV every 4 hours, she has Protonix IV every 12 hours, Pulmicort, Refresh eye drops, Tylenol, tetrahydrozoline and Vitamin A and D. PHYSICAL EXAMINATION: VITAL SIGNS: She has a 98.2 temperature, 78 pulse, 147/63 blood pressure, 18 respiratory rate and 100% O2 sat on room air. HEENT: Head is atraumatic, normocephalic. Throat is moist. No more blood in her throat. GENERAL: She is very alert, asking appropriate questions, no complaints. HEART: Regular rate. LUNGS: Decreased breath sounds, but clear. ABDOMEN: Soft, nontender. Positive bowel sounds. EXTREMITIES: No edema. She might need before she goes home. LABORATORY DATA: She had a 9.5 white count today, hemoglobin went from 7.8 down to 7.4 that was after one unit of packed red blood cells, I do think she is actively bleeding, hematocrit 22.8, platelets of 242,000. INR is 1.14. She has a 137 sodium, potassium 4.6, BUN 33, creatinine 3.9, these were yesterday's labs for the SMA-20. Urine had moderate bacteria. She is being seen by Infectious Disease, Renal, GI saw her. I am going to give her two more units of packed red blood cells. We will follow along as per GI, IV antibiotics for neurosyphilis. She has end-stage renal disease, COPD, hypertension, unclear if she has anemia and she had some blood in the stool and throwing up blood the other day. I will see what she has once we deal with it. Alex Park DO MTDD
[2018-08-06] MEDS: Tetrahydrozoline Opht 0.05% Sol (15 ml) OU SCH ×4 (14:40→21:09)
[2018-08-06] MEDS: POLYETHYLENE GLYCOL 3350 17 GM/Dose PACKET PO SCH (15:48)
--- NOTE | 2018-08-06 16:42 | CON ---
DATE: 08/06/2018 PULMONARY CONSULTATION REASON FOR PULMONARY CONSULTATION: Pneumonia. REFERRING PHYSICIAN FOR THIS PULMONARY CONSULTATION: Dr. Park. SOURCE OF HISTORY: History is obtained via extensive discussion with the nursing staff. I have also reviewed the chart at length, and discussed the case with the patient at length. HISTORY OF PRESENT ILLNESS: The patient is a chronically ill 73-year-old female, with past medical history significant for chronic anemia, chronic obstructive pulmonary disease, congestive heart failure, hypertension, end-stage renal disease, cerebrovascular accident, seizure disorder, peripheral vascular disease, who presented to - originally on 07/30/2018 - [facility] It appears, that there was an unwitnessed fall. When the patient was attended to, she was found to be very lethargic and complaining of headache. She was thus transferred to for additional evaluation. Again, I did discuss the case with the nursing staff at length. Apparently, while getting transfused yesterday, the patient did cough up a small amount of blood. Interesting to note, at the same time, the patient also had a bloody bowel movement. Since yesterday, there have been no signs of coughing up of blood. In fact, the patient and nurse state that the cough is almost gone. The patient denies shortness of breath or dyspnea on exertion. She is quite comfortable at the present time. There is no history of significant sputum production. There is no history of chest discomfort or chest discomfort - brought on with deep respirations. There is no history of temperatures, chills or infectious exposure. There is no history of night sweats, weight loss or appetite change prior to the above events. No history of leg or calf pains. No history of diaphoresis. No history of recent travel. REVIEW OF SYSTEMS: No history of nausea, vomiting or diarrhea. No new musculoskeletal complaints. Rest of the review of systems is negative. ALLERGIES: NO KNOWN ALLERGIES. SOCIAL HISTORY: Positive for tobacco. Negative for alcohol. FAMILY HISTORY: No inheritable diseases. HOME MEDICATIONS: Include Tylenol, Flexeril, Motrin, Advair, Prozac, Apresoline, Klonopin, Catapres, Ambien. PHYSICAL EXAMINATION: GENERAL: The patient appears very comfortable this morning. She is not short of breath at rest. VITAL SIGNS: Temperature is 98.3, pulse 73, respirations 18, blood pressure 147/63. Oxygen saturation on room air is 100%. HEENT: Normocephalic, atraumatic. No JVD. CARDIOVASCULAR: Systolic ejection murmur at the lower left sternal border. No S3 gallop. LUNGS: Crackles noted at the right base. No rhonchi. No wheezing. EXTREMITIES: No clubbing, cyanosis or edema. Calves are nontender to palpation. GASTROINTESTINAL: Abdomen is soft, nontender and nondistended. Bowel sounds are positive. SKIN: No acute rash. NEUROLOGIC: Exam limited at the present time. PERTINENT LABORATORY DATA: CT scan of the chest, abdomen and pelvis was done. There is a right lower lobe infiltrate noted. There is also a minimal infiltrate noted in the right middle lobe. There are no suspicious pulmonary nodules or masses. There is no lymphadenopathy. CBC: White count 9.5K, hemoglobin 7.4, hematocrit 22.8, platelets of [id number]. Workup, serologies are consistent with neurosyphilis. IMPRESSION: 1. Right lower lobe pneumonia. 2. Mild bronchospasm. 3. Neurosyphilis 4. End-stage renal disease. 5. Chronic obstructive pulmonary disease. 6. Anemia. PLAN: Again, I did discuss the case with the nursing staff at length. I have also reviewed the chart at length, and discussed the case with the patient at length. The patient initially presented to - on 07/30/2018 - after [facility]. Subsequent evaluation revealed probable neurosyphilis. The patient was seen by Infectious Disease, and placed on appropriate antibiotic therapy. Yesterday's events are noted. Interesting to note that the patient did have a small amount of hemoptysis, as well as a rectal bleed at the same time. I do question whether this patient is coagulopathic. In any case, there have been no signs of hemoptysis since yesterday. In fact, the patient offers very minimal pulmonary symptoms at the present time. I will continue with the current nebulizer treatments and inhaled steroids for now. I did review the CT scan of the chest-above. There is an infiltrate noted at the right base. There is also a very minimal infiltrate noted in the right middle lobe. The patient remains on antibiotic therapy - as per Infectious Disease-- will discuss with them. Inputs by Neurology, Renal, and GI are also noted. I will also order aspiration precautions for the time being. Clinical status of the patient certainly appears improved - compared to the initial presentation. She is chronically ill, and thus remains guarded overall. I will discuss the above with the attending physician. Thank you very much for this Pulmonary consultation. Cosme Kahn MD MTDD
[2018-08-06 18:42] LABS: HEMOGLOBIN 9.5 g/dL (12.0-16.0)
[2018-08-06] MEDS: Cefepime 1gm in NS 100ml 1 GM/100 ML BAG IVPB SCH (21:39)
--- NOTE | 2018-08-07 00:50 | PN ---
DATE: 08/06/2018 SUBJECTIVE: The patient is seen earlier this morning in room 567, bed 2, doing well. No fevers. No chills. She is comfortable. She is awake and alert. PHYSICAL EXAMINATION: VITAL SIGNS: Temperature is 98, heart rate of 79, respiratory rate of 20, blood pressure is 120/50. HEENT: Unremarkable. NECK: Supple. LUNGS: Decreased breath sounds. HEART: Normal S1, S2. ABDOMEN: Soft. LABORATORY EXAMINATION: Reveals a white count of 9.5, hemoglobin 7, BUN of 67, creatinine of 4.9. The patient's procalcitonin is 0.47 on 30/07/2018. Urinalysis is noted. Spinal fluid results are noted, only 1 wbc. HSV is negative. The patient has a nonreactive RPR, positive FTA. Spinal fluid has normal wbc's and normal protein. VDRL CSF is still pending. The patient had a CAT scan of the chest, CAT scan of the abdomen, multifocal infiltrates are noted. Case was discussed with Dr. Kahn. ASSESSMENT AND PLAN: This is a 73-year-old female, admitted with change in mental status and change in sensorium, concerned about neurosyphilis, apparently waiting for a CSF result. The patient had hemodialysis, renal failure, congestive heart failure, day #5 of penicillin, now with multifocal health-care associated pneumonia on CAT scan. We will start empirically Maxipime, doxycycline. Check on her procalcitonin and order MRSA, nasal screen. It was negative on 02/08/2018. All blood cultures negative. CSF cultures are negative. We will treat the patient with doxycycline, Maxipime; per healthcare associated pneumonia, continue to take penicillin G, and we will make further recommendations. Rafael Villanueva MD
[2018-08-07] MEDS: Penicillin G Potassium 2 MU in Sodium Chloride 0.9% 50 ML IVPB SCH ×7 (00:52→23:23)
[2018-08-07] MEDS: Albuterol-Ipratrop 3 mg / 0.5 (3 ml) UD IH SCH ×4 (02:09→19:42)
[2018-08-07 06:54] LABS: HEMOGLOBIN 9.4 g/dL (12.0-16.0); MEAN CELL VOLUME 93.9 fl (80.0-105.0); MEAN CORPUSCULAR HEMOGLOBIN 29.9 pg (25.0-35.0); MEAN CORPUSCULAR HGB CONC 31.9 g/dl (31.0-37.0); MEAN PLATELET VOLUME 8.9 fl (7.0-11.0); RBC 3.14 10^6/uL (3.5-6.1); RED CELL DISTRIBUTION WIDTH 17.1 % (11.5-14.5); WHITE BLOOD COUNT 9.3 10^3/uL (4.5-11.0)
--- NOTE | 2018-08-07 07:23 | PN ---
DATE: 08/07/2018 PULMONARY NOTE SUBJECTIVE: The patient appears comfortable this morning. She is not short of breath at rest. PHYSICAL EXAMINATION: VITAL SIGNS: (Last noted in the computer): Temperature is 98.5, pulse 76, respirations 18, blood pressure 123/59. Oxygen saturation on room air is 99%. HEENT: Normocephalic, atraumatic. No JVD. CARDIOVASCULAR: Systolic ejection murmur at the lower left sternal border. No S3 gallop. LUNGS: Crackles noted at the right base. No rhonchi. No wheezing. EXTREMITIES: No clubbing, cyanosis or edema. Calves are nontender to palpation. GI: Abdomen is soft, nontender and nondistended. Bowel sounds are positive. SKIN: No acute rash. NEUROLOGIC: Limited at the present time. IMPRESSION: 1. Right lower lobe pneumonia. 2. Mild bronchospasm. 3. Neurosyphilis. 4. End-stage renal disease. 5. Chronic obstructive pulmonary disease. 6. Anemia. PLAN: The patient appears comfortable this morning. She is not short of breath at rest. She does state to feeling much better overall. I did discuss the case with the night nurse at length. The night nurse stated that the patient had a very good night. There have been no recent signs of hemoptysis-- past few days. However, the nurse did inform me of a slightly bloody bowel movement yesterday. GI is following. On physical exam, there is no significant bronchospasm noted. In addition, there is no significant alveolar-arterial gradient. I will continue with the current nebulizer treatments and inhaled steroids for now. Antibiotics have been changed - as per Infectious Disease. Input by Dr. Villanueva is noted. I did discuss case with Dr. Villanueva at length yesterday. Clinical status of the patient is significantly improved - compared to the initial presentation. She does remain guarded overall. I will discuss the above with Dr. Park. Cosme Kahn MD [facility]
[2018-08-07] MEDS: Arformoterol 15 mcg/2 ml Inh Sol IH SCH ×2 (07:37→19:42)
[2018-08-07] MEDS: Budesonide 0.5 mg/2 ml Inhal Susp UD IH SCH ×2 (07:37→19:42)
[2018-08-07 07:38] LABS: ALBUMIN 3.2 g/dL (3.0-4.8); CALCIUM 8.8 mg/dL (8.4-10.5)
[2018-08-07] MEDS: Multivitamin Vitamin B Complex (Nephro-Vite) Tab PO SCH (08:05)
[2018-08-07] MEDS: POLYETHYLENE GLYCOL 3350 17 GM/Dose PACKET PO SCH ×2 (09:29→09:44)
[2018-08-07] MEDS: Tetrahydrozoline Opht 0.05% Sol (15 ml) OU SCH ×4 (09:30→20:59)
--- NOTE | 2018-08-07 13:21 | PN ---
DATE: 08/07/2018 SUBJECTIVE: The patient is seen earlier this morning in room 567 bed 2, and eating breakfast. She is completely awake and alert. She knows who she is, what year it is. She does not recall what happened. She is completely resolved. 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 PHYSICAL EXAMINATION: VITAL SIGNS: Temperature is 98, blood pressure is 140/50, respiratory rate of 18, heart rate of 91. HEENT: Unremarkable. NECK: Supple. LUNGS: Have decreased breath sounds. HEART: Normal S1, S2. ABDOMEN: Soft. LABORATORY EXAMINATION: Reveals a white count of 9.3, hemoglobin of 9, platelets of 249,000. Chemistries reveals a BUN of 37, creatinine of 3.5 and the procalcitonin is pending and urinalysis is noted and serology is noted. ASSESSMENT AND PLAN: This is a 73-year-old female who was admitted with a change in mental status, change in sensorium, concerned about neurosyphilis, waiting for cerebrospinal fluid results. The patient is day #6 of penicillin, now with a new multifocal healthcare-associated pneumonia on CAT scan. Day #2 of Maxipime and doxycycline and Dr. Kahn's note from this morning is reviewed. He states the patient has a right lower lobe pneumonia, mild bronchospasm and she is doing well. We are waiting for results of the CSF-VDRL and a methicillin-resistant Staphylococcus aureus nasal screen, procalcitonin and on doxycycline and cefepime day #2. Follow closely with you. Rafael Villanueva MD
[2018-08-07] MEDS: Cefepime 1gm in NS 100ml 1 GM/100 ML BAG IVPB SCH (20:59)
[2018-08-08] MEDS: Penicillin G Potassium 2 MU in Sodium Chloride 0.9% 50 ML IVPB SCH ×2 (04:25→08:12)
--- NOTE | 2018-08-08 08:02 | PN ---
DATE: 08/07/2018 SUBJECTIVE: I saw her sitting up in bed. She is eating her breakfast. She is feeling fairly well. I saw her with the Infectious Disease doctor. She is now on cefepime added to her penicillin due to the pneumonia we found. She is clinically improving mentally, which is very important. PHYSICAL EXAMINATION: VITAL SIGNS: She has a 98.4 temp, 78 pulse, 142/59 blood pressure, 18 respiratory rate, 97% O2 sat on room air. HEENT: Head is atraumatic, normocephalic. GENERAL: She is very alert. She is talking. She is laughing with me, doing better. HEART: Regular rate. LUNGS: Decreased breath sounds, but clear. ABDOMEN: Soft. EXTREMITIES: No edema. MEDICATIONS: She is on Anusol, Ativan, Benadryl, Brovana, Catapres, Cozaar, Doryx p.o., DuoNebs, epinephrine, heparin, Klonopin, now she is on Maxipime for the pneumonia, MiraLax, Motrin, Nephro-Fabby, penicillin 50 million units every 4 hours, Protonix, Pulmicort, Refresh eyedrops, Robitussin, Tylenol, Visine and vitamin A and D. She is comfortable. She has to get out bed to chair. I discussed that with the nursing, also Physical Therapy as I saw walking her. LABORATORY DATA: She has a 9.3 white count, 9.4 hemoglobin, 29.5 hematocrit with 249 platelets. She has a 135 sodium; potassium 4.5, it is better; BUN is 37; creatinine 3.5, on dialysis. She has an 8.8 calcium, total bili is 0.4, AST is 36, ALT is 23, alk phos 87. ASSESSMENT AND PLAN: We will continue with the aggressive treatment and care on Mayte Burton for her neurosyphilis now that she is mentally back to normal and her treatment of her pneumonia. Now, she needs physical therapy, out of bed to chair. Discussed it with the nurses. We will check her labs tomorrow. Cresencio Park DO [facility] # [id number]
[2018-08-08] MEDS: Multivitamin Vitamin B Complex (Nephro-Vite) Tab PO SCH (08:12)
[2018-08-08] MEDS: Budesonide 0.5 mg/2 ml Inhal Susp UD IH SCH ×2 (08:33→19:12)
[2018-08-08] MEDS: Arformoterol 15 mcg/2 ml Inh Sol IH SCH ×2 (08:33→19:12)
[2018-08-08] MEDS: Albuterol-Ipratrop 3 mg / 0.5 (3 ml) UD IH SCH ×3 (08:33→19:12)
--- NOTE | 2018-08-08 09:13 | PN ---
DATE: 08/08/2018 PULMONARY PROGRESS NOTE SUBJECTIVE: The patient was seen and examined at the bedside. She is resting comfortably with no signs of respiratory distress. PHYSICAL EXAMINATION: VITAL SIGNS: Temperature is 98.2, pulse 75, respirations 18, pulse oximetry is 97 on room air, blood pressure 139/58. HEENT: Examination of head normocephalic and atraumatic. NECK: Supple with no jugular vein distentions. CARDIOVASCULAR: S1, S2. No S3. Regular. PULMONARY: Good bilateral breath sounds. No rhonchi. No wheezing. GASTROINTESTINAL: Soft, nontender with no organomegaly. EXTREMITIES: No pedal edema. SKIN: No acute skin rash. NEUROLOGIC: Limited at the present time. ASSESSMENT: 1. Right lower lobe pneumonia. 2. Resolved bronchospasm. 3. Neurosyphilis. 4. End-stage renal disease. 5. Chronic obstructive pulmonary disease. PLAN: The patient has no respiratory difficulty. This morning, she has improved overall. She is afebrile. I will review the next chest x-ray when available. The last CT of chest and abdomen was done on just 3 days ago, so we can safely wait another few days before repeating chest x-ray to confirm resolution of right lower lobe findings, which were not impressive to begin with. Yash Stein MD
--- NOTE | 2018-08-08 09:41 | PN ---
DATE: 08/08/2018 SUBJECTIVE: I saw her resting comfortably in bed. She is eating better. She is starting to feel back to normal. MEDICATIONS: She is on Anusol, Ativan, Benadryl, Catapres, Cozaar, Doryx p.o., DuoNebs, epinephrine, heparin, Klonopin, Maxipime IV, MiraLax, Motrin, Nephro-Fabby, Protonix, Pulmicort, eyedrops, Robitussin, Tylenol, Visine, and vitamin A and D. PHYSICAL EXAMINATION: VITAL SIGNS: She has 98.2 temperature, 75 pulse, 139/58 blood pressure, 18 respiratory rate, 97% O2 sat on room air. HEENT: Head is atraumatic, normocephalic. GENERAL: She is very alert and comfortable. No chest pain or shortness breath. No abdominal pain. HEART: Regular rate. LUNGS: Clear to auscultation. ABDOMEN: Soft. EXTREMITIES: No edema. LABORATORY DATA: She has 9.3 white count, 9.4 hemoglobin after transfusion, 29.5 hematocrit with 249 platelets. Sodium 135, potassium 4.5, BUN 37, creatinine 3.5 after dialysis. GFR is 13, calcium is 8.8, total bili is 0.4, AST is 36, ALT is 23, alk phos is 87. Total protein is 6.6. Overall, she is starting to improve which is very good. She is being seen by Pulmonary, Infectious Disease. She has pneumonia and possible neurosyphilis, waiting for the rest of the labs to come back which has improved greatly. She is breathing better and I am hoping she continues to improve. Waiting for Physical Therapy to see her, she might need to start before she goes back. She is getting better, she is on oxygen. We will check her labs tomorrow as per Infectious Disease and Pulmonary. Continue aggressive treatment and care. Out of bed to chair. Thank you very much. Cresencio Park DO
[2018-08-08 09:46] LABS: HEMOGLOBIN 8.7 g/dL (12.0-16.0); MEAN CELL VOLUME 95.7 fl (80.0-105.0); MEAN CORPUSCULAR HGB CONC 32.3 g/dl (31.0-37.0); MEAN PLATELET VOLUME 9.2 fl (7.0-11.0); RBC 2.81 10^6/uL (3.5-6.1); RED CELL DISTRIBUTION WIDTH 16.9 % (11.5-14.5); WHITE BLOOD COUNT 9.2 10^3/uL (4.5-11.0)
[2018-08-08 10:01] LABS: ALB/GLOB RATIO 0.9 (1.1-1.8); ALBUMIN 3.1 g/dL (3.0-4.8); CALCIUM 9.1 mg/dL (8.4-10.5)
[2018-08-08] MEDS ORDERED: Darbepoetin Alfa 60 mcg/ml Inj IVP ONE (10:28)
--- NOTE | 2018-08-08 10:35 | PN ---
DATE: 08/08/2018 SUBJECTIVE: The patient is in bed, in no acute distress, nontoxic. PHYSICAL EXAMINATION: VITAL SIGNS: On exam, temperature is 98, blood pressure is 120/70, respiratory rate of 16. HEENT: Examination of HEENT is unremarkable. NECK: Supple. LUNGS: Have decreased breath sounds. HEART: Normal S1, S2. ABDOMEN: Soft, nontender. . LABORATORY DATA: Laboratory examination reveals the patient to have white count of 9.3. Chemistries are noted. Urinalysis is noted. We will follow. ASSESSMENT AND PLAN: A 73-year-old female admitted with change in mental status, change in sensorium, concerned about neurosyphilis, I doubt it. However, awaiting for CSF fluid results and the patient is on day #7 of penicillin, now has a new multifocal healthcare-associated pneumonia on CAT scan. On day #3 of doxycycline and Maxipime and review of orders reveals methicillin-resistant Staphylococcus aureus screen is pending and cerebrospinal fluid venereal disease research laboratory is still pending. Case discussed with Dr. Cresencio Park and waiting for those results and make final decision. We will complete nosocomial pneumonia treatment also. Rafael Villaneuva MD
--- NOTE | 2018-08-08 13:22 | CP.PCM.PN ---
Subjective - Date & Time of Evaluation Date of Evaluation: 08/08/18 Time of Evaluation: 13:21 - Subjective Subjective: Nephrology Consultation Note: Assessment: stable AMS, Fall : being treated for neurosyphilis Hypertensive Chronic Kidney Disease (I12.0) End stage renal disease (N18.6) dependence on hemodialysis (Z99.2) (MWF) via AVF Anemia (D64.9), Hyperphosphatemia (E83.39), Secondary Hyperparathyroidism (E21.1), HTN (I12.0) COPD, CHF, CVA, seizures, PVD, bipolar disorder, depression, and right breast lumpectomy (2012) Plan: Will plan for HD MWF schedule as ordered. Continue with Nephrovite 1 tab/day. PRBC as needed for anemia. added MAIA with dialysis as last Hb 8.7 (60 mcg on 08/08/18) Continue with phos binders BP control with meds as ordered. Patient not on RAAS eugenia hence added losartan Glycemic control, Dialysis consistent diet Further work up/management as per primary team Dose meds/antibiotics (if needed) for ESRD status. Avoid fleets enema/magnesium based laxatives. Neuro, gi, id following. MRI brain neg. Thanks for allowing me to participate in care of your patient. Will follow patient with you. Please call if any Qs. had d/w team Dr Willis Clark Office: [phone] Chief Complaint; none HPI: Pt is a with hx of ESRD on hemodialysis (MWF) via AVF , last dialysis mon, chronic anemia, hyperphosphatemia, secondary hyperparathyroidism, hypertension anemia, COPD, CHF, CVA, seizures, PVD, bipolar disorder, depression, and right breast lumpectomy presented with complaints of fall and ? syncope from OR. Renal consult requested for ESRD management. pt on HD at [facility] with Dr Booth ROS: pt feels better. denies CP/SOB. s/p PRBC 08/05/18 as anemic Physical Examination:seen on HD General Appearance: Comfortable, in no acute respiratory distress. Vitals reviewed and noted as below Head; Atraumatic, normocephalic ENT: no ulcers no thrush. Tongue is midline. Oropharynx: no rash or ulcers. EYES: Pupils are equal, round and reactive to light accommodation. Eye muscles and extraocular movement intact. Sclera is anicteric. Neck; supple no lymphadenopathy, no thyromegaly or bruit Lungs: Normal respiratory rate/effort. Breath sounds bilateral equal and clear. has Rt side boby-cath Heart: Normal rate. s1s2 normal. No rub or gallop. Extremities: no edema. No varicose veins Neurological: Patient is awake alert now follow commands Skin: Warm and dry. Normal turgor. No rash. Palpitation: Normal elasticity for age Abdomen: Abdomen is soft. Bowel sounds +. There is no abdominal tenderness, no guarding/rigidity or organomegaly Psych: normal insight and mood/affect MSK: no joint tenderness or swelling. Digits and nails normal, no deformity : kidney or bladder not palpable Access: AVF Labs/imaging reviewed. Past medical history, past surgical history, family history, social history, allergy reviewed and noted as below Family Hx: no hx of CKD. Non contributory Objective - Vital Signs/Intake and Output Vital Signs (last 24 hours): Temp Pulse Resp BP Pulse Ox 98.2 F 75 18 139/58 L 97 08/08/18 06:00 08/08/18 06:00 08/08/18 06:00 08/08/18 06:00 08/08/18 06:00 - Medications Medications: Current Medications Acetaminophen (Tylenol 325mg Tab) 650 mg PO Q6H PRN PRN Reason: Pain, moderate (4-7) Last Admin: 08/05/18 20:17 Dose: 650 mg Albuterol/Ipratropium (Duoneb 3 Mg/0.5 Mg (3 Ml) Ud) 3 ml IH [id number] [facility] Last Admin: 08/08/18 08:33 Dose: Not Given Arformoterol Tartrate (Brovana) 15 mcg IH [id number] POLLY Last Admin: 08/08/18 08:33 Dose: Not Given Artificial Tears (Refresh Opth Soln) 0.3 ml OU Q6H PRN PRN Reason: Dry eyes Last Admin: 08/03/18 18:48 Dose: 1 drop Budesonide (Pulmicort Respules) 0.5 mg IH [id number] PLOLY Last Admin: 08/08/18 08:33 Dose: Not Given Clonazepam (Klonopin) 0.25 mg PO BID POLLY; Protocol Last Admin: 08/07/18 17:01 Dose: 0.25 mg Clonidine HCl (Catapres) 0.2 mg PO DAILY [facility] Last Admin: 08/07/18 09:30 Dose: 0.2 mg Diphenhydramine HCl (Benadryl) 50 mg PO Q2H PRN PRN Reason: Mild allergic reaction Diphenhydramine HCl (Benadryl) 50 mg IVP Q2H PRN PRN Reason: Mild allergic reaction Last Admin: 08/03/18 20:25 Dose: 50 mg Diphenhydramine HCl (Benadryl) 50 mg IVP Q2H PRN PRN Reason: Severe allergic reaction Doxycycline Hyclate (Doryx) 100 mg PO Q12 [facility]; Protocol Stop: 08/13/18 22:01 Last Admin: 08/07/18 20:59 Dose: 100 mg Epinephrine HCl (Epinephrine) 1 mg IM Q5M PRN PRN Reason: Severe allergic reaction Guaifenesin (Robitussin) 100 mg PO Q4H PRN PRN Reason: Cough Last Admin: 08/02/18 19:40 Dose: 100 mg Heparin Sodium (Porcine) (Heparin) 2,000 units IVP MWF [facility]; Protocol Last Admin: 08/06/18 11:25 Dose: Not Given Hydrocortisone (Anusol-Hc) 25 mg RC BID [facility] Last Admin: 08/07/18 17:02 Dose: Not Given Cefepime HCl (Maxipime 1gm) 1 gm in 100 mls @ 100 mls/hr IVPB Q24H POLLY; Protocol Stop: 08/13/18 21:31 Last Admin: 08/07/18 20:59 Dose: 100 mls/hr Ibuprofen (Motrin Tab) 600 mg PO TID PRN PRN Reason: Pain, moderate (4-7) Last Admin: 08/05/18 09:06 Dose: 600 mg Lorazepam (Ativan) 0.5 mg IVP Q8H PRN; Protocol PRN Reason: Anxiety Last Admin: 08/07/18 23:20 Dose: 0.5 mg Losartan Potassium (Cozaar) 50 mg PO DAILY [facility] Last Admin: 08/07/18 09:28 Dose: 50 mg Pantoprazole Sodium (Protonix Ec Tab) 40 mg PO ACB POLLY Pantoprazole Sodium (Protonix Inj) 40 mg IVP Q12 POLLY Last Admin: 08/08/18 00:02 Dose: 40 mg Polyethylene Glycol (Miralax) 17 gm PO DAILY [facility] Last Admin: 08/07/18 09:44 Dose: Not Given Tetrahydrozoline HCl/Zinc Sulfate (Visine 0.05% Opht Soln) 0 ml OU QID [facility] Last Admin: 08/07/18 20:59 Dose: 1 applic Vitamin A (Vitamin A & D Oint Ud Foilpak) 1 ea TOP BID PRN PRN Reason: Dry mouth Vitamin B Complex/Vit C/Folic Acid (Nephro-Fabby) 1 tab PO 0800 [facility] Last Admin: 08/08/18 08:12 Dose: 1 tab - Labs Labs: 08/08/18 09:20 08/08/18 09:20 PT 13.0 SECONDS (9.4-12.5) H 08/05/18 15:51 INR 1.14 08/05/18 15:51 APTT 27.1 Seconds (25.1-36.5) 07/30/18 02:15
[2018-08-08] MEDS: Tetrahydrozoline Opht 0.05% Sol (15 ml) OU SCH ×3 (14:32→17:32)
[2018-08-08] MEDS: POLYETHYLENE GLYCOL 3350 17 GM/Dose PACKET PO SCH (16:52)
[2018-08-08] MEDS: Cefepime 1gm in NS 100ml 1 GM/100 ML BAG IVPB SCH (22:17)
[2018-08-09] MEDS: Albuterol-Ipratrop 3 mg / 0.5 (3 ml) UD IH SCH ×4 (01:13→19:55)
[2018-08-09] MEDS: Tetrahydrozoline Opht 0.05% Sol (15 ml) OU SCH ×5 (06:19→21:22)
[2018-08-09 07:38] LABS: HEMOGLOBIN 8.9 g/dL (12.0-16.0); MEAN CELL VOLUME 96.9 fl (80.0-105.0); MEAN CORPUSCULAR HEMOGLOBIN 30.7 pg (25.0-35.0); MEAN CORPUSCULAR HGB CONC 31.7 g/dl (31.0-37.0); MEAN PLATELET VOLUME 9.3 fl (7.0-11.0); RBC 2.9 10^6/uL (3.5-6.1); RED CELL DISTRIBUTION WIDTH 17.2 % (11.5-14.5); WHITE BLOOD COUNT 9.7 10^3/uL (4.5-11.0)
[2018-08-09 07:45] LABS: ALBUMIN 3.4 g/dL (3.0-4.8)
[2018-08-09] MEDS: Arformoterol 15 mcg/2 ml Inh Sol IH SCH ×2 (08:34→19:55)
[2018-08-09] MEDS: Budesonide 0.5 mg/2 ml Inhal Susp UD IH SCH ×2 (08:35→19:55)
--- NOTE | 2018-08-09 08:59 | PN ---
DATE: 08/09/2018 SUBJECTIVE: The patient is seen earlier today in 567, bed 2. No fevers and no chills. PHYSICAL EXAMINATION: VITAL SIGNS: On exam, temperature is 98, blood pressure is 126/80, respiratory rate of 18. HEENT: Examination of HEENT is unremarkable. NECK: Supple. LUNGS: Have decreased breath sounds. HEART: Normal S1, S2. ABDOMEN: Soft. LABORATORY DATA: Laboratory examination reveals a white count of 9.7, hemoglobin of 8, platelets of 305. BUN of 32, creatinine of 3.7, procalcitonin is 0.53. Urinalysis is noted. The CSF fluids are noted. The CSF VDRL is nonreactive with 1 wbc and protein is 40. Serology is noted. HIV is negative. ASSESSMENT AND PLAN: A 73-year-old who has had change of mental status and day #8 of penicillin empirically for neurosyphilis with multifocal healthcare-associated pneumonia, on day #4 of Maxipime with now the cerebrospinal fluid is negative with negative protein, negative white count, negative cerebrospinal fluid. Microbiology reveals the nares are negative. The patient's evaluation of procalcitonin is 0.53 from 08/07/2018 in a patient who has a creatinine of 3.7. We will discontinue the penicillin and continue the doxycycline and discontinue the cefepime. Would complete 4-7 days of doxycycline, today is day #4 of doxycycline. 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 This would be treatment for latent late syphilis, benzathine penicillin G 2.4 million units IM every weekly x3 weeks. Rafael Villanueva MD
[2018-08-09] MEDS: Multivitamin Vitamin B Complex (Nephro-Vite) Tab PO SCH (10:55)
[2018-08-09] MEDS: POLYETHYLENE GLYCOL 3350 17 GM/Dose PACKET PO SCH (10:56)
--- NOTE | 2018-08-09 11:20 | PN ---
DATE: 08/09/2018 SUBJECTIVE: The patient was seen and examined at bedside. She is more awake and alert today. She is not complaining of shortness of breath and she is not using supplemental oxygen. PHYSICAL EXAMINATION: VITAL SIGNS: Temperature is 98, pulse 84, blood pressure 126/80, respiratory rate 18, oxygen saturation on room air is 95. HEAD: Normocephalic and atraumatic. NECK: Supple with no jugular vein distention. CARDIOVASCULAR: S1, S2. No S3. Regular. PULMONARY: Diminished breath sounds at both bases with no rhonchi, rales or wheezing. GASTROINTESTINAL: Soft, nontender. No organomegaly. EXTREMITIES: No pedal edema, no cyanosis. SKIN: No acute skin rash. NEUROLOGIC: Limited at present time. LABORATORY DATA: Reviewed. Her WBC is 9.7, hemoglobin of 8, platelet count is 302,000. BUN 32, creatinine 3.7. Procalcitonin is 0.53. Her CSF VDRL is nonreactive. The rest is normal. HIV is negative. ASSESSMENT AND PLAN: This is a 73-year-old with change in mental status, was diagnosed with healthcare-associated pneumonia. She is on Maxipime. Her chest exam is unremarkable. Clinically, the pneumonia is resolving or resolved. She is now off Maxipime, only on doxycycline. Chest x-ray will be repeated in the next 48 hours. Infectious disease input and change in antibiotic appreciated. Yash Stein MD
--- NOTE | 2018-08-09 16:01 | PN ---
DATE: 08/09/2018 SUBJECTIVE: She is resting comfortably in bed. She is definitely improved since she has been here. There is recommendation from Physical Therapy that she should go to [facility]. She is from [facility] where she lives permanently. I will work with Case Management today. 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 She is doing better. She is feeling better. She was here for change in mentation, possible neurosyphilis, syncope, GI bleed, falls, UTI. She is on Anusol, Ativan, Benadryl, Brovana, Catapres, Cozaar, Doryx, DuoNebs, epinephrine, heparin, Klonopin, MiraLax, Motrin, Nephro-Fabby, Protonix, Pulmicort, , Robitussin, Tylenol, Visine, and vitamin A and D. LABORATORY DATA: She has a 9.7 white count, 8.9 hemoglobin, 28.1 hematocrit with 304 platelets. She has a 135 sodium, potassium 4.3, BUN 32, creatinine 3.7. Today in office GFR is , sugar is 83, calcium is 9, total bili is 0.3, AST 34, ALT 29, alk phos 93, total protein 6.8. Procalcitonin is high at 0.53. ASSESSMENT AND PLAN: She is being seen by Pulmonary, Infectious Disease, and Renal. She is doing well enough, I believe that she can be getting to [facility]. I am hoping we get that arranged with [facility] and we will get her to [facility] for SOAR and then residency and will continue the treatment there. Today is Saturday; there is nobody to talk to. We will work for Saturday for SOAR and discharge. We will check her labs tomorrow, need her out of bed to chair, need Physical Therapy to continue to do their thing. Hopefully, she will continue to improve. Cresencio Park DO [facility]
[2018-08-10] MEDS: Albuterol-Ipratrop 3 mg / 0.5 (3 ml) UD IH SCH ×4 (02:00→20:15)
[2018-08-10] MEDS: Pantoprazole 40 mg EC Tab PO SCH ×2 (05:39→15:31)
[2018-08-10 08:04] LABS: HEMOGLOBIN 9.3 g/dL (12.0-16.0); MEAN CELL VOLUME 96.7 fl (80.0-105.0); MEAN CORPUSCULAR HEMOGLOBIN 30.7 pg (25.0-35.0); MEAN CORPUSCULAR HGB CONC 31.7 g/dl (31.0-37.0); MEAN PLATELET VOLUME 9.4 fl (7.0-11.0); RBC 3.03 10^6/uL (3.5-6.1); RED CELL DISTRIBUTION WIDTH 17.4 % (11.5-14.5); WHITE BLOOD COUNT 10.4 10^3/uL (4.5-11.0)
[2018-08-10] MEDS: Budesonide 0.5 mg/2 ml Inhal Susp UD IH SCH ×2 (08:17→20:15)
[2018-08-10] MEDS: Arformoterol 15 mcg/2 ml Inh Sol IH SCH ×2 (08:17→20:15)
[2018-08-10 08:25] LABS: ALBUMIN 3.7 g/dL (3.0-4.8); CALCIUM 9.4 mg/dL (8.4-10.5)
[2018-08-10] MEDS: POLYETHYLENE GLYCOL 3350 17 GM/Dose PACKET PO SCH (10:35)
[2018-08-10] MEDS: Multivitamin Vitamin B Complex (Nephro-Vite) Tab PO SCH (10:35)
[2018-08-10] MEDS: Tetrahydrozoline Opht 0.05% Sol (15 ml) OU SCH ×4 (10:35→22:12)
--- NOTE | 2018-08-10 12:31 | PN ---
DATE: 08/10/2018 SUBJECTIVE: The patient is seen early this morning. No fevers. No chills. No headaches, no blurred vision. PHYSICAL EXAMINATION: VITAL SIGNS: Temperature is 97, blood pressure is 120/50, respiratory rate 18. HEENT: Unremarkable. NECK: Supple. LUNGS: Have decreased breath sounds. HEART: Normal S1, S2. ABDOMEN: Soft. LABORATORY EXAMINATION: Reveals a white count of 10,000, hemoglobin of 9. Chemistries are noted. BUN of 53, creatinine of 5.2 and urinalysis is noted. Serology is reviewed. Microbiology is noted. Review of orders reveals the patient is only on p.o. doxycycline. ASSESSMENT AND PLAN: A 73-year-old female who was admitted with change in mental status, had received 8 penicillin for presumptuous neurosyphilis, found to have multifocal healthcare-associated pneumonia, received 5 days of Maxipime, today is day #5 of doxycycline and doing well and her CSF workup is negative for neurosyphilis. 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 Preferably the same day, case was discussed with Dr. Cresencio Park and follow up the patient as outpatient. She will do so as by discussion with him. Rafael Villanueva MD
--- NOTE | 2018-08-10 13:33 | PN ---
DATE: 08/10/2018 SUBJECTIVE: She is doing much better. She is smiling. She is awaiting my plans to get her to subacute rehab tomorrow at [facility] with case management and outreach and education social worker. MEDICATIONS: She is on Anusol, Ativan, Brovana, Catapres, Cozaar, Doryx, DuoNebs, heparin, Klonopin, Miralax, Motrin, Nephro-Fabby, Protonix, Pulmicort, Refresh ophthalmological drops, Robitussin, Tylenol, Visine, and vitamin A and D. She will need to have pen VK 2.4 million units IM weekly for 3 weeks. I will arrange that when she gets back to [facility]. PHYSICAL EXAMINATION: VITAL SIGNS: She has 97.8 temperature, 72 pulse, 127/55 blood pressure, 18 respiratory rate, 95% O2 sat on room air. HEENT: Head is atraumatic, normocephalic. HEART: Regular rate. LUNGS: Clear to auscultation. ABDOMEN: Soft. EXTREMITIES: No edema. LABORATORY DATA: She has 10.4 white count, 9.3 hemoglobin, 29.3 hematocrit with 253 platelets. She has 137 sodium, potassium 4.2, BUN of 53, creatinine 5.2 on dialysis. GFR is 8, sugar is at 94, calcium is 9.4, total bili is 0.3, AST is 28, ALT is 26, alk phos is 112. Total protein is 7.3. ASSESSMENT AND PLAN: She had syphilis. She had urinary tract infection. She has end-stage renal disease. She also has change in mentation. She had syncope, gastrointestinal bleed, falls, and now I am hoping to get her back to [facility] for physical therapy and I saw her there and then she will stay there for her residency where she lives. I will then arrange her outpatient pen VK 2.4 million units IM weekly for 3 weeks. Continue with the same medications that she is on and hopefully we will get this arranged by tomorrow with case management. Cresencio Park DO
[2018-08-11] MEDS: Albuterol-Ipratrop 3 mg / 0.5 (3 ml) UD IH SCH ×4 (03:00→20:26)
[2018-08-11] MEDS: Pantoprazole 40 mg EC Tab PO SCH ×2 (05:44→18:24)
[2018-08-11] MEDS: Budesonide 0.5 mg/2 ml Inhal Susp UD IH SCH ×2 (07:06→20:26)
[2018-08-11] MEDS: Arformoterol 15 mcg/2 ml Inh Sol IH SCH ×2 (07:06→20:26)
[2018-08-11 07:47] LABS: HEMOGLOBIN 8.6 g/dL (12.0-16.0); MEAN CELL VOLUME 97.1 fl (80.0-105.0); MEAN CORPUSCULAR HEMOGLOBIN 30.9 pg (25.0-35.0); MEAN CORPUSCULAR HGB CONC 31.9 g/dl (31.0-37.0); MEAN PLATELET VOLUME 8.7 fl (7.0-11.0); RBC 2.78 10^6/uL (3.5-6.1); RED CELL DISTRIBUTION WIDTH 17.6 % (11.5-14.5); WHITE BLOOD COUNT 8.4 10^3/uL (4.5-11.0)
[2018-08-11 08:05] LABS: ALBUMIN 3.3 g/dL (3.0-4.8); CALCIUM 9.1 mg/dL (8.4-10.5)
--- NOTE | 2018-08-11 08:08 | PN ---
DATE: 08/11/2018 PULMONARY NOTE SUBJECTIVE: The patient appears very comfortable this morning. She is not short of breath at rest. PHYSICAL EXAMINATION: VITAL SIGNS: Temperature is 98.4, pulse 74, respirations 18, blood pressure 110/43. Oxygen saturation on room air is 100%. HEENT: Normocephalic, atraumatic. No JVD. CARDIOVASCULAR: Systolic ejection murmur at the lower left sternal border. No S3 gallop. LUNGS: Less crackles noted at the right base. No rhonchi. No wheezing. EXTREMITIES: No clubbing, cyanosis, or edema. Calves are nontender to palpation. GASTROINTESTINAL: Abdomen is soft, nontender, and nondistended. Bowel sounds are positive. SKIN: No acute rash. NEUROLOGIC: Limited at the present time. IMPRESSION: 1. Right lower lobe pneumonia. 2. Mild bronchospasm. 3. Neurosyphilis. 4. End-stage renal disease. 5. Chronic obstructive pulmonary disease. 6. Anemia. PLAN: The patient appears very comfortable this morning. She is not short of breath at rest. Her cough is gone. She does state to feeling much better overall. I did discuss the case with the night nurse at length. The night nurse stated that the patient had a very good night. There are no significant pulmonary symptoms reported. On physical exam, her bronchospasm has resolved. In addition, the oxygen saturation on room air is now 100%. I will continue the current nebulizer treatments and inhaled Pulmicort for now. The patient remains on antibiotic therapy - as per Infectious Disease. Input by Dr. Villanueva is noted. There are no temperatures noted. The temperatures have now fully resolved. In addition, there is no leukocytosis. Inputs by Renal and Internal Medicine are also noted. Clinical status of the patient is significantly improved - compared to last week. The patient is for discharge - back to her subacute facility - in the near future. I will discuss the above with Dr. Park. Cosme Kahn MD RAJ
[2018-08-11 09:24] VITALS: O2SAT 97
--- NOTE | 2018-08-11 12:21 | CP.PCM.PN ---
Subjective - Date & Time of Evaluation Date of Evaluation: 08/11/18 Time of Evaluation: 08:45 - Subjective Subjective: Afebrile, comfortable, not in distress. Objective - Vital Signs/Intake and Output Vital Signs (last 24 hours): Temp Pulse Resp BP Pulse Ox 98.4 F 74 18 110/43 L 100 08/10/18 22:00 08/11/18 07:10 08/10/18 22:00 08/10/18 22:00 08/10/18 22:00 Intake and Output: 08/11/18 08/11/18 06:59 18:59 Intake Total 540 Output Total 300 Balance 240 - Medications Medications: Current Medications Acetaminophen (Tylenol 325mg Tab) 650 mg PO Q6H PRN PRN Reason: Pain, moderate (4-7) Last Admin: 08/05/18 20:17 Dose: 650 mg Albuterol/Ipratropium (Duoneb 3 Mg/0.5 Mg (3 Ml) Ud) 3 ml IH [id number] [facility] Last Admin: 08/11/18 07:06 Dose: 3 ml Arformoterol Tartrate (Brovana) 15 mcg IH [id number] [facility] Last Admin: 08/11/18 07:06 Dose: 15 mcg Artificial Tears (Refresh Opth Soln) 0.3 ml OU Q6H PRN PRN Reason: Dry eyes Last Admin: 08/03/18 18:48 Dose: 1 drop Budesonide (Pulmicort Respules) 0.5 mg IH [id number] [facility] Last Admin: 08/11/18 07:06 Dose: 0.5 mg Clonazepam (Klonopin) 0.25 mg PO BID [facility]; Protocol Last Admin: 08/10/18 17:42 Dose: 0.25 mg Clonidine HCl (Catapres) 0.2 mg PO DAILY [facility] Last Admin: 08/10/18 10:36 Dose: 0.2 mg Doxycycline Hyclate (Doryx) 100 mg PO Q12 [facility]; Protocol Stop: 08/13/18 22:01 Last Admin: 08/10/18 21:49 Dose: 100 mg Guaifenesin (Robitussin) 100 mg PO Q4H PRN PRN Reason: Cough Last Admin: 08/02/18 19:40 Dose: 100 mg Heparin Sodium (Porcine) (Heparin) 2,000 units IVP F [facility]; Protocol Last Admin: 08/08/18 16:51 Dose: Not Given Hydrocortisone (Anusol-Hc) 25 mg RC BID [facility] Last Admin: 08/10/18 17:42 Dose: Not Given Ibuprofen (Motrin Tab) 600 mg PO TID PRN PRN Reason: Pain, moderate (4-7) Last Admin: 08/05/18 09:06 Dose: 600 mg Lorazepam (Ativan) 0.5 mg IVP Q8H PRN; Protocol PRN Reason: Anxiety Last Admin: 08/10/18 21:45 Dose: 0.5 mg Losartan Potassium (Cozaar) 50 mg PO DAILY [facility] Last Admin: 08/10/18 10:36 Dose: 50 mg Pantoprazole Sodium (Protonix Ec Tab) 40 mg PO 0600,1600 [facility] Last Admin: 08/11/18 05:44 Dose: 40 mg Polyethylene Glycol (Miralax) 17 gm PO DAILY [facility] Last Admin: 08/10/18 10:35 Dose: 17 gm Tetrahydrozoline HCl/Zinc Sulfate (Visine 0.05% Opht Soln) 0 ml OU QID [facility] Last Admin: 08/10/18 22:12 Dose: Not Given Vitamin A (Vitamin A & D Oint Ud Foilpak) 1 ea TOP BID PRN PRN Reason: Dry mouth Last Admin: 08/09/18 10:55 Dose: 1 ea Vitamin B Complex/Vit C/Folic Acid (Nephro-Fabby) 1 tab PO 0800 [facility] Last Admin: 08/10/18 10:35 Dose: 1 tab - Labs Labs: 08/11/18 07:30 08/11/18 07:30 PT 13.0 SECONDS (9.4-12.5) H 08/05/18 15:51 INR 1.14 08/05/18 15:51 APTT 27.1 Seconds (25.1-36.5) 07/30/18 02:15 - Constitutional Appears: Chronically Ill - Head Exam Head Exam: NORMAL INSPECTION - Respiratory Exam Respiratory Exam: Decreased Breath Sounds - Cardiovascular Exam Cardiovascular Exam: +S1, +S2 - GI/Abdominal Exam GI & Abdominal Exam: Soft. absent: Tenderness Assessment and Plan - Assessment and Plan (Free Text) Plan: Assessment multifocal HCAP, clinically improving late latent syphilis ESRD on HD chronic CHF CVA bipolar disorder seizure disorder COPD chronic anemia Plan continue Doxycycline day 6 to complete 7 days of therapy for the HCAP recommend 3 doses of Benzathine Pen G 2.4 million units IM qweekly x 3 weeks to treat latent syphilis (patient has been desensitized to PCN on this admission and has tolerated Penicillin since then well)
--- NOTE | 2018-08-11 12:48 | DS ---
HISTORY OF PRESENT ILLNESS: She was here for syphilis and infection and she is doing much better. I am hoping that she to [facility] as recommended by Physical Therapy at [facility] where she lives permanently. MEDICATIONS: She is on Anusol, Ativan, Brovana, Catapres, Cozaar, Doryx, DuoNebs, heparin, Klonopin, MiraLax, Motrin which is on hold, Nephro-Fabby, Protonix, Pulmicort, Refresh, Robitussin, Tylenol, Visine, vitamin A and D. PHYSICAL EXAMINATION: VITAL SIGNS: She has a 98.4 temperature, 69 pulse, 110/60 blood pressure, 18 respiratory rate, 100 percent O2 sat on room air. HEENT: Head is atraumatic, normocephalic. HEART: Regular rate. LUNGS: Clear to auscultation. ABDOMEN: Soft. EXTREMITIES: No edema. She is getting dialysis today. I am hoping after dialysis, we could send her back to [facility] for physical therapy [facility] before she becomes a permanent resident there. LABORATORY DATA: She has 8.4 white count, 8.6 hemoglobin, 27 hematocrit with 219,000 platelets. She has 136 sodium, potassium 4.3, BUN 62, creatinine 6 on dialysis, GFR is 7, sugar is 90, calcium is 9.1. Total bili is 0.3. AST is 32, ALT is 23, alk phos 93, total protein is 6.8. ASSESSMENT AND PLAN: She had multiple issues while she was here. I am hoping to discharge her to [facility]. She has change of mentation, fall, significant gastrointestinal bleed, urinary tract infection and syphilis. Cresencio Park DO RAJ
--- NOTE | 2018-08-11 14:01 | CP.PCM.PN ---
Subjective - Date & Time of Evaluation Date of Evaluation: 08/11/18 Time of Evaluation: 14:01 - Subjective Subjective: Nephrology Consultation Note: Assessment: stable AMS, Fall, pneumonia : being treated for latent syphilis Hypertensive Chronic Kidney Disease (I12.0) End stage renal disease (N18.6) dependence on hemodialysis (Z99.2) (MWF) via AVF Anemia (D64.9), Hyperphosphatemia (E83.39), Secondary Hyperparathyroidism (E21.1), HTN (I12.0) COPD, CHF, CVA, seizures, PVD, bipolar disorder, depression, and right breast lumpectomy (2012) Plan: Will plan for HD MWF schedule as ordered. Continue with Nephrovite 1 tab/day. PRBC as needed for anemia. added MAIA with dialysis as last Hb 8.6 (60 mcg on 08/08/18) Continue with phos binders BP control with meds as ordered. Patient not on RAAS eugenia hence added losartan Glycemic control, Dialysis consistent diet Further work up/management as per primary team Dose meds/antibiotics (if needed) for ESRD status. Avoid fleets enema/magnesium based laxatives. Neuro, gi, id following. MRI brain neg. Thanks for allowing me to participate in care of your patient. Will follow pat ient with you. Please call if any Qs. had d/w team Dr Willis Clark Office: [phone] Chief Complaint; none HPI: Pt is a with hx of ESRD on hemodialysis (MWF) via AVF , last dialysis mon, chronic anemia, hyperphosphatemia, secondary hyperparathyroidism, hypertension anemia, COPD, CHF, CVA, seizures, PVD, bipolar disorder, depression, and right b reast lumpectomy presented with complaints of fall and ? syncope from [place]. Renal consult requested for ESRD management. pt on HD at [facility] with Dr Booth ROS: pt feels better. denies CP/SOB. s/p PRBC 08/05/18 as anemic Physical Examination: General Appearance: Comfortable, in no acute respiratory distress. Vitals reviewed and noted as below Head; Atraumatic, normocephalic ENT: no ulcers no thrush. Tongue is midline. Oropharynx: no rash or ulcers. EYES: Pupils are equal, round and reactive to light accommodation. Eye muscles and extraocular movement intact. Sclera is anicteric. Neck; supple no lymphadenopathy, no thyromegaly or bruit Lungs: Normal respiratory rate/effort. Breath sounds bilateral equal and clear. has Rt side boby-cath Heart: Normal rate. s1s2 normal. No rub or gallop. Extremities: no edema. No varicose veins Neurological: Patient is awake alert now follow commands Skin: Warm and dry. Normal turgor. No rash. Palpitation: Normal elasticity for age Abdomen: Abdomen is soft. Bowel sounds +. There is no abdominal tenderness, no guarding/rigidity or organomegaly Psych: normal insight and mood/affect MSK: no joint tenderness or swelling. Digits and nails normal, no deformity : kidney or bladder not palpable Access: AVF Labs/imaging reviewed. Past medical history, past surgical history, family history, social history, allergy reviewed and noted as below Family Hx: no hx of CKD. Non contributory Objective - Vital Signs/Intake and Output Vital Signs (last 24 hours): Temp Pulse Resp BP Pulse Ox 98.2 F 74 20 130/53 L 97 08/11/18 06:00 08/11/18 07:10 08/11/18 06:00 08/11/18 06:00 08/11/18 06:00 Intake and Output: 08/11/18 08/11/18 06:59 18:59 Intake Total 540 Output Total 300 Balance 240 - Medications Medications: Current Medications Acetaminophen (Tylenol 325mg Tab) 650 mg PO Q6H PRN PRN Reason: Pain, moderate (4-7) Last Admin: 08/05/18 20:17 Dose: 650 mg Albuterol/Ipratropium (Duoneb 3 Mg/0.5 Mg (3 Ml) Ud) 3 ml IH [id number] [facility] Last Admin: 08/11/18 13:39 Dose: 3 ml Arformoterol Tartrate (Brovana) 15 mcg IH [id number] [facility] Last Admin: 08/11/18 07:06 Dose: 15 mcg Artificial Tears (Refresh Opth Soln) 0.3 ml OU Q6H PRN PRN Reason: Dry eyes Last Admin: 08/03/18 18:48 Dose: 1 drop Budesonide (Pulmicort Respules) 0.5 mg IH [id number] [facility] Last Admin: 08/11/18 07:06 Dose: 0.5 mg Clonazepam (Klonopin) 0.25 mg PO BID [facility]; Protocol Last Admin: 08/10/18 17:42 Dose: 0.25 mg Clonidine HCl (Catapres) 0.2 mg PO DAILY [facility] Last Admin: 08/10/18 10:36 Dose: 0.2 mg Doxycycline Hyclate (Doryx) 100 mg PO Q12 [facility]; Protocol Stop: 08/13/18 22:01 Last Admin: 08/10/18 21:49 Dose: 100 mg Guaifenesin (Robitussin) 100 mg PO Q4H PRN PRN Reason: Cough Last Admin: 08/02/18 19:40 Dose: 100 mg Heparin Sodium (Porcine) (Heparin) 2,000 units IVP [facility]; Protocol Last Admin: 08/08/18 16:51 Dose: Not Given Hydrocortisone (Anusol-Hc) 25 mg RC BID [facility] Last Admin: 08/10/18 17:42 Dose: Not Given Ibuprofen (Motrin Tab) 600 mg PO TID PRN PRN Reason: Pain, moderate (4-7) Last Admin: 08/05/18 09:06 Dose: 600 mg Lorazepam (Ativan) 0.5 mg IVP Q8H PRN; Protocol PRN Reason: Anxiety Last Admin: 08/10/18 21:45 Dose: 0.5 mg Losartan Potassium (Cozaar) 50 mg PO DAILY [facility] Last Admin: 08/10/18 10:36 Dose: 50 mg Pantoprazole Sodium (Protonix Ec Tab) 40 mg PO 0600,1600 [facility] Last Admin: 08/11/18 05:44 Dose: 40 mg Polyethylene Glycol (Miralax) 17 gm PO DAILY [facility] Last Admin: 08/10/18 10:35 Dose: 17 gm Tetrahydrozoline HCl/Zinc Sulfate (Visine 0.05% Opht Soln) 0 ml OU QID [facility] Last Admin: 08/10/18 22:12 Dose: Not Given Vitamin A (Vitamin A & D Oint Ud Foilpak) 1 ea TOP BID PRN PRN Reason: Dry mouth Last Admin: 08/09/18 10:55 Dose: 1 ea Vitamin B Complex/Vit C/Folic Acid (Nephro-Fabby) 1 tab PO 0800 [facility] Last Admin: 08/10/18 10:35 Dose: 1 tab - Labs Labs: 08/11/18 07:30 08/11/18 07:30 PT 13.0 SECONDS (9.4-12.5) H 08/05/18 15:51 INR 1.14 08/05/18 15:51 APTT 27.1 Seconds (25.1-36.5) 07/30/18 02:15
[2018-08-11] MEDS: Multivitamin Vitamin B Complex (Nephro-Vite) Tab PO SCH (14:42)
[2018-08-11] MEDS: Tetrahydrozoline Opht 0.05% Sol (15 ml) OU SCH ×3 (14:43→18:25)
[2018-08-11] MEDS: POLYETHYLENE GLYCOL 3350 17 GM/Dose PACKET PO SCH (14:43)
[2018-08-11 14:55] VITALS: BP 147/59; PULSE 80
[2018-08-11 15:14] VITALS: RESP 18; TEMP 97.6
== END 2018-08-11 21:33 | DRG 867 ==
LOC: ED 00:47 → ERH 06:04 → 3RSO 09:46 → OBSVTOIN 07-31 09:22 → ICU 08-01 16:45 → 5RNO 08-04 15:32
PROVIDERS: ADMIT Family Medicine; ATTEND Family Medicine
PROC: 009U3ZX Drainage of Spinal Canal, Percutaneous Approach, Diagnostic (ICD-10-PCS; principal; 2018-08-01)
PROC: 05H533Z Insertion of Infusion Device into Right Subclavian Vein, Percutaneous Approach (ICD-10-PCS; 2018-08-01)
PROC: 5A1D70Z Performance of Urinary Filtration, Intermittent, Less than 6 Hours Per Day (ICD-10-PCS; 2018-08-01)
PROC: 5A1D70Z Performance of Urinary Filtration, Intermittent, Less than 6 Hours Per Day (ICD-10-PCS; 2018-08-04)
PROC: 30233N1 Transfusion of Nonautologous Red Blood Cells into Peripheral Vein, Percutaneous Approach (ICD-10-PCS; 2018-08-05)
PROC: 5A1D70Z Performance of Urinary Filtration, Intermittent, Less than 6 Hours Per Day (ICD-10-PCS; 2018-08-06)
PROC: 5A1D70Z Performance of Urinary Filtration, Intermittent, Less than 6 Hours Per Day (ICD-10-PCS; 2018-08-08)
PROC: 5A1D70Z Performance of Urinary Filtration, Intermittent, Less than 6 Hours Per Day (ICD-10-PCS; 2018-08-11)
DX: A52.8 Late syphilis, latent (principal); J18.1 Lobar pneumonia, unspecified organism; N18.6 End stage renal disease; I13.2 Hypertensive heart and chronic kidney disease with heart failure and with stage 5 chronic kidney disease, or end stage renal disease; N25.81 Secondary hyperparathyroidism of renal origin; I50.32 Chronic diastolic (congestive) heart failure; J44.0 Chronic obstructive pulmonary disease with (acute) lower respiratory infection; N39.0 Urinary tract infection, site not specified; E11.51 Type 2 diabetes mellitus with diabetic peripheral angiopathy without gangrene; Z99.2 Dependence on renal dialysis; E11.22 Type 2 diabetes mellitus with diabetic chronic kidney disease; D64.9 Anemia, unspecified; F31.9 Bipolar disorder, unspecified; R51 Headache; E83.39 Other disorders of phosphorus metabolism; G40.909 Epilepsy, unspecified, not intractable, without status epilepticus; Y95 Nosocomial condition; Z86.73 Personal history of transient ischemic attack (TIA), and cerebral infarction without residual deficits; I25.2 Old myocardial infarction; Z85.3 Personal history of malignant neoplasm of breast; Z96.653 Presence of artificial knee joint, bilateral; Z91.81 History of falling; Z96.643 Presence of artificial hip joint, bilateral; Z88.0 Allergy status to penicillin; Z87.891 Personal history of nicotine dependence

== ENCOUNTER 2018-09-17 12:49 | Emergency (ER) | payer MEDICARE, MEDICAID ==
[2018-09-17] MEDS ORDERED: Morphine 4 mg/ml ISec IVP ONE (13:45)
[2018-09-17 15:55] LABS: HEMOGLOBIN 11.7 g/dL (12.0-16.0); MEAN CELL VOLUME 107.5 fl (80.0-105.0); MEAN CORPUSCULAR HEMOGLOBIN 33.7 pg (25.0-35.0); MEAN CORPUSCULAR HGB CONC 31.4 g/dl (31.0-37.0); MEAN PLATELET VOLUME 9.4 fl (7.0-11.0); RBC 3.47 10^6/uL (3.5-6.1); RED CELL DISTRIBUTION WIDTH 18.6 % (11.5-14.5); WHITE BLOOD COUNT 7.2 10^3/uL (4.5-11.0)
[2018-09-17 15:59] LABS: ALB/GLOB RATIO 1.1 (1.1-1.8); ALBUMIN 3.8 g/dL (3.0-4.8); ALT/SGPT 14 U/L (7-56); AST/SGOT 22 U/L (14-36); BLOOD UREA NITROGEN 57 mg/dL (7-21); CALCIUM 8.6 mg/dL (8.4-10.5); GFR NON-AFRICAN AMERICAN 7; TROPONIN I < 0.01 ng/mL
--- NOTE | 2018-09-17 16:22 | RAD ---
Date of service: 09/17/2018 HISTORY: CHEST PAIN COMPARISON: 07/30/2018. TECHNIQUE: Chest PA and lateral FINDINGS: LUNGS: No active pulmonary disease. Chronic interstitial changes. PLEURA: No significant pleural effusion identified. No pneumothorax apparent. CARDIOVASCULAR: Atherosclerotic calcifications identified primarily aortic arch. Venous access catheter in stable, satisfactory position. Normal cardiac size. No pulmonary vascular congestion. OSSEOUS STRUCTURES: No significant abnormalities. Stable degenerative changes both shoulders. VISUALIZED UPPER ABDOMEN: Normal. OTHER FINDINGS: Stable vascular stent left axilla IMPRESSION: No active disease. No significant interval change compared to the prior examination(s).
--- NOTE | 2018-09-17 17:40 | CARD ---
APPROVED REPORT Date of service: 09/17/2018 EKG Measurement Heart [id number] <Conclusion> Sinus bradycardia Otherwise normal ECG
== END 2018-09-18 09:20 | disposition home or self-care (01) ==
LOC: ED 12:49
DX: R07.89 Other chest pain (principal); I12.0 Hypertensive chronic kidney disease with stage 5 chronic kidney disease or end stage renal disease; N18.6 End stage renal disease; Z99.2 Dependence on renal dialysis; Z86.73 Personal history of transient ischemic attack (TIA), and cerebral infarction without residual deficits